=== PATIENT | female | born 1940 | race Caucasian/White ===

== ENCOUNTER 2025-01-19 21:47 | Inpatient (IN) | payer MEDICARE, SELFPAY ==
--- OUTSIDE RECORDS SUMMARY | 2025-01-14 09:34 | XMS_ITS | Encounter Summary ---
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 Procedures IR KYPHOPLASTY LUMBAR Eliazar Jones MD [address] [place] [address] Phone: tel: fax: Referral ID Status Reason Start Date Expiration Date V isits Requested Visits Authorized [id number] Pending Review 12/25/2024 12/25/2025 1 1 Reason for Visit * Imaging (Routine) - Pending Review Specialty Diagnoses / Procedures Referred By Contac t Referred To Contact Radiology Diagnoses Closed compression fracture of L1 lumbar vertebra, initial encounter 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 Procedures IR KYPHOPLASTY LUMBAR Eliazar Jones MD [address] [place] [address] Phone: tel: fax:[phone] Referral ID Status Reason Start Date Expiration Date V isits Requested Visits Authorized [id number] Pending Review 12/25/2024 12/25/2025 1 1 Encounter Details Date Type Department Care Team (Latest Contact Info) Description 01/14/2025 9:34 AM EST - 01/14/2025 11:59 PM EST Hospital Encounter [facility] Interventional Radiology [address] [place] [id number] History of coronary artery bypass graft (Primary Dx); Closed compression fracture of L1 lumbar vertebra, initial encounter; 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 No 07/27 In the past 12 months, has l ack of transportation kept you from meetings, work, or from getting things needed for daily living? No 08/13/2023 Housing Stability Vital Sign Answer Vikram e Recorded Unable to Pay for Housing in the Last Year Not o n file 08/13/2023 Number of Places Lived in the Last Year Not on f ile 08/13/2023 In the last 12 months, was t here a time when you did not have a steady place to sleep or slept in a longterm (including now)? No 08/13/2023 Overall Financial Resource Strain (CARDIA) Answe r Date Recorded How hard is it for you to pa y for the very basics like food, housing, medical care, and heating? Somewhat hard 01/15/2025 Hunger Vital Sign Answer Date Recorded Within the past 12 months, y ou worried that your food would run out before you got the money to buy more. Sometimes true Ran Out of Food in the Last Year Not on file 01/15/2025 PRAPARE - Transportation Answer Date Re corded In the past 12 months, has l ack of transportation kept you from medical appointments or from getting medications? No 12/28 In the past 12 months, has l ack of transportation kept you from meetings, work, or from getting things needed for daily living? No 01/15/2025 Housing Stability Vital Sign Answer Vikram e Recorded Unable to Pay for Housing in the Last Year Not o n file 01/15/2025 Number of Times Moved in the Last Year Not on fi le 01/15/2025 At any time in the [facility], were you homeless or living in a longterm (including now)? No 01/15/2025 Utilities Answer Date Recorded In the past 12 months has th e electric, gas, oil, or water company threatened to shut off services in your home? No 01/15/2025 Comments No Sex and Gender Information Value Date Recorded Sex Assigned at Female 09/05/2024 10:17 AM EDT Legal Sex Female 10:04 PM EST Gender Identity Female 09/05/2024 10:17 AM EDT Sexual Orientation Straight 09/05/2024 10 :17 AM EDT documented as of this encounter Last Filed Vital Signs Vital Sign Reading Time Taken Comments Blood Pressure 142/68 01/14/2025 1:06 PM EST Pulse 79 01/14/2025 1:06 PM EST Temperature 36.4 C (97.5 F) 01/14/2025 10:05 AM EST Respiratory Rate 19 01/14/2025 1:06 PM EST Oxygen Saturation 99% 01/14/2025 1:06 PM EST Inhaled Oxygen Concentration - - Weight 75.3 kg (166 lb) 01/14/2025 10:05 AM EST Height 167.6 cm (5' 6 ) 01/14/2025 10:05 AM EST Body Mass Index 26.79 01/14/2025 10:05 AM EST documented in this encounter Functional Status * IBW (kg) (Calculated) Answer Date of Assessment Author 59.3 01/14/2025 10:05 AM EST Sherin Meier, RN * Are you deaf or do you have serious difficulty hearing? Answer Date of Assessment Author No 12/17/2024 9:43 AM EDT Ivonne Greene * Are you blind or do you have serious difficulty seeing, even when wearing glasses? Answer Date of Assessment Author No 12/17/2024 9:43 AM Ivonne Bermudez * Do you have serious difficulty walking or climbing stairs? Answer Date of Assessment Author No 12/17/2024 9:43 AM Ivonne Bermudez * Do you have serious difficulty dressing or bathing? Answer Date of Assessment Author No 12/17/2024 9:43 AM Ivonne Bermudez * Because of a physical, mental, or emotional condition, do you have difficulty doing errands such asvisiting the doctor's office or shopping? Answer Date of Assessment Author No 12/17/2024 9:43 AM Ivonne Bermudez documented as of this encounter Mental Status * Because of a physical, mental, or emotional condition, do you have serious difficulty concentrating, remembering, or making decisions? Answer Entry Date Author No 12/17/2024 9:43 AM Ivonne Bermudez documented in this encounter Discharge Instructions * Discharge Instructions* Alta Kim RN - 01/14/2025 11:58 AM EST Post Kyphoplasty Discharge Instructions Rest for the remainder of the day with limited activity for the next 24 hours. Do not drink alcohol, make important personal or business decisions, or sign important documents for the next 1-[address], operate machinery or power tools for the next 1-2 days. After 24 hours, walking is encouraged. You may notice new back and hip discomfort due to an increased ability to move. Gradually increase your level of activity over the next few days. Do not lift anything heavier than a gallon of milk for 1 month. No heavy lifting for 3 months, then gradually increase your lifting to normal. This procedure was done through a small skin incision in your back. There are no stitches. The puncture Sites are covered with Band-aids. These can be removed when the incision heals. You may bathe or shower, but gently clean the area with soap and water. Replace the Band-aids following bathing until incisions heal. Observe the puncture site for infection (redness, swelling, drainage, warmth). You should have a follow up appointment scheduled with the radiologist who performed the Kyphoplasty in 10-14 days. Please call to schedule an appointment if you do not already have a scheduled appointment. Please call the numbers listed below if you have additional questions: Interventional Radiology department Sunday-Sunday 7am-5pm Radiologist (24 hour coverage): . Choose option 6 to speak to a cat scan technologist who will take your information and contact the interventional radiologist receptionist doctor's office. documented in this encounter Medications at Time of Discharge aspirin 81 mg EC tablet Take 81 mg by mouth in the morning. 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 90 tablet 3 11/14/2024 calcitonin, salmon, (Miacalcin) 200 unit/actuation nasal sprayIndications: Closed compression fracture of L1 lumbar vertebra, initial encounter,Age-rel ated osteoporosis with current pathological fracture of vertebra, initial encounter Administer 1 spray (200 Units) into one nostril once daily. 3.7 mL 12 12/16/2024 calcium carbonate-vitamin D3 (Caltrate with Vitamin D3) 600 mg-20 mcg (800 unit) tablet Take 1 tablet by mouth once daily. 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 Do not crush or chew. 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 90 tablet 3 11/06/2024 multivitamin tablet Take 1 tablet by mouth in the morning. vibegron (Gemtesa) 75 mg tablet tabletIndications :Overactive bladder,Urge incontinence of urine Take 1 tablet (75 mg) by mouth once daily. 90 tablet 3 12/02/2024 acetaminophen (Tylenol) 500 mg tablet Take 500 mg by mouth every 6 (six) hours if needed for pain score 1-3 (mild). acetaminophen (Tylenol) 500 mg/15 mL solution Take by mouth every 4 (four) hours if needed for pain score 1-3. 5 budesonide-formot Dot (Symbicort) 160-4.5 mcg/actuation inhalerIndication s:Chronic cough Inhale 2 puffs in the morning and at bedtime. Rinse mouth with water after use to reduce aftertaste and incidence of candidiasis. Do not swallow. 10.2 g 2 01/26/2023 amy-E7-[id number]-zinc -ehv-qkxk-cjp 600 mg calcium- 800 unit-50 mg tablet Take 1 tablet by mouth in the morning. 5 cholecalciferol, vitamin D3, (D3-2000) 50 mcg (2,000 unit) capsuleIndication s:Acute low back pain, unspecified back pain laterality, unspecified whether sciatica present,Degenerat dyllan spondylolisthesis ,Closed compression fracture of L1 lumbar vertebra, initial encounter,Closed compression fracture of L2 lumbar vertebra, sequela,Age-relat ed osteoporosis with current pathological fracture of vertebra, initial encounter,Congeni ollie stenosis of cervical spine Take 1 capsule (50 mcg) by mouth in the morning. 180 capsule 1 12/16/2024 magnesium oxide 500 mg magnesium tabletIndications :Acute low back pain, unspecified back pain laterality, unspecified whether sciatica present,Degenerat dyllan spondylolisthesis ,Closed compression fracture of L1 lumbar vertebra, initial encounter,Closed compression fracture of L2 lumbar vertebra, sequela,Age-relat ed osteoporosis with current pathological fracture of vertebra, initial encounter,Congeni ollie stenosis of cervical spine Take 1 tablet (500 mg) by mouth in the evening and 1 tablet (500 mg) before bedtime. May take additionally in morning if not causing diarrhea/abdomina l discomfort. 180 tablet 2 12/16/2024 5 methocarbamol (Robaxin) 750 mg tabletIndications :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, initial encounter,Closed compression fracture of L1 lumbar vertebra, initial encounter,Closed compression fracture of L2 lumbar vertebra, sequela,Congenita l stenosis of cervical spine,Degenerativ e spondylolisthesis ,Acute low back pain, unspecified back pain laterality, unspecified whether sciatica present Take 1 tablet (750 mg) by mouth four times daily. 40 tablet 01/02/2025 oxyCODONE (Roxicodone) 5 mg immediate release tablet Take by mouth. 01/02/2025 5 sennosides-docusa te sodium (Audrey-Colace) 8.6-50 mg tabletIndications :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, initial encounter,Closed compression fracture of L1 lumbar vertebra, initial encounter,Closed compression fracture of L2 lumbar vertebra, sequela,Congenita l stenosis of cervical spine,Degenerativ e spondylolisthesis ,Acute low back pain, unspecified back pain laterality, unspecified whether sciatica present Take 1 tablet by mouth once daily. Well needing oxycodone 90 tablet 12/26/2024 vitamin K2 100 mcg capsuleIndication s:Acute low back pain, unspecified back pain laterality, unspecified whether sciatica present,Degenerat dyllan spondylolisthesis ,Closed compression fracture of L1 lumbar vertebra, initial encounter,Closed compression fracture of L2 lumbar vertebra, sequela,Age-relat ed osteoporosis with current pathological fracture of vertebra, initial encounter,Congeni ollie stenosis of cervical spine Take 1 capsule by mouth in the morning. 180 capsule 1 12/16/2024 5 documented as of this encounter Nursing Notes * Abdiaziz Suarez RN - 01/14/2025 11:30 AM EST Pt here for kyphoplasty. Pre-procedure checks and consent done prior to procedure. Tolerated procedure well, w/ expected pain after procedure. Recovered from anesthesia post, w/ ambulation and PO intake intact. Discharge teaching provided and sent home w/ family. documented in this encounter Plan of Treatment Upcoming Encounters Date Type Department Care Team (Late st Contact Info) Description 02/13/2025 4:15 PM EST Office Visit [facility] [address] [place] [address], [address] [place] [address] Dez Gama MD [address] [place] [address] 09/01/2025 9:00 AM EDT Appointment [facility] Imaging [address] [facility] [address] [place] [address] 11/11/2025 10:30 AM EDT Office Visit [facility] Obstetrics & Gynecology [place] [address] [facility] [address] [place] [address] Pita Medina MD [address] [facility] [address] [place] [address] 11/23/2025 9:00 AM EDT Appointment [facility] Imaging [address] [facility] [address] [place] [id number] 12/03/2025 8:15 AM EDT Office Visit [facility] Endocrinology [address] [place] [address] Evens Santiago MD [facility] [place] [address] 01/13/2026 9:00 AM EST Appointment [facility] Imaging [address] [place] [address] 01/13/2026 10:45 AM EST Office Visit [facility] Neuro[facility] [address] [facility] [address] [place] [address] Jame Jorge MD [address] [place] [id number] Pending Results Name Type Priority Associated Diagnoses Date /Time IR KYPHOPLASTY LUMBAR Imaging Routine Closed compression fracture of L1 lumbar vertebra, initial encounter 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 01/14/2025 12:10 PM EST Scheduled Orders Name Type Priority Associated Diagnoses Orde r Schedule IR KYPHOPLASTY LUMBAR Imaging Routine Closed compression fracture of L1 lumbar vertebra, initial encounter 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 Once for 1 Occurrences starting 01/14/2025 until 01/14/2025 documented as of this encounter Goals Goal Patient Goal Type Associated Problems Recent Progress Patient-Stated? Author Autogenerat ed Goal Care Plan Autogenerated Problem No Eliazar Jones MD documented as of this encounter Procedures Procedure Name Priority Date/Time Associated Diagnosis Comments OXYGEN THERAPY Routine 01/14/2025 12:08 PM EST documented in this encounter Visit Diagnoses Diagnosis History of coronary artery bypass graft- Primary Postsurgical aortocoronary bypass status Closed compression fracture of L1 lumbar vertebra, initial encounter 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 Severe low back pain Lumbago Stented coronary artery Postsurgical percutaneous transluminal coronary angioplasty status documented in this encounter Administered Medications Inactive Administered Medications - up to 3 most recent administrations Medication Order MAR Action Action Date Dose Rate Site HYDROmorphone (Dilaudid) injection 0.2 mg 0.2 mg, intravenous, Every 5 min PRN, pain score 7-10 (severe), Starting on Sun01/14/25 at 1301, For 10 doses, Recovery (only), Confirm route. If ordered IV push, must be given slowly over 2 to 3 minutes (rapid IVP has been associated with an increase in side effects). No dilution is necessary prior to administration. Given 01/14/2025 1:18 PM EST 0.2 mg Given 01/14/2025 1:06 PM EST 0.2 mg iohexol (OMNIPaque) 300 mg iodine/mL solution 50 mL 50 mL, balloon, Once in imaging, Starting on Sun01/14/25 at 1212, For 1 dose Given 01/14/2025 12:12 PM EST 20 mL lidocaine-epinephrine (Xylocaine W/EPI) 1 %-1:100,000 injection infiltration, As needed, Starting on Sun01/14/25 at 1154, Intraprocedure Given 01/14/2025 11:54 AM EST 10 mL oxyCODONE (Roxicodone) immediate release tablet 5 mg 5 mg, oral, Once as needed, pain score 4-6 (moderate), Starting on Sun01/14/25 at 1301, For 2 days, Recovery (only) Given 01/14/2025 1:00 PM EST 5 mg documented in this encounter Additional Health Concerns Active Problems Noted Date Diagnosed Date Autogenerated Problem 01/06/2025 documented as of this encounter Care Teams [employer] Faculty Member Relationship Specialty Start Date End Date Dez Gama MD PCP - General 04/01/21 Dez Gama MD 04/01/21 Dez Gama MD 04/01/21 Eddie Modi MD [address] [place] [address]. [address] [place] [address] Consulting Physician Orthopaedic Surgery 07/24/24 Eliazar Jones MD [address] [facility] [address] [place] [address] Consulting Physician Orthopaedic Surgery 12/16/24 documented as of this encounter
--- OUTSIDE RECORDS SUMMARY | 2025-01-14 11:37 | XMS_ITS | Encounter Summary ---
Author Organization [facility] Address [address] [facility] [address] [place] [address] Care Team Providers Care Implementation Lead Name Role Phone Dez Gama MD Primary Care Provider [phone] Dez Gama MD Unavailable Dez Gama MD Unavailable Eddie Modi MD Unavailable [phone] Eliazar Jones MD Unavailable [phone] Encounter Details Date Type Department Care Team (Late st Contact Info) Description 01/14/2025 11:37 AM EST Anesthesia Event [facility] Interventional Radiology [address] [place], [place] [phone] Zulema García MD [address] [place], [place] [phone] Maciej Zamorano CRNA [address] [address] Anesthesia Record Procedure Summary Procedure Name Responsible Anesthesiologist Anesthesia Start Time Anesthesia Stop Time IR KYPHOPLASTY LUMBAR Zulema García MD 01/14/25 1137 01/14/25 1241 Events Date Time Event Comment 01/14/2025 1129 1137 An Start The patient was re-evaluated prior to the induction of anesthesia and the anesthetic plan was determined to be suitable for the patient's condition and procedure. The first vital signs recorded are pre-induction. 1137 An Start Data 1142 Anesthesia Ready 1236 an stop data 1241 Handoff to Receiving I compl eted my handoff to the receiving clinician during which we: 1. Identified the patient 2. Identified the responsible provider 3. Reviewed the pertinent medical history 4. Discussed the surgical course 5. Reviewed intra-op anesthesia management and issues during anesthesia 6. Set expectations for post-procedure period 7. Allowed opportunity for questions and acknowledgement of understanding. 1241 An Stop Meds Name Total fentaNYL (Sublimaze) injection 50 mcg/mL vial 100 mcg propofol (Diprivan) injection 10 mg/mL 2 74.53 mg dexMEDEtomidine (Precedex) injection 4 m cg/mL in NS 20 mcg ceFAZolin (Ancef) vial 2 g 2 g acetaminophen (Ofirmev) injection 1,000 mg phenylephrine 100 mcg/mL syringe 10 mL ( prefilled syringe) 250 mcg ondansetron (Zofran) 2 mg/mL injection 4 mg sodium chloride 0.9 % infusion 250 mL * Agents No agents on file. * Blood No blood administrations on file. Lines, Drains, and Airways Type Details Placement Removal Peripheral IV Placement Date: 12/27 11/20; Placement Time: 1115; Catheter Size: 20 G; Orientation: Left, Posterior; Location: Hand; Technique: Anatomical landmarks; Inserted by: Dr Valero 01/14/25 1115 by Alat Kim RN Wound 01/14/25; 1245; Spin e- lumbar; Left 01/14/25 1245 by Alta Kim RN Wound 01/14/25; 1245; Spin e- lumbar; Right 01/14/25 1245 by lAta Kim RN documented in this encounter Social History Tobacco Use Types Packs/Day Years [...] place to sleep or slept in a halfway (including now)? No 08/13/2023 AUDIT-C Answer Date Recorded Q1: How often do you have a drink containing alcohol? Never 01/16/2025 Q2: How many drinks containi ng alcohol do you have on a typical day when you are drinking? Patient does not drink Q3: How often do you have si x or more drinks on one occasion? Never 01/16/2025 Overall Financial Resource Strain (CARDIA) Answe r [...] any time in the past 12 m [facility], were you homeless or living in a halfway (including now)? No 01/15/2025 Utilities Answer Date [...] AM EDT documented as of this encounter Functional Status * IBW (kg) (Calculated) Answer Date of Assessment Author 59.3 01/14/2025 10:05 AM Sherin Kohler, RN * Are you deaf or do you have serious difficulty hearing? Answer Date of Assessment Author No 12/17/2024 9:43 AM EDT Ivonne Greene * Are you blind or do you have serious difficulty seeing, even when wearing glasses? Answer Date of Assessment Author No 12/17/2024 9:43 AM EDT Ivonne Greene * Do you have serious difficulty walking or climbing stairs? Answer Date of Assessment Author No 12/17/2024 9:43 AM EDT Ivonne Greene * Do you have serious difficulty dressing or bathing? Answer Date of Assessment Author No 12/17/2024 9:43 AM EDT Ivonne Greene * Because of a physical, mental, or emotional condition, do you have difficulty doing errands such asvisiting the doctor's office or shopping? Answer Date of Assessment Author No 12/17/2024 9:43 AM EDT Ivonne Greene documented as of this encounter Mental Status * Because of a physical, mental, or emotional condition, do you have serious difficulty concentrating, remembering, or making decisions? 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 Anesthesia Post Evaluation Note: Patient location during evaluation: PACU Patient participation: able to participate Level of consciousness: arousable Cardiovascular and Hydration status: stable Respiratory Status Stable and Airway Patent: yes Nausea and Vomiting Control Satisfactory: yes Pain management: adequate Vitals reviewed: yes Unplanned ICU Admission: no There were no known notable events for this encounter. 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 (+) Dyspnea on exertion (+) History of coronary artery bypass graft (+) Hypertension (+) Myocardial infarction involving left anterior descending (LAD) coronary artery (+) Pure hypercholesterolemia (+) Stented coronary artery Pulmonary (+) Chronic cough GI (+) Hiatal hernia /Renal (+) Chronic renal insufficiency Neuro/Psych (+) Anxiety (+) Depression Musculoskeletal (+) 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 (+) Closed compression fracture of L1 lumbar vertebra, initial encounter (+) Closed compression fracture of L2 lumbar vertebra, sequela Other (+) Mononeuropathy, unspecified Medical History[1] Surgical History[2] Social History[3] MEDS Current Outpatient Medications Medication Instructions acetaminophen (Tylenol) 500 mg/15 mL solution Every 4 hours PRN acetaminophen (TYLENOL) 500 mg, Every 6 hours PRN aspirin 81 mg, Daily atorvastatin (LIPITOR) 80 mg, oral, Daily budesonide-formoteroL (Symbicort) 160-4.5 mcg/actuation inhaler 2 puffs, inhalation, 2 times daily RT, Rinse mouth with water after use to reduce aftertaste and incidence of candidiasis. Do not swallow. [id number] 600 mg calcium- 800 unit-50 mg tablet 1 tablet, Daily RT calcitonin (salmon) (MIACALCIN) 200 Units, One Nostril, Daily calcium carbonate-vitamin D3 (Caltrate with Vitamin D3) 600 mg-20 mcg (800 unit) tablet 1 tablet, Daily cholecalciferol (vitamin D3) (D3-2000) 50 mcg, oral, Every morning Gemtesa 75 mg, oral, Daily isosorbide mononitrate ER (IMDUR) 60 mg, oral, Daily, Do not crush or chew. magnesium oxide 500 mg, oral, 2 times daily, May take additionally in morning if not causing diarrhea/abdominal discomfort methocarbamol (ROBAXIN) 750 mg, oral, 4 times daily metoprolol succinate XL (TOPROL-XL) 50 mg, oral, Daily multivitamin tablet 1 tablet, Daily oxyCODONE (Roxicodone) 5 mg immediate release tablet Take by mouth. sennosides-docusate sodium (Audrey-Colace) 8.6-50 mg tablet 1 tablet, oral, Daily, Well needing oxycodone vitamin K2 100 mcg capsule 1 capsule, oral, Every morning Laboratory Data 138 107 14 / 123 4.0 27 0.65 \ 8.0 \ 10.8 / 246 / 33.6 \ Lab Results Component Value Date INR 1.00 01/02/2025 Clinical information reviewed: Allergies Meds Physical Exam Airway TM distance: >3 FB Mouth opening: >3 FB Neck ROM: full Cardiovascular Rhythm: regular Rate: normal Functional capacity: greater than or equal to 4 METS without symptoms Dental - normal exam Pulmonary - normal exam Abdominal - normal exam General Anesthesia Plan ASA 3 NPO status verified MAC Airway: natural airway Monitoring: standard monitors Essential imaging and labs available and reviewed Anesthetic plan and risks discussed with patient. Use of blood products discussed with Consented to blood products [1] Past Medical History: Diagnosis Date Angina pectoris Anxiety Arthritis Cancer skin Chronic pain disorder CKD (chronic kidney disease) Closed compression fracture of L2 vertebra Compression fracture of L1 lumbar vertebra Coronary artery disease Dental disease complete upper dentures and partial lower Depression GERD (gastroesophageal reflux disease) Hiatal hernia Hypertension Joint pain Myocardial infarction Shortness of breath [2] Past Surgical History: Procedure Laterality Date CARDIAC CATHETERIZATION CATARACT EXTRACTION Bilateral COLONOSCOPY CORONARY ANGIOPLASTY CORONARY ARTERY BYPASS GRAFT CORONARY STENT PLACEMENT pt thinks she has 5-6 stents DENTAL SURGERY DILATION AND CURETTAGE OF UTERUS KNEE ARTHROPLASTY Bilateral LUMBAR FUSION 2003 LUMBAR LAMINECTOMY 2002 CO DEBRIDEMENT, SKIN, SUB-Q TISSUE,MUSCLE,=<20 SQ CM Left 09/05/2024 Procedure: Excision, Soft Tissue, Lower Extremity, Left lower leg; Surgeon: Sonny Martinez MD; Location: [facility] OR; Service: General Surgery SKIN CANCER EXCISION TONSILLECTOMY UPPER GASTROINTESTINAL ENDOSCOPY [3] Social History Tobacco Use Smoking status: Former Types: Cigarettes Smokeless tobacco: Never Vaping Use Vaping status: Never Used Substance Use Topics Alcohol use: Yes Alcohol/week: 5.0 standard drinks of alcohol Types: 5 Shots of liquor per week Comment: occasionally Drug use: Never documented in this encounter Plan of Treatment Upcoming Encounters Date Type Department Care Team (Late st Contact Info) Description 02/13/2025 4:15 PM EST Office Visit [facility] [address] [facility] [address] [place] [phone] Dez Gama MD [address] [place] [address] [address] [place] [address] 09/01/2025 9:00 AM EDT Appointment [facility] Imaging [address] [place] [address] 4th [place] [address] 11/11/2025 10:30 AM EDT Office Visit [facility] [place] [address] [facility] [address] [place] [address] Pita Medina MD [address] [place] [address] [address] [place] [address] 11/23/2025 9:00 AM EDT Appointment [facility] Imaging [address] [facility] 2nd [place] [address] 12/03/2025 8:15 AM EDT Office Visit [facility] Endocrinology [address] [place] [phone] Evens Santiago MD [facility] [place] [address] 01/13/2026 9:00 AM EST Appointment [facility] Imaging [address] [place] [phone] 01/13/2026 10:45 AM EST Office Visit [facility] Neurosurgery [facility] [address] [place] [phone] Jame Jorge MD [address] [place] [phone] documented as of this encounter Goals Goal Patient Goal Type Associated Problems Recent Progress Patient-Stated? Author Autogenerat ed Goal Care Plan Autogenerated Problem No Eliazar Jones MD documented as of this encounter Visit Diagnoses Not on filedocumented in this encounter Administered Medications Inactive Administered Medications - up to 3 most recent administrations Medication Order MAR Action Action Date Dose Rate Site acetaminophen (Ofirmev) injection intravenous, Administer over 15 Minutes, As needed, Starting on Sun01/14/25 at 1151, Anesthesia Intraprocedure Given 01/14/2025 11:51 AM EST 1,000 mg ceFAZolin (Ancef) injection intravenous, As needed, Starting on Sun01/14/25 at 1143, Anesthesia Intraprocedure Given 01/14/2025 11:43 AM EST 2 g dexMEDEtomidine in NS (Precedex) injection intravenous, Administer over 10 Minutes, As needed, Starting on Sun01/14/25 at 1140, Anesthesia Intraprocedure Given 01/14/2025 11:50 AM EST 4 mcg Given 01/14/2025 11:46 AM EST 4 mcg Given 01/14/2025 11:44 AM EST 4 mcg fentaNYL (Sublimaze) injection intravenous, As needed, Starting on Sun01/14/25 at 1137, Anesthesia Intraprocedure Given 01/14/2025 11:44 AM EST 25 mcg Given 01/14/2025 11:41 AM EST 25 mcg Given 01/14/2025 11:38 AM EST 25 mcg ondansetron (Zofran) injection intravenous, As needed, Starting on Sun01/14/25 at 1226, Anesthesia Intraprocedure Given 01/14/2025 12:26 PM EST 4 mg phenylephrine in NS (Walter-Synephrine) 100 mcg/mL syringe intravenous, As needed, Starting on Sun01/14/25 at 1158, Anesthesia Intraprocedure Given 01/14/2025 12:16 PM EST 100 mcg Given 01/14/2025 12:02 PM EST 50 mcg Given 01/14/2025 11:58 AM EST 100 mcg propofol (Diprivan) injection intravenous, Continuous PRN, Starting on Sun01/14/25 at 1150, Anesthesia Intraprocedure Given 01/14/2025 12:23 PM EST 20 mg Rate/Dose Change 01/14/2025 12:22 PM EST 75 mcg/kg/min 33. 885 mL/hr Rate/Dose Change 01/14/2025 12:07 PM EST 50 mcg/kg/min 22. 59 mL/hr sodium chloride 0.9 % infusion intravenous, Continuous PRN, Starting on Sun01/14/25 at 1137, Anesthesia Intraprocedure New Bag 01/14/2025 11:37 AM EST documented in this encounter Additional Health Concerns Active Problems Noted Date Diagnosed Date Autogenerated Problem 01/06/2025 documented as of this encounter Care Teams Implementation Lead Relationship Specialty Start Date End Date Dez Gama MD PCP - General 04/01/21 Dez Gama MD 04/01/21 Dez Gama MD 04/01/21 Eddie Modi MD [address] [place], [place] [phone] Consulting Physician Orthopaedic Surgery 07/24/24 Eliazar Jones MD [address] [place] [address] Consulting Physician Orthopaedic Surgery 12/16/24 documented as of this encounter
--- OUTSIDE RECORDS SUMMARY | 2025-01-15 23:31 | XMS_ITS | Encounter Summary ---
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 Name Role Phone Jairo Noble MD Primary Care Provider [phone] Jairo Noble MD Unavailable Jairo Noble MD Unavailable Eddie Modi MD Unavailable [phone] Eliazar Jones MD Unavailable [phone] Jame Jorge MD Unavailable Priti Jaeger RN Unavailable [phone] Reason for Visit * Reason Comments Psychiatric Evaluation * Auth/Cert (Routine) Specialty Diagnoses / Procedures Referred By Leela t Referred To Contact Diagnoses Anxiety [facility] [address] [facility] [address] [place] [address] Phone: tel: [facility] Emergency Department [address] [place] [id number] Phone: tel: Referral ID Status Reason Start Date Expiration Date Visits Re quested Visits Authorized [id number] 1 1 Encounter Details Date Type Department Care Team (Latest Contact Info) Description 01/15/2025 11:31 PM EST - 01/19/2025 7:51 PM EST Hospital Encounter [facility] Medical Unit [address] [place] [phone] Paddy Garrido MD [address] [place] [phone] Satish Blackwell MD [address] [place] [address] Kaci Cisneros MD [address] [place] [address] Anxiety (Primary Dx); Suicidal ideation; 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, initial encounter; Closed compression fracture of L1 lumbar vertebra, initial encounter; Acute low back pain, unspecified back pain laterality, unspecified whether sciatica present Discharge Disposition: Psychiatric Hospital Social History Tobacco Use Types Packs/Day Years [...] place to sleep or slept in a intermediate (including now)? No 08/13/2023 AUDIT-C Answer Date [...] any time in the past 12 m [facility], were you homeless or living in a intermediate (including now)? No 01/15/2025 Utilities Answer Date [...] Sign Reading Time Taken Comments Blood Pressure 153/78 01/19/2025 9:29 AM EST Pulse 93 01/19/2025 2:06 AM EST Temperature 36.9 C (98.5 F) 01/19/2025 9:29 AM EST Respiratory Rate 18 01/19/2025 9:29 AM EST Oxygen Saturation 100% 01/19/2025 9:29 AM EST Inhaled Oxygen Concentration - - Weight 75.3 kg (165 lb 15.8 oz) 01/16/2025 4:15 PM EST Height 167.6 cm (5' 5.98 ) 01/16/2025 4:15 PM ES T Body Mass Index 26.8 01/16/2025 4:15 PM EST documented in this encounter Functional Status * Question Answer Date of Assessment Author AUDIT-C Score 0 01/16/2025 7:00 PM Rosalva Deleon RN Q1: How often do you have a drink containing alcohol? Never 01/16/2025 7:00 PM Heaven Douglas RN Q2: How many drinks containing alcohol do you have on a typical day when you are drinking? Patient does not drink 01/16/2025 7:00 PM Rosalva Douglas RN Q3: How often do you have six or more drinks on one occasion? Never 01/16/2025 7:00 PM Heaven Douglas RN * IBW (kg) (Calculated) Answer Date of Assessment Author 59.26 01/16/2025 4:15 PM Rosalva Leiva RN * Question Answer Date of Assessment Author Are you deaf or do you have serious difficulty hearing? No 01/16/2025 7:01 PM Rosalva Leiva RN Are you blind or do you have serious difficulty seeing, even when wearing glasses? No 01/16/2025 7:01 PM Jud Douglas RN Because of a physical, menta l, or emotional condition, do you have serious difficulty concentrating, remembering, or making decisions? No 01/16/2025 7:01 PM Heaven Douglas RN Do you have serious difficul ty walking or climbing stairs? No 01/16/2025 7:01 PM Rosalva Leiva RN Do you have serious difficul ty dressing or bathing? No 01/16/2025 7:01 PM Joaquín Douglas RN Because of a physical, menta l, or emotional condition, do you have difficulty doing errands such as visiting the doctor's office or shopping? No 01/16/2025 7:01 PM Heaven Douglas RN * Are you deaf or do you have serious difficulty hearing? Answer Date of Assessment Author No 01/16/2025 7:01 PM Rosalva Leiva RN * Are you blind or do you have serious difficulty seeing, even when wearing glasses? Answer Date of Assessment Author No 01/16/2025 7:01 PM EST * Do you have serious difficulty walking or climbing stairs? Answer Date of Assessment Author No 01/16/2025 7:01 PM Rosalva Leiva RN * Do you have serious difficulty dressing or bathing? Answer Date of Assessment Author No 01/16/2025 7:01 PM Rosalva Leiva RN * Because of a physical, mental, or emotional condition, do you have difficulty doing errands such asvisiting the doctor's office or shopping? Answer Date of Assessment Author No 01/16/2025 7:01 PM Rosalva Leiva RN documented as of this encounter Mental Status * Because of a physical, mental, or emotional condition, do you have serious difficulty concentrating, remembering, or making decisions? Answer Entry Date Author No 01/16/2025 7:01 PM Rosalva Leiva RN documented in this encounter Discharge Summaries * Kaci Cisneros MD - 01/19/2025 9:58 AM EST DISCHARGE SUMMARY [address] [id number] Name: Tatmu Domínguez : 1940 CSN: [id number] Date of Admission 01/15/2025 Date of Discharge 01/19/2025 Attending Physician Kaci Cisneros MD Discharge Physician KACI CISNEROS MD Chief Complaint/Reason for Admission Chief Complaint Patient presents with Psychiatric Evaluation Discharge Diagnosis Delirium and Psychosis History of Present Illness Tatum Domínguez is a 84 y.o. female with PMH of HTN, CKD stage II, CAD s/p stent, [place], L1 and L2 compression fractures, mononeuropathy, chronic pain disorder, anxiety, depression, GERD, hiatal hernia, and kyphoplasty on 01/14/[address] Jones, presented to the ED for evaluation of SI thoughts and was cleared by psychiatry. Patient became agitated, delirious, and anxious due to insurance concerns while at the ED, and hence to be admitted for agitation and delirium evaluation and management. Denies chest pain, dizziness, lightheadedness, illicit and drug use, alcohol use, smoking, dizziness, headache, palpitation, fever, chills, urinary symptoms, nausea, or vomiting. The ED, UA showed small leukocyte. Urine drug screen, ethanol serum, CBCD, and CMP were unremarkable. Patient was seen by psychiatry and plan is to place patient on Zyprexa. Hospital Course #Agitation and delirium. Differential Diagnosis: likely drug induced. UTI was ruled out Urine drug screen, ethanol serum, CBC, and CMP were unremarkable. CT head normal, ammonia wnl Started Zyprexa 1.25 mg 3 times daily as recommended by psych. QTc; 460s - today psych discontinued She still is concerned and preoccupied about her bills and now fact she did not take meds right, still over thinking and persistent fixation Psych appreciated and she needs Psych inpatient , son is in agreement # HTN Resume Imdur & Metoprolol xl with parameter to hold. #CAD/HLD Resume ASA, & Lipitor. #Overactive bladder. Patient to bring in non-formulary Gemtesa from home. DVT prophylaxis: Heparin Seen by Pt , rec home with supportive services Patient was screened for Social Drivers of Health during this encounter and found to have concerns in the following domains: financial insecurity food insecurity The After Visit Summary provided to the patient includes information for Find Help, a zip code based platform that assists users with finding resources near them. The following interventions were also done: social work consultation and case management consultation Pertinent Physical Exam At Time of Discharge BP (!) 153/78 (BP Location: Left arm, Patient Position: Lying) Pulse 93 Temp 36.9 ??C (98.5 ??F) (Oral) Resp 18 Ht 1.676 m Wt 75.3 kg SpO2 100% BMI 26.80 kg/m?? Oxygen Therapy SpO2: 100 % Patient Activity During SpO2 Measurement: At rest Oxygen Therapy: None (Room air) Physical Exam Constitutional: Appearance: Normal appearance. Cardiovascular: Rate and Rhythm: Normal rate and regular rhythm. Pulmonary: Effort: No respiratory distress. Breath sounds: Normal breath sounds. Abdominal: General: There is no distension. Palpations: Abdomen is soft. Tenderness: There is no abdominal tenderness. Musculoskeletal: Right lower leg: No edema. Left lower leg: No edema. Neurological: General: No focal deficit present. Mental Status: She is alert and oriented to person, place, and time. Mental status is at baseline. Psychiatric: Mood and Affect: Mood is anxious. Mood is not depressed. Speech: Speech is rapid and pressured. Test Results Pending At Discharge None Advance Care Plan Extended Emergency Contact Information Primary Emergency Contact: damien domínguez Relation: Spouse Preferred language: Ecuadorean Field Coordinator needed? No Full Code Advance Directives (For Healthcare) Advance Directive: Patient has advance directive, copy in chart MIPS STANDARD STATEMENT- ADVANCE CARE PLAN: I confirmed that the patient's Advance Care Plan is present, code status is documented, or surrogate decision maker is listed in the patient's medical record. Medications on Discharge: REFER TO MED LIST IN AFTER VISIT SUMMARY FOR COMPLETE DETAILS/DOSE INSTRUCTIONS. Your medication list START taking these medications Instructions Last Dose Given Next Dose Due OLANZapine 2.5 mg tablet Commonly known as: ZyPREXA Take 0.5 tablets (1.25 mg) by mouth three times daily. CHANGE how you take these medications Instructions Last Dose Given Next Dose Due atorvastatin 80 mg tablet Commonly known as: Lipitor What changed: when to take this Take 1 tablet (80 mg) by mouth once daily. CONTINUE taking these medications Instructions Last Dose Given Next Dose Due aspirin 81 mg EC tablet Take 81 mg by mouth in the morning. calcitonin (salmon) 200 unit/actuation nasal spray Commonly known as: Miacalcin Administer 1 spray (200 Units) into one nostril once daily. Caltrate with Vitamin D3 600 mg-20 mcg (800 unit) tablet Generic drug: calcium carbonate-vitamin D3 Take 1 tablet by mouth once daily. cholecalciferol (vitamin D3) 25 MCG (1000 UT) tablet Commonly known as: Vitamin D-3 Take 25 mcg by mouth once daily. Gemtesa 75 mg tablet tablet Generic drug: vibegron Take 1 tablet (75 mg) by mouth once daily. isosorbide mononitrate ER 30 mg 24 hr tablet Commonly known as: Imdur Take 2 tablets (60 mg) by mouth once daily. Do not crush or chew. methocarbamol 750 mg tablet Commonly known as: Robaxin Take 1 tablet (750 mg) by mouth four times daily. metoprolol succinate XL 50 mg 24 hr tablet Commonly known as: Toprol-XL Take 1 tablet (50 mg) by mouth once daily. multivitamin tablet Take 1 tablet by mouth in the morning. oxyCODONE 5 mg immediate release tablet Commonly known as: Roxicodone Take 1 tablet (5 mg) by mouth every 8 (eight) hours if needed for pain score 7- 10 (severe) or pain score 4-6 (moderate). polyethylene glycol 17 gram packet Commonly known as: Glycolax Take 17 g by mouth once daily. Mix each packet (17 g) with 4 to 8 ounces of liquid. Where to Get Your Medications These medications were sent to [facility]/pharmacy #[id number] [place], [place] [address] [place] [id number] OLANZapine 2.5 mg tablet Information about where to get these medications is not yet available Ask your nurse or doctor about these medications oxyCODONE 5 mg immediate release tablet MIPS STANDARD STATEMENT - Documentation of Current Medications in the Medical Record: I have utilized all available immediate resources to obtain, update, or review the patient's current medications (including all prescriptions, bftj-ouq-uwqxatq products, herbals, cannabis/cannabidiolproducts, and vitamin/mineral/dietary (nutritional) supplements). Relevant Lab/Imaging Data: Recent Results (from the past 24 hours) Comprehensive metabolic panel Collection Time: 01/19/25 6:17 AM Result Value Ref Range Sodium 139 135 - 146 mmol/L Potassium 4.1 3.6 - 5.2 mmol/L Chloride 108 98 - 110 mmol/L CO2 (Bicarbonate) 25 20 - 32 mmol/L Anion Gap 6 3 - 14 mmol/L BUN 14 6 - 24 mg/dL Creatinine 0.64 0.55 - 1.30 mg/dL eGFRcr 87 >=60 mL/min/1.73m*2 Glucose 116 (H) 70 - 99 mg/dL Fasting? Yes Calcium 9.4 8.5 - 10.5 mg/dL AST 15 6 - 42 U/L ALT 21 0 - 55 U/L Alkaline phosphatase 94 30 - 130 U/L Protein, total 7.1 6.0 - 8.4 g/dL Albumin 3.7 3.2 - 5.0 g/dL Bilirubin, total 1.3 (H) 0.2 - 1.2 mg/dL CBC w/ Differential Collection Time: 01/19/25 6:17 AM Result Value Ref Range WBC 7.2 4.0 - 11.0 K/uL RBC 3.93 3.70 - 5.20 M/uL Hemoglobin 12.2 11.0 - 16.0 g/dL Hematocrit 37.0 32.0 - 47.0 % MCV 94.1 80.0 - 100.0 fL MCH 31.0 26.0 - 34.0 pg MCHC 33.0 31.0 - 37.0 g/dL RDW-CV 14.3 11.5 - 14.5 % RDW-SD 49.4 35.0 - 51.0 fL Platelets 227 150 - 400 K/uL MPV 11.5 9.1 - 12.4 fL Neutrophil % 66.2 % Lymphocyte % 21.3 % Monocytes % 9.3 % Eosinophils % 2.1 % Basophils % 0.7 % Immature Granulocytes % 0.4 % NRBC % 0.0 0.0 - 0.0 % Neutrophils Absolute 4.79 1.50 - 7.95 K/uL Lymphocytes Absolute 1.54 0.70 - 4.00 K/uL Monocytes Absolute 0.67 0.36 - 0.77 K/uL Eosinophils Absolute 0.15 0.00 - 0.50 K/uL Basophils Absolute 0.05 0.00 - 0.22 K/uL Immature Granulocytes Absolute 0.03 0.00 - 0.10 K/uL NRBC Absolute 0.00 0.00 - 2.00 K/uL CT HEAD WO CONTRAST Final Result No CT evidence for acute intracranial abnormality, including large territorial infarct, hemorrhage or midline shift. This medical report is generated using voice recognition technology and occasional svyxf-h-nodx words may be substituted. Please read the report carefully in the appropriate medical context. If there is a specific question regarding the language of the report, a radiologist will be made available for clarification. Terry Huff 01/16/2025 5:50 PM Issues Requiring Follow-Up F/u with PCP F/u with Psychiatry Time spent on Discharge (including,but not limited to, medically appropriate examination, dischargeinstructions to the patient/HCP, coordinating care with patient's caregivers and documenting the discharge plan): 37 min Incidental Findings N/a Outpatient Follow-Up Future Appointments Date Time Provider Department Center 02/13/2025 4:15 PM Jairo Noble MD [facility] 09/01/2025 9:00 AM [facility] SCREENING [facility] 11/11/2025 10:30 AM Pita Medina MD [id number] 11/23/2025 9:00 AM [facility] DENSITY [address] [facility] [id number] [place] 12/03/2025 8:15 AM [facility] 9:00 AM [facility] 01/13/2026 10:45 AM [facility]ame [facility] MIPS STANDARD STATEMENT - HEART FAILURE: N/A; no CHF or EF> 40% KACI CISNEROS MD * Kaci Cisneros MD - 01/17/2025 1:45 PM EST DISCHARGE SUMMARY [address] [address] Name: Tatum Domínguez : 1940 CSN: [id number] Date of Admission 01/15/2025 Date of Discharge 01/17/2025 Attending Physician Kaci Cisneros MD Discharge Physician KACI CISNEROS MD Chief Complaint/Reason for Admission Chief Complaint Patient presents with Psychiatric Evaluation Discharge Diagnosis Delirium and Psychosis History of Present Illness Tatum Domínguez is a 84 y.o. female with PMH of HTN, CKD stage II, CAD s/p stent, [place], L1 and L2 compression fractures, mononeuropathy, chronic pain disorder, anxiety, depression, GERD, hiatal hernia, and kyphoplasty on 01/14/[address] Jones, presented to the ED for evaluation of SI thoughts and was cleared by psychiatry. Patient became agitated, delirious, and anxious due to insurance concerns while at the ED, and hence to be admitted for agitation and delirium evaluation and management. Denies chest pain, dizziness, lightheadedness, illicit and drug use, alcohol use, smoking, dizziness, headache, palpitation, fever, chills, urinary symptoms, nausea, or vomiting. The ED, UA showed small leukocyte. Urine drug screen, ethanol serum, CBCD, and CMP were unremarkable. Patient was seen by psychiatry and plan is to place patient on Zyprexa. Hospital Course #Agitation and delirium. Differential Diagnosis: likely drug induced. UA showed small leukocyte. Urine drug screen, ethanol serum, CBCD, and CMP were unremarkable. CT head normal, ammonia wnl Plan: Started Zyprexa 1.25 mg 3 times daily as recommended by psych. Monitor QTc while patient is on Zyprexa hold for > 500. QTc; 460s Seen by psych today , kept on 1;1 last night, no events overnight She still is concern and preoccupied about her bills # HTN Resume Imdur & Metoprolol xl with parameter to hold. #CAD/HLD Resume ASA, & Lipitor. #Overactive bladder. Patient to bring in non-formulary Gemtesa from home. DVT prophylaxis: Heparin Seen by Pt , rec home with supportive services Patient was screened for Social Drivers of Health during this encounter and found to have concerns in the following domains: financial insecurity food insecurity The After Visit Summary provided to the patient includes information for Find Help, a Rising code based platform that assists users with finding resources near them. The following interventions were also done: social work consultation and case management consultation Pertinent Physical Exam At Time of Discharge BP (!) 132/93 (BP Location: Right arm, Patient Position: Sitting) Pulse 88 Temp 37 ??C (98.6 ??F) (Oral) Resp 18 Ht 1.676 m Wt 75.3 kg SpO2 97% BMI 26.80 kg/m?? Oxygen Therapy SpO2: 97 % Patient Activity During SpO2 Measurement: At rest Oxygen Therapy: None (Room air) Physical Exam Constitutional: Appearance: Normal appearance. Cardiovascular: Rate and Rhythm: Normal rate and regular rhythm. Pulmonary: Effort: No respiratory distress. Breath sounds: Normal breath sounds. Abdominal: General: There is no distension. Palpations: Abdomen is soft. Tenderness: There is no abdominal tenderness. Musculoskeletal: Right lower leg: No edema. Left lower leg: No edema. Neurological: General: No focal deficit present. Mental Status: She is alert and oriented to person, place, and time. Mental status is at baseline. Psychiatric: Mood and Affect: Mood is anxious. Mood is not depressed. Test Results Pending At Discharge None Advance Care Plan Extended Emergency Contact Information Primary Emergency Contact: damien domínguez Relation: Spouse Preferred language: Ecuadorean Field Coordinator needed? No Full Code Advance Directives (For Healthcare) Advance Directive: Patient has advance directive, copy in chart MIPS STANDARD STATEMENT- ADVANCE CARE PLAN: I confirmed that the patient's Advance Care Plan is present, code status is documented, or surrogate decision maker is listed in the patient's medical record. Medications on Discharge: REFER TO MED LIST IN AFTER VISIT SUMMARY FOR COMPLETE DETAILS/DOSE INSTRUCTIONS. Your medication list START taking these medications Instructions Last Dose Given Next Dose Due OLANZapine 2.5 mg tablet Commonly known as: ZyPREXA Take 0.5 tablets (1.25 mg) by mouth three times daily. CHANGE how you take these medications Instructions Last Dose Given Next Dose Due atorvastatin 80 mg tablet Commonly known as: Lipitor What changed: when to take this Take 1 tablet (80 mg) by mouth once daily. CONTINUE taking these medications Instructions Last Dose Given Next Dose Due acetaminophen 500 mg tablet Commonly known as: Tylenol Take 500 mg by mouth every 6 (six) hours if needed for pain score 1-3 (mild). aspirin 81 mg EC tablet Take 81 mg by mouth in the morning. calcitonin (salmon) 200 unit/actuation nasal spray Commonly known as: Miacalcin Administer 1 spray (200 Units) into one nostril once daily. Caltrate with Vitamin D3 600 mg-20 mcg (800 unit) tablet Generic drug: calcium carbonate-vitamin D3 Take 1 tablet by mouth once daily. cholecalciferol (vitamin D3) 25 MCG (1000 UT) tablet Commonly known as: Vitamin D-3 Take 25 mcg by mouth once daily. Gemtesa 75 mg tablet tablet Generic drug: vibegron Take 1 tablet (75 mg) by mouth once daily. isosorbide mononitrate ER 30 mg 24 hr tablet Commonly known as: Imdur Take 2 tablets (60 mg) by mouth once daily. Do not crush or chew. methocarbamol 750 mg tablet Commonly known as: Robaxin Take 1 tablet (750 mg) by mouth four times daily. metoprolol succinate XL 50 mg 24 hr tablet Commonly known as: Toprol-XL Take 1 tablet (50 mg) by mouth once daily. multivitamin tablet Take 1 tablet by mouth in the morning. oxyCODONE 5 mg immediate release tablet Commonly known as: Roxicodone Take 1 tablet (5 mg) by mouth every 8 (eight) hours if needed for pain score 7- 10 (severe) or pain score 4-6 (moderate). polyethylene glycol 17 gram packet Commonly known as: Glycolax Take 17 g by mouth once daily. Mix each packet (17 g) with 4 to 8 ounces of liquid. Where to Get Your Medications These medications were sent to [facility]/pharmacy #[id number] [place], [place] [address] [address] OLANZapine 2.5 mg tablet Information about where to get these medications is not yet available Ask your nurse or doctor about these medications oxyCODONE 5 mg immediate release tablet MIPS STANDARD STATEMENT - Documentation of Current Medications in the Medical Record: I have utilized all available immediate resources to obtain, update, or review the patient's current medications (including all prescriptions, detm-kxt-mxbpzjx products, herbals, cannabis/cannabidiolproducts, and vitamin/mineral/dietary (nutritional) supplements). Relevant Lab/Imaging Data: Recent Results (from the past 24 hours) Ammonia Collection Time: 01/16/25 4:39 PM Result Value Ref Range Ammonia 34 19 - 82 ug/dL Troponin I, High Sensitivity Collection Time: 01/16/25 4:40 PM Result Value Ref Range Troponin I, High Sensitivity 17 See Comment ng/L Troponin I, High Sensitivity Collection Time: 01/16/25 7:44 PM Result Value Ref Range Troponin I, High Sensitivity 18 See Comment ng/L Comprehensive metabolic panel Collection Time: 01/17/25 5:51 AM Result Value Ref Range Sodium 141 135 - 146 mmol/L Potassium 3.4 (L) 3.6 - 5.2 mmol/L Chloride 109 98 - 110 mmol/L CO2 (Bicarbonate) 27 20 - 32 mmol/L Anion Gap 5 3 - 14 mmol/L BUN 10 6 - 24 mg/dL Creatinine 0.52 (L) 0.55 - 1.30 mg/dL eGFRcr 92 >=60 mL/min/1.73m*2 Glucose 105 (H) 70 - 99 mg/dL Fasting? Yes Calcium 9.0 8.5 - 10.5 mg/dL AST 13 6 - 42 U/L ALT 15 0 - 55 U/L Alkaline phosphatase 81 30 - 130 U/L Protein, total 5.8 (L) 6.0 - 8.4 g/dL Albumin 3.2 3.2 - 5.0 g/dL Bilirubin, total 1.3 (H) 0.2 - 1.2 mg/dL CBC w/ Differential Collection Time: 01/17/25 5:51 AM Result Value Ref Range WBC 7.2 4.0 - 11.0 K/uL RBC 3.47 (L) 3.70 - 5.20 M/uL Hemoglobin 10.7 (L) 11.0 - 16.0 g/dL Hematocrit 33.2 32.0 - 47.0 % MCV 95.7 80.0 - 100.0 fL MCH 30.8 26.0 - 34.0 pg MCHC 32.2 31.0 - 37.0 g/dL RDW-CV 14.5 11.5 - 14.5 % RDW-SD 50.4 35.0 - 51.0 fL Platelets 193 150 - 400 K/uL MPV 12.1 9.1 - 12.4 fL Neutrophil % 69.7 % Lymphocyte % 15.9 % Monocytes % 11.6 % Eosinophils % 1.7 % Basophils % 0.8 % Immature Granulocytes % 0.3 % NRBC % 0.0 0.0 - 0.0 % Neutrophils Absolute 5.05 1.50 - 7.95 K/uL Lymphocytes Absolute 1.15 0.70 - 4.00 K/uL Monocytes Absolute 0.84 (H) 0.36 - 0.77 K/uL Eosinophils Absolute 0.12 0.00 - 0.50 K/uL Basophils Absolute 0.06 0.00 - 0.22 K/uL Immature Granulocytes Absolute 0.02 0.00 - 0.10 K/uL NRBC Absolute 0.00 0.00 - 2.00 K/uL CT HEAD WO CONTRAST Final Result No CT evidence for acute intracranial abnormality, including large territorial infarct, hemorrhage or midline shift. This medical report is generated using voice recognition technology and occasional [id number]-j-[id number] words may be substituted. Please read the report carefully in the appropriate medical context. If there is a specific question regarding the language of the report, a radiologist will be made available for clarification. Terry Huff 01/16/2025 5:50 PM Issues Requiring Follow-Up F/u with PCP F/u with Psychiatry Time spent on Discharge (including,but not limited to, medically appropriate examination, dischargeinstructions to the patient/HCP, coordinating care with patient's caregivers and documenting the discharge plan): 37 min Incidental Findings N/a Outpatient Follow-Up Future Appointments Date Time Provider Department Center 02/13/2025 4:15 PM Jairo Noble MD [facility] 09/01/2025 9:00 AM [facility] S[facility] [place] 11/11/2025 10:30 AM Pita Medina MD [id number] [facility] 11/23/2025 9:00 AM [facility]ONE DENSITY [address] [facility] [id number] [place] 12/03/2025 8:15 AM Evens Santiago MD TENDMR [place] 01/13/2026 9:00 AM [facility] [place] 01/13/2026 10:45 AM Jame Jorge MD MNEURO [facility] STANDARD STATEMENT - HEART FAILURE: N/A; no CHF or EF> 40% KACI CISNEROS MD documented in this encounter Medications at Time of Discharge aspirin 81 mg EC tablet Take 81 mg by mouth in the morning. 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 90 tablet 3 5 calcitonin, salmon, (Miacalcin) 200 unit/actuation nasal sprayIndications:Close d compression fracture of L1 lumbar vertebra, initial encounter,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, initial encounter Administer 1 spray (200 Units) into one nostril once daily. 3.7 mL 12 5 calcium carbonate-vitamin D3 (Caltrate with Vitamin D3) 600 mg-20 mcg (800 unit) tablet Take 1 tablet by mouth once daily. cholecalciferol, vitamin D3, (Vitamin D-3) 25 MCG (1000 UT) tablet Take 25 mcg by mouth once daily. 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 Do not crush or chew. 180 tablet 3 5 10/17/19 26 methocarbamol (Robaxin) 750 mg tabletIndications:Age- related osteoporosis with current pathological fracture of vertebra, initial encounter,Closed compression fracture of L1 lumbar vertebra, initial encounter,Acute low back pain, unspecified back pain laterality, unspecified whether sciatica present,Closed compression fracture of L2 lumbar vertebra, sequela,Congenital stenosis of cervical spine,Degenerative spondylolisthesis Take 1 tablet (750 mg) by mouth four times daily. 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 90 tablet 3 5 multivitamin tablet Take 1 tablet by mouth in the morning. OLANZapine (ZyPREXA) 2.5 mg tabletIndications:Anxi ety,Suicidal ideation Take 0.5 tablets (1.25 mg) by mouth three times daily. 45 tablet 5 02/17/20 25 oxyCODONE (Roxicodone) 5 mg immediate release tabletIndications:Age- related osteoporosis with current pathological fracture of vertebra, initial encounter,Closed compression fracture of L1 lumbar vertebra, initial encounter,Acute low back pain, unspecified back pain laterality, unspecified whether sciatica present Take 1 tablet (5 mg) by mouth every 8 (eight) hours if needed for pain score 7-10 (severe) or pain score 4-6 (moderate). 5 polyethylene glycol (Glycolax) 17 gram packet Take 17 g by mouth once daily. Mix each packet (17 g) with 4 to 8 ounces of liquid. vibegron (Gemtesa) 75 mg tablet tabletIndications:Over active bladder,Urge incontinence of urine Take 1 tablet (75 mg) by mouth once daily. 90 tablet 3 5 documented as of this encounter Progress Notes * Lali Arenas RN - 01/19/2025 5:20 PM EST Case Management Progress Note Plan reviewed with medical team. Medical team plan: Pt followed by Psych for increased agitation & delirium, on 1:1 sitter for safety, current recommendation is for geripsych admit. Pt fixated on paying her bills & taking her medication. She was evaluated by PT today, who cleared her to return home with VNA services if appropriate. __ List of post-acute care options provided. _ Choices Offered, List Provided ___ Financial Relationship Disclosed. __X Goals of Hospitalization Reviewed Barriers: N/A Anticipated Discharge Plan/Needs: Geripsych admit once a bed's available * Merari Acevedo, PT - 01/19/2025 10:39 AM EST Physical Therapy Treatment Day 2 Progress Note Patient Name: Tatum Domínguez : 1940 Today's Date: 01/19/2025 Subjective I think because I didn't take the medications when I went home, it's impacted my recovery from this surgery. Objective General Information General Info PT Received On: 01/19/25 Following Therapy Session:: Call gibson within reach, Patient in Chair, Chair Alarm Activated, Nursing Staff Aware of Patient Location, Family/visitor Present (Pt and son present) Plan of Care Reviewed With:: Patient, RN/Charge Nurse, Family (Pt son and ) Recommended mobility with nursing staff: SUP w/ RW; can ambulate in hallway with direct supervision Precautions Precautions Other Precautions: Fall Risk, Spine-No bending, Lifting, Twisting (TLSO for comfort per MD Jones note on 01/14/25) Pain Pain Assessment Pain Assessment: 0-10 Pain Score: 3 Pain Type: Acute pain, Surgical pain Pain Location: Back Cognition Overall Cognitive Status: Within Functional Limits (flat affect, intermittently expressing frustration with decr IND since fall, education/reassurance provided) Orientation Level: Oriented to person, Oriented to place, Oriented to time Integumentary Integumentary Integumentary: PIV, TLSO LDA Integrity: Intact Pre and Post Therapy Mobility Assessment Bed Mobility Comments: Pt received seated up in chair Sit to Stand: Supervision (x2 reps from chair) Stand to Sit: Supervision (x2 reps to chair) Assistive Device: Rolling Walker Distance (Feet): 250' Assistance Level: Supervision Assistive Device: Rolling Walker Gait Characteristics: Pt amb w/ reciprocal gait pattern, decr gait speed, slight forward flexed postrue, no LOB Number of Stairs: 9 Assistance Level: Supervision Assistive Device: None Railing: Right Technique: Step-to up and down Stairs Comments: pt with appropriate safety awareness, no LOB, steady Sitting Balance - Static: IND in chair Sitting Balance - Dynamic: IND in chair Standing Balance - Static: SUP w/ RW Standing Balance - Dynamic: SUP w/ RW AMPAC - (Basic Mobility Inpatient Short Form) How much help from another person do you currently need? Turning from your back to your side while in a flat bed without using bedrails?: 4 - None Moving from lying on your back to sitting on the side of a flat bed without using bedrails?: 4 - None Moving to and from a bed to a chair (including a wheelchair)?: 3 - A little Standing up from a chair using your arms (e.g., wheelchair, or bedside chair)?: 3 - A little To walk in hospital room?: 3 - A little Climbing 3-5 steps with a railing?: 3 - A little Raw Score: 20 Education Education Education Provided: Role of PT/Plan of Care, Discharge Planning, Adaptive Equipment/Assistive Device, Safety Awareness/Fall Risk, Precautions Education Provided to: Patient Teaching Method: Discussion, Demonstration Barriers to learning: None evident Learning Evaluation: Verbalizes understanding, Demonstrates/applies knowledge, Needs practice Assessment Pt requiring extensive education/re-assurance t/o session regarding expected/normal progression with recovery from kyphoplasty. Pt able to ambulate in hallway with use of RW and SUP, steady gait no LOB. Pt able to ascend/descend 9 stairs w/ SUP, appropriate sequencing, no LOB. At this time continueto recommend d/c home w/ HPT services and intermittent supervision for IADLs. Goals Short Term Goals Date Established/Amended: 01/17/25 Goal timeframe: 5 tx days Bed mobility goal: Pt will be IND w/ bed mobility Transfers goal: Pt will transfer from sit<>stand MOD I w/ RW Ambulation goal: Pt will ambulate 300' w/ RW and SUP Stairs goal: Pt will ascend/descned 8 stairs w/ SUP Problem specific goal 1: Pt will participate in therex progam to return to PLOF Rn Registry Goals Goal established/Amended: 01/17/25 Goal timeframe: 10 tx days Transfers goal: Pt will transfer from sit<>stand IND Ambulation goal: Pt will ambulate 400' w/ LRAD and MOD I Stairs goal: Pt will ascend/descend 8 stairs IND Problem specific goal 1: Pt will be IND w/ HEP Plan Plan: Continued Skilled Inpatient PT Services Treatment Interventions: Therapeutic exercise, Assistive device training, Functional mobility training, Gait training, Stair training, Neuromuscular Re- education/balance, Patient/family education PT Frequency and Duration: 2-3 x/week until Discharge Recommendations Anticipate Discharge to: Home with support/services Discharge Assist/Support Needed: Intermittent Supervision, Physical assistance from family/caregiver Home services recommended: Home PT Recommended mobility with nursing staff: SUP w/ RW; can ambulate in hallway with direct supervision Merari Acevedo, PT [place] lic # [id number] Time: 25 min * Kaci Cisneros MD - 01/18/2025 1:19 PM EST PROGRESS NOTE Today's Date: 01/18/2025 Name: Tatum Domínguez : 1940 LOS: 0 Days Subjective Overnight events: No significant overnight events Complaints: very fixated and difficult to redirect, becomes agitated and frustrated at times, but calm down easily, son at bedside ROS: Negative except as stated above. Objective Exam: BP 117/69 (BP Location: Left arm, Patient Position: Sitting) Pulse 89 Temp 36.9 ??C (98.4 ??F) (Oral) Resp 18 Ht 1.676 m Wt 75.3 kg SpO2 97% BMI 26.80 kg/m?? Oxygen Therapy SpO2: 97 % Patient Activity During SpO2 Measurement: At rest Oxygen Therapy: None (Room air) No intake or output data in the 24 hours ending 01/18/25 1319 Physical Exam Cardiovascular: Rate and Rhythm: Normal rate and regular rhythm. Pulmonary: Effort: No respiratory distress. Breath sounds: Normal breath sounds. Abdominal: General: There is no distension. Palpations: Abdomen is soft. Tenderness: There is no abdominal tenderness. Neurological: Mental Status: She is alert. Psychiatric: Attention and Perception: Attention and perception normal. Mood and Affect: Mood is anxious. Speech: Speech is rapid and pressured. Current medications: Current Medications[1] Recent Results (from the past 24 hours) Comprehensive metabolic panel Collection Time: 01/18/25 7:10 AM Result Value Ref Range Sodium 141 135 - 146 mmol/L Potassium 4.1 3.6 - 5.2 mmol/L Chloride 110 98 - 110 mmol/L CO2 (Bicarbonate) 26 20 - 32 mmol/L Anion Gap 5 3 - 14 mmol/L BUN 10 6 - 24 mg/dL Creatinine 0.57 0.55 - 1.30 mg/dL eGFRcr 90 >=60 mL/min/1.73m*2 Glucose 117 70 - 139 mg/dL Fasting? No Calcium 9.3 8.5 - 10.5 mg/dL AST 16 6 - 42 U/L ALT 18 0 - 55 U/L Alkaline phosphatase 90 30 - 130 U/L Protein, total 6.7 6.0 - 8.4 g/dL Albumin 3.7 3.2 - 5.0 g/dL Bilirubin, total 1.5 (H) 0.2 - 1.2 mg/dL CBC w/ Differential Collection Time: 01/18/25 7:10 AM Result Value Ref Range WBC 5.7 4.0 - 11.0 K/uL RBC 3.94 3.70 - 5.20 M/uL Hemoglobin 12.2 11.0 - 16.0 g/dL Hematocrit 37.1 32.0 - 47.0 % MCV 94.2 80.0 - 100.0 fL MCH 31.0 26.0 - 34.0 pg MCHC 32.9 31.0 - 37.0 g/dL RDW-CV 14.3 11.5 - 14.5 % RDW-SD 49.4 35.0 - 51.0 fL Platelets 217 150 - 400 K/uL MPV 11.7 9.1 - 12.4 fL Neutrophil % 67.4 % Lymphocyte % 18.7 % Monocytes % 11.1 % Eosinophils % 1.9 % Basophils % 0.7 % Immature Granulocytes % 0.2 % NRBC % 0.0 0.0 - 0.0 % Neutrophils Absolute 3.83 1.50 - 7.95 K/uL Lymphocytes Absolute 1.06 0.70 - 4.00 K/uL Monocytes Absolute 0.63 0.36 - 0.77 K/uL Eosinophils Absolute 0.11 0.00 - 0.50 K/uL Basophils Absolute 0.04 0.00 - 0.22 K/uL Immature Granulocytes Absolute 0.01 0.00 - 0.10 K/uL NRBC Absolute 0.00 0.00 - 2.00 K/uL CT HEAD WO CONTRAST Final Result No CT evidence for acute intracranial abnormality, including large territorial infarct, hemorrhage or midline shift. This medical report is generated using voice recognition technology and occasional [id number] words may be substituted. Please read the report carefully in the appropriate medical context. If there is a specific question regarding the language of the report, a radiologist will be made available for clarification. Terry Huff 01/16/2025 5:50 PM Medical Decision Making Data: Initial Problem(s) still undergoing workup/evaluation: Yes New Problems Identified and Addressed this DOS: No Changes/Updates to Differential Diagnosis this DOS: No Management/test interpretation discussed this DOS with: Physicians/APCs not in same group/specialtyPsych, CM, RN Labs/imaging ordered this DOS: No Updates/Changes to Drug Management this DOS: No Medication(s) ordered/changed this DOS: as below Assessment Principal Problem: Anxiety Tatum Domínguez is a 84 y.o. female with PMH of HTN, CKD stage II, CAD s/p stent, [place], L1 and L2 compression fractures, mononeuropathy, chronic pain disorder, anxiety, depression, GERD, hiatal hernia, and kyphoplasty on 01/14/[address] Jones, presented to the ED for evaluation of SI thoughts and was cleared by psychiatry. Patient became agitated, delirious, and anxious due to insurance concerns while at the ED, and hence to be admitted for agitation and delirium evaluation and management. Admitted for Psych eval and pain control Principal Problem: #Agitation and delirium. Acute Psychosis UA showed small leukocyte. Urine drug screen, ethanol serum, CBCD, and CMP were unremarkable. CT head normal, ammonia wnl Plan: Started Zyprexa 1.25 mg 3 times daily as recommended by psych. QTc; 460s She still is concern and preoccupied about her bills and now fact she did not take meds right, Psych appreciated and she needs Psych inpatient , son is in agreement # HTN Resume Imdur & Metoprolol xl with parameter to hold. #CAD/HLD Resume ASA, & Lipitor. #Overactive bladder. Patient to bring in non-formulary Gemtesa from home. DVT prophylaxis: Heparin Code Status and Discussions: Full Code Social Determinants of Health that impact treatment or disposition: None Shared decision making: Patient Family Update: at bedside Ongoing Medical Necessity for hospital stay: Delirium requiring psychotropic medications/close monitoring. Discharge plan/Disposition: enzo Psych KACI CISNEROS MD [1] Current Facility-Administered Medications: acetaminophen (Tylenol) tablet 650 mg, 650 mg, oral, q6h PRN, 650 mg at 01/18/25 0828 OR acetaminophen (Tylenol) solution 650 mg, 650 mg, oral, q6h PRN, Jeannie Hastings NP acetaminophen (Tylenol) tablet 650 mg, 650 mg, oral, Once, Paddy Garrido MD aspirin EC tablet 81 mg, 81 mg, oral, Daily, Jeannie Hastings NP, 81 mg at 01/18/25 0814 atorvastatin (Lipitor) tablet 80 mg, 80 mg, oral, Nightly, Jeannie Garcia NP, 80 mg at 01/17/252013 calcitonin (salmon) (Miacalcin) nasal spray 200 Units, 200 Units, One Nostril, Daily, Jeannie Hastings NP, 200 Units at 01/18/25 0818 calcium carbonate-vitamin D3 600 mg-10 mcg (400 unit) per tablet 1 tablet, 1 tablet, oral, Daily, Jeannie Hastings NP, 1 tablet at 01/18/25 0814 cholecalciferol (vitamin D3) (Vitamin D-3) tablet 1,000 Units, 1,000 Units, oral, Daily, Jeannie Hastings NP, 1,000 Units at 01/18/25 0814 cyclobenzaprine (Flexeril) tablet 5 mg, 5 mg, oral, TID PRN, Kaci Cisneros MD, 5 mg at 01/18/2528 docusate sodium (Colace) capsule 100 mg, 100 mg, oral, BID PRN OR docusate sodium (Colace) oralliquid 100 mg, 100 mg, oral, BID PRN, Jeannie Garcia NP heparin (porcine) injection 5,000 Units, 5,000 Units, subcutaneous, q12h EMPERATRIZ, Jeannie Hastings NP, 5,000 Units at 01/18/25 0814 isosorbide mononitrate ER (Imdur) 24 hr tablet 60 mg, 60 mg, oral, Daily, Jeannie Hastings NP, 60 mg at 01/18/25 0814 melatonin tablet 6 mg, 6 mg, oral, Nightly, Jeannie Hastings NP metoprolol succinate XL (Toprol-XL) 24 hr tablet 50 mg, 50 mg, oral, Daily, Jeannie aHstings NP, 50 mg at 01/18/25 0814 multivitamin with folic acid 1 tablet, 1 each, oral, Daily, Jeannie Garcia NP, 1 tablet at 01/18/25 0814 OLANZapine (ZyPREXA) tablet 1.25 mg, 1.25 mg, oral, TID, Yuridia Olsen NP, 1.25 mg at 01/18/25 0815 polyethylene glycol (Glycolax) packet 17 g, 17 g, oral, Daily, Jeannie Garcia NP, 17 g at103/20/24 0816 prochlorperazine (Compazine) tablet 10 mg, 10 mg, oral, q8h PRN, Jeannie Hastings NP * Emani Arnold MD - 01/18/2025 12:09 PM EST Psychiatric Progress Note PATIENT NAME: Tatum Domínguez DATE OF : 1940 Patient seen: 01/18/2025 Patient evaluated and reviewed with: Attending Nursing staff I am consulted today for opinion whether she needs inpatient psychiatric hospitalization and follow-up of delirium Subjective/Objective: As per nursing report, patient is excessively anxious perseverated and obsessed over multiple things including her health, medication and financial issues, unable to understand despite of trying to explain. Talking in circles about the same thing. Patient's son Manish and father Atul was available to speak during the visit. Patient consented to speak to them. Patient's son and father were extremely worried about her ongoing ruminating anxiety,. They reported, over the last 3 weeks patient has been having anxiety issues, easily triggered, and were getting into a lot of arguments. Son reports patient was stating she would go home and come back to hospital in a day due to unclear reason On my assessment, patient's delirium cleared, denies confusion, not exhibiting purposeless movements, not responding to internal stimuli, oriented to 3 spheres, reports she is able to clearly think. However she is continuing to have anxious and obsessive symptoms, was constantly talking about her finances and physical issues, she says that she messed up herself because she was not taking medication as she was supposed to, she tried to explain but unable to she has no past psychiatric history and never on any medication in the past She has no outside psychiatric services so far Son and strongly feels that they are unable to manage her anxiety at home She denies depression SI and HI patient fell one month ago, had a CT scan of the lumbar spine and pelvis which revealed chronic compression fracture as well as a right gluteal hematoma. Patient had an MRI and followed up with ortho,identified to have a fracture. Underwent a kypoplasty on 01/14. She has been taking oxycodone consistently since her fall in November. Given her presentation - acute mental status change, patient presents as delirious. Mental Status Exam Alert, sitting in the chair, anxious, tried to stand up suddenly, no purposeless movements of finger speech - fluent. Perseverating, repeating herself, mood - anxious Affect- constricted thought process -perseverating over finances and health issues, thought content - denies SI and HI, denies perceptual disturbances judgement/insight -fair attention - fair orientation - oriented to self, location, recent/remote memory - fair/fair BP (!) 142/82 (BP Location: Left arm, Patient Position: Sitting) Pulse 92 Temp 37.2 ??C (98.9 ??F) (Oral) Resp 16 Ht 1.676 m Wt 75.3 kg SpO2 96% BMI 26.80 kg/m?? Medications Scheduled Scheduled Medications[1] PRN PRN Medications[2] Principal Problem: Anxiety Labs Admission on 01/15/2025 Component Date Value Ref Range Status Sodium 01/16/2025 138 135 - 146 mmol/L Final Potassium 01/16/2025 3.9 3.6 - 5.2 mmol/L Final Chloride 01/16/2025 105 98 - 110 mmol/L Final CO2 (Bicarbonate) 01/16/2025 27 20 - 32 mmol/L Final Anion Gap 01/16/2025 6 3 - 14 mmol/L Final BUN 01/16/2025 17 6 - 24 mg/dL Final Creatinine 01/16/2025 0.62 0.55 - 1.30 mg/dL Final eGFRcr 01/16/2025 88 >=60 mL/min/1.73m*2 Final Calculated using CKD-EPI 2020 creatinine equation. Glucose 01/16/2025 125 70 - 139 mg/dL Final Fasting? 01/16/2025 Unknown Final Calcium 01/16/2025 9.1 8.5 - 10.5 mg/dL Final AST 01/16/2025 14 6 - 42 U/L Final ALT 01/16/2025 18 0 - 55 U/L Final Alkaline phosphatase 01/16/2025 94 30 - 130 U/L Final Protein, total 01/16/2025 6.6 6.0 - 8.4 g/dL Final Albumin 01/16/2025 3.7 3.2 - 5.0 g/dL Final Bilirubin, total 01/16/2025 1.0 0.2 - 1.2 mg/dL Final Ethanol level, plasma/serum 01/16/2025 <3 0 - 3 mg/dL Final Amphetamines screen, urine 01/16/2025 Screen Negative Screen Negative Final Cutoff concentration = 1000 ng/mL. Barbiturates screen, urine 01/16/2025 Screen Negative Screen Negative Final Cutoff concentration = 200 ng/mL. Benzodiazepines screen, urine 01/16/2025 Screen Negative Screen Negative Final Cutoff concentration = 200 ng/mL. Buprenorphine screen, urine 01/16/2025 Screen Negative Screen Negative Final Cutoff concentration = 5 ng/mL. Cannabinoids screen, urine 01/16/2025 Screen Negative Screen Negative Final Cutoff concentration = 50 ng/mL. Cocaine screen, urine 01/16/2025 Screen Negative Screen Negative Final Cutoff concentration = 300 ng/mL. Ethanol screen, urine 01/16/2025 Not Detected Not Detected Final Cutoff concentration = 10 mg/dL. Fentanyl screen, urine 01/16/2025 Screen Negative Screen Negative Final Cutoff concentration = 1.0 ng/mL. Methadone screen, urine 01/16/2025 Screen Negative Screen Negative Final Cutoff concentration = 300 mg/dL. Opiates screen, urine 01/16/2025 Screen Negative Screen Negative Final Cutoff concentration = 300 ng/mL. Oxycodone screen, urine 01/16/2025 Screen Negative Screen Negative Final Cutoff concentration = 100 ng/mL. Creatinine, urine, specimen validi* 01/16/2025 25.00 >=20.00 mg/dL Final WBC 01/16/2025 8.4 4.0 - 11.0 K/uL Final RBC 01/16/2025 3.74 3.70 - 5.20 M/uL Final Hemoglobin 01/16/2025 11.7 11.0 - 16.0 g/dL Final Hematocrit 01/16/2025 35.3 32.0 - 47.0 % Final MCV 01/16/2025 94.4 80.0 - 100.0 fL Final MCH 01/16/2025 31.3 26.0 - 34.0 pg Final MCHC 01/16/2025 33.1 31.0 - 37.0 g/dL Final RDW-CV 01/16/2025 14.4 11.5 - 14.5 % Final RDW-SD 01/16/2025 49.6 35.0 - 51.0 fL Final Platelets 01/16/2025 199 150 - 400 K/uL Final MPV 01/16/2025 11.8 9.1 - 12.4 fL Final Neutrophil % 01/16/2025 72.3 % Final Lymphocyte % 01/16/2025 14.0 % Final Monocytes % 01/16/2025 12.0 % Final Eosinophils % 01/16/2025 1.2 % Final Basophils % 01/16/2025 0.4 % Final Immature Granulocytes % 01/16/2025 0.1 % Final NRBC % 01/16/2025 0.0 0.0 - 0.0 % Final Neutrophils Absolute 01/16/2025 6.10 1.50 - 7.95 K/uL Final Lymphocytes Absolute 01/16/2025 1.18 0.70 - 4.00 K/uL Final Monocytes Absolute 01/16/2025 1.01 (H) 0.36 - 0.77 K/uL Final Eosinophils Absolute 01/16/2025 0.10 0.00 - 0.50 K/uL Final Basophils Absolute 01/16/2025 0.03 0.00 - 0.22 K/uL Final Immature Granulocytes Absolute 01/16/2025 0.01 0.00 - 0.10 K/uL Final NRBC Absolute 01/16/2025 0.00 0.00 - 2.00 K/uL Final Color, Ur 01/16/2025 Yellow Yellow, Dark Yellow Final Clarity, Ur 01/16/2025 Clear Clear Final Specific Gold Bar, Ur 01/16/2025 <=1.005 1.005 - 1.030 Final pH, Ur 01/16/2025 6.5 5.0 - 8.0 Final Protein,Ur 01/16/2025 Negative Negative mg/dL Final Glucose,Ur 01/16/2025 Negative Negative mg/dL Final Ketones, Ur 01/16/2025 Negative Negative mg/dL Final Bilirubin, Ur 01/16/2025 Negative Negative Final Blood, Ur 01/16/2025 Negative Negative Final Urobilinogen, Ur 01/16/2025 1.0 0.2-1.0 E.U./dl E.U./dl Final Nitrite, Ur 01/16/2025 Negative Negative Final Leukocyte Esterase, Ur 01/16/2025 Small (A) Negative WBC/uL Final RBC, Ur 01/16/2025 1 0-4 cells/HPF cells/HPF Final WBC, Ur 01/16/2025 1 0-5 cells/HPF cells/HPF Final Epithelial Cells, UR 01/16/2025 0 0-5 cells/HPF cells/HPF Final Bacteria, Ur 01/16/2025 None Seen None Seen Final Casts, Ur 01/16/2025 0 0-4 cells/LPF cells/LPF Final Troponin I, High Sensitivity 01/16/2025 17 See Comment ng/L Final Troponin I, High Sensitivity 01/16/2025 18 See Comment ng/L Final Ammonia 01/16/2025 34 19 - 82 ug/dL Final Sodium 01/17/2025 141 135 - 146 mmol/L Final Potassium 01/17/2025 3.4 (L) 3.6 - 5.2 mmol/L Final Chloride 01/17/2025 109 98 - 110 mmol/L Final CO2 (Bicarbonate) 01/17/2025 27 20 - 32 mmol/L Final Anion Gap 01/17/2025 5 3 - 14 mmol/L Final BUN 01/17/2025 10 6 - 24 mg/dL Final Creatinine 01/17/2025 0.52 (L) 0.55 - 1.30 mg/dL Final eGFRcr 01/17/2025 92 >=60 mL/min/1.73m*2 Final Calculated using CKD-EPI 2020 creatinine equation. Glucose 01/17/2025 105 (H) 70 - 99 mg/dL Final Fasting? 01/17/2025 Yes Final Calcium 01/17/2025 9.0 8.5 - 10.5 mg/dL Final AST 01/17/2025 13 6 - 42 U/L Final ALT 01/17/2025 15 0 - 55 U/L Final Alkaline phosphatase 01/17/2025 81 30 - 130 U/L Final Protein, total 01/17/2025 5.8 (L) 6.0 - 8.4 g/dL Final Albumin 01/17/2025 3.2 3.2 - 5.0 g/dL Final Bilirubin, total 01/17/2025 1.3 (H) 0.2 - 1.2 mg/dL Final WBC 01/17/2025 7.2 4.0 - 11.0 K/uL Final RBC 01/17/2025 3.47 (L) 3.70 - 5.20 M/uL Final Hemoglobin 01/17/2025 10.7 (L) 11.0 - 16.0 g/dL Final Hematocrit 01/17/2025 33.2 32.0 - 47.0 % Final MCV 01/17/2025 95.7 80.0 - 100.0 fL Final MCH 01/17/2025 30.8 26.0 - 34.0 pg Final MCHC 01/17/2025 32.2 31.0 - 37.0 g/dL Final RDW-CV 01/17/2025 14.5 11.5 - 14.5 % Final RDW-SD 01/17/2025 50.4 35.0 - 51.0 fL Final Platelets 01/17/2025 193 150 - 400 K/uL Final MPV 01/17/2025 12.1 9.1 - 12.4 fL Final Neutrophil % 01/17/2025 69.7 % Final Lymphocyte % 01/17/2025 15.9 % Final Monocytes % 01/17/2025 11.6 % Final Eosinophils % 01/17/2025 1.7 % Final Basophils % 01/17/2025 0.8 % Final Immature Granulocytes % 01/17/2025 0.3 % Final NRBC % 01/17/2025 0.0 0.0 - 0.0 % Final Neutrophils Absolute 01/17/2025 5.05 1.50 - 7.95 K/uL Final Lymphocytes Absolute 01/17/2025 1.15 0.70 - 4.00 K/uL Final Monocytes Absolute 01/17/2025 0.84 (H) 0.36 - 0.77 K/uL Final Eosinophils Absolute 01/17/2025 0.12 0.00 - 0.50 K/uL Final Basophils Absolute 01/17/2025 0.06 0.00 - 0.22 K/uL Final Immature Granulocytes Absolute 01/17/2025 0.02 0.00 - 0.10 K/uL Final NRBC Absolute 01/17/2025 0.00 0.00 - 2.00 K/uL Final Sodium 01/18/2025 141 135 - 146 mmol/L Final Potassium 01/18/2025 4.1 3.6 - 5.2 mmol/L Final Chloride 01/18/2025 110 98 - 110 mmol/L Final CO2 (Bicarbonate) 01/18/2025 26 20 - 32 mmol/L Final Anion Gap 01/18/2025 5 3 - 14 mmol/L Final BUN 01/18/2025 10 6 - 24 mg/dL Final Creatinine 01/18/2025 0.57 0.55 - 1.30 mg/dL Final eGFRcr 01/18/2025 90 >=60 mL/min/1.73m*2 Final Calculated using CKD-EPI 2020 creatinine equation. Glucose 01/18/2025 117 70 - 139 mg/dL Final Fasting? 01/18/2025 No Final Calcium 01/18/2025 9.3 8.5 - 10.5 mg/dL Final AST 01/18/2025 16 6 - 42 U/L Final ALT 01/18/2025 18 0 - 55 U/L Final Alkaline phosphatase 01/18/2025 90 30 - 130 U/L Final Protein, total 01/18/2025 6.7 6.0 - 8.4 g/dL Final Albumin 01/18/2025 3.7 3.2 - 5.0 g/dL Final Bilirubin, total 01/18/2025 1.5 (H) 0.2 - 1.2 mg/dL Final WBC 01/18/2025 5.7 4.0 - 11.0 K/uL Final RBC 01/18/2025 3.94 3.70 - 5.20 M/uL Final Hemoglobin 01/18/2025 12.2 11.0 - 16.0 g/dL Final Hematocrit 01/18/2025 37.1 32.0 - 47.0 % Final MCV 01/18/2025 94.2 80.0 - 100.0 fL Final MCH 01/18/2025 31.0 26.0 - 34.0 pg Final MCHC 01/18/2025 32.9 31.0 - 37.0 g/dL Final RDW-CV 01/18/2025 14.3 11.5 - 14.5 % Final RDW-SD 01/18/2025 49.4 35.0 - 51.0 fL Final Platelets 01/18/2025 217 150 - 400 K/uL Final MPV 01/18/2025 11.7 9.1 - 12.4 fL Final Neutrophil % 01/18/2025 67.4 % Final Lymphocyte % 01/18/2025 18.7 % Final Monocytes % 01/18/2025 11.1 % Final Eosinophils % 01/18/2025 1.9 % Final Basophils % 01/18/2025 0.7 % Final Immature Granulocytes % 01/18/2025 0.2 % Final NRBC % 01/18/2025 0.0 0.0 - 0.0 % Final Neutrophils Absolute 01/18/2025 3.83 1.50 - 7.95 K/uL Final Lymphocytes Absolute 01/18/2025 1.06 0.70 - 4.00 K/uL Final Monocytes Absolute 01/18/2025 0.63 0.36 - 0.77 K/uL Final Eosinophils Absolute 01/18/2025 0.11 0.00 - 0.50 K/uL Final Basophils Absolute 01/18/2025 0.04 0.00 - 0.22 K/uL Final Immature Granulocytes Absolute 01/18/2025 0.01 0.00 - 0.10 K/uL Final NRBC Absolute 01/18/2025 0.00 0.00 - 2.00 K/uL Final Assessment: Unspecified anxiety Delirium-resolved On my assessment, patient's delirium resolved. She is reportedly medically cleared. she continues to have anxiety and perseverations that has been affecting her negatively. Patient's family significantly worried about her ongoing anxiety for last 3 weeks and arguments between her and She will benefit from geriatric psychiatric inpatient hospitalization for further management of anxiety and stabilization. Plan: -She is currently on olanzapine 1.25 mg p.o. 3 times daily - Recommending geriatric inpatient psychiatric hospitalization and medication will be reassessed bythem. She may benefit from initiating SSRIs Emani Arnold MD January 18, 2025 [employer] discussed the use of antipsychotic medication with patient. Education involved medication indication, risk/benefit, including the risk of sedation, movement disorders, and metabolic syndrome (heart disease, diabetes, stroke), as well as potentially irreversible involuntary movements (TD). Dicussed with HCP ( and son as well) [1] acetaminophen, 650 mg, oral, Once aspirin, 81 mg, oral, Daily atorvastatin, 80 mg, oral, Nightly calcitonin (salmon), 200 Units, One Nostril, Daily calcium carbonate-vitamin D3, 1 tablet, oral, Daily cholecalciferol (vitamin D3), 1,000 Units, oral, Daily heparin (porcine), 5,000 Units, subcutaneous, q12h EMPERATRIZ isosorbide mononitrate ER, 60 mg, oral, Daily melatonin, 6 mg, oral, Nightly metoprolol succinate XL, 50 mg, oral, Daily multivitamin, 1 each, oral, Daily OLANZapine, 1.25 mg, oral, TID polyethylene glycol, 17 g, oral, Daily [2] PRN medications: acetaminophen OR acetaminophen, cyclobenzaprine, docusate sodium OR docusate sodium, prochlorperazine * Arlen TysonLEANAW - 01/17/2025 5:21 PM EST SOCIAL WORK BIOPSYCHOSOCIAL ASSESSMENT Clinical Information/History of Presenting Illness: Pt is a 84 y.o. female with PMH of HTN, CKD stage II, CAD s/p stent, [place], L1 and L2 compression fractures, mononeuropathy, chronic pain disorder, anxiety, depression, GERD, hiatal hernia, and kyphoplasty on 01/14/[address] Jones, who presented to the ED for evaluation of SI thoughts and was cleared by psychiatry. SW consult for Financial/Benefits. SW met with Pt, Pt's , and Pt's son at bedside. Living situation and family history: Pt lives in [place] with her . Pt has a son, Manish, whois involved in her care. Substance Abuse History: Pt denies substance abuse hx. Psychiatric History: Pt was seen by Psych, who reported that Pt has delirium. Pt reports that she is a worrier by nature, but this level of anxiety has increased, when her pain increased before her surgery. Pt states that she did not feel ready to discharge, and Pt and family had thought Pt would be going to [facility]. Psych to reassess tomorrow. Safety Concerns: Pt is a high fall risk. Community Resources: Pt's PCP is Jairo Noble MD ([phone]). Pt received surgery by Dr. Henning. Pt expressed needing to follow up with surgeon about medication and follow-up care. SW Tigertexted Dr. Henning to follow up with Pt. Impressions: Pt was alert and oriented. Pt presented as anxious. Pt asked SW if I spend all of my money, what will happen with the additional money? Pt could not clarify if she meant debt. Pt was tangential in thought, often jumping to another topic when discussing one topic. Pt had hard time answering questions at times, as she was still discussing another topic. Pt was perseverating on finances and potential next steps. Pt was also perseverating on medication prescribed and follow-up. Pt stated that she did not feel ready for discharge. Pt also stated that when she was working with PT, she felt unstable going up the stairs. Pt and family stated that anxiety increased recently. SW asked if I could follow up with CM about the discharge pending, and Pt appeared unsure of this, and seemedto want reassurance about all concerns. Actions Taken: Chart reviewed; biopsychosocial assessment completed; provided active and empathic listening; SW CM Jordan Hernandez, who checked in with Pt's doctor and Psych and the plan changed to Pt staying another day to be re- assessed by Psych tomorrow - communicated this to Pt's family; sent Tigertext to Dr. Henning to follow up with Pt Plan: No other SW needs at this time. SW can be re-consulted if needs arise. * Emani Arnold MD - 01/17/2025 3:09 PM EST Psychiatric Progress Note PATIENT NAME: Tatum Domínguez DATE OF : 1940 Patient seen: 01/17/2025 Patient evaluated and reviewed with: Attending Nursing staff Subjective/Objective: I saw the patient today as per psychiatric consult recommendation yesterday. Patient was seen sitting in her chair, calm and cooperative, continues to have purposeless movements of his fingers picking on his clothing. Overall seems to be improved. Son Manish present during theinterview and he felt she improved compared to yesterday. . Her nurse reports she is pleasant and not having any issues except feeling anxious. Patient is somewhat paranoid about nurse being in the room while I am talking to her. She is fixated on financial issues and she worries about the bills goes to her children after she is gone. She reports is able to manage things but he is slow and does things methodically. She reports having difficulty sleeping at night because of nurses coming into her room. She reportssitter is outside and not bothering much. Denies depression hopelessness SI and HI. She denies AH and VH She is oriented to today's date time month year, her date of name of hospital and city. patient fell one month ago, had a CT scan of the lumbar spine and pelvis which revealed chronic compression fracture as well as a right gluteal hematoma. Patient had an MRI and followed up with ortho,identified to have a fracture. Underwent a kypoplasty on 01/14. She has been taking oxycodone consistently since her fall in November. Given her presentation - acute mental status change, patient presents as delirious. Mental Status Exam Alert, sitting in the chair, calm, has mild purposeless movements of finger picking the clothes speech - fluent. mood - anxious about finances Affect- constricted but brightens appropriately thought process -fixated on financial issues otherwise goal-oriented thought content - denies SI and HI, denies perceptual disturbances judgement/insight -fair attention - fair orientation - oriented to self, location, recent/remote memory - fair/fair BP (!) 132/93 (BP Location: Right arm, Patient Position: Sitting) Pulse 88 Temp 37 ??C (98.6 ??F) (Oral) Resp 18 Ht 1.676 m Wt 75.3 kg SpO2 97% BMI 26.80 kg/m?? Medications Scheduled Scheduled Medications[1] PRN PRN Medications[2] Principal Problem: Anxiety Labs Admission on 01/15/2025 Component Date Value Ref Range Status Sodium 01/16/2025 138 135 - 146 mmol/L Final Potassium 01/16/2025 3.9 3.6 - 5.2 mmol/L Final Chloride 01/16/2025 105 98 - 110 mmol/L Final CO2 (Bicarbonate) 01/16/2025 27 20 - 32 mmol/L Final Anion Gap 01/16/2025 6 3 - 14 mmol/L Final BUN 01/16/2025 17 6 - 24 mg/dL Final Creatinine 01/16/2025 0.62 0.55 - 1.30 mg/dL Final eGFRcr 01/16/2025 88 >=60 mL/min/1.73m*2 Final Calculated using CKD-EPI 2020 creatinine equation. Glucose 01/16/2025 125 70 - 139 mg/dL Final Fasting? 01/16/2025 Unknown Final Calcium 01/16/2025 9.1 8.5 - 10.5 mg/dL Final AST 01/16/2025 14 6 - 42 U/L Final ALT 01/16/2025 18 0 - 55 U/L Final Alkaline phosphatase 01/16/2025 94 30 - 130 U/L Final Protein, total 01/16/2025 6.6 6.0 - 8.4 g/dL Final Albumin 01/16/2025 3.7 3.2 - 5.0 g/dL Final Bilirubin, total 01/16/2025 1.0 0.2 - 1.2 mg/dL Final Ethanol level, plasma/serum 01/16/2025 <3 0 - 3 mg/dL Final Amphetamines screen, urine 01/16/2025 Screen Negative Screen Negative Final Cutoff concentration = 1000 ng/mL. Barbiturates screen, urine 01/16/2025 Screen Negative Screen Negative Final Cutoff concentration = 200 ng/mL. Benzodiazepines screen, urine 01/16/2025 Screen Negative Screen Negative Final Cutoff concentration = 200 ng/mL. Buprenorphine screen, urine 01/16/2025 Screen Negative Screen Negative Final Cutoff concentration = 5 ng/mL. Cannabinoids screen, urine 01/16/2025 Screen Negative Screen Negative Final Cutoff concentration = 50 ng/mL. Cocaine screen, urine 01/16/2025 Screen Negative Screen Negative Final Cutoff concentration = 300 ng/mL. Ethanol screen, urine 01/16/2025 Not Detected Not Detected Final Cutoff concentration = 10 mg/dL. Fentanyl screen, urine 01/16/2025 Screen Negative Screen Negative Final Cutoff concentration = 1.0 ng/mL. Methadone screen, urine 01/16/2025 Screen Negative Screen Negative Final Cutoff concentration = 300 mg/dL. Opiates screen, urine 01/16/2025 Screen Negative Screen Negative Final Cutoff concentration = 300 ng/mL. Oxycodone screen, urine 01/16/2025 Screen Negative Screen Negative Final Cutoff concentration = 100 ng/mL. Creatinine, urine, specimen validi* 01/16/2025 25.00 >=20.00 mg/dL Final WBC 01/16/2025 8.4 4.0 - 11.0 K/uL Final RBC 01/16/2025 3.74 3.70 - 5.20 M/uL Final Hemoglobin 01/16/2025 11.7 11.0 - 16.0 g/dL Final Hematocrit 01/16/2025 35.3 32.0 - 47.0 % Final MCV 01/16/2025 94.4 80.0 - 100.0 fL Final MCH 01/16/2025 31.3 26.0 - 34.0 pg Final MCHC 01/16/2025 33.1 31.0 - 37.0 g/dL Final RDW-CV 01/16/2025 14.4 11.5 - 14.5 % Final RDW-SD 01/16/2025 49.6 35.0 - 51.0 fL Final Platelets 01/16/2025 199 150 - 400 K/uL Final MPV 01/16/2025 11.8 9.1 - 12.4 fL Final Neutrophil % 01/16/2025 72.3 % Final Lymphocyte % 01/16/2025 14.0 % Final Monocytes % 01/16/2025 12.0 % Final Eosinophils % 01/16/2025 1.2 % Final Basophils % 01/16/2025 0.4 % Final Immature Granulocytes % 01/16/2025 0.1 % Final NRBC % 01/16/2025 0.0 0.0 - 0.0 % Final Neutrophils Absolute 01/16/2025 6.10 1.50 - 7.95 K/uL Final Lymphocytes Absolute 01/16/2025 1.18 0.70 - 4.00 K/uL Final Monocytes Absolute 01/16/2025 1.01 (H) 0.36 - 0.77 K/uL Final Eosinophils Absolute 01/16/2025 0.10 0.00 - 0.50 K/uL Final Basophils Absolute 01/16/2025 0.03 0.00 - 0.22 K/uL Final Immature Granulocytes Absolute 01/16/2025 0.01 0.00 - 0.10 K/uL Final NRBC Absolute 01/16/2025 0.00 0.00 - 2.00 K/uL Final Color, Ur 01/16/2025 Yellow Yellow, Dark Yellow Final Clarity, Ur 01/16/2025 Clear Clear Final Specific [place], Ur 01/16/2025 <=1.005 1.005 - 1.030 Final pH, Ur 01/16/2025 6.5 5.0 - 8.0 Final Protein,Ur 01/16/2025 Negative Negative mg/dL Final Glucose,Ur 01/16/2025 Negative Negative mg/dL Final Ketones, Ur 01/16/2025 Negative Negative mg/dL Final Bilirubin, Ur 01/16/2025 Negative Negative Final Blood, Ur 01/16/2025 Negative Negative Final Urobilinogen, Ur 01/16/2025 1.0 0.2-1.0 E.U./dl E.U./dl Final Nitrite, Ur 01/16/2025 Negative Negative Final Leukocyte Esterase, Ur 01/16/2025 Small (A) Negative WBC/uL Final RBC, Ur 01/16/2025 1 0-4 cells/HPF cells/HPF Final WBC, Ur 01/16/2025 1 0-5 cells/HPF cells/HPF Final Epithelial Cells, UR 01/16/2025 0 0-5 cells/HPF cells/HPF Final Bacteria, Ur 01/16/2025 None Seen None Seen Final Casts, Ur 01/16/2025 0 0-4 cells/LPF cells/LPF Final Troponin I, High Sensitivity 01/16/2025 17 See Comment ng/L Final Troponin I, High Sensitivity 01/16/2025 18 See Comment ng/L Final Ammonia 01/16/2025 34 19 - 82 ug/dL Final Sodium 01/17/2025 141 135 - 146 mmol/L Final Potassium 01/17/2025 3.4 (L) 3.6 - 5.2 mmol/L Final Chloride 01/17/2025 109 98 - 110 mmol/L Final CO2 (Bicarbonate) 01/17/2025 27 20 - 32 mmol/L Final Anion Gap 01/17/2025 5 3 - 14 mmol/L Final BUN 01/17/2025 10 6 - 24 mg/dL Final Creatinine 01/17/2025 0.52 (L) 0.55 - 1.30 mg/dL Final eGFRcr 01/17/2025 92 >=60 mL/min/1.73m*2 Final Calculated using CKD-EPI 2020 creatinine equation. Glucose 01/17/2025 105 (H) 70 - 99 mg/dL Final Fasting? 01/17/2025 Yes Final Calcium 01/17/2025 9.0 8.5 - 10.5 mg/dL Final AST 01/17/2025 13 6 - 42 U/L Final ALT 01/17/2025 15 0 - 55 U/L Final Alkaline phosphatase 01/17/2025 81 30 - 130 U/L Final Protein, total 01/17/2025 5.8 (L) 6.0 - 8.4 g/dL Final Albumin 01/17/2025 3.2 3.2 - 5.0 g/dL Final Bilirubin, total 01/17/2025 1.3 (H) 0.2 - 1.2 mg/dL Final WBC 01/17/2025 7.2 4.0 - 11.0 K/uL Final RBC 01/17/2025 3.47 (L) 3.70 - 5.20 M/uL Final Hemoglobin 01/17/2025 10.7 (L) 11.0 - 16.0 g/dL Final Hematocrit 01/17/2025 33.2 32.0 - 47.0 % Final MCV 01/17/2025 95.7 80.0 - 100.0 fL Final MCH 01/17/2025 30.8 26.0 - 34.0 pg Final MCHC 01/17/2025 32.2 31.0 - 37.0 g/dL Final RDW-CV 01/17/2025 14.5 11.5 - 14.5 % Final RDW-SD 01/17/2025 50.4 35.0 - 51.0 fL Final Platelets 01/17/2025 193 150 - 400 K/uL Final MPV 01/17/2025 12.1 9.1 - 12.4 fL Final Neutrophil % 01/17/2025 69.7 % Final Lymphocyte % 01/17/2025 15.9 % Final Monocytes % 01/17/2025 11.6 % Final Eosinophils % 01/17/2025 1.7 % Final Basophils % 01/17/2025 0.8 % Final Immature Granulocytes % 01/17/2025 0.3 % Final NRBC % 01/17/2025 0.0 0.0 - 0.0 % Final Neutrophils Absolute 01/17/2025 5.05 1.50 - 7.95 K/uL Final Lymphocytes Absolute 01/17/2025 1.15 0.70 - 4.00 K/uL Final Monocytes Absolute 01/17/2025 0.84 (H) 0.36 - 0.77 K/uL Final Eosinophils Absolute 01/17/2025 0.12 0.00 - 0.50 K/uL Final Basophils Absolute 01/17/2025 0.06 0.00 - 0.22 K/uL Final Immature Granulocytes Absolute 01/17/2025 0.02 0.00 - 0.10 K/uL Final NRBC Absolute 01/17/2025 0.00 0.00 - 2.00 K/uL Final Assessment: Delirium Improving delirium Plan: - Continue current medication. Limit nighttime nurse visits Olanzapine 1.25mg TID - Delirium precautions as follows: Avoid known deliriogenic agents: Benzodiazepines unless GABAergic withdrawal suspected -or- patient is chronically on benzodiazepines at home Consider reducing/eliminating other medications associated with a higher risk of delirium: Beta-blockers Calcium-channel blockers (e.g. amlodipine) Antimuscarinics Antihistaminergics Order sleep medications as standing, not PRN For management of pain: Maximize non-opioid pain regimen prior to starting opioids Avoid tramadol and meperidine. Favor hydromorphone for IV opioids. Use the following routine, even if the patient objects, unless there is a safety concern: Shades up and room light on by 8am. Shades down and room light off by 8pm. OOB as much as clinically possible Limit overnight awakenings to medically necessary monitoring only Monitor QTc on olanzapine, hold for above 500. Emani Arnold MD January 17, 2025 [employer] discussed the use of antipsychotic medication with patient. Education involved medication indication, risk/benefit, including the risk of sedation, movement disorders, and metabolic syndrome (heart disease, diabetes, stroke), as well as potentially irreversible involuntary movements (TD). Dicussed with HCP ( and son as well) [1] acetaminophen, 650 mg, oral, Once aspirin, 81 mg, oral, Daily atorvastatin, 80 mg, oral, Nightly calcitonin (salmon), 200 Units, One Nostril, Daily calcium carbonate-vitamin D3, 1 tablet, oral, Daily cholecalciferol (vitamin D3), 1,000 Units, oral, Daily heparin (porcine), 5,000 Units, subcutaneous, q12h EMPERATRIZ isosorbide mononitrate ER, 60 mg, oral, Daily melatonin, 6 mg, oral, Nightly metoprolol succinate XL, 50 mg, oral, Daily multivitamin, 1 each, oral, Daily OLANZapine, 1.25 mg, oral, TID polyethylene glycol, 17 g, oral, Daily [2] PRN medications: acetaminophen OR acetaminophen, docusate sodium OR docusate sodium, prochlorperazine * Sonny Vincent PharmD - 01/16/2025 3:27 PM EST Pharmacy - Admission Medication History and Reconciliation I reviewed the available medical records, studied the outpatient prescription dispense history, gather information about the patient's medication history. I interviewed both the patient and the caregiver (son) about the patient's medication therapy allowed them to ask questions and provided answers to their questions. I reviewed and updated as necessary, the patient's Allergies and Home Medication List. I reconciled the patient's Prior to Admission Medications with the Admission Medication Orders. I communicated significant findings and discrepancies directly with a member of the Primary Team. Findings and Recommendations: Based on the available information, I recommend no changes to the admission medication orders. My findings are detailed in the Table at the end of this note. Thank you for allowing me to participate in the care of this patient. Please contact me or any member of the pharmacist staff if you have questions. Sonny Vincent PharmD, [facility] Medication Documentation Review Audit Reviewed by Jeannie Hastings NP (Nurse Practitioner) on 01/16/25 at 1527 Medication Order Taking? Sig Documenting Provider Last Dose Status acetaminophen (Tylenol) 500 mg tablet [id number] Yes Take 500 mg by mouth every 6 (six) hours if needed for pain score 1-3 (mild). Historical Provider, 01/15/2025 Active aspirin 81 mg EC tablet [id number] Yes Take 81 mg by mouth in the morning. Nurse [facility], RN 01/15/2025 Morning Active atorvastatin (Lipitor) 80 mg tablet [id number] Yes Take 1 tablet (80 mg) by mouth once daily. Patient taking differently: Take 80 mg by mouth at bedtime. Rosalva Valdovinos NP 01/15/2025 Bedtime Active calcitonin, salmon, (Miacalcin) 200 unit/actuation nasal spray [id number] Yes Administer 1 spray (200 Units) into one nostril once daily. Eliazar Jones MD Past Month Active calcium carbonate-vitamin D3 (Caltrate with Vitamin D3) 600 mg-20 mcg (800 unit) tablet [id number] Yes Take 1 tablet by mouth once daily. Historical Provider, 01/15/2025 Active cholecalciferol, vitamin D3, (Vitamin D-3) 25 MCG (1000 UT) tablet [id number] Yes Take 25 mcg by mouth once daily. Historical ProviderMD 01/15/2025 Active isosorbide mononitrate ER (Imdur) 30 mg 24 hr tablet [id number] Yes Take 2 tablets (60 mg) by mouth once daily. Do not crush or chew. Rosalva Valdovinos NP 01/15/2025 Active methocarbamol (Robaxin) 750 mg tablet [id number] Yes Take 1 tablet (750 mg) by mouth four times daily. Eliazar Jones MD Past Week Active metoprolol succinate XL (Toprol-XL) 50 mg 24 hr tablet [id number] Yes Take 1 tablet (50 mg) by mouthonce daily. Rosalva Valdovinos NP 01/15/2025 Active multivitamin tablet [id number] Yes Take 1 tablet by mouth in the morning. Historical ProviderMD Past Week Active oxyCODONE (Roxicodone) 5 mg immediate release tablet [id number] Yes Take 0.5-1 tablets (2.5-5 mg) bymouth every 4 (four) hours if needed for pain score 7-10 (severe) or pain score 4-6 (moderate). Patient taking differently: Take 5 mg by mouth every 8 (eight) hours if needed for pain score 7-10 (severe) or pain score 4-6 (moderate). Eliazar Jones MD Past Week Active polyethylene glycol (Glycolax) 17 gram packet [id number] Yes Take 17 g by mouth once daily. Mix eachpacket (17 g) with 4 to 8 ounces of liquid. Historical ProviderMD Past Week Active vibegron (Gemtesa) 75 mg tablet tablet [id number] Yes Take 1 tablet (75 mg) by mouth once daily. Anette Saleh NP 01/15/2025 Active * Yuridia Olsen NP - 01/16/2025 10:32 AM EST Psychiatric Progress Note PATIENT NAME: Tatum Domínguez DATE OF : 1940 Patient seen: 01/16/2025 Patient evaluated and reviewed with: Attending Nursing staff Subjective/Objective: Patient seen. Restless in bed. Purposeless movements noted. Stuck in repetitive thinking of paying her bills, issues with insurance and finances. Unable to reality test through these concerns. Son reports new onset of behavior (a few days ago.) Denies past psych hx. Makes SI statements but denies plan or intent. Denies having SI before this surgery, relates it to her bad insurance. No paranoia noted but perseveration evident. Patient fell one month ago, had a CT scan of the lumbar spine and pelvis which revealed chronic compression fracture as well as a right gluteal hematoma. Patient had an MRI and followed up with ortho,identified to have a fracture. Underwent a kypoplasty on 01/14. She has been taking oxycodone consistently since her fall in November. Given her presentation - acute mental status change, patient presents as delirious. Mental Status Exam Alert, lying in bed, restless speech - fluent. pressured mood - not good Affect- constricted but brightens appropriately thought process - at times linear, but perseverates on issues (see above) that she feels as though she is not able to complete. thought content - makes SI statement, but denies plan or intent. judgement/insight - impaired attention - fair orientation - oriented to self, location, recent/remote memory - fair/fair BP (!) 145/86 Pulse 80 Temp 36.1 ??C (96.9 ??F) (Temporal) Resp 17 SpO2 100% Medications Scheduled Scheduled Medications[1] PRN PRN Medications[2] Principal Problem: Anxiety Labs Admission on 01/15/2025 Component Date Value Ref Range Status Sodium 01/16/2025 138 135 - 146 mmol/L Final Potassium 01/16/2025 3.9 3.6 - 5.2 mmol/L Final Chloride 01/16/2025 105 98 - 110 mmol/L Final CO2 (Bicarbonate) 01/16/2025 27 20 - 32 mmol/L Final Anion Gap 01/16/2025 6 3 - 14 mmol/L Final BUN 01/16/2025 17 6 - 24 mg/dL Final Creatinine 01/16/2025 0.62 0.55 - 1.30 mg/dL Final eGFRcr 01/16/2025 88 >=60 mL/min/1.73m*2 Final Calculated using CKD-EPI 2020 creatinine equation. Glucose 01/16/2025 125 70 - 139 mg/dL Final Fasting? 01/16/2025 Unknown Final Calcium 01/16/2025 9.1 8.5 - 10.5 mg/dL Final AST 01/16/2025 14 6 - 42 U/L Final ALT 01/16/2025 18 0 - 55 U/L Final Alkaline phosphatase 01/16/2025 94 30 - 130 U/L Final Protein, total 01/16/2025 6.6 6.0 - 8.4 g/dL Final Albumin 01/16/2025 3.7 3.2 - 5.0 g/dL Final Bilirubin, total 01/16/2025 1.0 0.2 - 1.2 mg/dL Final Ethanol level, plasma/serum 01/16/2025 <3 0 - 3 mg/dL Final Amphetamines screen, urine 01/16/2025 Screen Negative Screen Negative Final Cutoff concentration = 1000 ng/mL. Barbiturates screen, urine 01/16/2025 Screen Negative Screen Negative Final Cutoff concentration = 200 ng/mL. Benzodiazepines screen, urine 01/16/2025 Screen Negative Screen Negative Final Cutoff concentration = 200 ng/mL. Buprenorphine screen, urine 01/16/2025 Screen Negative Screen Negative Final Cutoff concentration = 5 ng/mL. Cannabinoids screen, urine 01/16/2025 Screen Negative Screen Negative Final Cutoff concentration = 50 ng/mL. Cocaine screen, urine 01/16/2025 Screen Negative Screen Negative Final Cutoff concentration = 300 ng/mL. Ethanol screen, urine 01/16/2025 Not Detected Not Detected Final Cutoff concentration = 10 mg/dL. Fentanyl screen, urine 01/16/2025 Screen Negative Screen Negative Final Cutoff concentration = 1.0 ng/mL. Methadone screen, urine 01/16/2025 Screen Negative Screen Negative Final Cutoff concentration = 300 mg/dL. Opiates screen, urine 01/16/2025 Screen Negative Screen Negative Final Cutoff concentration = 300 ng/mL. Oxycodone screen, urine 01/16/2025 Screen Negative Screen Negative Final Cutoff concentration = 100 ng/mL. Creatinine, urine, specimen validi* 01/16/2025 25.00 >=20.00 mg/dL Final WBC 01/16/2025 8.4 4.0 - 11.0 K/uL Final RBC 01/16/2025 3.74 3.70 - 5.20 M/uL Final Hemoglobin 01/16/2025 11.7 11.0 - 16.0 g/dL Final Hematocrit 01/16/2025 35.3 32.0 - 47.0 % Final MCV 01/16/2025 94.4 80.0 - 100.0 fL Final MCH 01/16/2025 31.3 26.0 - 34.0 pg Final MCHC 01/16/2025 33.1 31.0 - 37.0 g/dL Final RDW-CV 01/16/2025 14.4 11.5 - 14.5 % Final RDW-SD 01/16/2025 49.6 35.0 - 51.0 fL Final Platelets 01/16/2025 199 150 - 400 K/uL Final MPV 01/16/2025 11.8 9.1 - 12.4 fL Final Neutrophil % 01/16/2025 72.3 % Final Lymphocyte % 01/16/2025 14.0 % Final Monocytes % 01/16/2025 12.0 % Final Eosinophils % 01/16/2025 1.2 % Final Basophils % 01/16/2025 0.4 % Final Immature Granulocytes % 01/16/2025 0.1 % Final NRBC % 01/16/2025 0.0 0.0 - 0.0 % Final Neutrophils Absolute 01/16/2025 6.10 1.50 - 7.95 K/uL Final Lymphocytes Absolute 01/16/2025 1.18 0.70 - 4.00 K/uL Final Monocytes Absolute 01/16/2025 1.01 (H) 0.36 - 0.77 K/uL Final Eosinophils Absolute 01/16/2025 0.10 0.00 - 0.50 K/uL Final Basophils Absolute 01/16/2025 0.03 0.00 - 0.22 K/uL Final Immature Granulocytes Absolute 01/16/2025 0.01 0.00 - 0.10 K/uL Final NRBC Absolute 01/16/2025 0.00 0.00 - 2.00 K/uL Final Color, Ur 01/16/2025 Yellow Yellow, Dark Yellow Final Clarity, Ur 01/16/2025 Clear Clear Final Specific Gold Bar, Ur 01/16/2025 <=1.005 1.005 - 1.030 Final pH, Ur 01/16/2025 6.5 5.0 - 8.0 Final Protein,Ur 01/16/2025 Negative Negative mg/dL Final Glucose,Ur 01/16/2025 Negative Negative mg/dL Final Ketones, Ur 01/16/2025 Negative Negative mg/dL Final Bilirubin, Ur 01/16/2025 Negative Negative Final Blood, Ur 01/16/2025 Negative Negative Final Urobilinogen, Ur 01/16/2025 1.0 0.2-1.0 E.U./dl E.U./dl Final Nitrite, Ur 01/16/2025 Negative Negative Final Leukocyte Esterase, Ur 01/16/2025 Small (A) Negative WBC/uL Final RBC, Ur 01/16/2025 1 0-4 cells/HPF cells/HPF Final WBC, Ur 01/16/2025 1 0-5 cells/HPF cells/HPF Final Epithelial Cells, UR 01/16/2025 0 0-5 cells/HPF cells/HPF Final Bacteria, Ur 01/16/2025 None Seen None Seen Final Casts, Ur 01/16/2025 0 0-4 cells/LPF cells/LPF Final Assessment: Delirium Plan: Olanzapine 1.25mg TID - Delirium precautions as follows: Avoid known deliriogenic agents: Benzodiazepines unless GABAergic withdrawal suspected -or- patient is chronically on benzodiazepines at home Consider reducing/eliminating other medications associated with a higher risk of delirium: Beta-blockers Calcium-channel blockers (e.g. amlodipine) Antimuscarinics Antihistaminergics Order sleep medications as standing, not PRN For management of pain: Maximize non-opioid pain regimen prior to starting opioids Avoid tramadol and meperidine. Favor hydromorphone for IV opioids. Use the following routine, even if the patient objects, unless there is a safety concern: Shades up and room light on by 8am. Shades down and room light off by 8pm. OOB as much as clinically possible Limit overnight awakenings to medically necessary monitoring only Monitor QTc on olanzapine, hold for above 500. Psych should follow up to determine if patient's mental status improves. PT consult should be placed tomorrow after medication administration to assess ambulation status. Yuridia Burden NP January 16, 2025 Manager Commodities discussed the use of antipsychotic medication with patient. Education involved medication indication, risk/benefit, including the risk of sedation, movement disorders, and metabolic syndrome (heart disease, diabetes, stroke), as well as potentially irreversible involuntary movements (TD). Dicussed with HCP ( and son as well) [1] acetaminophen, 650 mg, oral, Once [2] documented in this encounter H&P Notes * Jeannie Hastings NP - 01/16/2025 4:00 PM EST INPATIENT H&P [facility] [address] [place] [id number] Date of Service: 01/16/2025 Date of Admission: 01/15/2025 Name: Tatum Domínguez : 1940 CSN: [id number] Attending Physician: Kaci Cisneros MD Admitting Provider: JEANNIE HASTINGS NP Chief Complaint Chief Complaint Patient presents with Psychiatric Evaluation History Of Present Illness Tatum Domínguez is a 84 y.o. female with PMH of HTN, CKD stage II, CAD s/p stent, OK, L1 and L2 compression fractures, mononeuropathy, chronic pain disorder, anxiety, depression, GERD, hiatal hernia, and kyphoplasty on 01/14/[address] Jones, presented to the ED for evaluation of SI thoughts and was cleared by psychiatry. Patient became agitated, delirious, and anxious due to insurance concerns while at the ED, and hence to be admitted for agitation and delirium evaluation and management. Denies chest pain, dizziness, lightheadedness, illicit and drug use, alcohol use, smoking, dizziness, headache, palpitation, fever, chills, urinary symptoms, nausea, or vomiting. The ED, UA showed small leukocyte. Urine drug screen, ethanol serum, CBCD, and CMP were unremarkable. Patient was seen by psychiatry and plan is to place patient on Zyprexa. Review of Systems: Please refer to the History of Present Illness above. All other systems are reviewed and are negative. Past Medical History She has a past medical history of Angina pectoris, Angina pectoris (11/26/2014), Anxiety, Arthritis, Cancer, Carotid bruit (08/01/2012), Chronic kidney disease, stage 2 (mild) (09/23/2013), Chronic pain disorder, Chronic renal insufficiency (09/05/2024), CKD (chronic kidney disease), Closed compression fracture of L2 vertebra, Compression fracture of L1 lumbar vertebra, Coronary artery disease, Dental disease, Depression, GERD (gastroesophageal reflux disease), Hiatal hernia, History of coronary artery bypass graft (01/02/2025), Hoarseness (11/05/2018), Hypertension, Joint pain, Mononeuropathy, unspecified (07/26/2011), Myocardial infarction, Myocardial infarction involving left anterior descending (LAD) coronary artery (09/05/2024), Osteopenia (07/19/2007), Pure hypercholesterolemia (07/19/2007), Shortness of breath, Stented coronary artery (01/02/2025), and Stress incontinence (12/28/2010). Surgical History She has a past surgical history that includes Coronary artery bypass graft; Knee Arthroplasty (Bilateral); Lumbar fusion; Coronary angioplasty; Tonsillectomy; Dental surgery; Cataract extraction (Bilateral); Dilation and curettage of uterus; pr debridement, skin, sub-q tissue,muscle,=<20 sq cm (Left, 09/05/2024); Coronary stent placement; Cardiac catheterization; Colonoscopy; Upper gastrointestinal endoscopy; Lumbar laminectomy; and Skin cancer excision. Social History reports that she has quit smoking. Her smoking use included cigarettes. She has never used smokeless tobacco. She reports current alcohol use of about 5.0 standard drinks of alcohol per week. She reports that she does not use drugs. Reviewed and relevant details mentioned in HPI. Family History family history includes Breast cancer (age of onset: 80) in her cousin and mother. Reviewed and relevant details mentioned in HPI. Advance Care Plan Extended Emergency Contact Information Primary Emergency Contact: damien domínguez Relation: Spouse Preferred language: Ecuadorean Field Coordinator needed? No Full Code MIPS STANDARD STATEMENT- ADVANCE CARE PLAN: I confirmed that the patient's Advance Care Plan is present, code status is documented, or surrogate decision maker is listed in the patient's medical record. Allergies No known allergies Home Medications Current Outpatient Medications Medication Instructions acetaminophen (TYLENOL) 500 mg, oral, Every 6 hours PRN aspirin 81 mg, oral, Daily atorvastatin (LIPITOR) 80 mg, oral, Daily calcitonin (salmon) (MIACALCIN) 200 Units, One Nostril, Daily calcium carbonate-vitamin D3 (Caltrate with Vitamin D3) 600 mg-20 mcg (800 unit) tablet 1 tablet, oral, Daily cholecalciferol (vitamin D3) (VITAMIN D-3) 25 mcg, oral, Daily Gemtesa 75 mg, oral, Daily isosorbide mononitrate ER (IMDUR) 60 mg, oral, Daily, Do not crush or chew. methocarbamol (ROBAXIN) 750 mg, oral, 4 times daily metoprolol succinate XL (TOPROL-XL) 50 mg, oral, Daily multivitamin tablet 1 tablet, oral, Daily oxyCODONE (ROXICODONE) 2.5-5 mg, oral, Every 4 hours PRN polyethylene glycol (GLYCOLAX) 17 g, Daily MIPS STANDARD STATEMENT - Documentation of Current Medications in the Medical Record: I have utilized all available immediate resources to obtain, update, or review the patient's current medications (including all prescriptions, [id number] products, herbals, cannabis/cannabidiolproducts, and vitamin/mineral/dietary (nutritional) supplements). Objective Last Recorded Vitals BP (!) 160/79 Pulse 80 Temp 36.1 ??C (96.9 ??F) (Temporal) Resp 17 SpO2 98% Oxygen Therapy SpO2: 98 % Patient Activity During SpO2 Measurement: At rest Oxygen Therapy: None (Room air) Intake/Output Summary (Last 24 hours) at 01/16/2025 1601 Last data filed at 01/16/2025 0918 Gross per 24 hour Intake 1120 ml Output 900 ml Net 220 ml Physical Exam Vitals and nursing note reviewed. Constitutional: Appearance: She is overweight. HENT: Mouth/Throat: Mouth: Mucous membranes are moist. Eyes: Extraocular Movements: Extraocular movements intact. Pupils: Pupils are equal, round, and reactive to light. Cardiovascular: Rate and Rhythm: Normal rate and regular rhythm. Pulses: Normal pulses. Pulmonary: Effort: Pulmonary effort is normal. Abdominal: General: Bowel sounds are normal. Tenderness: There is no abdominal tenderness. There is no guarding. Musculoskeletal: Right lower leg: No edema. Left lower leg: No edema. Neurological: General: No focal deficit present. Mental Status: She is alert. Diagnostic Results Relevant Results Recent Results (from the past 24 hours) Comprehensive metabolic panel Collection Time: 01/16/25 12:07 AM Result Value Ref Range Sodium 138 135 - 146 mmol/L Potassium 3.9 3.6 - 5.2 mmol/L Chloride 105 98 - 110 mmol/L CO2 (Bicarbonate) 27 20 - 32 mmol/L Anion Gap 6 3 - 14 mmol/L BUN 17 6 - 24 mg/dL Creatinine 0.62 0.55 - 1.30 mg/dL eGFRcr 88 >=60 mL/min/1.73m*2 Glucose 125 70 - 139 mg/dL Fasting? Unknown Calcium 9.1 8.5 - 10.5 mg/dL AST 14 6 - 42 U/L ALT 18 0 - 55 U/L Alkaline phosphatase 94 30 - 130 U/L Protein, total 6.6 6.0 - 8.4 g/dL Albumin 3.7 3.2 - 5.0 g/dL Bilirubin, total 1.0 0.2 - 1.2 mg/dL Ethanol, serum Collection Time: 01/16/25 12:07 AM Result Value Ref Range Ethanol level, plasma/serum <3 0 - 3 mg/dL CBC w/ Differential Collection Time: 01/16/25 12:07 AM Result Value Ref Range WBC 8.4 4.0 - 11.0 K/uL RBC 3.74 3.70 - 5.20 M/uL Hemoglobin 11.7 11.0 - 16.0 g/dL Hematocrit 35.3 32.0 - 47.0 % MCV 94.4 80.0 - 100.0 fL MCH 31.3 26.0 - 34.0 pg MCHC 33.1 31.0 - 37.0 g/dL RDW-CV 14.4 11.5 - 14.5 % RDW-SD 49.6 35.0 - 51.0 fL Platelets 199 150 - 400 K/uL MPV 11.8 9.1 - 12.4 fL Neutrophil % 72.3 % Lymphocyte % 14.0 % Monocytes % 12.0 % Eosinophils % 1.2 % Basophils % 0.4 % Immature Granulocytes % 0.1 % NRBC % 0.0 0.0 - 0.0 % Neutrophils Absolute 6.10 1.50 - 7.95 K/uL Lymphocytes Absolute 1.18 0.70 - 4.00 K/uL Monocytes Absolute 1.01 (H) 0.36 - 0.77 K/uL Eosinophils Absolute 0.10 0.00 - 0.50 K/uL Basophils Absolute 0.03 0.00 - 0.22 K/uL Immature Granulocytes Absolute 0.01 0.00 - 0.10 K/uL NRBC Absolute 0.00 0.00 - 2.00 K/uL Urine Drug Screen Collection Time: 01/16/25 1:58 AM Result Value Ref Range Amphetamines screen, urine Screen Negative Screen Negative Barbiturates screen, urine Screen Negative Screen Negative Benzodiazepines screen, urine Screen Negative Screen Negative Buprenorphine screen, urine Screen Negative Screen Negative Cannabinoids screen, urine Screen Negative Screen Negative Cocaine screen, urine Screen Negative Screen Negative Ethanol screen, urine Not Detected Not Detected Fentanyl screen, urine Screen Negative Screen Negative Methadone screen, urine Screen Negative Screen Negative Opiates screen, urine Screen Negative Screen Negative Oxycodone screen, urine Screen Negative Screen Negative Creatinine, urine, specimen validity 25.00 >=20.00 mg/dL Urinalysis reflex to culture Collection Time: 01/16/25 1:58 AM Result Value Ref Range Color, Ur Yellow Yellow, Dark Yellow Clarity, Ur Clear Clear Specific [place], Ur <=1.005 1.005 - 1.030 pH, Ur 6.5 5.0 - 8.0 Protein,Ur Negative Negative mg/dL Glucose,Ur Negative Negative mg/dL Ketones, Ur Negative Negative mg/dL Bilirubin, Ur Negative Negative Blood, Ur Negative Negative Urobilinogen, Ur 1.0 0.2-1.0 E.U./dl E.U./dl Nitrite, Ur Negative Negative Leukocyte Esterase, Ur Small (A) Negative WBC/uL RBC, Ur 1 0-4 cells/HPF cells/HPF WBC, Ur 1 0-5 cells/HPF cells/HPF Epithelial Cells, UR 0 0-5 cells/HPF cells/HPF Bacteria, Ur None Seen None Seen Casts, Ur 0 0-4 cells/LPF cells/LPF CT HEAD WO CONTRAST (Results Pending) Assessment/Plan Number and Complexity of problems: Principal Problem: Anxiety Tatum Domínguez is a 84 y.o. female with PMH of HTN, CKD stage II, CAD s/p stent, [place], L1 and L2 compression fractures, mononeuropathy, chronic pain disorder, anxiety, depression, GERD, hiatal hernia, and kyphoplasty on 01/14/[address] Jones, presented to the ED for evaluation of SI thoughts and was cleared by psychiatry. Patient became agitated, delirious, and anxious due to insurance concerns while at the ED. Admitted for agitation and delirium evaluation and management. Principal Problem: #Agitation and delirium. Differential Diagnosis: likely drug induced. UA showed small leukocyte. Urine drug screen, ethanol serum, CBCD, and CMP were unremarkable. Plan: -admit to tele. -Obtain CT head wo, follow-up result -Check ammonia level. - Hold off on oxycodone likely contributing to delirium, reassess. - Initiate Zyprexa 1.25 mg 3 times daily as recommended by psych. -Monitor QTc while patient is on Zyprexa hold for > 500. - Hold off or reduce dosing of medications associated with risk of delirium:. - Scheduled melatonin 6 mg nightly. - Avoid opiates, meperidine, tramadol. - Pain management Tylenol as needed. - Limited overnight awakening. -Ton of room nighttime at nighttime and maintain quietness. - Alarm bed for safety. - cargo and ramp services manager consult for insurance/financial benefits. - sales center manager-discharge plan. - Fall precautions. -dvt prophy-heparin sc Other Conditions and Status: # HTN Resume Imdur & Metoprolol xl with parameter to hold. #CAD/HLD Resume ASA, & Lipitor. #Overactive bladder. Patient to bring in non-formulary Gemtesa from home. DVT prophylaxis: Heparin Code Status and Discussions: Full Code Social Determinants of Health that impact treatment or disposition: None Shared decision making: Patient Family Update: son/spouse at bedside Anticipated Date of discharge: 1-2 days. MEDICAL DECISION MAKING: MDM Data Clinical lab tests: reviewed Tests in the radiology section of [facility]??: reviewed Tests in the medicine section of [facility]??: reviewed External documents reviewed: ExternalDocuments: ED notes, Outpatient Notes, Prior DC summary, and Prior H&P My EKG interpretation: My CT interpretation: see above My X-ray interpretation: Tests considered but not ordered: Decision rules/scores evaluated: NIHSS=0 Discussed with: Patient/discuss plan of care with supervising MD- Rukhsana HASTINGS NP Cosigned by Kaci Cisneros MD at 01/17/2025 2:04 PM EST Associated attestation - Kaci Cisneros MD - 01/17/2025 2:04 PM EST Physician Attestation: This service was performed on the date documented in Nurse Practitioner/Physician Senior Interactive Producer's note above. Based on the medical record the care appears appropriate. I did not see the patient in person. KACI CISNEROS MD documented in this encounter Consult Notes * Yuridia Olsen NP - 01/19/2025 9:29 AM ESTAssociated Order(s): IP CONSULT TO PSYCHIATRY Psychiatric Progress Note PATIENT NAME: Tatum Domínguez DATE OF : 1940 Patient seen: 01/19/2025 Patient evaluated and reviewed with: Nursing staff Subjective/Objective: Patient seen. patient's delirium cleared, denies confusion, not exhibiting purposeless movements, not responding to internal stimuli, oriented to 3 spheres, reports she is able to clearly think. However she is continuing to have anxious and obsessive symptoms, was constantly talking about her ffinancial issues on Sunday, less today but still present. She becomes stuck on certain things, this morning it was why she reached out to her PCP's office. Her son tries to soothe and redirect but little effect noted. Some word finding difficulties noted this morning. She continues to have anxiety and perseverationsthat has been affecting her negatively. No SI/HI/AH/VH Mental Status Exam Alert, sitting up in chair. speech - fluent. RRR and volume mood - okay Affect- anxious thought process - not as preservative thought content - denies SI, HI, AH, VH, paranoia judgement/insight - fair attention - fair orientation - oriented to self, location recent/remote memory - fair/fair BP (!) 153/78 (BP Location: Left arm, Patient Position: Lying) Pulse 93 Temp 36.9 ??C (98.5 ??F) (Oral) Resp 18 Ht 1.676 m Wt 75.3 kg SpO2 100% BMI 26.80 kg/m?? Medications Scheduled Scheduled Medications[1] PRN PRN Medications[2] Principal Problem: Anxiety Labs No results displayed because visit has over 200 results. Assessment: Delirium- resolved Unspecified anxiety Plan: Patient seen by Dr Arnold on 01/17 and 01/18 - recommended IPLOC. DC olanzapine Yuridia Burden NP January 19, 2025 [1] acetaminophen, 650 mg, oral, Once aspirin, 81 mg, oral, Daily atorvastatin, 80 mg, oral, Nightly calcitonin (salmon), 200 Units, One Nostril, Daily calcium carbonate-vitamin D3, 1 tablet, oral, Daily cholecalciferol (vitamin D3), 1,000 Units, oral, Daily heparin (porcine), 5,000 Units, subcutaneous, q12h EMPERATRIZ isosorbide mononitrate ER, 60 mg, oral, Daily melatonin, 6 mg, oral, Nightly metoprolol succinate XL, 50 mg, oral, Daily multivitamin, 1 each, oral, Daily polyethylene glycol, 17 g, oral, Daily [2] PRN medications: acetaminophen OR acetaminophen, cyclobenzaprine, docusate sodium OR docusate sodium, ondansetron ODT OR ondansetron, oxyCODONE, prochlorperazine * Merari Acevedo, PT - 01/17/2025 11:57 AM EST Physical Therapy Evaluation Patient Name: Tatum Domínguez : 1940 Evaluation Date: 01/17/2025 Subjective HPI/Hospital Course: Tatum Domínguez is a 84 y.o. female who presents to [facility] ED on 01/15/25 for eval of SI. Pt son reports pt having significant change in mental health since fall ~1 month ago, resulting in L1 compression fracture, Pt now s/p Kyphoplasty at L 1 with MD Jones on 01/14/25, pt then d/c home. Since d/c home, pt expressing SI, seen by psych in ED, concern for delirium. Pt admitted for further care and monitoring. PT orders have been received, RN cleared pt to participate in PT evaluation. Problem List[1] Medical History[2] Surgical History[3] Objective General Information General Info PT Received On: 01/17/25 Following Therapy Session:: Patient in Chair, Call gibson within reach, Nursing Staff Aware of Patient Location, Family/visitor Present (Pt son visitng) Plan of Care Reviewed With:: Patient, RN/Charge Nurse, Family (Pt son) Recommended mobility with nursing staff: SUP w/ RW; can ambulate in hallway with direct supervision Eval Information Type of Evaluation: Initial Evaluation Precautions Other Precautions: Fall Risk, Spine-No bending, Lifting, Twisting (TLSO for comfort per MD Jones note on 01/14/25) Home Living [facility] Patient Ad[facility] from [facility]?: No Lives With: Spouse Type of Home: House Home Layout: One Level, Laundry in Basement Number of Stairs to Enter Home: 8 (1 HR) Number of Stairs Within Home: 1 FOS to basement Bathroom Shower/Tub: Walk-in Shower Bathroom Toilet: Raised Home Equipment: Rolling Walker (has been using RW since fall a few months ago, prior had not been using AD) ADL/IADL Equipment: 3-in-1 Commode, Shower Chair Comments: Pt sleeps in flat bed Prior Level of Function Information Provided By: Patient Independent at Baseline: All Household Mobility, All ADL's, All ADL's/IADL's (pt and sharedIADLs) History of Recent Falls: Yes (x1 fall this year whiel on [employer], resulting in L1 fracture) Occupational Profile/Social History: Kyphoplasty performed on 01/14/25 with MD Jones at L1, pt then d/c home after surgery Pain Pain Assessment: No/denies pain Vital Signs Cognition Overall Cognitive Status: Within Functional Limits (flat affect, however cooperative) Orientation Level: Oriented X4 Integumentary Integumentary: PIV, TLSO LDA Integrity: Intact Pre and Post Therapy ROM/Strength PROM Right Upper Extremity Overall RUE PROM: WFL PROM Left Upper Extremity Overall LUE PROM: WFL PROM Right Lower Extremity Overall RLE PROM: WFL PROM Left Lower Extremity Overall LLE PROM: WFL Strength Right Upper Extremity RUE Overall Strength: WFL Strength Left Upper Extremity LUE Overall Strength: WFL Strength Right Lower Extremity RLE Overall Strength: WFL Strength Left Lower Extremity LLE Overall Strength: WFL Neuromuscular Assessment Auditory: WFL Vestibular: WFL (denies light headedness w/ positional changes) Coordination: WFL Vision: WFL Mobility Assessment Bed Mobility Comments: Pt received seated up in chair Sit to Stand: Supervision (x1 rep from chair) Stand to Sit: Supervision (x1 rep to chair) Assistive Device: Rolling Walker Distance (Feet): 200', 50' x2 Assistance Level: Supervision Assistive Device: Rolling Walker Gait Characteristics: Pt amb w/ reciprocal gait pattern, decr gait speed, slight forward flexed postrue, no LOB Number of Stairs: 5 Assistance Level: Supervision Assistive Device: None Railing: Right Technique: Step-to up and down Stairs Comments: pt with appropriate safety awareness, no LOB, steady (Pt declining furhter stair negotiation) Sitting Balance - Static: IND in chiar Sitting Balance - Dynamic: IND in chair Standing Balance - Static: SUP w/ RW Standing Balance - Dynamic: SUP w/ RW AMPAC - (Basic Mobility Inpatient Short Form) How much help from another person do you currently need? Turning from your back to your side while in a flat bed without using bedrails?: 4 - None Moving from lying on your back to sitting on the side of a flat bed without using bedrails?: 4 - None Moving to and from a bed to a chair (including a wheelchair)?: 3 - A little Standing up from a chair using your arms (e.g., wheelchair, or bedside chair)?: 3 - A little To walk in hospital room?: 3 - A little Climbing 3-5 steps with a railing?: 3 - A little Raw Score: 20 Education Education Provided: Role of PT/Plan of Care, Discharge Planning, Adaptive Equipment/Assistive Device, Safety Awareness/Fall Risk, Precautions Education Provided to: Patient Teaching Method: Discussion, Demonstration Barriers to learning: None evident Learning Evaluation: Verbalizes understanding, Demonstrates/applies knowledge, Needs practice Assessment Tatum Domínguez is a 84 y.o. female who presents to [facility] ED on 01/15/25 for eval of SI. Patient presents with Impaired gait, Functional Mobility deficit, Impaired activity tolerance, Balance deficit. Pt will continue to benefit from skilled PT to address above impairments. At this time anticipatept jhonny be able to d/c home +/- HPT services pending progress. Prognosis: Good Goals Short Term Goals Date Established/Amended: 01/17/25 Goal timeframe: 5 tx days Bed mobility goal: Pt will be IND w/ bed mobility Transfers goal: Pt will transfer from sit<>stand MOD I w/ RW Ambulation goal: Pt will ambulate 300' w/ RW and SUP Stairs goal: Pt will ascend/descned 8 stairs w/ SUP Problem specific goal 1: Pt will participate in therex progam to return to PLOF [facility] Goals Goal established/Amended: 01/17/25 Goal timeframe: 10 tx days Transfers goal: Pt will transfer from sit<>stand IND Ambulation goal: Pt will ambulate 400' w/ LRAD and MOD I Stairs goal: Pt will ascend/descend 8 stairs IND Problem specific goal 1: Pt will be IND w/ HEP Plan Plan: Continued Skilled Inpatient PT Services Treatment Interventions: Therapeutic exercise, Assistive device training, Functional mobility training, Gait training, Stair training, Neuromuscular Re- education/balance, Patient/family education PT Frequency and Duration: 2-3 x/week until Discharge Treatment: Comment: Gait training performed in addition to initial evaluation Recommendations Anticipate Discharge to: Home with support/services Discharge Assist/Support Needed: Intermittent Supervision, Physical assistance from family/caregiver Home services recommended: Home PT (+/- pending progress during admission) Recommended mobility with nursing staff: SUP w/ RW; can ambulate in hallway with direct supervision Merari Acevedo, PT [facility] lic # [id number] Time: 23 min [1] Patient Active Problem List Diagnosis Asymptomatic microscopic hematuria Coronary artery disease of [place] artery of [place] heart with stable angina pectoris Chronic kidney disease, stage 2 (mild) Hypertensive chronic kidney disease with stage 1 through stage 4 chronic kidney disease, or unspecified chronic kidney disease Mixed incontinence Mononeuropathy, unspecified Osteopenia Pure hypercholesterolemia Congenital stenosis of cervical spine Preventative health care Soft tissue mass Myocardial infarction involving left anterior descending (LAD) coronary artery Dyspnea on exertion Chronic renal insufficiency 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 Closed compression fracture of L1 lumbar vertebra, initial encounter Closed compression fracture of L2 lumbar vertebra, sequela Degenerative spondylolisthesis Acute low back pain Anxiety Cancer Chronic pain disorder Depression Hiatal hernia Hypertension Atherosclerosis of coronary artery bypass graft(s) without angina pectoris Chronic cough History of coronary artery bypass graft Stented coronary artery Severe low back pain [2] Past Medical History: Diagnosis Date Angina pectoris Angina pectoris 11/26/2014 Anxiety Arthritis Cancer skin Carotid bruit 08/01/2012 Chronic kidney disease, stage 2 (mild) 09/23/2013 Chronic pain disorder Chronic renal insufficiency 09/05/2024 CKD (chronic kidney disease) Closed compression fracture of L2 vertebra Compression fracture of L1 lumbar vertebra Coronary artery disease Dental disease complete upper dentures and partial lower Depression GERD (gastroesophageal reflux disease) Hiatal hernia History of coronary artery bypass graft 01/02/2025 Hoarseness 11/05/2018 Hypertension Joint pain Mononeuropathy, unspecified 07/26/2011 Myocardial infarction Myocardial infarction involving left anterior descending (LAD) coronary artery 09/05/2024 Osteopenia 07/19/2007 Pure hypercholesterolemia 07/19/2007 Shortness of breath Stented coronary artery 01/02/2025 Stress incontinence 12/28/2010 [3] Past Surgical History: Procedure Laterality Date CARDIAC CATHETERIZATION CATARACT EXTRACTION Bilateral COLONOSCOPY CORONARY ANGIOPLASTY CORONARY ARTERY BYPASS GRAFT CORONARY STENT PLACEMENT pt thinks she has 5-6 stents DENTAL SURGERY DILATION AND CURETTAGE OF UTERUS KNEE ARTHROPLASTY Bilateral LUMBAR FUSION 2003 LUMBAR LAMINECTOMY 2003 MT DEBRIDEMENT, SKIN, SUB-Q TISSUE,MUSCLE,=<20 SQ CM Left 09/05/2024 Procedure: Excision, Soft Tissue, Lower Extremity, Left lower leg; Surgeon: Sonny Martinez MD; Location: [facility]; Service: General Surgery SKIN CANCER EXCISION TONSILLECTOMY UPPER GASTROINTESTINAL ENDOSCOPY documented in this encounter Nursing Notes * Dylan Geiger RN - 01/19/2025 5:55 PM EST Shift note Patient to d/c TO [place]. AMBULANCE BOOKED.. son at bedside. Attempted to call for report X3. JocelinN called back. Report given to LOLI. Patient left at 1941 pm by ambulance. * Grisel Stein RN - 01/19/2025 1:57 PM EST This am pt. Was hyper-verbal, anxious, and tearful when speaking with son (present in room) and orthopedic commercial administrator (on speaker phone), continuously repeating that she did something wrong by notfilling her prescriptions prior to and after scheduled Kypho performed outpatient on 01/14. This RNalked pt. To bathroom for toileting and ADL's and after pt. Urinated pt. Seemed more calm and was able to have rational conversations about both physical and mental feelings regarding Kypho and was able to explain herself without being repetitive or anxious. Pt. Sat in chair for breakfast and lunchand continued to be A&Ox4 and even mentioned herself that she thinks she may sundown and that when she is alone at night she feels anxious and her thoughts starts racing. Son and in room most of shift. Pt. Took meds whole with water with no issues voiced or noted. Complaints of pain to back with good effect from tylenol. Continent of B&B and uses call-gibson appropriately. Chair alarmed in place and all questions asked and answered. * Janet Espino RN - 01/18/2025 10:25 PM EST Nursing Shift Note [id number]: A&Ox2. Sad and anxious mood noted. Pt. C/o back pain, all scheduled evening med and PRN flexiril/tylenol for pain management admin as ordered. VSS. Pt. OOB in chair states she had been there since dinner, repositioned to sitting on edge of bed. Call light and personal items in reach, pt. Verbalized understanding of safety awareness and call light use. Pt. assisted in calling family members bef ore bed which helped alleviate anxiety and improve mood. Frequent rounding and safety checks completed. Pt. Had panic attack around 0200 triggered by worries r/t financial burden. Pt. States I ruined everything my son is going to lose everything because of me Therapeutic communication attempted with minimal effect. notified, one time dose of PO ativan obtained and administered. Pt. Calm now. * Sowmya Finn RN - 01/18/2025 6:18 PM EST Patient a&ox3, VSS, afebrile. Reports mod pain lower back. Medicated per APR. Tele- NS 4 bandages on lower back CDI OOB w/ RW, standby assist Family at bedside, safety maintained, call gibson within reach * Janet Espino RN - 01/18/2025 2:10 AM EST Nursing Shift Note [id number]: A&Ox4. Calm and cooperative. C/o back pain, PRN tylenol given. Kypho lumbar sites x2 CDI. VSS, RA, NSR on tele. coat check attendant at bedside. Call light in reach. * Dylan Geiger RN - 01/17/2025 6:45 PM EST Shift note Patient refused to go home today. Dr. Cisneros and case making machine operator aware. S/P kYPHOPLASTY LUMBAR ON 01/14/2025. TLSO ON (BACK BRACE) for comfort. OOB with walker and one assist. Seen by Psychiatry and Social work. Refused Melatonin tonight. documented in this encounter ED Notes * Junior Taylor RN - 01/16/2025 3:23 PM EST Patient report given to receiving nurse on Med 4. Receiving nurse acknowledged and accepted the patient. Handoff included: - Patient name, age, and reason for admission - Current diagnosis and treatment plan - Vital signs and clinical stability - Allergies and code status - IV access and medications - Relevant labs, imaging, and consults - Fall risk, isolation precautions, and mobility status - Pain level and management plan - Psychosocial concerns or family involvement Patient was transferred to the floor via Stretcher with ED engine emission technician. Safety ensured during transport. Belongings and documentation sent with patient. Receiving unit confirmed understanding of report and readiness to assume care. No concerns voiced at time of handoff. Junior Taylor RN 01/16/25 1524 * Junior Taylor RN - 01/16/2025 11:47 AM EST The patient is currently under continuous safety watch with a sitter assigned for close observation. The sitter is positioned at doorway and is monitoring the patient for any signs of agitation, self-harm, or harm to others. The patient is in a secure, low-stimulation environment (to the best of the department's ability), and their safety remains the priority while ongoing psychiatric evaluation continues. The sitter will maintain constant supervision until further psychiatric assessment and clearance by provider. Junior Taylor RN 01/16/25 1147 * Negrita Deluna RN - 01/16/2025 10:23 AM EST SW at bedside. Awaiting on plan of care at this time. Negrita Deluna RN 01/16/25 1023 * Sera Clarke RN - 01/16/2025 6:52 AM EST Pt resting comfortably, chest rise and fall noted, sitter and pt's son at bedside. Sera Clarke RN 01/16/25 0652 * Sera Clarke RN - 01/16/2025 6:13 AM EST Psych clinician at bedside. Sera Clarke RN 01/16/25 0613 * Sera Clarke RN - 01/16/2025 4:15 AM EST Pt requesting tylenol for back pain, MD aware. Sera Clarke RN 01/16/25 0423 * Sera Clarke RN - 01/16/2025 2:18 AM EST Pt's son to nurses station reporting that patient is agitated again, made aware. Sera Clarke RN 01/16/25219 * Sera Clarke RN - 01/16/2025 1:00 AM EST Pt resting comfortably on stretcher, chest rise and fall noted. Sitter in room Sera Clarke RN 01/16/25219 * Sera Clarke RN - 01/16/2025 12:32 AM EST Pt placed don 2L NC d/t RA O2 sat <95% after valium administration. Sera Clarke RN 01/16/25 0221 * Sera Clarke RN - 01/16/2025 12:07 AM EST Pt changed into psych safe clothing, belongings placed in pt belongings bag. Blood work obtained. Sera Clarke RN 01/16/25 0008 * Krista Treviño RN - 01/15/2025 11:28 PM EST Pt states she has been telling her that she wants to and is concerned w/ finances and insurance. Pt is A/Ox3, tearful * CHELY Corona - 01/15/2025 11:27 PM EST Images from the original note were not included. [facility] EM[facility]PART[facility] [address] [place] [id number] Chief Complaint Patient presents with Psychiatric Evaluation HISTORY OF PRESENT ILLNESS HPI 84-year-old female presenting today with suicidal ideation. Patient making remarks to her that she wants to to make it easier on the family. Patient states that she made recent mistakes about changing her Medicaid and Medicare plan. Patient states that because of this that she has to get multiple referrals and go through a much more strenuous process than prior. This adds a lot of stress to her and she is seen at the pay more [id number] because of it and wait longer for appointments. Patient is clearly upset on my exam crying and repeating herself about how she messed up and isquite distraught. Patient kept repeating that she wanted to to me as well. I asked if she had intent to actually act on these thoughts and she states that if her children were not with her and she had waited a couple more days she probably would act on it. Patient's son lives in [place] and he had come up to help with her postsurgical life changes. Patient kyphoplasty here yesterday. PAST MEDICAL HISTORY Problem List[1] Medical History[2] SURGICAL/FAM/SOCIAL HISTORY Surgical History[3] Family History[4] Social History Tobacco Use Smoking status: Former Types: Cigarettes Smokeless tobacco: Never Vaping Use Vaping status: Never Used Substance Use Topics Alcohol use: Yes Alcohol/week: 5.0 standard drinks of alcohol Types: 5 Shots of liquor per week Comment: occasionally Drug use: Never MEDICATIONS Prior to Admission medications Medication Sig Start Date End Date Taking? Authorizing Provider acetaminophen (Tylenol) 500 mg tablet Take 500 mg by mouth every 6 (six) hours if needed for pain score 1-3 (mild). Historical Provider, acetaminophen (Tylenol) 500 mg/15 mL solution Take by mouth every 4 (four) hours if needed for painscore 1-3. Historical Provider, aspirin 81 mg EC tablet Take 81 mg by mouth in the morning. Nurse [facility], RN atorvastatin (Lipitor) 80 mg tablet Take 1 tablet (80 mg) by mouth once daily. 11/14/24 Rosalva Plummer NP budesonide-formoteroL (Symbicort) 160-4.5 mcg/actuation inhaler Inhale 2 puffs in the morning and at bedtime. Rinse mouth with water after use to reduce aftertaste and incidence of candidiasis. Do not swallow. 01/26/23 01/14/25 Farhan Brownlee MD [id number] 600 mg calcium- 800 unit-50 mg tablet Take 1 tablet by mouth in the morning. Patient not taking: Reported on 01/02/2025 Historical Provider, calcitonin, salmon, (Miacalcin) 200 unit/actuation nasal spray Administer 1 spray (200 Units) into one nostril once daily. 12/16/24 Eliazar Jones MD calcium carbonate-vitamin D3 (Caltrate with Vitamin D3) 600 mg-20 mcg (800 unit) tablet Take 1 tablet by mouth once daily. Historical Provider, cholecalciferol, vitamin D3, (D3-2000) 50 mcg (2,000 unit) capsule Take 1 capsule (50 mcg) by mouthin the morning. 12/16/24 12/16/25 Eliazar Jones MD isosorbide mononitrate ER (Imdur) 30 mg 24 hr tablet Take 2 tablets (60 mg) by mouth once daily. Donot crush or chew. 10/16/24 10/16/25 Rosalva Valdovinos NP magnesium oxide 500 mg magnesium tablet Take 1 tablet (500 mg) by mouth in the evening and 1 tablet(500 mg) before bedtime. May take additionally in morning if not causing diarrhea/abdominal discomfort. Patient not taking: Reported on 01/14/2025 12/16/24 Eliazar Jones MD methocarbamol (Robaxin) 750 mg tablet Take 1 tablet (750 mg) by mouth four times daily. 01/15/25 01/25/25 Eliazar Jones MD metoprolol succinate XL (Toprol-XL) 50 mg 24 hr tablet Take 1 tablet (50 mg) by mouth once daily. 11/06/24 Rosalva Valdovinos NP multivitamin tablet Take 1 tablet by mouth in the morning. Historical Provider, oxyCODONE (Roxicodone) 5 mg immediate release tablet Take 0.5-1 tablets (2.5-5 mg) by mouth every 4(four) hours if needed for pain score 7-10 (severe) or pain score 4-6 (moderate). 01/15/25 Eliazar Jones MD sennosides-docusate sodium (Audrey-Colace) 8.6-50 mg tablet Take 1 tablet by mouth once daily. Well needing oxycodone 12/26/24 Eliazar Jones MD vibegron (Gemtesa) 75 mg tablet tablet Take 1 tablet (75 mg) by mouth once daily. Patient not taking: Reported on 01/14/2025 12/02/24 Anette Saleh NP vitamin K2 100 mcg capsule Take 1 capsule by mouth in the morning. Patient not taking: Reported on 01/14/2025 12/16/24 12/16/25 Eliazar Jones MD methocarbamol (Robaxin) 750 mg tablet Take 1 tablet (750 mg) by mouth four times daily. 01/02/25 01/15/25 Eliazar Jones MD oxyCODONE (Roxicodone) 5 mg immediate release tablet Take by mouth. 01/02/25 01/15/25 Historical Provider, Allergies[5] REVIEW OF SYSTEMS Review of Systems Psychiatric/Behavioral: Positive for dysphoric mood and suicidal ideas. The patient is nervous/anxious. PHYSICAL EXAM ED Triage Vitals [01/15/25 2329] Temp Pulse Resp BP 36.9 ??C (98.4 ??F) 89 18 125/81 SpO2 Temp src Heart Rate Source Patient Position 98 % -- -- -- BP Location FiO2 (%) -- -- Physical Exam Vitals and nursing note reviewed. Constitutional: General: She is not in acute distress. Appearance: She is well-developed. HENT: Head: Normocephalic and atraumatic. Eyes: Conjunctiva/sclera: Conjunctivae normal. Cardiovascular: Rate and Rhythm: Normal rate and regular rhythm. Heart sounds: No murmur heard. Pulmonary: Effort: Pulmonary effort is normal. No respiratory distress. Breath sounds: Normal breath sounds. Abdominal: Palpations: Abdomen is soft. Tenderness: There is no abdominal tenderness. Musculoskeletal: General: No swelling. Cervical back: Neck supple. Skin: General: Skin is warm and dry. Capillary Refill: Capillary refill takes less than 2 seconds. Neurological: Mental Status: She is alert. Psychiatric: Attention and Perception: Attention and perception normal. Mood and Affect: Mood is anxious. Affect is tearful. Thought Content: Thought content includes suicidal ideation. Thought content includes suicidal plan. TESTING RESULTS PROCEDURES Labs Reviewed - No data to display No orders to display Procedures ED COURSE/MDM Diagnoses as of 01/16/25 0014 Anxiety Suicidal ideation ED Course & MDM Medical Decision Making Plan will be to medically clear the patient. I will provide some Valium to help kind to calm her down since she is very clearly upset at this time and appears to be in positive feedback loop and spiraling with anxiety. I believe this will help her significantly. I also believe that if she sleeps she may feel better after some rest. Once she is medically cleared, patient can see our social worker delinquency prevention to determine if she truly requires higher level of care and inpatient stay at that time. There is now my end of shift. Care will be signed out to ER physician attending Dr. Garrido pending behavioral health recommendations for final disposition decision. Amount and/or Complexity of Data Reviewed Labs: ordered. Risk Prescription drug management. DIAGNOSIS Problem List Items Addressed This Visit Anxiety - Primary Other Visit Diagnoses Suicidal ideation CONDITION Fair DISPOSITION PENDING [1] Patient Active Problem List Diagnosis Asymptomatic microscopic hematuria Coronary artery disease of [place] artery of [place] heart with stable angina pectoris Chronic kidney disease, stage 2 (mild) Hypertensive chronic kidney disease with stage 1 through stage 4 chronic kidney disease, or unspecified chronic kidney disease Mixed incontinence Mononeuropathy, unspecified Osteopenia Pure hypercholesterolemia Congenital stenosis of cervical spine Preventative health care Soft tissue mass Myocardial infarction involving left anterior descending (LAD) coronary artery Dyspnea on exertion Chronic renal insufficiency 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 Closed compression fracture of L1 lumbar vertebra, initial encounter Closed compression fracture of L2 lumbar vertebra, sequela Degenerative spondylolisthesis Acute low back pain Anxiety Cancer Chronic pain disorder Depression Hiatal hernia Hypertension Atherosclerosis of coronary artery bypass graft(s) without angina pectoris Chronic cough History of coronary artery bypass graft Stented coronary artery Severe low back pain [2] Past Medical History: Diagnosis Date Angina pectoris Anxiety Arthritis Cancer skin Chronic pain disorder CKD (chronic kidney disease) Closed compression fracture of L2 vertebra Compression fracture of L1 lumbar vertebra Coronary artery disease Dental disease complete upper dentures and partial lower Depression GERD (gastroesophageal reflux disease) Hiatal hernia Hypertension Joint pain Myocardial infarction Shortness of breath [3] Past Surgical History: Procedure Laterality Date CARDIAC CATHETERIZATION CATARACT EXTRACTION Bilateral COLONOSCOPY CORONARY ANGIOPLASTY CORONARY ARTERY BYPASS GRAFT CORONARY STENT PLACEMENT pt thinks she has 5-6 stents DENTAL SURGERY DILATION AND CURETTAGE OF UTERUS KNEE ARTHROPLASTY Bilateral LUMBAR FUSION 2003 LUMBAR LAMINECTOMY 2003 MT DEBRIDEMENT, SKIN, SUB-Q TISSUE,MUSCLE,=<20 SQ CM Left 09/05/2024 Procedure: Excision, Soft Tissue, Lower Extremity, Left lower leg; Surgeon: Sonny Martinez MD; Location: [facility]; Service: General Surgery SKIN CANCER EXCISION TONSILLECTOMY UPPER GASTROINTESTINAL ENDOSCOPY [4] Family History Problem Relation Name Age of Onset Breast cancer Mother 80 Breast cancer Cousin 80 [5] Allergies Allergen Reactions No Known Allergies CHELY Corona 01/16/25 0014 Cosigned by Paddy Garrido MD at 01/16/2025 2:13 AM EST documented in this encounter Miscellaneous Notes * Care Plan - Grisel Stein RN - 01/19/2025 1:56 PM EST Goal Outcome Evaluation: Plan of Care Reviewed With: patient Problem: Adult Inpatient Plan of Care Goal: Plan of Care Review Outcome: Ongoing, Progressing Goal: Patient-Specific Goal (Individualized) Outcome: Ongoing, Progressing Goal: Absence of Hospital-Acquired Illness or Injury Outcome: Ongoing, Progressing Intervention: Identify and Manage Fall Risk Recent Flowsheet Documentation Taken 01/19/2025928 by Grisel Stein RN Safety Promotion/Fall Prevention: activity supervised assistive device/personal items within reach fall prevention program maintained clutter-free environment maintained Intervention: Prevent Skin Injury Recent Flowsheet Documentation Taken 01/19/2025928 by Grisel Stein RN Body Position: position maintained Skin Protection: adhesive use limited Intervention: Prevent and Manage VTE (Venous Thromboembolism) Risk Recent Flowsheet Documentation Taken 01/19/2025928 by Grisel Stein RN Range of Motion: active ROM (range of motion) encouraged Activity Expectations: activity adjusted per tolerance VTE Prevention/Management: patient refused intervention Intervention: Prevent Infection Recent Flowsheet Documentation Taken 01/19/2025928 by Grisel Stein RN Infection Prevention: hand hygiene promoted single patient room provided Goal: Optimal Comfort and Wellbeing Outcome: Ongoing, Progressing Intervention: Monitor Pain and Promote Comfort Recent Flowsheet Documentation Taken 01/19/2025928 by Grisel Stein RN Pain Management Interventions: medication administered Intervention: Provide Person-Centered Care Recent Flowsheet Documentation Taken 01/19/2025928 by Grisel Stein RN Trust Relationship/Rapport: care explained choices provided questions answered Goal: Readiness for Transition of Care Outcome: Ongoing, Progressing * Care Plan - Yary Young RN - 01/18/2025 12:39 PM EST Goal Outcome Evaluation: Plan of Care Reviewed With: patient Progress: no change Outcome Evaluation: See flowsheets for vital signs and assessment findings. RN entered patient's room, pt speaking at a fast pace on the phone with her son. Pt appearing to be anxious. Pt spoke to RN The doctor who did my surgery ordered these medications and I never picked them up . Pt stated shefeels like she messed up her surgery and that not taking the medications have negatively affectedher kyphoplasty. RN explained to patient that not taking pain medications ordered post-op can potentially slow down recovery and increase pain. However, with adequate pain management and mobility shewill be able to improve. Pt continued to perseverate on the missed medications and surgery. RN and Dr. Cisneros spoke to pt and pt's son. Pt was extremely anxious and irritable with RN and MD when attempting to redirect patient. Pt would repeatedly roll her eyes and sigh. RN and MD spoke to pt's son outside the room and pt's son endorsed that behavior began 2-3 weeks ago and that pt and pt's husbandwould get into arguments and pt's would throw things. Pt's son denies abuse. RN notifed psychiatry to reassess patient. Dr. Cisneros verbally dced 1:1 for SI. Pt denied any suicidal ideations orthoughts of self-harm. * Care Plan - Simi Inman RN - 01/17/2025 12:01 AM EST Goal Outcome Evaluation: Plan of Care Reviewed With: patient Progress: no change Patient is A&Ox4, but very anxious and worried but cooperative, vs noted on RA, complained of back pain, PRN tylenol given with positive effect. Dsg intact on her kypho sites. 1:1 sitter at bedside for safety. Safety maintained, call gibson within reach, bed is alarmed. Awaiting PT eval. Problem: Adult Inpatient Plan of Care Goal: Plan of Care Review Outcome: Ongoing, Progressing Flowsheets (Taken 01/17/2025 0001) Progress: no change Plan of Care Reviewed With: patient Goal: Patient-Specific Goal (Individualized) Outcome: Ongoing, Progressing Goal: Absence of Hospital-Acquired Illness or Injury Outcome: Ongoing, Progressing Intervention: Identify and Manage Fall Risk Recent Flowsheet Documentation Taken 01/16/20252299 by Simi Inman RN Safety Promotion/Fall Prevention: activity supervised Intervention: Prevent Skin Injury Recent Flowsheet Documentation Taken 01/16/20252299 by Simi Inman RN Body Position: position changed independently Skin Protection: adhesive use limited Intervention: Prevent and Manage VTE (Venous Thromboembolism) Risk Recent Flowsheet Documentation Taken 01/16/20252299 by Simi Inman RN Range of Motion: active ROM (range of motion) encouraged Activity Expectations: activity adjusted per tolerance VTE Prevention/Management: SCDs (sequential compression devices) off Intervention: Prevent Infection Recent Flowsheet Documentation Taken 01/16/20252299 by Simi Inman RN Infection Prevention: hand hygiene promoted rest/sleep promoted Goal: Optimal Comfort and Wellbeing Outcome: Ongoing, Progressing Intervention: Monitor Pain and Promote Comfort Recent Flowsheet Documentation Taken 01/16/20252299 by Simi Inman RN Pain Management Interventions: medication administered care clustered position adjusted pillow support provided quiet environment facilitated Intervention: Provide Person-Centered Care Recent Flowsheet Documentation Taken 01/16/20252299 by Simi Inman RN Trust Relationship/Rapport: care explained choices provided emotional support provided empathic listening provided questions encouraged questions answered reassurance provided thoughts/feelings acknowledged Goal: Readiness for Transition of Care Outcome: Ongoing, Progressing Problem: Fall Injury Risk Goal: Absence of Fall and Fall-Related Injury Outcome: Ongoing, Progressing Intervention: Identify and Manage Contributors Recent Flowsheet Documentation Taken 01/16/20252299 by Simi Inman RN Medication Review/Management: medications reviewed Self-Care Promotion: independence encouraged Intervention: Promote Injury-Free Environment Recent Flowsheet Documentation Taken 01/16/20252299 by Simi Inman RN Safety Promotion/Fall Prevention: activity supervised * Care Plan - Rosalva Chavis RN - 01/16/2025 7:01 PM EST * Care Plan - Rosalva Chavis RN - 01/16/2025 6:54 PM EST Goal Outcome Evaluation: Plan of Care Reviewed With: patient Progress: no change Outcome Evaluation: Patient arrived to [facility] 4 on stretcher w/ son at the bedside. Ambulated with walker to bed. Admitted for psych eval, patient expressing emotional distress, stated It would easierif I . Assessed for suicide ideation and plan, patient expressed wanting to and thinking about it but denied plan. Patient perseverating on changes to insurance and costs for uncovered medications and hospitaliziation. Fixated on messages from [facility] pharmacy about rx orders and uncertainty about medications recommended by ortho, attending, [employer] and PCP. No skin issues. Continent with some stress incontinence. Recent kypho sites with steri strips intact. * Patient Pass - Rosalva Chavis RN - 01/16/2025 6:30 PM EST Patient Education Table of Contents Using a Balloon to Treat a Spine Compression Fracture (Balloon Kyphoplasty): What to Know After To view videos and all your education online visit, [email or web address] or scan this QR code with your smartphone. Access to this content will in one year. Using a Balloon to Treat a Spine Compression Fracture (Balloon Kyphoplasty): What to Know After After having a balloon kyphoplasty to treat a broken bone in your back (compressed spine fracture),it's common to have back pain. Follow these instructions at home: Medicines Take your medicines only as told. You may need to take steps to help treat or prevent trouble pooping (constipation), such as: ? Taking medicines to help you poop. ? Eating foods high in fiber, like beans, whole grains, and fresh fruits and vegetables. ? Drinking more fluids as told. Ask your health care provider if it's safe to drive or use machines while taking your medicine. Puncture site care Take care of your puncture site as told. Make sure you: ? Wash your hands with soap and water for at least 20 seconds before and after you change your bandage. If you can't use soap and water, use hand director of category management. ? Change your bandage. ? Leave stitches or skin glue alone. ? Leave tape strips alone unless you're told to take them off. You may trim the edges of the tape strips if they curl up. Check the area around your puncture site every day for signs of infection. Check for: ? Redness, swelling, or pain. ? Fluid or blood. ? Warmth. ? Pus or a bad smell. Keep your bandage dry until your provider says you can take it off. Managing pain, stiffness, and swelling Use ice or an ice pack as told. ? Place a towel between your skin and the ice. ? Leave the ice on for 20 minutes, 2?3 times a day. If your skin turns red, take off the ice right away to prevent skin damage. The risk of damage is higher if you can't feel pain, heat, or cold. Activity Rest your back. Avoid doing intense physical activities for as long as you're told. Avoid bending, lifting, or twisting at the waist for as long as you're told. Do not lift anything heavier than 5 lb (2.2 kg) until you're told it's OK. Ask what things are safe for you to do at home. Ask when you can go back to work or school. General instructions Do not smoke, vape, or use nicotine or tobacco. Doing this can slow down healing. If you were given a sedative, do not drive or use machines until you're told it's safe. A sedative can make you sleepy. Your provider may give you more instructions. Make sure you know what you can and can't do. Contact a health care provider if: You have a fever or chills. You have any signs of infection. Your pain gets worse or doesn't get better with medicine. You feel numb or weak in any part of your body. Get help right away if: You have chest pain. You have trouble breathing. You have weakness, numbness, or tingling in your legs. You can't control when you pee or poop. You get weak or numb on one side of your body all of a sudden. You get very confused. You have trouble speaking, understanding, or both. These symptoms may be an emergency. Call 911 right away. Do not wait to see if the symptoms will go away. Do not drive yourself to the hospital. This information is not intended to replace advice given to you by your health care provider. Make sure you discuss any questions you have with your health care provider. Document Released: 2015-11-03 Document Updated: 2024-03-03 Document Reviewed: 2024-03-03 Elsevier Patient Education ? 2024 [employer] * ED Progress Note - ROSALIND VázquezSW - 01/16/2025 7:12 AM EST Emergency Services Psychiatric Evaluation PATIENT NAME: Tatum Domínguez DATE OF : 1940 DATE OF ADMISSION: 01/15/2025 Chief Complaint: Severe anxiety, Suicidal ideations History of Present Illness: The patient's son became concerned about a recent change in her mental health.She experienced a fall with severe back pain approximately a month ago which has resulted in requiring kyphoplasty and severe anxiety which is impacting her ability to function. Stressors: The patient has obsessional thinking about her medical bills and a recent fall which resulted in a back injury. Past Psychiatric History: Previous therapy: no Previous psychiatric treatment and medication trials: no Previous psychiatric hospitalizations: no Previous diagnoses: no Previous suicide attempts: no History of violence: no Currently in treatment with -none. Other pertinent history: None Family History of Mental Illness: none reported Substance Abuse History: Recreational drugs: denied Use of alcohol: denied Use of caffeine: denies use Tobacco use: no Legal consequences of chemical use: no Family History of Substance use/addiction: no Trauma History: none reported though her recent fall seems to have been very destabilizing for her. Past Medical History: see epic Social/Legal History: The patient lives at home with her who is also in his 80's. Psychiatric Review Of Systems: Sleep: no Appetite changes: yes Weight changes: no Energy: yes Interest/pleasure/anhedonia: yes Somatic symptoms: no Anxiety/panic: yes Guilty/hopeless: no Self-injurious behavior/risky behavior: no Access to weapons: no Mental Status Evaluation: Appearance: age appropriate Behavior: restless and fidgety Speech: pressured and circular Mood: anxious Affect: mood-congruent Thought Process: tangential Thought Content: obsessions Sensorium: person, place, and time/date Cognition: impaired due to delirium Insight: Fair Impulse control Fair Judgment: Limited Risk factors: Most recent suicide risk (C-SSRS): High Risk Activating events: Recent losses or other significant negative event(s) (legal, financial, relationship, etc.) Treatment history: Insomnia, Hopeless or dissatisfied with treatment Other risk factors: Clinical status: Hopelessness, Refuses or feels unable to agree to safety plan, Agitation or severeanxiety, Perceived burden on family or others, Chronic physical pain or other acute medical problem(e.g. SONOGRAPHER disorders) Access to lethal methods: No Protective factors: Internal: External: Responsibility to family or others: living with family Specific questioning about thoughts, plans, and suicidal intent: Frequency: Many times each day Duration: 1-4 hours/a lot of time Controllability: Can control thoughts with some difficulty Deterrents: Uncertain that deterrents stopped you Reasons for ideation: Completely to end or stop the pain (you couldn't go on living with the pain or how you were feeling) Total: 19 Safe-T C-SSRS Final Determination: low risk- the patient later clarified no plan or intent to harm herself and was expressing frustration with her level of anxiety DSM-V Diagnosis: Delirium Clinical Impression: The patient is an 84 year old female who was presented to the ER with her son after she presented with AMS x1 week. The patient had a recent fall, had been taking pain medications and had kyphoplasty two days ago. Since the procedure she has gotten more and more perseverative, obsessive and anxious. The patient is ruminating about finances, insurance authorizations etc. She is not able to reassured with facts. She demonstrates odd hand movements while speaking. Her memory appears intact and she has slight confusion. She makes Si statements such as if this doesn'tget resolved I will have to kill myself. But upon further clarification she reports she does not ac tually wish to and would not feel this way if she could stop obsessing. She denies SIB/HI. She is alert, oriented, coherent and organized. She is hyper verbal and pressured. She appears highly anxious. She does not exhibit hallucinations. Recommendations and plan: The patient appears to be experiencing delirium. web application tester to consult. Dispo: Consult to Psychiatry BILL Vázquez * ED Progress Note - CHELY Grider - 01/16/2025 7:11 AM EST ED Provider Psych Progress Note HPI: 84-year-old female presented approximately 8 hours ago for SI, reported making remarks at homethat she wanted to to make it easier in her family. Of note, patient had kyphoplasty here 2 days ago. Labs thus far unremarkable, urine drug screen and urinalysis negative. Patient is quite nervous and perseverates on insurance concerns and medication refill concerns. Vital signs: BP (!) 160/79 Pulse 80 Temp 36.1 ??C (96.9 ??F) (Temporal) Resp 17 SpO2 98% PHYSICAL EXAM: General: No acute distress. Head/Eyes: Atraumatic. Cardiovascular: No cyanosis Respiratory: No respiratory distress. TEST RESULTS: Labs Reviewed CBC WITH DIFFERENTIAL - Abnormal Result Value WBC 8.4 RBC 3.74 Hemoglobin 11.7 Hematocrit 35.3 MCV 94.4 MCH 31.3 MCHC 33.1 RDW-CV 14.4 RDW-SD 49.6 Platelets 199 MPV 11.8 Neutrophil % 72.3 Lymphocyte % 14.0 Monocytes % 12.0 Eosinophils % 1.2 Basophils % 0.4 Immature Granulocytes % 0.1 NRBC % 0.0 Neutrophils Absolute 6.10 Lymphocytes Absolute 1.18 Monocytes Absolute 1.01 (*) Eosinophils Absolute 0.10 Basophils Absolute 0.03 Immature Granulocytes Absolute 0.01 NRBC Absolute 0.00 URINALYSIS REFLEX TO CULTURE - Abnormal Color, Ur Yellow Clarity, Ur Clear Specific Gold Bar, Ur <=1.005 pH, Ur 6.5 Protein,Ur Negative Glucose,Ur Negative Ketones, Ur Negative Bilirubin, Ur Negative Blood, Ur Negative Urobilinogen, Ur 1.0 Nitrite, Ur Negative Leukocyte Esterase, Ur Small (*) RBC, Ur 1 WBC, Ur 1 Epithelial Cells, UR 0 Bacteria, Ur None Seen Casts, Ur 0 ETHANOL - Normal Ethanol level, plasma/serum <3 Narrative: These are unconfirmed screening results and should be used only for medical purposes. If the clinical setting requires confirmation, contact the clinical laboratory. URINE DRUG SCREEN - Normal Amphetamines screen, urine Screen Negative Barbiturates screen, urine Screen Negative Benzodiazepines screen, urine Screen Negative Buprenorphine screen, urine Screen Negative Cannabinoids screen, urine Screen Negative Cocaine screen, urine Screen Negative Ethanol screen, urine Not Detected Fentanyl screen, urine Screen Negative Methadone screen, urine Screen Negative Opiates screen, urine Screen Negative Oxycodone screen, urine Screen Negative Creatinine, urine, specimen validity 25.00 Narrative: These are unconfirmed screening results and should be used only for medical purposes. If the clinical setting requires confirmation, contact the clinical laboratory. CBC W/DIFF Narrative: The following orders were created for panel order CBC and differential. Procedure Abnormality Status --------- ------ CBC w/ Differential[[id number]] Abnormal Final result Please view results for these tests on the individual orders. COMPREHENSIVE METABOLIC PANEL Sodium 138 Potassium 3.9 Chloride 105 CO2 (Bicarbonate) 27 Anion Gap 6 BUN 17 Creatinine 0.62 eGFRcr 88 Glucose 125 Fasting? Unknown Calcium 9.1 AST 14 ALT 18 Alkaline phosphatase 94 Protein, total 6.6 Albumin 3.7 Bilirubin, total 1.0 URINE TESTING (UA, UARC, URINE CULTURE) Narrative: The following orders were created for panel order Urine Testing (UA, UARC, Urine Culture). Procedure Abnormality Status --------- ------ Urinalysis reflex to cul...[[id number]] Abnormal Final result Please view results for these tests on the individual orders. No orders to display ASSESSMENT: Patient remains on section 12, has been medically cleared, vital signs stable this morning. Patient was just evaluated by mental health clinician, waiting to hear recommendations. CHELY Grider 01/16/2025 ED Course as of 01/16/25 1449 SunJan 16, 2025 1026 Spoke with family psychologist Yuridia who does not feel the patient meets section 12 criteria, she willbe lifting the section 12. Recommending starting low-dose antipsychotic which she will order and placing physical therapy and case management eval from the ED. Does not feel that patient is appropriate to be discharged home at this point. 1416 Plan for patient to be admitted to monitor if zyprexa helps with patient's delirium. PT/CM consults placed, will speak with hospitalist team. Case discussed with ED attending who reports that patient should remain on section 12 while in the ED and until inpatient team has taken over 1448 Cased discussed with attending Dr. Blackwell and hospitalist Dr. Cisneros and all are in agreement that patient requires care beyond the scope of the ED Diagnoses as of 01/16/25 1449 Anxiety Suicidal ideation CHELY Grider 01/16/25 1449 Cosigned by Satish Blackwell MD at 01/16/2025 2:54 PM EST documented in this encounter Plan of Treatment Upcoming Encounters Date Type Department Care Team (Late st Contact Info) Description 02/13/2025 4:15 PM EST Office Visit [facility] [address] [facility] [address] [place] [phone] Jairo Noble MD [address] [place] [address] [address] [place] [address] 09/01/2025 9:00 AM EDT Appointment [facility] [address] [facility] [address] [place] [phone] 11/11/2025 10:30 AM EDT Office Visit [facility]ne[facility] [address] [phone] Pita Medina MD [address] [place] [address] [address] [place] [address] 11/23/2025 9:00 AM EDT Appointment [facility] [address] [facility] [address] [place] [phone] 12/03/2025 8:15 AM EDT Office Visit [facility] [address] [place] [phone] Evens Santiago MD [address] [place] [address] 01/13/2026 9:00 AM EST Appointment [facility] [address] [place] [phone] 01/13/2026 10:45 AM EST Office Visit [facility] [address] [place] [phone] Jame Jorge MD [address] [place] [phone] documented as of this encounter Goals Goal Patient Goal Type Associated Problems Recent Progress Patient-Stated? Author Autogenerat ed Goal Care Plan Autogenerated Problem No Eliazar Jones MD documented as of this encounter Procedures Procedure Name Priority Date/Time Associated Diagnosis Comments CBC WITH DIFFERENTIAL Routine 01/19/2025 6:17 AM EST CBC W/DIFF Routine 01/19/2025 6:17 AM EST COMPREHENSIVE METABOLIC PANEL Routine 01/19/2025 6:17 AM EST CBC WITH DIFFERENTIAL Routine 01/18/2025 7:10 AM EST CBC W/DIFF Routine 01/18/2025 7:10 AM EST COMPREHENSIVE METABOLIC PANEL Routine 01/18/2025 7:10 AM EST ECG 12-LEAD Routine 01/17/2025 8:51 AM EST CBC WITH DIFFERENTIAL Routine 01/17/2025 5:51 AM EST CBC W/DIFF Routine 01/17/2025 5:51 AM EST COMPREHENSIVE METABOLIC PANEL Routine 01/17/2025 5:51 AM EST TROPONIN I, HIGH SENSITIVITY Timed 01/16/2025 7:[address] HEAD WO CONTRAST Routine 01/16/2025 4 :55 PM EST TROPONIN I, HIGH SENSITIVITY Timed 01/16/2025 4:40 PM EST AMMONIA Routine 01/16/2025 4:39 PM EST URINE TESTING (UA, UARC, URINE CULTURE) STAT 01/16/2025 1:58 AM EST URINE DRUG SCREEN STAT 01/16/2025 1:5 8 AM EST URINALYSIS REFLEX TO CULTURE STAT 01/16/2025 1:58 AM EST CBC WITH DIFFERENTIAL STAT 01/16/2025 12:07 AM EST CBC W/DIFF STAT 01/16/2025 12:07 AM EST ETHANOL STAT 01/16/2025 12:07 AM EST COMPREHENSIVE METABOLIC PANEL STAT 01/16/2025 12:07 AM EST documented in this encounter Results * CBC w/ Differential (01/19/2025 6:17 AM EST) WBC 7.2 4.0 - 11.0 K/uL 01/19/2025 7:52 AM [facility] RBC 3.93 3.70 - 5.20 M/uL 01/19/2025 7:52 AM [facility] Hemoglobin 12.2 11.0 - 16.0 g/dL 01/19/2025 7:52 AM [facility] Hematocrit 37.0 32.0 - 47.0 % 01/19/2025 7:52 AM [facility] MCV 94.1 80.0 - 100.0 fL 01/19/2025 7:52 AM [facility] MCH 31.0 26.0 - 34.0 pg 01/19/2025 7:52 AM [facility] MCHC 33.0 31.0 - 37.0 g/dL 01/19/2025 7:52 AM [facility] RDW-CV 14.3 11.5 - 14.5 % 01/19/2025 7:52 AM [facility] RDW-SD 49.4 35.0 - 51.0 fL 01/19/2025 7:52 AM [facility] Platelets 227 150 - 400 K/uL 01/19/2025 7:52 AM [facility] MPV 11.5 9.1 - 12.4 fL 01/19/2025 7:52 AM [facility] Neutrophil % 66.2 % 01/19/2025 7:52 AM [facility] Lymphocyte % 21.3 % 01/19/2025 7:52 AM [facility] Monocytes % 9.3 % 01/19/2025 7:52 AM [facility] Eosinophils % 2.1 % 01/19/2025 7:52 AM [facility] Basophils % 0.7 % 01/19/2025 7:52 AM [facility] Immature Granulocytes % 0.4 % 01/19/2025 7:52 AM [facility] NRBC % 0.0 0.0 - 0.0 % 01/19/2025 7:52 AM [facility] Neutrophils Absolute 4.79 1.50 - 7.95 K/uL 01/19/2025 7:52 AM [facility] Lymphocytes Absolute 1.54 0.70 - 4.00 K/uL 01/19/2025 7:52 AM [facility] Monocytes Absolute 0.67 0.36 - 0.77 K/uL 01/19/2025 7:52 AM [facility] Eosinophils Absolute 0.15 0.00 - 0.50 K/uL 01/19/2025 7:52 AM [facility] Basophils Absolute 0.05 0.00 - 0.22 K/uL 01/19/2025 7:52 AM [facility] Immature Granulocytes Absolute 0.03 0.00 - 0.10 K/uL 01/19/2025 7:52 AM [facility] NRBC Absolute 0.00 0.00 - 2.00 K/uL 01/19/2025 7:52 AM [facility] Blood Venous blood specimen / Unknown Venipuncture / Unknown 01/19/2025 6:17 AM EST 01/19/2025 7:50 AM EST Jeannie Hastings NP LAB BLOOD ORDERABLES Final Result [facility] [address] [place] [address], * (ABNORMAL) Comprehensive metabolic panel (01/19/2025 6:17 AM EST) Sodium 139 135 - 146 mmol/L 01/19/2025 8:13 AM [facility] Potassium 4.1 3.6 - 5.2 mmol/L 01/19/2025 8:13 AM [facility] Chloride 108 98 - 110 mmol/L 01/19/2025 8:13 AM [facility] CO2 (Bicarbonate) 25 20 - 32 mmol/L 01/19/2025 8:13 AM [facility] Anion Gap 6 3 - 14 mmol/L 01/19/2025 8:13 AM [facility] BUN 14 6 - 24 mg/dL 01/19/2025 8:13 AM [facility] Creatinine 0.64 0.55 - 1.30 mg/dL 01/19/2025 8:13 AM [facility] eGFRcr 87 >=60 mL/min/1. 73m*2 01/19/2025 8:13 AM [facility] Comment:Calculated using CKD -EPI 2020 creatinine equation. Glucose 116(H) 70 - 99 mg/dL 01/19/2025 8:13 AM [facility] Fasting? Yes 01/19/2025 8:13 AM [facility] Calcium 9.4 8.5 - 10.5 mg/dL 01/19/2025 8:13 AM [facility] AST 15 6 - 42 U/L 01/19/2025 8:13 AM [facility] ALT 21 0 - 55 U/L 01/19/2025 8:13 AM [facility] Alkaline phosphatase 94 30 - 130 U/L 01/19/2025 8:13 AM [facility] Protein, total 7.1 6.0 - 8.4 g/dL 01/19/2025 8:13 AM [facility] Albumin 3.7 3.2 - 5.0 g/dL 01/19/2025 8:13 AM [facility] Bilirubin, total 1.3(H) 0.2 - 1.2 mg/dL 01/19/2025 8:13 AM [facility] Blood Venous blood specimen / Unknown Venipuncture / Unknown 01/19/2025 6:17 AM EST 01/19/2025 7:50 AM EST Jeannie Hastings NP LAB BLOOD ORDERABLES Final Result Performing Organization Address City/State/[facility] Co de Phone Number [facility] [address] [place] [phone], * CBC w/ Differential (01/18/2025 7:10 AM EST) WBC 5.7 4.0 - 11.0 K/uL 01/18/2025 7:59 AM [facility] RBC 3.94 3.70 - 5.20 M/uL 01/18/2025 7:59 AM [facility] Hemoglobin 12.2 11.0 - 16.0 g/dL 01/18/2025 7:59 AM [facility] Hematocrit 37.1 32.0 - 47.0 % 01/18/2025 7:59 AM [facility] MCV 94.2 80.0 - 100.0 fL 01/18/2025 7:59 AM [facility] MCH 31.0 26.0 - 34.0 pg 01/18/2025 7:59 AM [facility] MCHC 32.9 31.0 - 37.0 g/dL 01/18/2025 7:59 AM [facility] RDW-CV 14.3 11.5 - 14.5 % 01/18/2025 7:59 AM [facility] RDW-SD 49.4 35.0 - 51.0 fL 01/18/2025 7:59 AM [facility] Platelets 217 150 - 400 K/uL 01/18/2025 7:59 AM [facility] MPV 11.7 9.1 - 12.4 fL 01/18/2025 7:59 AM [facility] Neutrophil % 67.4 % 01/18/2025 7:59 AM [facility] Lymphocyte % 18.7 % 01/18/2025 7:59 AM [facility] Monocytes % 11.1 % 01/18/2025 7:59 AM [facility] Eosinophils % 1.9 % 01/18/2025 7:59 AM [facility] Basophils % 0.7 % 01/18/2025 7:59 AM [facility] Immature Granulocytes % 0.2 % 01/18/2025 7:59 AM [facility] NRBC % 0.0 0.0 - 0.0 % 01/18/2025 7:59 AM [facility] Neutrophils Absolute 3.83 1.50 - 7.95 K/uL 01/18/2025 7:59 AM [facility] Lymphocytes Absolute 1.06 0.70 - 4.00 K/uL 01/18/2025 7:59 AM [facility] Monocytes Absolute 0.63 0.36 - 0.77 K/uL 01/18/2025 7:59 AM [facility] Eosinophils Absolute 0.11 0.00 - 0.50 K/uL 01/18/2025 7:59 AM [facility] Basophils Absolute 0.04 0.00 - 0.22 K/uL 01/18/2025 7:59 AM [facility] Immature Granulocytes Absolute 0.01 0.00 - 0.10 K/uL 01/18/2025 7:59 AM [facility] NRBC Absolute 0.00 0.00 - 2.00 K/uL 01/18/2025 7:59 AM [facility] Blood Venous blood specimen / Unknown Venipuncture / Unknown 01/18/2025 7:10 AM EST 01/18/2025 7:53 AM EST Jeannie Hastings NP LAB BLOOD ORDERABLES Final Result [facility] [address] [place] [address], * (ABNORMAL) Comprehensive metabolic panel (01/18/2025 7:10 AM EST) Sodium 141 135 - 146 mmol/L 01/18/2025 8:26 AM [facility] [facility] Potassium 4.1 3.6 - 5.2 mmol/L 01/18/2025 8:26 AM [facility] Chloride 110 98 - 110 mmol/L 01/18/2025 8:26 AM [facility] CO2 (Bicarbonate) 26 20 - 32 mmol/L 01/18/2025 8:26 AM [facility] Anion Gap 5 3 - 14 mmol/L 01/18/2025 8:26 AM [facility] BUN 10 6 - 24 mg/dL 01/18/2025 8:26 AM [facility] Creatinine 0.57 0.55 - 1.30 mg/dL 01/18/2025 8:26 AM [facility] eGFRcr 90 >=60 mL/min/1. 73m*2 01/18/2025 8:26 AM [facility] Comment:Calculated using CKD -EPI 2020 creatinine equation. Glucose 117 70 - 139 mg/dL 01/18/2025 8:26 AM [facility] Fasting? No 01/18/2025 8:26 AM [facility] Calcium 9.3 8.5 - 10.5 mg/dL 01/18/2025 8:26 AM [facility] AST 16 6 - 42 U/L 01/18/2025 8:26 AM [facility] ALT 18 0 - 55 U/L 01/18/2025 8:26 AM [facility] Alkaline phosphatase 90 30 - 130 U/L 01/18/2025 8:26 AM [facility] Protein, total 6.7 6.0 - 8.4 g/dL 01/18/2025 8:26 AM [facility] Albumin 3.7 3.2 - 5.0 g/dL 01/18/2025 8:26 AM [facility] Bilirubin, total 1.5(H) 0.2 - 1.2 mg/dL 01/18/2025 8:26 AM [facility] Blood Venous blood specimen / Unknown Venipuncture / Unknown 01/18/2025 7:10 AM EST 01/18/2025 7:54 AM EST Jeannie Hastings NP LAB BLOOD ORDERABLES Final Result [facility] [address] [place] [address], * ECG 12 lead (01/17/2025 8:51 AM EST) 01/17/2025 8:51 AM EST 01/18/2025 4:02 PM EST Narrative MW STRESS/ECG GE MUSE - 01/18/2025 4:02 PM EST Test Reason : ANXIETY Blood Pressure : */* mmHG Vent. Rate : 92 BPM Atrial Rate : 92 BPM P-R Int : 130 ms QRS Dur : 114 ms QT Int : 376 ms P-R-T Axes : 21 -54 39 degrees QTc Int : 464 ms Sinus rhythm with occasional premature ventricular complexes Left axis deviation Septal infarct , age undetermined Abnormal ECG When compared with ECG of 28-FEB-2017 07:02, premature ventricular complexes are now present Vent. rate has increased BY 35 BPM Questionable change in QRS duration Septal infarct is now present Confirmed by JAIRO NOBLE MD ([id number]) on 01/18/2025 4:02:39 PM Referred By: Confirmed By: JAIRO NOBLE MD Procedure Note Jairo Noble MD - 01/18/2025 Test Reason : ANXIETY Blood Pressure : */* mmHG Vent. Rate : 92 BPM Atrial Rate : 92 BPM P-R Int : 130 ms QRS Dur : 114 ms QT Int : 376 ms P-R-T Axes : 21 -54 39 degrees QTc Int : 464 ms Sinus rhythm with occasional premature ventricular complexes Left axis deviation Septal infarct , age undetermined Abnormal ECG When compared with ECG of 28-FEB-2017 07:02, premature ventricular complexes are now present Vent. rate has increased BY 35 BPM Questionable change in QRS duration Septal infarct is now present Confirmed by JAIRO NOBLE MD ([id number]) on 01/18/2025 4:02:39 PM Referred By: Confirmed By: JAIRO NOBLE MD us Kaci Cisneros MD ECG ORDERABLES Final Result [facility] STRESS/ECG GE MUSE * (ABNORMAL) CBC w/ Differential (01/17/2025 5:51 AM EST) WBC 7.2 4.0 - 11.0 K/uL 01/17/2025 6:53 AM EST [facility] RBC 3.47(L) 3.70 - 5.20 M/uL 01/17/2025 6:53 AM EST [facility] Hemoglobin 10.7(L) 11.0 - 16.0 g/dL 01/17/2025 6:53 AM [facility] Hematocrit 33.2 32.0 - 47.0 % 01/17/2025 6:53 AM [facility] MCV 95.7 80.0 - 100.0 fL 01/17/2025 6:53 AM [facility] MCH 30.8 26.0 - 34.0 pg 01/17/2025 6:53 AM [facility] MCHC 32.2 31.0 - 37.0 g/dL 01/17/2025 6:53 AM [facility] RDW-CV 14.5 11.5 - 14.5 % 01/17/2025 6:53 AM [facility] RDW-SD 50.4 35.0 - 51.0 fL 01/17/2025 6:53 AM [facility] Platelets 193 150 - 400 K/uL 01/17/2025 6:53 AM [facility] MPV 12.1 9.1 - 12.4 fL 01/17/2025 6:53 AM [facility] Neutrophil % 69.7 % 01/17/2025 6:53 AM [facility] Lymphocyte % 15.9 % 01/17/2025 6:53 AM [facility] Monocytes % 11.6 % 01/17/2025 6:53 AM [facility] Eosinophils % 1.7 % 01/17/2025 6:53 AM [facility] Basophils % 0.8 % 01/17/2025 6:53 AM [facility] Immature Granulocytes % 0.3 % 01/17/2025 6:53 AM [facility] NRBC % 0.0 0.0 - 0.0 % 01/17/2025 6:53 AM [facility] Neutrophils Absolute 5.05 1.50 - 7.95 K/uL 01/17/2025 6:53 AM [facility] Lymphocytes Absolute 1.15 0.70 - 4.00 K/uL 01/17/2025 6:53 AM [facility] Monocytes Absolute 0.84(H) 0.36 - 0.77 K/uL 01/17/2025 6:53 AM [facility] Eosinophils Absolute 0.12 0.00 - 0.50 K/uL 01/17/2025 6:53 AM [facility] Basophils Absolute 0.06 0.00 - 0.22 K/uL 01/17/2025 6:53 AM [facility] Immature Granulocytes Absolute 0.02 0.00 - 0.10 K/uL 01/17/2025 6:53 AM [facility] NRBC Absolute 0.00 0.00 - 2.00 K/uL 01/17/2025 6:53 AM [facility] Blood Venous blood specimen / Unknown Venipuncture / Unknown 01/17/2025 5:51 AM EST 01/17/2025 6:39 AM EST Jeannie Hastings NP LAB BLOOD ORDERABLES Final Result [facility] [address] [place] [address], * (ABNORMAL) Comprehensive metabolic panel (01/17/2025 5:51 AM EST) Sodium 141 135 - 146 mmol/L 01/17/2025 7:21 AM [facility] Potassium 3.4(L) 3.6 - 5.2 mmol/L 01/17/2025 7:21 AM [facility] Chloride 109 98 - 110 mmol/L 01/17/2025 7:21 AM [facility] CO2 (Bicarbonate) 27 20 - 32 mmol/L 01/17/2025 7:21 AM [facility] Anion Gap 5 3 - 14 mmol/L 01/17/2025 7:21 AM [facility] BUN 10 6 - 24 mg/dL 01/17/2025 7:21 AM [facility] Creatinine 0.52(L) 0.55 - 1.30 mg/dL 01/17/2025 7:21 AM [facility] eGFRcr 92 >=60 mL/min/1. 73m*2 01/17/2025 7:21 AM [facility] Comment:Calculated using CKD -EPI 2020 creatinine equation. Glucose 105(H) 70 - 99 mg/dL 01/17/2025 7:21 AM [facility] Fasting? Yes 01/17/2025 7:21 AM [facility] Calcium 9.0 8.5 - 10.5 mg/dL 01/17/2025 7:21 AM [facility] AST 13 6 - 42 U/L 01/17/2025 7:21 AM [facility] ALT 15 0 - 55 U/L 01/17/2025 7:21 AM [facility] Alkaline phosphatase 81 30 - 130 U/L 01/17/2025 7:21 AM [facility] Protein, total 5.8(L) 6.0 - 8.4 g/dL 01/17/2025 7:21 AM [facility] Albumin 3.2 3.2 - 5.0 g/dL 01/17/2025 7:21 AM [facility] Bilirubin, total 1.3(H) 0.2 - 1.2 mg/dL 01/17/2025 7:21 AM [facility] Blood Venous blood specimen / Unknown Venipuncture / Unknown 01/17/2025 5:51 AM EST 01/17/2025 6:42 AM EST us Jeannie Hastings NP LAB BLOOD ORDERABLES Final Result [facility] [address] [place] [address], * Troponin I, High Sensitivity (01/16/2025 7:44 PM EST) Troponin I, High Sensitivity 18 See Comment ng/L 01/16/2025 8:22 PM EST [facility] Blood Venous blood specimen / Unknown Venipuncture / Unknown 01/16/2025 7:44 PM EST 01/16/2025 7:58 PM EST Narrative [facility] - 01/16/2025 8:22 PM EST Clinical correlation, HEART Score and shared decision making must be taken into account. For Chest Pain >3 Hours Rule-Out Criteria Single Value 0hr/1hr Delta Value Female <10ng/L* <54ng/L AND delta <15ng/L Male <10ng/L* <79ng/L AND delta <15ng/L Cannot Rule-Out 0hr/1hr Delta Value Female <54ng/L AND delta >15ng/L >/= 54 AND delta </=15ng/L Male <79ng/L AND delta >15ng/L >/= 79 AND delta </=15ng/L Rule-In Criteria Single Value 0hr/1hr Delta Value Female >115ng/L >/=54ng/L AND delta >/=15ng/L Male >115ng/L >/=79ng/L AND delta >/=15ng/L *Note: for Chest pain <3 hours 0hr/1hr is warranted for evaluation. Jeannie Hastings NP LAB BLOOD ORDERABLES Final Result [facility] [address] [place] [address], * CT HEAD WO CONTRAST (01/16/2025 4:55 PM EST) Anatomical Region Laterality Modality Head, Brain, Neck Computed Tomog wild 01/16/2025 5:44 PM EST Impressions 01/16/2025 5:[address] evidence for acute intracranial abnormality, including large territorial infarct, hemorrhage or midline shift. This medical report is generated using voice recognition technology and occasional [id number] words may be substituted. Please read the report carefully in the appropriate medical context. If there is a specific question regarding the language of the report, a radiologist will be made available for clarification. Terry Huff 01/16/2025 5:50 PM Narrative 01/16/2025 5:50 PM EST Procedure: CT HEAD WO CONTRAST 01/16/2025 4:50 PM Indications: agitation and delirium , 84-year-old. Comparison: 12/11/2024. TECHNIQUE: Unenhanced CT scan of the head was performed, utilizing dose modulation techniques, as per department protocol. Triplanar reformats were obtained. HISTORY: As above. FINDINGS: None Brain parenchyma: No evidence of acute territorial infarct. No mass effect or midline shift is noted. The rodriguez-white matter is maintained. Ventricles: No intra-axial or extra-axial hemorrhage or collection. The ventricles and sulci are symmetric and within normal range. No hydrocephalus. Calvarium/bones/mastoid: The calvarium is without depressed skull fracture. The mastoid air cells are patent. There is a 2.2 x 1.4 cm extra-axial calcified lesion within the left frontal bone, which may represent a meningioma. Sinuses: Visualized paranasal sinuses are patent. Soft tissues/orbits: The extracranial subcutaneous soft tissues are unremarkable. Visualized globes and orbits are intact. Vessels: Mild to moderate carotid cavernous/siphon atherosclerotic calcifications. Procedure Note Terry Huff MD - 01/16/2025 Procedure: CT HEAD WO CONTRAST 01/16/2025 4:50 PM Indications: agitation and delirium , 84-year-old. Comparison: 12/11/2024. TECHNIQUE: Unenhanced CT scan of the head was performed, utilizing dosemodulation techniques, as per department protocol. Triplanar reformatswere obtained. HISTORY: As above. FINDINGS: None Brain parenchyma: No evidence of acute territorial infarct. No mass effector midline shift is noted. The rodriguez-white matter is maintained. Ventricles: No intra-axial or extra-axial hemorrhage or collection. Theventricles and sulci are symmetric and within normal range. Nohydrocephalus. Calvarium/bones/mastoid: The calvarium is without depressed skullfracture. The mastoid air cells are patent. There is a 2.2 x 1.4 cmextra-axial calcified lesion within the left frontal bone, which mayrepresent a meningioma. Sinuses: Visualized paranasal sinuses are patent. Soft tissues/orbits: The extracranial subcutaneous soft tissues areunremarkable. Visualized globes and orbits are intact. Vessels: Mild to moderate carotid cavernous/siphon atheroscleroticcalcifications. IMPRESSION: No CT evidence for acute intracranial abnormality, including largeterritorial infarct, hemorrhage or midline shift. This medical report is generated using voice recognition technologyand occasional [id number] words may be substituted. Please read thereport carefully in the appropriate medical context. If there is aspecific question regarding the language of the report, a radiologist willbe made available for clarification. Terry Huff 01/16/2025 5:50 PM Jeannie Hastings NP IMG CT PROCEDURES Fin al Result * Troponin I, High Sensitivity (01/16/2025 4:40 PM EST) Troponin I, High Sensitivity 17 See Comment ng/L 01/16/2025 5:34 PM EST [facility] Blood Venous blood specimen / Unknown Venipuncture / Unknown 01/16/2025 4:40 PM EST 01/16/2025 5:10 PM EST Narrative [facility] - 01/16/2025 5:34 PM EST Clinical correlation, HEART Score and shared decision making must be taken into account. For Chest Pain >3 Hours Rule-Out Criteria Single Value 0hr/1hr Delta Value Female <10ng/L* <54ng/L AND delta <15ng/L Male <10ng/L* <79ng/L AND delta <15ng/L Cannot Rule-Out 0hr/1hr Delta Value Female <54ng/L AND delta >15ng/L >/= 54 AND delta </=15ng/L Male <79ng/L AND delta >15ng/L >/= 79 AND delta </=15ng/L Rule-In Criteria Single Value 0hr/1hr Delta Value Female >115ng/L >/=54ng/L AND delta >/=15ng/L Male >115ng/L >/=79ng/L AND delta >/=15ng/L *Note: for Chest pain <3 hours 0hr/1hr is warranted for evaluation. Jeannie LimAlex [employer] LAB BLOOD ORDERABLES Final Result Performing Organization Address City/[facility]/ZIP Co de Phone Number [facility] [address] [place] [id number], * Ammonia (01/16/2025 4:39 PM EST) Ammonia 34 19 - 82 ug/dL 01/16/2025 5:37 PM EST [facility] Blood Venous blood specimen / Unknown Venipuncture / Unknown 01/16/2025 4:39 PM EST 01/16/2025 5:10 PM EST [facility] BLOOD ORDERABLES Final Result Performing Organization Address [facility] Co de Phone Number [facility] [address] [place] [phone], * (ABNORMAL) Urinalysis reflex to culture (01/16/2025 1:58 AM EST) Color, Ur Yellow Yellow, Dark Yellow 01/16/2025 2:28 AM [facility] Clarity, Ur Clear Clear 01/16/2025 2:28 AM [facility] Specific [place], Ur <=1.005 1.005 - 1.030 01/16/2025 2:28 AM [facility] pH, Ur 6.5 5.0 - 8.0 01/16/2025 2:28 AM [facility] Protein,Ur Negative Negative mg/dL 01/16/2025 2:28 AM [facility] Glucose,Ur Negative Negative mg/dL 01/16/2025 2:28 AM [facility] Ketones, Ur Negative Negative mg/dL 01/16/2025 2:28 AM [facility] Bilirubin, Ur Negative Negative 01/16/2025 2:28 AM [facility] Blood, Ur Negative Negative 01/16/2025 2:28 AM [facility] Urobilinogen, Ur 1.0 0.2-1.0 E.U./dl E.U./dl 01/16/2025 2:28 AM [facility] Nitrite, Ur Negative Negative 01/16/2025 2:28 AM [facility] Leukocyte Esterase, Ur Small(A) Negative WBC/uL 01/16/2025 2:28 AM [facility] RBC, Ur 1 0-4 cells/HPF cells/HPF 01/16/2025 2:28 AM [facility] WBC, Ur 1 0-5 cells/HPF cells/HPF 01/16/2025 2:28 AM [facility] Epithelial Cells, UR 0 0-5 cells/HPF cells/HPF 01/16/2025 2:28 AM [facility] Bacteria, Ur None Seen None Seen 01/16/2025 2:28 AM [facility] Casts, Ur 0 0-4 cells/LPF cells/LPF 01/16/2025 2:28 AM [facility] Urine Urine specimen obtained by clean catch procedure / Unknown Non-blood Collection / Unknown 01/16/2025 1:58 AM EST 01/16/2025 1:58 AM EST [place] [facility] URINE ORDERABLES Final Resu lt Performing Organization Address City/State/[facility] Co de Phone Number [facility] [address] [place] [phone], * Urine Drug Screen (01/16/2025 1:58 AM EST) Amphetamines screen, urine Screen Negative Screen Negative 01/16/2025 2:26 AM [facility] Comment:Cutoff concentration = 1000 ng/mL. Barbiturates screen, urine Screen Negative Screen Negative 01/16/2025 2:26 AM [facility] Comment:Cutoff concentration = 200 ng/mL. Benzodiazepines screen, urine Screen Negative Screen Negative 01/16/2025 2:26 AM [facility] Comment:Cutoff concentration = 200 ng/mL. Buprenorphine screen, urine Screen Negative Screen Negative 01/16/2025 2:26 AM [facility] Comment:Cutoff concentration = 5 ng/mL. Cannabinoids screen, urine Screen Negative Screen Negative 01/16/2025 2:26 AM [facility] Comment:Cutoff concentration = 50 ng/mL. Cocaine screen, urine Screen Negative Screen Negative 01/16/2025 2:26 AM [facility] Comment:Cutoff concentration = 300 ng/mL. Ethanol screen, urine Not Detected Not Detected 01/16/2025 2:26 AM [facility] Comment:Cutoff concentration = 10 mg/dL. Fentanyl screen, urine Screen Negative Screen Negative 01/16/2025 2:26 AM [facility] Comment:Cutoff concentration = 1.0 ng/mL. Methadone screen, urine Screen Negative Screen Negative 01/16/2025 2:26 AM [facility] Comment:Cutoff concentration = 300 mg/dL. Opiates screen, urine Screen Negative Screen Negative 01/16/2025 2:26 AM [facility] Comment:Cutoff concentration = 300 ng/mL. Oxycodone screen, urine Screen Negative Screen Negative 01/16/2025 2:26 AM [facility] Comment:Cutoff concentration = 100 ng/mL. Creatinine, urine, specimen validity 25.00 >=20.00 mg/dL 01/16/2025 2:26 AM [facility] Urine Urine specimen / Unknown Non-blood Collection / Unknown 01/16/2025 1:58 AM EST 01/16/2025 1:58 AM [facility] - 01/16/2025 2:26 AM [facility] These are unconfirmed screening results and should be used only for medical purposes. If the clinical setting requires confirmation, contact the clinical laboratory. [place] [facility] URINE ORDERABLES Final Resu lt [facility] [address] [place] [address], * (ABNORMAL) CBC w/ Differential (01/16/2025 12:07 AM EST) [facility] Signature WBC 8.4 4.0 - 11.0 K/uL 01/16/2025 12:29 AM [facility] RBC 3.74 3.70 - 5.20 M/uL 01/16/2025 12:29 AM [facility] Hemoglobin 11.7 11.0 - 16.0 g/dL 01/16/2025 12:29 AM [facility] Hematocrit 35.3 32.0 - 47.0 % 01/16/2025 12:29 AM [facility] MCV 94.4 80.0 - 100.0 fL 01/16/2025 12:29 AM [facility] MCH 31.3 26.0 - 34.0 pg 01/16/2025 12:29 AM [facility] MCHC 33.1 31.0 - 37.0 g/dL 01/16/2025 12:29 AM [facility] RDW-CV 14.4 11.5 - 14.5 % 01/16/2025 12:29 AM [facility] RDW-SD 49.6 35.0 - 51.0 fL 01/16/2025 12:29 AM [facility] Platelets 199 150 - 400 K/uL 01/16/2025 12:29 AM [facility] MPV 11.8 9.1 - 12.4 fL 01/16/2025 12:29 AM [facility] Neutrophil % 72.3 % 01/16/2025 12:29 AM [facility] Lymphocyte % 14.0 % 01/16/2025 12:29 AM [facility] Monocytes % 12.0 % 01/16/2025 12:29 AM [facility] Eosinophils % 1.2 % 01/16/2025 12:29 AM [facility] Basophils % 0.4 % 01/16/2025 12:29 AM [facility] Immature Granulocytes % 0.1 % 01/16/2025 12:29 AM [facility] NRBC % 0.0 0.0 - 0.0 % 01/16/2025 12:29 AM [facility] Neutrophils Absolute 6.10 1.50 - 7.95 K/uL 01/16/2025 12:29 AM [facility] Lymphocytes Absolute 1.18 0.70 - 4.00 K/uL 01/16/2025 12:29 AM [facility] Monocytes Absolute 1.01(H) 0.36 - 0.77 K/uL 01/16/2025 12:29 AM [facility] Eosinophils Absolute 0.10 0.00 - 0.50 K/uL 01/16/2025 12:29 AM [facility] Basophils Absolute 0.03 0.00 - 0.22 K/uL 01/16/2025 12:29 AM [facility] Immature Granulocytes Absolute 0.01 0.00 - 0.10 K/uL 01/16/2025 12:29 AM [facility] NRBC Absolute 0.00 0.00 - 2.00 K/uL 01/16/2025 12:29 AM [facility] Blood Venous blood specimen / Unknown Venipuncture / Unknown 01/16/2025 12:07 AM EST 01/16/2025 12:08 AM EST us [place] LAB BLOOD ORDERABLES Final Resu lt [facility] [address] [place] [address], * Ethanol, serum (01/16/2025 12:07 AM EST) Ethanol level, plasma/serum <3 0 - 3 mg/dL 01/16/2025 12:35 AM [facility] Blood Venous blood specimen / Unknown Venipuncture / Unknown 01/16/2025 12:07 AM EST 01/16/2025 12:08 AM EST [facility] - 01/16/2025 12:35 AM EST These are unconfirmed screening results and should be used only for medical purposes. If the clinical setting requires confirmation, contact the clinical laboratory. [place] LAB BLOOD ORDERABLES Final Resu lt [facility] [address] [place] [address], * Comprehensive metabolic panel (01/16/2025 12:07 AM EST) Sodium 138 135 - 146 mmol/L 01/16/2025 12:32 AM [facility] Potassium 3.9 3.6 - 5.2 mmol/L 01/16/2025 12:32 AM [facility] Chloride 105 98 - 110 mmol/L 01/16/2025 12:32 AM [facility] CO2 (Bicarbonate) 27 20 - 32 mmol/L 01/16/2025 12:32 AM [facility] Anion Gap 6 3 - 14 mmol/L 01/16/2025 12:32 AM [facility] BUN 17 6 - 24 mg/dL 01/16/2025 12:32 AM [facility] Creatinine 0.62 0.55 - 1.30 mg/dL 01/16/2025 12:32 AM [facility] eGFRcr 88 >=60 mL/min/1. 73m*2 01/16/2025 12:32 AM [facility] Comment:Calculated using CKD -EPI 2020 creatinine equation. Glucose 125 70 - 139 mg/dL 01/16/2025 12:32 AM [facility] Fasting? Unknown 01/16/2025 12:32 AM [facility] Calcium 9.1 8.5 - 10.5 mg/dL 01/16/2025 12:32 AM [facility] AST 14 6 - 42 U/L 01/16/2025 12:32 AM [facility] ALT 18 0 - 55 U/L 01/16/2025 12:32 AM [facility] Alkaline phosphatase 94 30 - 130 U/L 01/16/2025 12:32 AM [facility] Protein, total 6.6 6.0 - 8.4 g/dL 01/16/2025 12:32 AM [facility] Albumin 3.7 3.2 - 5.0 g/dL 01/16/2025 12:32 AM [facility] Bilirubin, total 1.0 0.2 - 1.2 mg/dL 01/16/2025 12:32 AM [facility] Blood Venous blood specimen / Unknown Venipuncture / Unknown 01/16/2025 12:07 AM EST 01/16/2025 12:08 AM EST [place] [facility] BLOOD ORDERABLES Final Resu lt Performing Organization Address City/State/[facility] Co de Phone Number [facility] [address] [place] [address], documented in this encounter Visit Diagnoses Diagnosis Anxiety- Primary Anxiety state, unspecified Anxiety Anxiety state, unspecified Suicidal ideation 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, initial encounter Closed compression fracture of L1 lumbar vertebra, initial encounter Acute low back pain, unspecified back pain laterality, unspecified whether sciatica present documented in this encounter Admitting Diagnoses Diagnosis Anxiety Anxiety state, unspecified documented in this encounter Administered Medications Inactive Administered Medications - up to 3 most recent administrations Medication Order MAR Action Action Date Dose Rate Site acetaminophen (Tylenol) solution 650 mg 650 mg, oral, Every 6 hours PRN, headaches, fever, Starting on Sun01/16/25 at 1635, Give oral liquid if patient prefers or per feeding tube if present. If inadequate response within 60 minutes, proceed to next-line agent for same PRN reason or contact provider if no further options ordered. acetaminophen (Tylenol) tablet 650 mg 650 mg, oral, Every 6 hours PRN, pain score 4-6 (moderate), pain score 1-3 (mild), Starting on Sun01/16/25 at 0426 Given 01/16/2025 4:28 AM EST 650 mg acetaminophen (Tylenol) tablet 650 mg 650 mg, oral, Every 6 hours PRN, headaches, fever, Starting on Sun01/16/25 at 1635, If inadequate response within 60 minutes, proceed to next-line agent for same PRN reason or contact provider if no further options ordered. Given 01/19/2025 6:34 PM EST 650 mg Given 01/19/2025 10:41 AM EST 650 mg Given 01/19/2025 2:07 AM EST 650 mg aspirin EC tablet 81 mg 81 mg, oral, Daily, First dose on Sun01/16/25 at 1600, Do not crush, chew, or split. Given 01/19/2025 10:42 AM EST 81 mg Given 01/18/2025 8:14 AM EST 81 mg Given 01/17/2025 9:29 AM EST 81 mg atorvastatin (Lipitor) tablet 80 mg 80 mg, oral, Nightly, First dose on Sun01/16/25 at 2200 Given 01/18/2025 9:03 PM EST 80 mg Given 01/17/2025 8:14 PM EST 80 mg Given 01/16/2025 10:13 PM EST 80 mg calcitonin (salmon) (Miacalcin) nasal spray 200 Units 200 Units, One Nostril, Daily, First dose on Sun01/16/25 at 1800 Given 01/18/2025 8:18 AM EST 200 Units Given 01/17/2025 9:45 AM EST 200 Units calcium carbonate-vitamin D3 600 mg-10 mcg (400 unit) per tablet 1 tablet 1 tablet, oral, Daily, First dose on Sun01/16/25 at 1700 Given 01/19/2025 10:42 AM EST 1 tablet Given 01/18/2025 8:14 AM EST 1 tablet Given 01/17/2025 9:30 AM EST 1 tablet cholecalciferol (vitamin D3) (Vitamin D-3) tablet 1,000 Units 1,000 Units, oral, Daily, First dose on Sun01/16/25 at 1600 Given 01/19/2025 10:42 AM EST 1,000 Units Given 01/18/2025 8:14 AM EST 1,000 Units Given 01/17/2025 9:29 AM EST 1,000 Units cyclobenzaprine (Flexeril) tablet 5 mg 5 mg, oral, 3 times daily PRN, muscle spasms, Starting on Sun01/17/25 at 1837 Given 01/19/2025 6:34 PM EST 5 mg Given 01/19/2025 2:08 AM EST 5 mg Given 01/18/2025 3:50 PM EST 5 mg diazePAM (Valium) injection 5 mg 5 mg, intravenous, Once, On Sun01/16/25 at 0030, For 1 dose Given 01/16/2025 12:30 AM EST 5 mg docusate sodium (Colace) capsule 100 mg 100 mg, oral, 2 times daily PRN, constipation, Starting on Sun01/16/25 at 1635, Bowel Regimen - for prevention of constipation. docusate sodium (Colace) oral liquid 100 mg 100 mg, oral, 2 times daily PRN, constipation, Starting on Sun01/16/25 at 1635, Bowel Regimen - for prevention of constipation. heparin (porcine) injection 5,000 Units 5,000 Units, subcutaneous, Every 12 hours scheduled, First dose on Sun01/16/25 at 2215 Given 01/18/2025 8:14 AM EST 5,000 Units Left Upper Arm (Back) Given 01/17/2025 8:14 PM EST 5,000 Units L eft Upper Arm (Back) Given 01/17/2025 9:30 AM EST 5,000 Units L eft Lower Abdomen isosorbide mononitrate ER (Imdur) 24 hr tablet 60 mg 60 mg, oral, Daily, First dose on Sun01/16/25 at 1600, Hold sbp <110 Do not crush or chew. Given 01/19/2025 10:42 AM EST 60 mg Given 01/18/2025 8:14 AM EST 60 mg Given 01/17/2025 9:29 AM EST 60 mg lactated Ringer's bolus 1,000 mL 1,000 mL, intravenous, at 1,000 mL/hr, Administer over 1 Hours, Once, On Sun01/16/25 at 0015, For 1 dose New Bag 01/16/2025 12:15 AM EST 1,000 mL 1000 mL/hr LORazepam (Ativan) tablet 0.5 mg 0.5 mg, oral, Once, On Sun01/19/25 at 0245, For 1 dose Given 01/19/2025 2:35 AM EST 0.5 mg LORazepam (Ativan) tablet 1 mg 1 mg, oral, Once, On Sun01/16/25 at 0220, For 1 dose Given 01/16/2025 2:25 AM EST 1 mg melatonin tablet 6 mg 6 mg, oral, Nightly, First dose on Sun01/16/25 at 2200 Given 01/18/2025 9:03 PM EST 6 mg metoprolol succinate XL (Toprol-XL) 24 hr tablet 50 mg 50 mg, oral, Daily, First dose on Sun01/16/25 at 1600, Hold sbp <110 or hr <60 Do not crush or chew. Given 01/19/2025 10:42 AM EST 50 mg Given 01/18/2025 8:14 AM EST 50 mg Given 01/17/2025 9:29 AM EST 50 mg multivitamin with folic acid 1 tablet 1 tablet (1 each), oral, Daily, First dose on Sun01/16/25 at 1600 Given 01/19/2025 10:42 AM EST 1 tablet Given 01/18/2025 8:14 AM EST 1 tablet Given 01/17/2025 9:29 AM EST 1 tablet OLANZapine (ZyPREXA) tablet 1.25 mg 1.25 mg, oral, 3 times daily, First dose on Sun01/16/25 at 1400 Given 01/18/2025 9:00 PM EST 1.25 mg Given 01/18/2025 2:52 PM EST 1.25 mg Given 01/18/2025 8:15 AM EST 1.25 mg ondansetron (Zofran) injection 4 mg 4 mg, intravenous, Every 8 hours PRN, nausea, vomiting, Starting on Sun01/19/25 at 0724, Phase II/On Unit, 1st Line. Give IV if patient is unable to take orally. If inadequate response within 60 minutes, proceed to next-line agent or contact provider if no further options ordered. ondansetron ODT (Zofran-ODT) disintegrating tablet 4 mg 4 mg, oral, Every 8 hours PRN, nausea, vomiting, Starting on Sun01/19/25 at 0724, Phase II/On Unit, 1st Line. If inadequate response within 60 minutes, proceed to next-line agent or contact provider if no further options ordered. Patient should allow tablet to dissolve on tongue. Do not remove from blister pack until just before administering. oxyCODONE (Roxicodone) immediate release tablet 5 mg 5 mg, oral, Every 6 hours PRN, pain score 7-10 (severe), Starting on Sun01/19/25 at 0810, For 7 days polyethylene glycol (Glycolax) packet 17 g 17 g, oral, Daily, First dose on Sun01/16/25 at 1600, Mix contents of one packet (17 grams) in 8 ounces of water, juice, soda, coffee, tea Given 01/18/2025 8:16 AM EST 17 g potassium chloride CR (Klor-Con M20) ER tablet 40 mEq 40 mEq, oral, Once, On 01/17/25 at 1700, For 1 dose, Do not crush or chew. If unable to swallow tablet, stir and dissolve tablet in 120 mL of water. Give immediately. Add 30 mL of water to cup, swirl, and give immediately. Given 01/17/2025 4:59 PM EST 40 mEq documented in this encounter Active and Recently Administered Medications Times are shown in EST. Scheduled Medication Order 01/17/2025 01/18/2025 01/19/2025 acetaminophen (Tylenol) tablet 650 mg 650 mg, oral, Once, On Sun01/16/25 at 0435, For 1 dose aspirin EC tablet 81 mg 81 mg, oral, Daily, First dose on Sun01/16/25 at 1600, Do not crush, chew, or split. 0929 (Given - Provider: Ryne West RN) 0814 (Given - Provider: Yary Young RN) 1042 (Given - Provider: Grisel Stein RN) atorvastatin (Lipitor) tablet 80 mg 80 mg, oral, Nightly, First dose on Sun01/16/25 at 2200 2013 (Given - Provider: Dylan Geiger RN) 2102 (Given - Provider: Janet Espino RN) calcitonin (salmon) (Miacalcin) nasal spray 200 Units 200 Units, One Nostril, Daily, First dose on Sun01/16/25 at 1800 0945 (Given - Provider: Ryne West RN) 0818 (Given - Provider: Yary Young RN) 0900 (Not Given - Provider: Grisel Stein RN - Reason: Patient/family refused) calcium carbonate-vitamin D3 600 mg-10 mcg (400 unit) per tablet 1 tablet 1 tablet, oral, Daily, First dose on Sun01/16/25 at 1700 0930 (Given - Provider: Ryne Wets RN) 0814 (Given - Provider: Yary Young RN) 1042 (Given - Provider: Grisel Stein RN) cholecalciferol (vitamin D3) (Vitamin D-3) tablet 1,000 Units 1,000 Units, oral, Daily, First dose on Sun01/16/25 at 1600 0929 (Given - Provider: Ryne West RN) 0814 (Given - Provider: Yary Young RN) 1042 (Given - Provider: Grisel Stein RN) heparin (porcine) injection 5,000 Units 5,000 Units, subcutaneous, Every 12 hours scheduled, First dose on Sun01/16/25 at 2215 0930 (Given - Provider: Ryne West RN)2013 (Given - Provider: Dylan Geiger RN) 0814 (Given - Provider: Yary Young RN)2100 (Not Given - Provider: Janet Espino RN - Reason: Patient/family refused) 0900 (Not Given - Provider: Grisel Stein RN - Reason: Patient/family refused)2100 (Canceled Entry - Provider: Automatic Discharge Provider - Comment: Automatically canceled at discontinue of medication order) isosorbide mononitrate ER (Imdur) 24 hr tablet 60 mg 60 mg, oral, Daily, First dose on Sun01/16/25 at 1600, Hold sbp <110 Do not crush or chew. 0929 (Given - Provider: Ryne West RN) 0814 (Given - Provider: Yary Young RN) 1042 (Given - Provider: Grisel Stein RN) LORazepam (Ativan) tablet 0.5 mg (COMPLETED) 0.5 mg, oral, Once, On Sun01/19/25 at 0245, For 1 dose 0235 (Given - Provid er: Janet Espino RN) melatonin tablet 6 mg 6 mg, oral, Nightly, First dose on Sun01/16/25 at 2200 2200 (Not Given - Provider: Dylan Geiger RN - Reason: Patient/family refused) 210 (Given - Provider: Janet Espino RN) metoprolol succinate XL (Toprol-XL) 24 hr tablet 50 mg 50 mg, oral, Daily, First dose on Sun01/16/25 at 1600, Hold sbp <110 or hr <60 Do not crush or chew. 0929 (Given - Provider: Ryne West RN) 0814 (Given - Provider: Yary Young RN) 1042 (Given - Provider: Grisel Stein, ELIZABETH) multivitamin with folic acid 1 tablet 1 tablet (1 each), oral, Daily, First dose on Sun01/16/25 at 1600 0929 (Given - Provider: Ryne West RN) 0814 (Given - Provider: Yary Young RN) 1042 (Given - Provider: Grisel Stein RN) OLANZapine (ZyPREXA) tablet 1.25 mg (CANCELED) 1.25 mg, oral, 3 times daily, First dose on Sun01/16/25 at 1400 0929 (Given - Provider: Ryne West RN)1322 (Given - Provider: Ryne West RN)2015 (Given - Provider: Dylan Geiger RN) 0815 (Given - Provider: Yary Young RN)1452 (Given - Provider: Yary Young RN)2100 (Given - Provider: Janet Espino RN - Comment: scanned in, deleted by accident, barcode ripped) 0900 (Not Given - Provider: Grisel Stein RN - Reason: See Provider Order) polyethylene glycol (Glycolax) packet 17 g 17 g, oral, Daily, First dose on Sun01/16/25 at 1600, Mix contents of one packet (17 grams) in 8 ounces of water, juice, soda, coffee, tea 0900 (Not Given - Provider: Ryne West RN - Reason: Patient/family refused) 0816 (Given - Provider: Yary Longval, RN) 1042 (Not Given - Provider: Grisel Stein RN - Reason: Patient/family refused) potassium chloride CR (Klor-Con M20) ER tablet 40 mEq (COMPLETED) 40 mEq, oral, Once, On 01/17/25 at 1700, For 1 dose, Do not crush or chew. If unable to swallow tablet, stir and dissolve tablet in 120 mL of water. Give immediately. Add 30 mL of water to cup, swirl, and give immediately. 165 (Given - Provider: Dylan Geiger RN) PRN Medication Order 01/17/2025 01/18/2025 01/19/2025 acetaminophen (Tylenol) solution 650 mg(Linked Group 1) 650 mg, oral, Every 6 hours PRN, headaches, fever, Starting on Sun01/16/25 at 1635, Give oral liquid if patient prefers or per feeding tube if present. If inadequate response within 60 minutes, proceed to next-line agent for same PRN reason or contact provider if no further options ordered. 0019 (See Alternative - Provider: Janet Espino RN)0828 (See Alternative - Provider: Yary Young RN)1550 (See Alternative - Provider: Sowmya Finn RN) 0207 (See Alternative - Provider: Janet Espino RN)1041 (See Alternative - Provider: Grisel Stein RN)1834 (See Alternative - Provider: Dylan Geiger RN) acetaminophen (Tylenol) tablet 650 mg(Linked Group 1) 650 mg, oral, Every 6 hours PRN, headaches, fever, Starting on Sun01/16/25 at 1635, If inadequate response within 60 minutes, proceed to next-line agent for same PRN reason or contact provider if no further options ordered. 0019 (Given - Provider: Janet Espino RN)0828 (Given - Provider: Yary Young RN)1550 (Given - Provider: Sowmya Finn RN) 0207 (Given - Provider: Janet Espino RN)1041 (Given - Provider: Grisel Stein RN)1834 (Given - Provider: Dylan Geiger RN) cyclobenzaprine (Flexeril) tablet 5 mg 5 mg, oral, 3 times daily PRN, muscle spasms, Starting on Sun01/17/25 at 1837 2014 (Given - Provider: Dylan Geiger RN) 0828 (Given - Provider: Yary Young, RN)1550 (Given - Provider: Sowmya Finn, ELIZABETH) 0208 (Given - Provider: Janet Espino, ELIZABETH)1834 (Given - Provider: Dylan Geiger RN) docusate sodium (Colace) capsule 100 mg(Linked Group 2) 100 mg, oral, 2 times daily PRN, constipation, Starting on Sun01/16/25 at 1635, Bowel Regimen - for prevention of constipation. docusate sodium (Colace) oral liquid 100 mg(Linked Group 2) 100 mg, oral, 2 times daily PRN, constipation, Starting on Sun01/16/25 at 1635, Bowel Regimen - for prevention of constipation. ondansetron (Zofran) injection 4 mg(Linked Group 3) 4 mg, intravenous, Every 8 hours PRN, nausea, vomiting, Starting on Sun01/19/25 at 0724, Phase II/On Unit, 1st Line. Give IV if patient is unable to take orally. If inadequate response within 60 minutes, proceed to next-line agent or contact provider if no further options ordered. ondansetron ODT (Zofran-ODT) disintegrating tablet 4 mg(Linked Group 3) 4 mg, oral, Every 8 hours PRN, nausea, vomiting, Starting on Sun01/19/25 at 0724, Phase II/On Unit, 1st Line. If inadequate response within 60 minutes, proceed to next-line agent or contact provider if no further options ordered. Patient should allow tablet to dissolve on tongue. Do not remove from blister pack until just before administering. oxyCODONE (Roxicodone) immediate release tablet 5 mg 5 mg, oral, Every 6 hours PRN, pain score 7-10 (severe), Starting on Sun01/19/25 at 0810, For 7 days prochlorperazine (Compazine) tablet 10 mg 10 mg, oral, Every 8 hours PRN, nausea, vomiting, Starting on Sun01/16/25 at 1635, 1st Line. If inadequate response within 60 minutes, proceed to next-line agent or contact provider if no further options ordered. Linked Groups Order Group 1: acetaminophen (Tylenol) tablet 650 mgJump to med 650 mg, oral, Every 6 hours PRN, headaches, fever, Starting on Sun01/16/25 at 1635, If inadequate response within 60 minutes, proceed to next-line agent for same PRN reason or contact provider if no further options ordered. Or acetaminophen (Tylenol) solution 650 mgJump to med 650 mg, oral, Every 6 hours PRN, headaches, fever, Starting on Sun01/16/25 at 1635, Give oral liquid if patient prefers or per feeding tube if present. If inadequate response within 60 minutes, proceed to next-line agent for same PRN reason or contact provider if no further options ordered. Group 2: docusate sodium (Colace) capsule 100 mgJump to med 100 mg, oral, 2 times daily PRN, constipation, Starting on Sun01/16/25 at 1635, Bowel Regimen - for prevention of constipation. Or docusate sodium (Colace) oral liquid 100 mgJump to med 100 mg, oral, 2 times daily PRN, constipation, Starting on Sun01/16/25 at 1635, Bowel Regimen - for prevention of constipation. Group 3: ondansetron ODT (Zofran-ODT) disintegrating tablet 4 mgJump to med 4 mg, oral, Every 8 hours PRN, nausea, vomiting, Starting on Sun01/19/25 at 0724, Phase II/On Unit, 1st Line. If inadequate response within 60 minutes, proceed to next-line agent or contact provider if no further options ordered. Patient should allow tablet to dissolve on tongue. Do not remove from blister pack until just before administering. Or ondansetron (Zofran) injection 4 mgJump to med 4 mg, intravenous, Every 8 hours PRN, nausea, vomiting, Starting on Sun01/19/25 at 0724, Phase II/On Unit, 1st Line. Give IV if patient is unable to take orally. If inadequate response within 60 minutes, proceed to next-line agent or contact provider if no further options ordered. documented in this encounter Additional Health Concerns Active Problems Noted Date Diagnosed Date Autogenerated Problem 01/06/2025 documented as of this encounter Care Teams Collating Machine Operator Relationship Specialty Start Date End Date Jairo Noble MD PCP - General 04/01/21 Jairo Noble MD 04/01/21 Jairo Noble MD 04/01/21 Eddie Modi MD [address] [facility] [address] [place] [address] Consulting Physician Orthopaedic Surgery 07/24/24 Eliazar Jones MD [address] [facility] [address] [place] [address] Consulting Physician Orthopaedic Surgery 12/16/24 Jame Jorge MD [address] [place] [address] Referring Physician Neurosurgery 01/16/25 Priti Jaeger, ELIZABETH [address] [facility] [address] [place] [address] Program Research SpecialistNurse Tech 01/19/25 documented as of this encounter
--- OUTSIDE RECORDS SUMMARY | 2025-01-19 21:58 | XMS_ITS | Encounter Summary ---
Author Organization [facility] Address [address] [facility] [place] [address] Care Team Providers Care Electrician Wiring Name Role Phone Dez Gama MD Primary Care Provider [phone] Dez Gama MD Unavailable Dez Gama MD Unavailable Eddie Modi MD Unavailable [phone] Eliazar Jones MD Unavailable [phone] Jame Jorge MD Unavailable Priti Jaeger RN Unavailable [phone] Encounter Details Date Type Department Care Team (Late st Contact Info) Description 01/19/2025 Patient Outreach [facility] Care Management [address] [place] [address] Priti Jaeger, RN [address] [facility] [address] [place] [address] Social History Tobacco Use Types Packs/Day Years [...] place to sleep or slept in a prison (including now)? No 08/13/2023 AUDIT-C Answer Date [...] any time in the past 12 m [facility], were you homeless or living in a prison (including now)? No 01/15/2025 Utilities Answer Date [...] as of this encounter Functional Status * Are you deaf or do you have serious difficulty hearing? Answer Date of Assessment Author No 01/16/2025 7:01 PM Rosalva Leiva RN * Are you blind or do you have serious difficulty seeing, even when wearing glasses? Answer Date of Assessment Author No 01/16/2025 7:01 PM Rosalva Leiva RN * Do you have serious difficulty walking [...] Rosalva Leiva RN documented in this encounter Plan of Treatment Upcoming Encounters Date Type Department Care Team (Late st Contact Info) Description 02/13/2025 4:15 PM EST Office Visit [facility] [address] [facility], [address] [place] [address] Dze Gama MD [address] [facility] [address] [place], [place] [phone] 09/01/2025 9:00 AM EDT Appointment [facility] Imaging [address] [place] [phone] 11/11/2025 10:30 AM EDT Office Visit [facility] Community Care Obstetrics & Gynecology [address] [place] [address] Pita Medina MD [address] [facility] [address] [place] [address] 11/23/2025 9:00 AM EDT Appointment [facility] Imaging [address] [facility] 2nd [place] [address] 12/03/2025 8:15 AM EDT Office Visit [facility] Endocrinology [address] [place] [phone] Evens Santiago MD [address] [place] [address] 01/13/2026 9:00 AM EST Appointment [facility] Imaging [address] [place] [address] 01/13/2026 10:45 AM EST Office Visit [facility] Community Care Neurosurgery [facility] [address] [facility] [address] [place] [phone] Jame Jorge MD [address] [place] [address] documented as of this encounter Goals Goal Patient Goal Type Associated Problems Recent Progress Patient-Stated? Author Autogenerat ed Goal Care Plan Autogenerated Problem No Eliazar Jones MD documented as of this encounter Visit Diagnoses Not on filedocumented in this encounter Additional Health Concerns Active Problems Noted Date Diagnosed Date Autogenerated Problem 01/06/2025 documented as of this encounter Care Teams Electrician Wiring Relationship Specialty Start Date End Date Dez Gama MD PCP - General 04/01/21 Dez Gama MD 04/01/21 Dez Gama MD 04/01/21 Eddie Modi MD [address] [facility] [address] [place] [address] Consulting Physician Orthopaedic Surgery 07/24/24 Eliazar Jones MD [address] [facility] [address] [place] [address] Consulting Physician Orthopaedic Surgery 12/16/24 Jame Jorge MD [address] [place] [address] Referring Physician Neurosurgery 01/16/25 Priti Jaeger, ELIZABETH [address] [facility] [address] [place] [address] Permanent Mold SupervisorClinical Staff Educator 01/19/25 documented as of this encounter
--- OUTSIDE RECORDS SUMMARY | 2025-01-19 21:58 | XMS_ITS | Encounter Summary ---
Author Organization [facility] Address [address] [facility] [address] [place] [address] Care Team Providers Care Honing Machine Operator Tool Name Role Phone Dez Gama MD Primary Care Provider [phone] Dez Gama MD Unavailable Dez Gama MD Unavailable Eddie Modi MD Unavailable [phone] Eliazar Jones MD Unavailable [phone] Jame Jorge MD Unavailable Priti Jaeger RN Unavailable [phone] Encounter Details Date Type Department Care Team (Late st Contact Info) Description 01/19/2025 Telephone [facility] [address] [facility], [address] [place] [address] Eliazar Jones MD [address] [facility] [address] [place] [address] Social History Tobacco Use Types Packs/Day Years [...] place to sleep or slept in a long-term (including now)? No 08/13/2023 AUDIT-C Answer Date [...] any time in the past 12 m [facility], were you homeless or living in a long-term (including now)? 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 She is feeling anxious and has been admitted for related mental distress at [facility]. I let patient'sson know I will confer with Dr. Jones about her post-op procedures and let them know when I hear back for reassurance. * Telephone Encounter - Judy Al - 01/19/2025 9:38 AM EST Spoke to pt's son. Pt had kyphoplasty on 01/14/[address] Jones. Pt is needing an [place] to call her because she is a little nervous about post-op medications. Pt spent a few days post-op in the hospital for a section 12, she is still in [facility] now. She is afraid that she has taken the regimen wrong and it will effect the outcome of the surgery. Pt is home with her son Manish. If someone can reach out to him to more thoroughly explain this to them. Manish#: [phone] documented in this encounter Plan of Treatment Upcoming Encounters Date Type Department Care Team (Late st Contact Info) Description 02/13/2025 4:15 PM EST Office Visit [facility] [address] [place] [phone] Dez Gama MD [address] [place] [address] [address] [place] [address] 09/01/2025 9:00 AM EDT Appointment [facility] [address] [facility] 4th [place] [phone] 11/11/2025 10:30 AM EDT Office Visit [facility] Community Care Obstetrics & Gynecology [address] [phone] Pita Medina MD [address] [place] [address] 11/23/2025 9:00 AM EDT Appointment [facility] Imaging [address] [place] [address] 2nd [place] [phone] 12/03/2025 8:15 AM EDT Office Visit [facility] Endocrinology [address] [place] [phone] Evens Santiago MD [facility] [address] [address] 01/13/2026 9:00 AM EST Appointment [facility] Imaging [address] [place] [address] 01/13/2026 10:45 AM EST Office Visit [facility] Community [facility] Neurosurgery [facility] [address] [facility] [address] [place] [phone] Jame Jorge MD [address] [place] [phone] documented as of this encounter Goals Goal Patient Goal Type Associated Problems Recent Progress Patient-Stated? Author Autogenerat ed Goal Care Plan Autogenerated Problem No Eliazar Jones MD documented as of this encounter Visit Diagnoses Not on filedocumented in this encounter Additional Health Concerns Active Problems Noted Date Diagnosed Date Autogenerated Problem 01/06/2025 documented as of this encounter Care Teams Honing Machine Operator Tool Relationship Specialty Start Date End Date Dez Gama MD PCP - General 04/01/21 Dez Gama MD 04/01/21 Dez Gama MD 04/01/21 Eddie Modi MD [address] [place] [address]. [address] [place] [address] Consulting Physician Orthopaedic Surgery 07/24/24 Eliazar Jones MD [address] [place] [address] [address] [place] [address] Consulting Physician Orthopaedic Surgery 12/16/24 Jame Jorge MD [address] [place] [address] Referring Physician Neurosurgery 01/16/25 Priti Jaeger RN [address] [place] [address] Policy ManagerAir Director 01/19/25 documented as of this encounter
--- OUTSIDE RECORDS SUMMARY | 2025-01-19 21:58 | XMS_ITS ---
Author Organization [facility] Address 800 [facility] [address] [place] [address] Care Team Providers Care Eligibility Examiner Name Role Phone Dez Gama MD Primary Care Provider [phone] Dez Gama MD Unavailable Dez Gama MD Unavailable Eddie Modi MD Unavailable [phone] Eliazar Jones MD Unavailable [phone] Jame Jorge MD Unavailable Priti Jaeger RN Unavailable [phone] Active Problems Problem Noted Date Diagnosed Date Severe low back pain 01/14/2025 Chronic cough 01/02/2025 History of coronary artery bypass graft 01/03/20 25 Stented coronary artery 01/02/2025 Age-related osteoporosis wit h current pathological fracture of vertebra 12/16/2024 Closed compression fracture of L1 lumbar vertebra, initial encounter 12/16/2024 Closed compression fracture of L2 lumbar vertebr a, sequela 12/16/2024 Degenerative spondylolisthesis 12/16/2024 Acute low back pain 12/16/2024 Myocardial infarction 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 Findings are nonspecific but given chronicity may reflect sequela of old remote trauma such as a calcifying soft tissue hematoma, fibroma or calcified fat necrosis among some considerations though not exclusive. All palpable lumps however should be assessed independent of imaging findings. The decision to excise such palpable lumps should be based on clinical grounds. Will go to OR for excision and bx under sedation Assessment & Plan (07/17/2024 8:39 AM EDT): Soft tissue mass of left leg. 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 Patient had been on Boniva for around 6 years up until 2016. Discussed with patient continue with her calcium intake and vitamin D. Calcium, if possible could be taken via food and is better than the supplements. Provided her with written information about calcium rich foods. Patient should continue vitamin D supplementation. Will plan to follow-up in 1 year and do bone density before next visit. Plan: Follow-up 1 year, after bone density Bone density October 2025 Continue dietary calcium/calcium supplement and vitamin D supplements Continue exercises and physical activity. Orders: BD DEXA AXIAL; Future Assessment & Plan (11/28/2023 8:29 AM EDT): Patient's most recent bone density was mostly stable in the osteopenia range. Patient had been on Boniva for around 6 years up until 2016. Will recommend that patient continue with her calcium intake goal of 5000 mg/day and her vitamin D supplement. Her most recent vitamin D levels were at goal. Will plan to repeat bone density 2025. Plan: Follow-up 1 year Bone density October 2025 Continue dietary calcium/calcium supplement and vitamin D supplements Continue exercises and physical activity. Assessment & Plan (11/23/2022 8:32 AM EDT): Patient's most recent bone density was mostly stable in the osteopenia range. Patient had been on Boniva for around 6 years up until 2016. Recommended the patient continue on calcium through dietary intake or supplements with vitamin D supplements. Encouraged her to continue with her exercises. Report of bone density to be done next year. We will plan to see her back after the bone density. Fall precautions advised. Plan: Follow-up 1 year Bone density before next visit Continue dietary calcium/calcium supplement and vitamin D supplements Continue exercises and physical activity. Assessment & Plan (11/23/2021 8:35 AM EDT): Patient's most recent bone density was mostly stable in the osteopenia range. Patient had been on Boniva for around 6 years up until 2016. Recommended the patient continue on calcium through dietary intake or supplements with vitamin D supplements. Encouraged her to continue with her exercises. We will plan to see her back in 1 year and repeat labs before next visit. Follow-up 1 year Continue dietary calcium/calcium supplement and vitamin D supplements Continue exercises and physical activity. Pure hypercholesterolemia 07/19/2007 Anxiety Cancer Overview (01/02/2025): skin Chronic pain disorder Depression Hiatal hernia Hypertension Current Treatment and Therapy Plans No current plan information found. Past Treatment and Therapy Plans No past plan information found. Lifetime Dose Tracking * Chemical Lifetime Dose Automatic Entry Manual Entr y Fluoro Time 1.6 minutes 0 minutes 1.6 minutes Air Kerma 29 mGy 0 mGy 29 mGy Air Kerma Area Product 734.07 Gy-cm2 0 Gy-cm2 734. 07 Gy-cm2 Resolved Problems Problem Noted Date Diagnosed Date Resolved Date Diabetes mellitus, type 2 09/05/2024 Multinodular thyroid 02/02/2021 022 Assessment & Plan (11/23/2021 8:35 AM EDT): Patient had ultrasound performed last January which showed no evidence of nodules. Just a heterogeneous normal-sized thyroid gland. At this moment given reported on recommend we follow-up with any other ultrasounds at this time. Most recent thyroid function test were within normal range. Plan: Thyroid ultrasound Hoarseness 11/05/2018 01/16/2025 Angina pectoris 11/26/2014 01/16/2025 Carotid bruit 08/01/2012 01/16/2025 Stress incontinence 12/28/2010 01/17/20 25
--- OUTSIDE RECORDS SUMMARY | 2025-01-19 21:59 | XMS_ITS | Encounter Summary ---
Author Organization [facility] Address 800 [facility] [address] [place] [address] Care Team Providers Care Electronics Engineering Manager Name Role Phone Dez Gama MD Primary Care Provider [phone] Dez Gama MD Unavailable Dez Gama MD Unavailable Eddie Modi MD Unavailable [phone] Eliazar Jones MD Unavailable [phone] Jame Jorge MD Unavailable Encounter Details Date Type Department Care Team (Late st Contact Info) Description 01/15/2025 Telephone [facility] [address] [facility], [address] [place] [address] Eliazar Jones MD [address] [facility] [address] [place] [address] Social History Tobacco Use Types [...] place to sleep or slept in a care home (including now)? No 08/13/2023 AUDIT-C Answer Date [...] any time in the past 12 m [facility], were you homeless or living in a care home (including now)? No 01/15/2025 Utilities Answer Date Recorded In the past 12 months has th e [employer], gas, oil, or water company threatened to [...] encounter Miscellaneous Notes * Telephone Encounter - Judy Al - 01/16/2025 9:09 AM EST Pt was admitted to ED for suicidal ideations last night. Per ER ..Patient is clearly upset on my exam crying and repeating herself about how she messed up and is quite distraught. Patient kept repeating that she wanted to to me as well. I asked if she had intent to actually act on these thoughts and she states that if her children were not with her and shehad waited a couple more days she probably would act on it. Patient's son lives in [place] and he had come up to help with her postsurgical life changes. Patient kyphoplasty here yesterday. I will keep an eye on this to call when she has this current situation dealt with. * Telephone Encounter - Monae Sanchez - 01/15/2025 3:40 PM EST Incoming call from Anette with IR stating pt has questions for her meds and would like a CB for consult regarding pain management. [facility] Cb#: [phone]. * Telephone Encounter - Purvi Ricahrdson [place] - 01/15/2025 9:26 AM EST Per review of chart Dr. Jones sent over meds today. * Telephone Encounter - Judy Al - 01/15/2025 8:50 AM EST Incoming call from pt regarding kyphoplasty procedure done by Dr. Jones yesterday 01/14. Patient is in a lot of pain and wondering if something could be sent to her pharmacy, also requesting a c/b to discuss when she can expect to feel some relief. C/b#: [phone] Pref'd pharmacy: [id number] - [place] [address] documented in this encounter Plan of Treatment Upcoming Encounters Date Type Department Care Team (Late st Contact Info) Description 02/13/2025 4:15 PM EST Office Visit [facility] [address] [facility], [address] [place] [address] Dez Gama MD [address] [facility] [address] [place] [address] 09/01/2025 9:00 AM EDT [facility]ment [facility] [address] [place] [phone] 11/11/2025 10:30 AM EDT Office Visit [facility] Care Obstetrics & Gynecology [address] [place] [address] Pita Medina MD 50 [facility] [address] [place] [address] 11/23/2025 9:00 AM EDT Appointment [facility] Imaging [address] [facility] 2nd [place] [address] 12/03/2025 8:15 AM EDT Office Visit [facility] Endocrinology [address] [place] [address] Evens Santiago MD [address] [place] [address] 01/13/2026 9:00 AM EST Appointment [facility] Imaging [address] [place] [address] 01/13/2026 10:45 AM EST Office Visit [facility] Care Neurosurgery [facility] [address] [facility] [address] [place] [address] Jame Jorge MD [address] [place] [address] documented as of this encounter Goals Goal Patient Goal Type Associated Problems Recent Progress Patient-Stated? Author Autogenerat ed Goal Care Plan Autogenerated Problem No Eliazar Jones MD documented as of this encounter Visit Diagnoses Not on filedocumented in this encounter Additional Health Concerns Active Problems Noted Date Diagnosed Date Autogenerated Problem 01/06/2025 documented as of this encounter Care Teams Electronics Engineering Manager Relationship Specialty Start Date End Date Dez Gama MD PCP - General 04/01/21 Dez Gama MD 04/01/21 Dez Gama MD 04/01/21 Eddie Modi MD [address] [facility] [place] [address] Consulting Physician Orthopaedic Surgery 07/24/24 Eliazar Jones MD [address] [facility] [address] [place], [place] [phone] Consulting Physician Orthopaedic Surgery 12/16/24 Jame Jorge MD [address] [place] [address] Referring Physician Neurosurgery 01/16/25 documented as of this encounter
--- OUTSIDE RECORDS SUMMARY | 2025-01-19 21:59 | XMS_ITS | Encounter Summary ---
Author Organization [facility] Address 800 [facility] [address] [place] [address] Care Team Providers Care Bolt Cutter Name Role Phone Dez Gama MD Primary Care Provider [phone] Dez Gama MD Unavailable Dez Gama MD Unavailable Eddie Modi MD Unavailable [phone] Eliazar Jones MD Unavailable [phone] Jame Jorge MD Unavailable Priti Jaeger RN Unavailable [phone] Encounter Details Date Type Department Care Team (Late st Contact Info) Description 01/14/2025 Telephone [facility] Orthopedics [address] [place] [address], [address] [place] [address] Christina Marino MA Social History Tobacco Use Types Packs/Day Years [...] place to sleep or slept in a mcc (including now)? No 08/13/2023 AUDIT-C Answer Date [...] time in the past 12 m [facility], were you homeless or living in a mcc (including now)? No 01/15/2025 Utilities Answer Date [...] as of this encounter Functional Status * Question Answer [...] encounter Miscellaneous Notes * Telephone Encounter - Christina Marino MA - 01/14/2025 8:16 AM EST I called [employer] again at 8:00 am. I spoke to Jordan Mckeon. I was given the ok to move forward withLinda's surgery. I let both Dr. Jones and [facility] know about this. The reference for the call isSelene 01/14. documented in this encounter Plan of Treatment Upcoming Encounters Date Type Department Care Team (Late st Contact Info) Description 02/13/2025 4:15 PM EST Office Visit [facility] [address] [facility], [address] [place] [phone] Dez Gama MD [address] [place] [address] 09/01/2025 9:00 AM EDT Appointment [facility] Imaging [address] [facility] 4th [place] [phone] 11/11/2025 10:30 AM EDT Office Visit [facility] Care Obstetrics & Gynecology [place] [address] [facility] [address] [place] [address] Pita Medina MD [address] [facility] [address] [place] [address] 11/23/2025 9:00 AM EDT Appointment [facility] Imaging [address] [facility] 2nd [place] [address] 12/03/2025 8:15 AM EDT Office Visit [facility] Endocrinology [address] [place] [phone] Evens Santiago MD [facility] [place] [address] 01/13/2026 9:00 AM EST Appointment [facility] Imaging [address] [place] [phone] 01/13/2026 10:45 AM EST Office Visit [facility] Neurosurgery [facility] 585 [facility] [address] [place] [address] Jame Jorge MD [address] [place] [address] documented as of this encounter Goals Goal Patient Goal Type Associated Problems Recent Progress Patient-Stated? Author Autogenerat ed Goal Care Plan Autogenerated Problem No Eliazar Jones MD documented as of this encounter Visit Diagnoses Not on filedocumented in this encounter Additional Health Concerns Active Problems Noted Date Diagnosed Date Autogenerated Problem 01/06/2025 documented as of this encounter Care Teams Bolt Cutter Relationship Specialty Start Date End Date Dez Gama MD PCP - General 04/01/21 Dez Gama MD 04/01/21 Dez Gama MD 04/01/21 Eddie Modi MD [address] [place] [address] [address] [place] [address] Consulting Physician Orthopaedic Surgery 07/24/24 Eliazar Jones MD [address] [place] [address] [address] [place] [address] Consulting Physician Orthopaedic Surgery 12/16/24 Jame Jorge MD [address] [place] [address] Referring Physician Neurosurgery 01/16/25 Priti Jaeger RN [address] [facility] [address] [place] [address] Shrinking Machine OperatorDarkroom Technician 01/19/25 documented as of this encounter
--- OUTSIDE RECORDS SUMMARY | 2025-01-19 21:59 | XMS_ITS | Encounter Summary ---
Author Organization [facility] Address [address] [facility] [address] [place] [address] Care Team Providers Care Stenographic Court Reporter Name Role Phone Dez Gama MD Primary Care Provider [phone] Dez Gama MD Unavailable Dez Gama MD Unavailable Eddie Modi MD Unavailable [phone] Eliazar Jones MD Unavailable [phone] Encounter Details Date Type Department Care Team (Late st Contact Info) Description 01/15/2025 Orders Only [facility] [address] [facility] [address] [place] [address] Eliazar Jones MD [address] [facility] [address] [place] [address] 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 No 08/13/2023 AUDIT-C Answer Date [...] any time in the past 12 m [facility], were you homeless or living in a fpc (including now)? No 01/15/2025 Utilities Answer Date [...] Assessment Author No 12/17/2024 9:43 AM EDT Dennys Greeneia * Do you have serious difficulty walking [...] EDT Ivonne Greene documented in this encounter Progress Notes * Eliazar Jones MD - 01/15/2025 8:55 AM EST Patient requested refills of oxycodone and robaxin prior to the weekend after kyphoplasty 01/14/2025 documented in this encounter Plan of Treatment Upcoming Encounters Date Type Department Care Team (Late st Contact Info) Description 02/13/2025 4:15 PM EST Office Visit [facility] [address] [place] [address], [address] [place] [address] Dez Gama MD [address] [place] [address], [place] [address] 09/01/2025 9:00 AM EDT Appointment [facility] Imaging [address] [facility] 4th [place] [address] 11/11/2025 10:30 AM EDT Office Visit [facility] Obstetrics & Gynecology [place] 50 [facility] 400 [place] [address] Pita Medina MD [address] [facility] 400 [place] [address] 11/23/2025 9:00 AM EDT Appointment [facility] Imaging [address] [phone] 12/03/2025 8:15 AM EDT Office Visit [facility] Endocrinology 585 [place] [address] Evens Santiago MD [address] [place] [address] 01/13/2026 9:00 AM EST Appointment [facility] Imaging 48 [place] [address] 01/13/2026 10:45 AM EST Office Visit [facility] Neurosurgery [facility] 585 [facility] 401 [place] [phone] Jame Jorge MD [address] [place] [address] documented as of this encounter Goals Goal Patient Goal Type Associated Problems Recent Progress Patient-Stated? Author Autogenerat ed Goal Care Plan Autogenerated Problem No Eliazar Jones MD documented as of this encounter Visit Diagnoses Diagnosis 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, initial encounter- Primary Closed compression fracture of L1 lumbar vertebra, initial encounter Acute low back pain, unspecified back pain laterality, unspecified whether sciatica present Closed compression fracture of L2 lumbar vertebra, sequela Congenital stenosis of cervical spine Degenerative spondylolisthesis Acquired spondylolisthesis documented in this encounter Additional Health Concerns Active Problems Noted Date Diagnosed Date Autogenerated Problem 01/06/2025 documented as of this encounter Care Teams Stenographic Court Reporter Relationship Specialty Start Date End Date Dez Gama MD PCP - General 04/01/21 Dez Gama MD 04/01/21 Dez Gama MD 04/01/21 Eddie Modi MD [address] [facility] [place] [address] Consulting Physician Orthopaedic Surgery 07/24/24 Eliazar Jones MD [address] [place] [address] Consulting Physician Orthopaedic Surgery 12/16/24 documented as of this encounter
--- OUTSIDE RECORDS SUMMARY | 2025-01-19 21:59 | XMS_ITS | Encounter Summary ---
Author Organization [facility] Address [address] [facility] [address] [place] [address] Care Team Providers Care Forge Operator Name Role Phone Dez Gama MD Primary Care Provider [phone] Dez Gama MD Unavailable Dez Gaam MD Unavailable Eddie Modi MD Unavailable [phone] Eliazar Jones MD Unavailable [phone] Encounter Details Date Type Department Care Team (Latest Contact Info) Description 01/14/2025 Travel Social History Tobacco Use Types Packs/Day Years [...] place to sleep or slept in a nursing home (including now)? No 08/13/2023 Overall Financial Resource [...] any time in the past 12 m [facility], were you homeless or living in a nursing home (including now)? No 01/15/2025 Utilities Answer [...] EDT Ivonne Greene documented in this encounter Plan of Treatment Upcoming Encounters Date Type Department Care Team (Late st Contact Info) Description 02/13/2025 4:15 PM EST Office Visit [facility] [address] [facility] 500 [place] [address] Dez Gama MD [address] [place] [address] 500 [place] [address] 09/01/2025 9:00 AM EDT Appointment [facility] Imaging [address] [facility] 4th [place] [phone] 11/11/2025 10:30 AM EDT Office Visit [facility] Community Care Obstetrics & Gynecology [address] [address] Pita Medina MD [address] [place] [address] 11/23/2025 9:00 AM EDT Appointment [facility] Imaging [address] [facility] 2nd [place] [phone] 12/03/2025 8:15 AM EDT Office Visit [facility] Endocrinology 585 [place] [phone] Evens Santiago MD [address] [place] [address] 01/13/2026 9:00 AM EST Appointment [facility] Imaging 48 [place] [address] 01/13/2026 10:45 AM EST Office Visit [facility] Community [facility] Neurosurgery [facility] [address] [facility] [address] [place] [address] Jame Jorge MD [address] [place] [id number] documented as of this encounter Goals Goal Patient Goal Type Associated Problems Recent Progress Patient-Stated? Author Autogenerat ed Goal Care Plan Autogenerated Problem No Eliazar Jones MD documented as of this encounter Visit Diagnoses Not on filedocumented in this encounter Additional Health Concerns Active Problems Noted Date Diagnosed Date Autogenerated Problem 01/06/2025 documented as of this encounter Care Teams Forge Operator Relationship Specialty Start Date End Date Dez Gama MD PCP - General 04/01/21 Dez Gama MD 04/01/21 Dez Gama MD 04/01/21 Eddie Modi MD [address] [place] [address]. [address] [place] [address] Consulting Physician Orthopaedic Surgery 07/24/24 Eliazar Jones MD [address] [place] [address] [address] [place] [address] Consulting Physician Orthopaedic Surgery 12/16/24 documented as of this encounter
--- OUTSIDE RECORDS SUMMARY | 2025-01-19 21:59 | XMS_ITS | Clinical Summary ---
Author Organization [facility] Address [address] [facility] Emmanuelle Gibbons [address] [place] [address] Care Team Providers Care Dye Tub Tender Name Role Phone Jairo Noble MD Primary Care Provider [phone] Jairo Noble MD Unavailable Jairo Noble MD Unavailable Eddie Modi MD Unavailable [phone] Eliazar Jones MD Unavailable [phone] Jame Jorge MD Unavailable Priti Jaeger RN Unavailable [phone] Allergies Active Allergy Reactions Criticality Noted Date Comments No Known Allergies Low 11/15/2021 Medications aspirin 81 mg EC tablet Take 81 mg by mouth in the morning. Active multivitamin tablet Take 1 tablet by mouth in the morning. Active calcium carbonate-vitamin D3 (Caltrate with Vitamin D3) 600 mg-20 mcg (800 unit) tablet Take 1 tablet by mouth once daily. 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 Do not crush or chew. 180 tablet 3 025 2025 Active metoprolol succinate XL (Toprol-XL) 50 mg 24 hr tabletIndications:B enign hypertensive kidney disease without CKD Take 1 tablet (50 mg) by mouth once daily. 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 90 tablet 3 Active Additional Information Patient taking differently:80 mg oralNightly, Informant: Pharmacy, Family Member, Self, Reported on 01/16/2025 vibegron (Gemtesa) 75 mg tablet tabletIndications:O veractive bladder,Urge incontinence of urine Take 1 tablet (75 mg) by mouth once daily. 90 tablet 3 Active calcitonin, salmon, (Miacalcin) 200 unit/actuation nasal sprayIndications:Cl osed compression fracture of L1 lumbar vertebra, initial encounter,Age-relat ed osteoporosis with current pathological fracture of vertebra, initial encounter Administer 1 spray (200 Units) into one nostril once daily. 3.7 mL 12 Active methocarbamol (Robaxin) 750 mg tabletIndications:A ge-related osteoporosis with current pathological fracture of vertebra, initial encounter,Closed compression fracture of L1 lumbar vertebra, initial encounter,Acute low back pain, unspecified back pain laterality, unspecified whether sciatica present,Closed compression fracture of L2 lumbar vertebra, sequela,Congenital stenosis of cervical spine,Degenerative spondylolisthesis Take 1 tablet (750 mg) by mouth four times daily. 40 tablet 025 2024 Active cholecalciferol, vitamin D3, (Vitamin D-3) 25 MCG (1000 UT) tablet Take 25 mcg by mouth once daily. Active polyethylene glycol (Glycolax) 17 gram packet Take 17 g by mouth once daily. Mix each packet (17 g) with 4 to 8 ounces of liquid. Active OLANZapine (ZyPREXA) 2.5 mg tabletIndications:A nxiety,Suicidal ideation Take 0.5 tablets (1.25 mg) by mouth three times daily. 45 tablet 025 2024 Active oxyCODONE (Roxicodone) 5 mg immediate release tabletIndications:A ge-related osteoporosis with current pathological fracture of vertebra, initial encounter,Closed compression fracture of L1 lumbar vertebra, initial encounter,Acute low back pain, unspecified back pain laterality, unspecified whether sciatica present Take 1 tablet (5 mg) by mouth every 8 (eight) hours if needed for pain score 7-10 (severe) or pain score 4-6 (moderate). 025 Active myl-J1-[id number]-zinc-c op-lucrecia-bor 600 mg calcium- 800 unit-50 mg tablet Take 1 tablet by mouth in the morning. 2024 Discontinued acetaminophen (Tylenol) 500 mg/15 mL solution Take by mouth every 4 (four) hours if needed for pain score 1-3. 2024 Discontinued budesonide-formoter oL (Symbicort) 160-4.5 mcg/actuation inhalerIndications: Chronic cough Inhale 2 puffs in the morning and at bedtime. Rinse mouth with water after use to reduce aftertaste and incidence of candidiasis. Do not swallow. 10.2 g 2 023 2024 Discontinued acetaminophen (Tylenol) 500 mg tablet Take 500 mg by mouth every 6 (six) hours if needed for pain score 1-3 (mild). 2024 Discontinued vitamin K2 100 mcg capsuleIndications: Acute low back pain, unspecified back pain laterality, unspecified whether sciatica present,Degenerativ e spondylolisthesis,C losed compression fracture of L1 lumbar vertebra, initial encounter,Closed compression fracture of L2 lumbar vertebra, sequela,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, initial encounter,Congenita l stenosis of cervical spine Take 1 capsule by mouth in the morning. 180 capsule 1 025 2024 Discontinued( Entered in Error) magnesium oxide 500 mg magnesium tabletIndications:A cute low back pain, unspecified back pain laterality, unspecified whether sciatica present,Degenerativ e spondylolisthesis,C losed compression fracture of L1 lumbar vertebra, initial encounter,Closed compression fracture of L2 lumbar vertebra, sequela,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, initial encounter,Congenita l stenosis of cervical spine Take 1 tablet (500 mg) by mouth in the evening and 1 tablet (500 mg) before bedtime. May take additionally in morning if not causing diarrhea/abdom inal discomfort. 180 tablet 2 025 2024 Discontinued( Entered in Error) cholecalciferol, vitamin D3, (D3-2000) 50 mcg (2,000 unit) capsuleIndications: Acute low back pain, unspecified back pain laterality, unspecified whether sciatica present,Degenerativ e spondylolisthesis,C losed compression fracture of L1 lumbar vertebra, initial encounter,Closed compression fracture of L2 lumbar vertebra, sequela,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, initial encounter,Congenita l stenosis of cervical spine Take 1 capsule (50 mcg) by mouth in the morning. 180 capsule 1 025 2024 Discontinued( Entered in Error) methocarbamol (Robaxin) 750 mg tabletIndications:A cute low back pain, unspecified back pain laterality, unspecified whether sciatica present,Degenerativ e spondylolisthesis,C losed compression fracture of L1 lumbar vertebra, initial encounter,Closed compression fracture of L2 lumbar vertebra, sequela,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, initial encounter,Congenita l stenosis of cervical spine Take 1 tablet (750 mg) by mouth four times daily. 40 tablet 025 2024 Discontinued( Reorder) oxyCODONE (Roxicodone) 5 mg immediate release tabletIndications:A cute low back pain, unspecified back pain laterality, unspecified whether sciatica present,Degenerativ e spondylolisthesis,C losed compression fracture of L1 lumbar vertebra, initial encounter,Closed compression fracture of L2 lumbar vertebra, sequela,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, initial encounter,Congenita l stenosis of cervical spine Take 0.5-1 tablets (2.5-5 mg) by mouth every 4 (four) hours if needed for pain score 4-6 (moderate) or pain score 7-10 (severe) for up to 7 days. 30 tablet 025 2024 oxyCODONE (Roxicodone) 5 mg immediate release tabletIndications:A ge-related osteoporosis with current pathological fracture of vertebra, initial encounter,Closed compression fracture of L1 lumbar vertebra, initial encounter,Closed compression fracture of L2 lumbar vertebra, sequela,Congenital stenosis of cervical spine,Degenerative spondylolisthesis,A cute low back pain, unspecified back pain laterality, unspecified whether sciatica present Take 0.5-2 tablets (2.5-10 mg) by mouth every 4 (four) hours if needed for pain score 4-6 (moderate) or pain score 7-10 (severe) for up to 7 days. 30 tablet 2024 Discontinued( Reorder) methocarbamol (Robaxin) 750 mg tabletIndications:A ge-related osteoporosis with current pathological fracture of vertebra, initial encounter,Closed compression fracture of L1 lumbar vertebra, initial encounter,Closed compression fracture of L2 lumbar vertebra, sequela,Congenital stenosis of cervical spine,Degenerative spondylolisthesis,A cute low back pain, unspecified back pain laterality, unspecified whether sciatica present Take 1 tablet (750 mg) by mouth four times daily. 40 tablet 025 2024 Discontinued( Reorder) sennosides-docusate sodium (Audrey-Colace) 8.6-50 mg tabletIndications:A ge-related osteoporosis with current pathological fracture of vertebra, initial encounter,Closed compression fracture of L1 lumbar vertebra, initial encounter,Closed compression fracture of L2 lumbar vertebra, sequela,Congenital stenosis of cervical spine,Degenerative spondylolisthesis,A cute low back pain, unspecified back pain laterality, unspecified whether sciatica present Take 1 tablet by mouth once daily. Well needing oxycodone 90 tablet 2024 Discontinued( Entered in Error) methocarbamol (Robaxin) 750 mg tabletIndications:A ge-related osteoporosis with current pathological fracture of vertebra, initial encounter,Closed compression fracture of L1 lumbar vertebra, initial encounter,Closed compression fracture of L2 lumbar vertebra, sequela,Congenital stenosis of cervical spine,Degenerative spondylolisthesis,A cute low back pain, unspecified back pain laterality, unspecified whether sciatica present Take 1 tablet (750 mg) by mouth four times daily. 40 tablet 025 2024 Discontinued( Reorder) oxyCODONE (Roxicodone) 5 mg immediate release tabletIndications:A ge-related osteoporosis with current pathological fracture of vertebra, initial encounter,Closed compression fracture of L1 lumbar vertebra, initial encounter,Closed compression fracture of L2 lumbar vertebra, sequela,Congenital stenosis of cervical spine,Degenerative spondylolisthesis,A cute low back pain, unspecified back pain laterality, unspecified whether sciatica present Take 0.5-2 tablets (2.5-10 mg) by mouth every 4 (four) hours if needed for pain score 4-6 (moderate) or pain score 7-10 (severe) for up to 7 days. 30 tablet 025 2024 methocarbamol (Robaxin) 750 mg tabletIndications:A ge-related osteoporosis with current pathological fracture of vertebra, initial encounter,Closed compression fracture of L1 lumbar vertebra, initial encounter,Closed compression fracture of L2 lumbar vertebra, sequela,Congenital stenosis of cervical spine,Degenerative spondylolisthesis,A cute low back pain, unspecified back pain laterality, unspecified whether sciatica present Take 1 tablet (750 mg) by mouth four times daily. 40 tablet 2024 Discontinued( Reorder) oxyCODONE (Roxicodone) 5 mg immediate release tablet Take by mouth. 2024 Discontinued( Reorder) oxyCODONE (Roxicodone) 5 mg immediate release tabletIndications:A ge-related osteoporosis with current pathological fracture of vertebra, initial encounter,Closed compression fracture of L1 lumbar vertebra, initial encounter,Acute low back pain, unspecified back pain laterality, unspecified whether sciatica present Take 0.5-1 tablets (2.5-5 mg) by mouth every 4 (four) hours if needed for pain score 7-10 (severe) or pain score 4-6 (moderate). 42 tablet 2024 Discontinued Active Problems Problem Noted Date Diagnosed Date [...] left leg. 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 07/27/2021 Mixed [...] Chronic pain disorder Depression Hiatal hernia Hypertension Resolved Problems Problem Noted Date Diagnosed Date [...] 08/01/2012 01/16/2025 Stress incontinence 12/28/2010 01/17/20 25 Encounters Date Type Department Care Team Description 01/19/2025 Patient Outreach [facility] Care Management [address] [place] [address] Priti Jaeger RN 01/19/2025 Telephone [facility] [address] [place] [address], [address] [place] [address] Eliazar Jones MD 01/15/2025 11:31 PM EST - 01/19/2025 7:51 PM EST Hospital Encounter [address] [phone] Paddy Garrido MD Burke, Garett, MD Memia, Aglisa, MD Anxiety (Primary Dx); Suicidal ideation; 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, initial encounter; Closed compression fracture of L1 lumbar vertebra, initial encounter; Acute low back pain, unspecified back pain laterality, unspecified whether sciatica present Discharge Disposition: [facility] 01/15/2025 Travel 01/15/2025 Telephone [facility] [address] [facility], [address] [phone] Jairo Noble MD In PCP Referral [place] Request; Appointment 01/15/2025 Telephone [facility] [address] [facility], [facility] [address] [place] [address] Jairo Noble MD In PCP Referral [place] Request 01/15/2025 Orders Only [facility] [address] [place] [address], [address] [place] [address] Eliazar Jones MD 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, initial encounter (Primary Dx); Closed compression fracture of L1 lumbar vertebra, initial encounter; Acute low back pain, unspecified back pain laterality, unspecified whether sciatica present; Closed compression fracture of L2 lumbar vertebra, sequela; Congenital stenosis of cervical spine; Degenerative spondylolisthesis 01/15/2025 Telephone [facility] [address] [facility], [address] [phone] Eliazar Jones MD 01/14/2025 11:37 AM EST Anesthesia Event [facility] Interventional [facility]iology [address] [place] [address] Zulema García MD Dershem, Brad, CRNA 01/14/2025 9:34 AM EST - 01/14/2025 11:59 PM EST Hospital Encounter [facility]iology [address] [place] [address] History of coronary artery bypass graft (Primary Dx); Closed compression fracture of L1 lumbar vertebra, initial encounter; 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; Severe low back pain; Stented coronary artery Discharge Disposition: Home or self care 01/14/2025 Travel 01/14/2025 Telephone [facility] [address] [place] [address], [address] [phone] Christina Marino MA 01/13/2025 Telephone [facility] [address] [place] [address], [address] [phone] Christina Marino MA 01/13/2025 Telephone [facility] [address] [facility], [address] [place] [phone] Christina Marino MA 01/13/2025 Telephone [facility] [address] [place] [address], [address] [phone] Eliazar Jones MD 01/13/2025 Telephone [facility] [address] [place] [address], [address] [phone] Eliazar Jones MD 01/09/2025 Telephone [facility] [address] [facility], [address] [place] [phone] Eliazar Jones MD 01/07/2025 9:00 AM EST Office Visit [facility] Neurosurgery [address] [place] [phone] Jame Jorge MD Meningioma (Primary Dx) 01/07/2025 Telephone [facility] [address] [place] [address], [address] [place] [address] Eliazar Jones MD 01/07/2025 Telephone [facility] Neurosurgery [facility] [address] [facility] [address] [place] [address] Corie Nelson MA 1 year MRI and F/u 01/07/2025 Travel 01/02/2025 11:59 PM EST Anesthesia Event [facility] Anesthesia [address] [place] [address] Tamara Barillas MD 01/02/2025 10:30 AM EST Pre-Admission Testing [facility] Preadmit Testing [address] [place] [phone] Preop testing (Primary Dx); Cancer 01/02/2025 Travel 12/31/2024 Telephone [facility] [address] [place] [address], [address] [place] [address] Eliazar Jones MD 12/31/2024 Telephone [facility] [address] [facility], [address] [place] [address] Jairo Noble MD In PCP Referral [place] Request 12/29/2024 Telephone [facility] [address] [place] [address], [address] [place] [address] Eliazar Jones MD 12/29/2024 Telephone [facility] [address] [facility], [address] [place] [address] Rufino Kennedy MA 12/26/2024 3:00 PM EDT [facility] [address] [place] [address], [address] [place] [address] Eliazar Jones MD 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, initial encounter (Primary Dx); Closed compression fracture of L1 lumbar vertebra, initial encounter; Closed compression fracture of L2 lumbar vertebra, sequela; Congenital stenosis of cervical spine; Degenerative spondylolisthesis; Acute low back pain, unspecified back pain laterality, unspecified whether sciatica present 12/23/2024 Telephone [facility] [address] [facility], [facility] [address] [place] [address] Eliazar Jones MD 2024 6:17 PM EDT - 2024 11:59 PM EDT Hospital Encounter [address] [phone] Acute low back pain, unspecified back pain laterality, unspecified whether sciatica present; Degenerative spondylolisthesis; Closed compression fracture of L1 lumbar vertebra, initial encounter; Closed compression fracture of L2 lumbar vertebra, sequela; 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, initial encounter; Congenital stenosis of cervical spine Discharge Disposition: Home or self care 2024 Travel 12/16/2024 12:15 PM EDT Ancillary Procedure [facility] [address] [place] [address], [address] [place] [address] Acute low back pain, unspecified back pain laterality, unspecified whether sciatica present 12/16/2024 11:45 AM EDT Office [facility] [address] [place] [address], [address] [address] Eliazar Jones MD 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, initial encounter (Primary Dx); Acute low back pain, unspecified back pain laterality, unspecified whether sciatica present; Degenerative spondylolisthesis; Closed compression fracture of L1 lumbar vertebra, initial encounter; Closed compression fracture of L2 lumbar vertebra, sequela; Congenital stenosis of cervical spine 12/16/2024 Telephone [facility] [address] [place] [address], [address] [place] [phone] Eliazar Jones MD 12/15/2024 Telephone [facility] Care Management [address] [place] [phone] Jairo Noble MD In PCP Referral [place] Request 12/14/2024 4:11 PM EDT - 12/14/2024 4:47 PM EDT Emergency [facility] Emergency Department [address] [place] [phone] Intractable low back pain (Primary Dx); Compression fracture of L2 vertebra with routine healing, subsequent encounter; Spinal stenosis of lumbar region, unspecified whether neurogenic claudication present Discharge Disposition: Home or self care 12/12/2024 Telephone [facility] Neurosurgery [facility] [address] [facility] [address] [place] [address] Desi Joe [place] NEW PT APPT ( LEFT FRONTAL MENINGIOMA ) 12/12/2024 Telephone [facility] Orthopedics [address] [place] [address] [address] [place] [address] Orlando Myers MD 12/11/2024 2:14 PM EDT - 12/11/2024 6:48 PM EDT Emergency [facility] Emergency Department [address] [place] [phone] Acute bilateral low back pain without sciatica (Primary Dx) Discharge Disposition: Home or self care 12/11/2024 1:12 PM EDT - 12/11/2024 1:39 PM EDT Hospital Encounter [facility] [address] [place] [phone] Fall, initial encounter (Primary Dx); Acute bilateral low back pain without sciatica Discharge Disposition: Home or self care 12/11/2024 Travel 12/02/2024 2:00 PM EDT Telemedicine [facility] Physician Organization Obstetrics [facility] Gynecology [address] [phone] Anette Saleh NP Overactive bladder (Primary Dx); Urge incontinence of urine 11/28/2024 10:58 AM EDT - 11/28/2024 11:20 AM EDT Hospital Encounter [facility] [address] [place] [address] Visit for wound check (Primary Dx) Discharge Disposition: Home or self care 11/28/2024 Telephone [facility] General Surgery [place] [address] [facility] [address] [place] [address] Sonny Martinez MD 11/27/2024 8:15 AM EDT Office Visit [facility] Endocrinology [address] [place] [address] Evens Santiago MD Osteopenia of multiple sites (Primary Dx) 11/27/2024 Travel 11/14/2024 Refill [facility] 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 from Last 3 Months Immunizations Immunization Administration Dates Next Due Arexvy Respiratory Syntial V irus Vaccine, Adjuvanted 01/11/2023 Influenza quadrivalent, ADJU VANTED, [id number] high risk 11/23/2022,12/09/2021,11/22/2020,12/10 Influenza, High Dose Seasona l, Preservative Free 12/01/2024,11/15/2017 Influenza, Unspecified 01/26/2010 Influenza, injectable, quadrivalent 11/05/2016,0 11/07/2015,11/08/2014 Influenza, seasonal, injectable 12/02/2013 Influenza, trivalent, adjuvanted 65+ ,11/22/2020,12/11/2019,11/05 Pneumococcal Polysaccharide PPV23 02/05/2014 Tdap 11/28/2024 Zoster, live 07/14/2013 Family History Medical History Relation Name Comments Breast cancer Cousin Breast cancer Mother Relation Name Status Comments Cousin Alive Mother Social History Tobacco Use Types Packs/Day Years Used Date Smoking Tobacco: Former Cigarettes Smokeless Tobacco: Never Tobacco Cessation:Counseling Given: Not Answered Alcohol Use Standard Drinks/Week Comments Yes 5 [...] any time in the past 12 m [facility], were you homeless or living in a [...] Orientation Straight 09/05/2024 10 :17 AM EDT Last Filed Vital Signs Vital Sign Reading [...] Mass Index 26.8 01/16/2025 4:15 PM EST Plan of Treatment Upcoming Encounters Date Type Department Care Team (Late st Contact Info) Description 02/13/2025 4:15 PM EST Office Visit [facility] [address] [facility], [address] [place] [address] Jairo Noble MD [address] [place] [address] [place] [address] 09/01/2025 9:00 AM EDT Appointment [facility] Imaging [address] [place] [phone] 11/11/2025 10:30 AM EDT Office Visit [facility] Obstetrics & Gynecology [place] [address] [facility] [address] [place] [address] Pita Medina MD [address] [facility] [address] [place] [address] 11/23/2025 9:00 AM EDT Appointment [facility] Imaging [address] [facility] 2[address] [place] [phone] 12/03/2025 8:15 AM EDT Office Visit [facility] Endocrinology [address] [place] [phone] Evens Santiago MD [address] [place] [address] 01/13/2026 9:00 AM EST Appointment [facility] Imaging [address] [place] [phone] 01/13/2026 10:45 AM EST Office Visit [facility] Community [facility] [address] [facility] [address] [place] [phone] Jame Jorge MD [address] [place] [address] Health Maintenance Due Date Last Done Comments CT Colonography 1940 Diabetes: Hemoglobin A1C 1940 FIT-DNA 1940 FIT 1940 Sigmoidoscopy 1940 Diabetes: Foot Exam 1950 Zoster Vaccines (2 of 3) 09/08/2013 07/14/2013 Pneumococcal Vaccine: 50+ Years (2 of 2 - PCV) 02/05/2015 02/05/2014 FOBT 08/14/2018 08/14/2017 Medicare Annual Wellness (AWV) 07/28/2019 Diabetes: Urine Protein Screening 11/06/2019 11/05/2018, 11/15/2017 COVID-19 Vaccine ( season) 2024 11/20/2023, 11/23/2022, 08/18/2022, Additional history exists Lipid Panel 08/21/2025 08/21/2024, 01/27, 08/16/2023, Additional history exists Bone Density Scan 11/18/2025 11/19/2023, , 11/20/2019, Additional history exists Diabetes: Retinopathy Screening 01/30/2026 01/31/2024, 02/02/2022, 02/10/2021, Additional history exists Colonoscopy 09/15/2029 09/16/2019, 09/16/2019 Colorectal Cancer Screening 09/15/2029 DTaP/Tdap/Td Vaccines (2 - Td or Tdap) 11/28/2034 11/28/2024 Pneumococcal Vaccine: Pediatrics (0 to 5 Years) and At-Risk Patients (6 to 49 Years) Discontinued 02/05/2014 Depression Screening Completed 08/13/2024 Mammogram Discontinued 08/26/2024, 07/28, 08/15/2022, Additional history exists Influenza Vaccine Completed 12/01/2024, , 11/23/2022, Additional history exists HIB Vaccines Aged Out No longer eligi ble based on patient's age to complete this topic HPV Vaccines (No Doses Required) Completed Hepatitis A Vaccines Aged Out No long er eligible based on patient's age to complete this topic Hepatitis B Vaccines Aged Out No long er eligible based on patient's age to complete this topic IPV Vaccines Aged Out No longer eligi ble based on patient's age to complete this topic Meningococcal B Vaccine Aged Out No l onger eligible based on patient's age to complete this topic Meningococcal Vaccine Aged Out No toby curry eligible based on patient's age to complete this topic Rotavirus Vaccines Aged Out No longer eligible based on patient's age to complete this topic Goals Goal Patient Goal Type Associated Problems Recent Progress Patient-Stated? Author Autogenerat ed Goal Care Plan Autogenerated Problem No Eliazar Jones MD Medical Devices Implanted Type Area Valve Repairer Device Identifier Shelf Expiration Date Model / Serial / Lot Cement Kyphon Xpede W/Mixer An - [id number] - [id number] Implanted:Qty: 1 on 01/14/2025 at [facility] Bone Cement N/A: [employer] 08/26/2027 [id number] / [id number] / Description:9cc in L1 Cement Kyphon Xpede W/Mixer An - [id number] - [id number] Implanted:Qty: 1 on 01/14/2025 at [facility] Bone Cement N/A: [employer] 08/26/2027 [id number] / [id number] / Description:4 cc in L1 , tot al cement is 13cc Procedures Procedure Name Priority Date/Time Associated Diagnosis Comments CBC WITH DIFFERENTIAL Routine 01/19/2025 6:17 AM EST COMPREHENSIVE METABOLIC PANEL Routine 01/19/2025 6:17 AM EST CBC W/DIFF Routine 01/19/2025 6:17 AM EST CBC WITH DIFFERENTIAL Routine 01/18/2025 7:10 AM EST COMPREHENSIVE METABOLIC PANEL Routine 01/18/2025 7:10 AM EST CBC W/DIFF Routine 01/18/2025 7:10 AM EST ECG 12-LEAD Routine 01/17/2025 8:51 AM EST CBC WITH DIFFERENTIAL Routine 01/17/2025 5:51 AM EST COMPREHENSIVE METABOLIC PANEL Routine 01/17/2025 5:51 AM EST CBC W/DIFF Routine 01/17/2025 5:51 AM EST TROPONIN I, HIGH SENSITIVITY Timed 01/16/2025 7:[address] HEAD WO CONTRAST Routine 01/16/2025 4:55 PM EST TROPONIN I, HIGH SENSITIVITY Timed 01/16/2025 4:40 PM EST AMMONIA Routine 01/16/2025 4:39 PM EST URINALYSIS REFLEX TO CULTURE STAT 01/16/2025 1:58 AM EST URINE TESTING (UA, UARC, URINE CULTURE) STAT 01/16/2025 1:58 AM EST URINE DRUG SCREEN STAT 01/16/2025 1:58 AM EST CBC WITH DIFFERENTIAL STAT 01/16/2025 12:07 AM EST ETHANOL STAT 01/16/2025 12:07 AM EST COMPREHENSIVE METABOLIC PANEL STAT 01/16/2025 12:07 AM EST CBC W/DIFF STAT 01/16/2025 12:07 AM EST OXYGEN THERAPY Routine 01/14/2025 12:08 PM EST CBC Routine 01/02/2025 10:42 AM EST Preop testing BASIC METABOLIC PANEL Routine 01/02/2025 10:42 AM EST Preop testing PROTIME-INR Routine 01/02/2025 10:42 AM EST Preop testing MR LUMBAR SPINE WO CONTRAST STAT 2024 7:00 PM EDT Acute low back pain, unspecified back pain laterality, unspecified whether sciatica present Degenerative spondylolisthesis Closed compression fracture of L1 lumbar vertebra, initial encounter Closed compression fracture of L2 lumbar vertebra, sequela 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, initial encounter Congenital stenosis of cervical spine XR LUMBAR SPINE 4+ VIEWS WITH FLEXION EXTENSION Routine 12/16/2024 12:25 PM EDT Acute low back pain, unspecified back pain laterality, unspecified whether sciatica present THUASNE SLEEQ FLEX Routine 12/16/2024 12:00 AM EDT 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, initial encounter CT PELVIS WO CONTRAST STAT 12/11/2024 2:[address] LUMBAR SPINE WO CONTRAST STAT 12/11/2024 2:[address] CERVICAL SPINE WO CONTRAST STAT 12/11/2024 2:[address] HEAD WO CONTRAST STAT 12/11/2024 2:35 PM EDT BI BILATERAL MAMMOGRAM SCREENING TOMOSYNTHESIS Routine 08/26/2024 9:29 AM EDT Breast cancer (Multi-HCC) Breast cancer screening by mammogram LIPID PANEL Routine 08/21/2024 9:27 AM EDT Pure hypercholesterolemia BD DEXA AXIAL Routine 11/19/2023 1:32 PM EDT Osteopenia of multiple sites COLONOSCOPYREPORT Routine 09/16/2019 7:30 AM EDT from Last 3 Months or Most Recently Relevant to Health Maintenance Results * CBC w/ Differential (01/19/2025 6:17 AM EST) Only the most recent of4 resultswithin the time period is included. WBC 7.2 4.0 - 11.0 K/uL 01/19/2025 7:52 AM [facility] RBC 3.93 3.70 - 5.20 M/uL 01/19/2025 7:52 AM [facility] Hemoglobin 12.2 11.0 - 16.0 g/dL 01/19/2025 7:52 AM [facility] Hematocrit 37.0 32.0 - 47.0 % 01/19/2025 7:52 AM [facility] MCV 94.1 80.0 - 100.0 fL 01/19/2025 7:52 AM [facility] MCH 31.0 26.0 - 34.0 pg 01/19/2025 7:52 AM [facility] MCHC 33.0 31.0 - 37.0 g/dL 01/19/2025 7:52 AM [facility] RDW-CV 14.3 11.5 - 14.5 % 01/19/2025 7:52 AM [facility] RDW-SD 49.4 35.0 - 51.0 fL 01/19/2025 7:52 AM [facility] Platelets 227 150 - 400 K/uL 01/19/2025 7:52 AM [facility] MPV 11.5 9.1 - 12.4 fL 01/19/2025 7:52 AM [facility] Neutrophil % 66.2 % 01/19/2025 7:52 AM [facility] Lymphocyte % 21.3 % 01/19/2025 7:52 AM [facility] Monocytes % 9.3 % 01/19/2025 7:52 AM [facility] Eosinophils % 2.1 % 01/19/2025 7:52 AM [facility] Basophils % 0.7 % 01/19/2025 7:52 AM [facility] Immature Granulocytes % 0.4 % 01/19/2025 7:52 AM [facility] NRBC % 0.0 0.0 - 0.0 % 01/19/2025 7:52 AM [facility] Neutrophils Absolute 4.79 1.50 - 7.95 K/uL 01/19/2025 7:52 AM [facility] Lymphocytes Absolute 1.54 0.70 - 4.00 K/uL 01/19/2025 7:52 AM [facility] Monocytes Absolute 0.67 0.36 - 0.77 K/uL 01/19/2025 7:52 AM [facility] Eosinophils Absolute 0.15 0.00 - 0.50 K/uL 01/19/2025 7:52 AM [facility] Basophils Absolute 0.05 0.00 - 0.22 K/uL 01/19/2025 7:52 AM [facility] Immature Granulocytes Absolute 0.03 0.00 - 0.10 K/uL 01/19/2025 7:52 AM [facility] NRBC Absolute 0.00 0.00 - 2.00 K/uL 01/19/2025 7:52 AM [facility] Blood Venous blood specimen / Unknown Venipuncture / Unknown 01/19/2025 6:17 AM EST 01/19/2025 7:50 AM EST Jeannie Michaels NP LAB BLOOD ORDERABLES Final Result [facility] [address] [place] [address], * (ABNORMAL) Comprehensive metabolic panel (01/19/2025 6:17 AM EST) Only the most recent of4 resultswithin the time period is included. Sodium 139 135 - 146 mmol/L 01/19/2025 8:13 AM [facility] Potassium 4.1 3.6 - 5.2 mmol/L 01/19/2025 8:13 AM [facility] Chloride 108 98 - 110 mmol/L 01/19/2025 8:13 AM [facility] CO2 (Bicarbonate) 25 20 - 32 mmol/L 01/19/2025 8:13 AM [facility] Anion Gap 6 3 - 14 mmol/L 01/19/2025 8:13 AM [facility] BUN 14 6 - 24 mg/dL 01/19/2025 8:13 AM [facility] Creatinine 0.64 0.55 - 1.30 mg/dL 01/19/2025 8:13 AM [facility] eGFRcr 87 >=60 mL/min/1. 73m*2 01/19/2025 8:13 AM [facility] Comment:Calculated using CKD -EPI 2020 creatinine equation. Glucose 116(H) 70 - 99 mg/dL 01/19/2025 8:13 AM [facility] Fasting? Yes 01/19/2025 8:13 AM EST [facility] Calcium 9.4 8.5 - 10.5 mg/dL 01/19/2025 8:13 AM EST [facility] AST 15 6 - 42 U/L 01/19/2025 8:13 AM EST [facility] ALT 21 0 - 55 U/L 01/19/2025 8:13 AM EST [facility] Alkaline phosphatase 94 30 - 130 U/L 01/19/2025 8:13 AM EST [facility] Protein, total 7.1 6.0 - 8.4 g/dL 01/19/2025 8:13 AM EST [facility] Albumin 3.7 3.2 - 5.0 g/dL 01/19/2025 8:13 AM [facility] Bilirubin, total 1.3(H) 0.2 - 1.2 mg/dL 01/19/2025 8:13 AM EST [facility] Blood Venous blood specimen / Unknown Venipuncture / Unknown 01/19/2025 6:17 AM EST 01/19/2025 7:50 AM EST Jeannie Michaels NP LAB BLOOD ORDERABLES Final Result Performing Organization Address City/State/[facility] Co de Phone Number [facility] [address] [place] [address], * ECG 12 lead (01/17/2025 8:51 AM EST) 01/17/2025 8:51 AM EST 01/18/2025 4:02 PM EST Narrative [facility] STRESS/ECG GE MUSE - 01/18/2025 4:02 PM [...] now present Confirmed by JAIRO NOBLE MD ([id number]) on 01/18/2025 4:02:39 PM Referred By: Confirmed [...] now present Confirmed by JAIRO NOBLE MD ([id number]) on 01/18/2025 4:02:39 PM Referred By: Confirmed By: JAIRO NOBLE MD us Kaci Milian MD ECG ORDERABLES Final Result [facility] STRESS/ECG GE MUSE * Troponin I, High Sensitivity (01/16/2025 7:44 PM EST) Only the most recent of2 resultswithin the time period is included. Troponin I, High Sensitivity 18 See Comment ng/L 01/16/2025 8:22 PM EST [facility] Blood Venous blood specimen / Unknown Venipuncture / Unknown 01/16/2025 7:44 PM EST 01/16/2025 7:58 PM EST Narrative [facility] - 01/16/2025 8:22 PM EST Clinical [...] hours 0hr/1hr is warranted for evaluation. Jeannie Michaels NP LAB BLOOD ORDERABLES Final Result [facility] [address] [place] [address], * CT HEAD WO CONTRAST (01/16/2025 4:55 PM EST) Only the most recent of2 resultswithin the time period is included. Anatomical Region Laterality Modality Head, Brain, Neck Computed Tomog wild 01/16/2025 5:44 PM EST Impressions 01/16/2025 5:[address] evidence for acute intracranial abnormality, including large territorial infarct, hemorrhage or midline shift. This medical report is generated using voice recognition technology and occasional [id number] words may be substituted. Please read the [...] is generated using voice recognition technologyand occasional [id number] words may be substituted. Please read thereport carefully in the appropriate medical context. If there is aspecific question regarding the language of the report, a radiologist willbe made available for clarification. Terry Huff 01/16/2025 5:50 PM Jeannie Michaels BUDGET RECORD CLERK IMG CT PROCEDURES Fin al Result * Ammonia (01/16/2025 4:39 PM EST) Ammonia 34 19 - 82 ug/dL 01/16/2025 5:37 PM [facility] Blood Venous blood specimen / Unknown Venipuncture / Unknown 01/16/2025 4:39 PM EST 01/16/2025 5:10 PM EST Jeannie Michaels BUDGET RECORD CLERK LAB BLOOD ORDERABLES Final Result Performing Organization Address City/State/[facility] Co de Phone Number [facility] [address] [place] [address], * Urine Drug Screen (01/16/2025 1:58 AM EST) Pathologist [facility] Amphetamines screen, urine Screen Negative Screen Negative 01/16/2025 2:26 AM [facility] Comment:Cutoff concentration = 1000 ng/mL. Barbiturates screen, urine Screen Negative Screen Negative 01/16/2025 2:26 AM [facility] Comment:Cutoff concentration = 200 ng/mL. Benzodiazepines screen, urine Screen Negative Screen Negative 01/16/2025 2:26 AM [facility] Comment:Cutoff concentration = 200 ng/mL. Buprenorphine screen, urine Screen Negative Screen Negative 01/16/2025 2:26 AM [facility] Comment:Cutoff concentration = 5 ng/mL. Cannabinoids screen, urine Screen Negative Screen Negative 01/16/2025 2:26 AM [facility] Comment:Cutoff concentration = 50 ng/mL. Cocaine screen, urine Screen Negative Screen Negative 01/16/2025 2:26 AM [facility] Comment:Cutoff concentration = 300 ng/mL. Ethanol screen, urine Not Detected Not Detected 01/16/2025 2:26 AM [facility] Comment:Cutoff concentration = 10 mg/dL. Fentanyl screen, urine Screen Negative Screen Negative 01/16/2025 2:26 AM [facility] Comment:Cutoff concentration = 1.0 ng/mL. Methadone screen, urine Screen Negative Screen Negative 01/16/2025 2:26 AM [facility] Comment:Cutoff concentration = 300 mg/dL. Opiates screen, urine Screen Negative Screen Negative 01/16/2025 2:26 AM [facility] Comment:Cutoff concentration = 300 ng/mL. Oxycodone screen, urine Screen Negative Screen Negative 01/16/2025 2:26 AM [facility] Comment:Cutoff concentration = 100 ng/mL. Creatinine, urine, specimen validity 25.00 >=20.00 mg/dL 01/16/2025 2:26 AM [facility] Urine Urine specimen / Unknown Non-blood Collection / Unknown 01/16/2025 1:58 AM EST 01/16/2025 1:58 AM [facility] - 01/16/2025 2:26 AM EST These are unconfirmed screening results and should be used only for medical purposes. If the clinical setting requires confirmation, contact the clinical laboratory. us [place] LAB URINE ORDERABLES Final Resu lt [facility] [address] [place] [address], * (ABNORMAL) Urinalysis reflex to culture (01/16/2025 1:58 AM EST) Color, Ur Yellow Yellow, Dark Yellow 01/16/2025 2:28 AM [facility] Clarity, Ur Clear Clear 01/16/2025 2:28 AM [facility] Specific [place], Ur <=1.005 1.005 - 1.030 01/16/2025 2:28 AM [facility] pH, Ur 6.5 5.0 - 8.0 01/16/2025 2:28 AM [facility] Protein,Ur Negative Negative mg/dL 01/16/2025 2:28 AM [facility] Glucose,Ur Negative Negative mg/dL 01/16/2025 2:28 AM [facility] Ketones, Ur Negative Negative mg/dL 01/16/2025 2:28 AM [facility] Bilirubin, Ur Negative Negative 01/16/2025 2:28 AM [facility] Blood, Ur Negative Negative 01/16/2025 2:28 AM [facility] Urobilinogen, Ur 1.0 0.2-1.0 E.U./dl E.U./dl 01/16/2025 2:28 AM [facility] Nitrite, Ur Negative Negative 01/16/2025 2:28 AM [facility] Leukocyte Esterase, Ur Small(A) Negative WBC/uL 01/16/2025 2:28 AM [facility] RBC, Ur 1 0-4 cells/HPF cells/HPF 01/16/2025 2:28 AM [facility] WBC, Ur 1 0-5 cells/HPF cells/HPF 01/16/2025 2:28 AM [facility] Epithelial Cells, UR 0 0-5 cells/HPF cells/HPF 01/16/2025 2:28 AM [facility] Bacteria, Ur None Seen None Seen 01/16/2025 2:28 AM [facility] Casts, Ur 0 0-4 cells/LPF cells/LPF 01/16/2025 2:28 AM [facility] Urine Urine specimen obtained by clean catch procedure / Unknown Non-blood Collection / Unknown 01/16/2025 1:58 AM EST 01/16/2025 1:58 AM EST us [place] LAB URINE ORDERABLES Final Resu lt [facility] [address] [place] [address], * Ethanol, serum (01/16/2025 12:07 AM EST) Ethanol level, plasma/serum <3 0 - 3 mg/dL 01/16/2025 12:35 AM EST [facility] Blood Venous blood specimen / Unknown Venipuncture / Unknown 01/16/2025 12:07 AM EST 01/16/2025 12:08 AM EST Narrative [facility] - 01/16/2025 12:35 AM EST These are unconfirmed screening results and should be used only for medical purposes. If the clinical setting requires confirmation, contact the clinical laboratory. [place] LAB BLOOD ORDERABLES Final Resu lt Performing Organization Address [facility]/ZIP Co de Phone Number [facility] [address] [place] [id number], * Protime/INR (01/02/2025 10:42 AM EST) [facility] Protime 10.8 9.4 - 11.4 seconds 01/02/2025 11:17 AM [facility] INR 1.00 See Comment 01/02/2025 11:17 AM EST [facility] Comment: RECOMMENDED INR WITH WARFARIN/COUMADIN THERAPY: INR: 2.00-3.00 Deep vein thrombosis Atrial Fibrillation Tissue Prosthetic Valve Stroke Prevention INR:2.50-3.50 Mechanical Prosthetic Valve and Recurrent Systemic Embolism Blood Venous blood specimen / Unknown Venipuncture / Unknown 01/02/2025 10:42 AM EST 01/02/2025 10:47 AM EST Casey Wilhelm MD LAB BLOOD ORDERABLES Final Resul t Performing Organization Address [facility]/ZIP Co de Phone Number [facility] [address] [place] [phone], * (ABNORMAL) CBC (01/02/2025 10:42 AM EST) [facility] WBC 8.0 4.0 - 11.0 K/uL 01/02/2025 10:49 AM EST [facility] RBC 3.48(L) 3.70 - 5.20 M/uL 01/02/2025 10:49 AM [facility] Hemoglobin 10.8(L) 11.0 - 16.0 g/dL 01/02/2025 10:49 AM [facility] Hematocrit 33.6 32.0 - 47.0 % 01/02/2025 10:49 AM [facility] MCV 96.6 80.0 - 100.0 fL 01/02/2025 10:49 AM [facility] MCH 31.0 26.0 - 34.0 pg 01/02/2025 10:49 AM [facility] MCHC 32.1 31.0 - 37.0 g/dL 01/02/2025 10:49 AM [facility] RDW-SD 53.1(H) 35.0 - 51.0 fL 01/02/2025 10:49 AM [facility] RDW-CV 15.1(H) 11.5 - 14.5 % 01/02/2025 10:49 AM [facility] Platelets 246 150 - 400 K/uL 01/02/2025 10:49 AM [facility] MPV 11.2 9.1 - 12.4 fL 01/02/2025 10:49 AM [facility] NRBC % 0.0 0.0 - 0.0 % 01/02/2025 10:49 AM [facility] NRBC Absolute 0.00 0.00 - 2.00 K/uL 01/02/2025 10:49 AM [facility] Blood Venous blood specimen / Unknown Venipuncture / Unknown 01/02/2025 10:42 AM EST 01/02/2025 10:47 AM EST us Casey Wilhelm MD LAB BLOOD ORDERABLES Final Resul t [facility] [address] [place] [address], * (ABNORMAL) Basic metabolic panel (01/02/2025 10:42 AM EST) Sodium 138 135 - 146 mmol/L 01/02/2025 11:06 AM [facility] Potassium 4.0 3.6 - 5.2 mmol/L 01/02/2025 11:06 AM [facility] Chloride 107 98 - 110 mmol/L 01/02/2025 11:06 AM [facility] CO2 (Bicarbonate) 27 20 - 32 mmol/L 01/02/2025 11:06 AM [facility] Anion Gap 4 3 - 14 mmol/L 01/02/2025 11:06 AM [facility] BUN 14 6 - 24 mg/dL 01/02/2025 11:06 AM [facility] Creatinine 0.65 0.55 - 1.30 mg/dL 01/02/2025 11:06 AM [facility] eGFRcr 87 >=60 mL/min/1. 73m*2 01/02/2025 11:06 AM [facility] Comment:Calculated using CKD -EPI 2020 creatinine equation. Glucose 123(H) 70 - 99 mg/dL 01/02/2025 11:06 AM [facility] Fasting? Yes 01/02/2025 11:06 AM [facility] Calcium 8.8 8.5 - 10.5 mg/dL 01/02/2025 11:06 AM [facility] Blood Venous blood specimen / Unknown Venipuncture / Unknown 01/02/2025 10:42 AM EST 01/02/2025 10:47 AM EST Casey Wilhelm MD LAB BLOOD ORDERABLES Final Resul t [facility] [address] [place] [address], * MR LUMBAR SPINE WO CONTRAST (2024 7:00 PM EDT) Anatomical Region Laterality Modality L-spine Magnetic Resonan ce 12/19/2024 8:01 AM EDT Impressions 12/19/2024 8:11 AM EDT 1. Recent compression fracture at L1 which is new or worsened from prior studies with approximately 30% loss of height and mild bony retropulsion. 2. Chronic compression fractures at T11 and L2. 3. Multilevel multifactorial moderate to severe degenerative findings of the lumbar spine. Findings include moderate bilateral neural foraminal stenosis at L2-L3, moderate to severe right and moderate left neural foraminal stenosis at L3-L4, and moderate to severe right neural foraminal stenosis at T11-T12. 4. Severe spinal canal stenosis at L3-L4. Jabari Trevino MD 12/19/2024 8:11 AM Narrative 12/19/2024 8:11 AM EDT STUDY: MR LUMBAR SPINE WO CONTRAST 2024 6:27 PM HISTORY: fracture, L1 acute compression fracture, eval for sacral insufficiency fractures not seen on CT COMPARISON: Lumbar spine CT 12/11/2024 and lumbar spine MRI 08/22/2018 TECHNIQUE: Sagittal T1 and T2-weighted images, sagittal STIR images, axial T2 and T1 images were obtained. Intravenous contrast was not administered. FINDINGS: Bone: There is straightening of the normal lumbar lordosis. There is 2 mm anterolisthesis of L1 on L2 and 2 mm retrolisthesis of L2 on L3 and a 6 mm anterolisthesis of L3 on L4. There is a chronic moderate compression fracture at T12 without bony retropulsion. There is approximately 30% loss of height and superior endplate deformity with mild bony retropulsion at L1. This is new or worsened compared to the prior CT from 12/11/2024. There is a superior endplate deformity with approximately 50% loss of height centrally at L2. No bony retropulsion. No edema in the vertebral body. Marrow signal is diffusely heterogeneous. No suspicious focal marrow replacing lesion. Rounded areas of high intrinsic T1 signal are nonspecific but likely reflect focal fat or hemangiomas. There is postsurgical change from previous L2-L3, L3- L4, L4-L5, and likely L5-S1 laminectomies. There is levoscoliotic curvature of the lumbar spine with apex at L4. There is lumbar paraspinal muscular atrophy. Discs and endplates: There is diffuse loss of disc height and disc desiccation throughout the lumbar spine. There are associated degenerative endplate changes. T11-T12: Posterior disc bulge and bilateral facet arthropathy. Moderate to severe right and [id number] left neural foraminal stenosis with mild spinal canal stenosis. T12-L1: Slight posterior disc bulge and bilateral facet arthropathy. No significant spinal canal or neural foraminal narrowing. L1-2: Posterior disc bulge and bilateral facet arthropathy and thickening of ligamentum flavum. Trace bilateral neural foraminal stenosis and mild to moderate spinal canal stenosis. L2-3: Posterior disc bulge with dorsal osteophytes and bilateral facet arthropathy. Findings contribute to moderate bilateral neural foraminal stenosis without significant spinal canal stenosis. L3-4: Anterolisthesis with posterior disc bulge/disc uncovering and bilateral facet arthropathy. There is prominent motion on the axial sequence at this level. Findings contribute to probable moderate to severe right and moderate left neural foraminal stenosis and severe spinal canal stenosis with prominent effacement of bilateral lateral recesses. There are prominent osteophytes extending anteriorly from the right L3-L4 facet. There is likely compression of the descending L4 nerve roots bilaterally. L4-5: Posterior disc bulge and bilateral facet arthropathy. There is motion degradation on the axial sequence at this level. Findings contribute to probable mild left and moderate right neural foraminal stenosis with trace spinal canal stenosis. L5-S1: Motion degrades assessment of this level. There is a posterior disc bulge with bilateral facet arthropathy. Findings contribute to mild right neural foraminal stenosis without significant spinal canal stenosis. Spinal canal: The conus medullaris ends at the L1-2 level and appears normal. Procedure Note Jabari Trevino MD - 12/19/2024 STUDY: MR LUMBAR SPINE WO CONTRAST 2024 6:27 PM HISTORY: fracture, L1 acute compression fracture, eval for sacralinsufficiency fractures not seen on CT COMPARISON: Lumbar spine CT 12/11/2024 and lumbar spine MRI 08/22/2018 TECHNIQUE: Sagittal T1 and T2-weighted images, sagittal STIR images, axialT2 and T1 images were obtained. Intravenous contrast was notadministered. FINDINGS: Bone: There is straightening of the normal lumbar lordosis. There is 2 mmanterolisthesis of L1 on L2 and 2 mm retrolisthesis of L2 on L3 and a 6 mmanterolisthesis of L3 on L4. There is a chronic moderate compression fracture at T12 without bonyretropulsion. There is approximately 30% loss of height and superiorendplate deformity with mild bony retropulsion at L1. This is new orworsened compared to the prior CT from 12/11/2024. There is a superiorendplate deformity with approximately 50% loss of height centrally at L2.No bony retropulsion. No edema in the vertebral body. Marrow signal is diffusely heterogeneous. No suspicious focal marrowreplacing lesion. Rounded areas of high intrinsic T1 signal arenonspecific but likely reflect focal fat or hemangiomas. There ispostsurgical change from previous L2-L3, L3-L4, L4-L5, and likely L5-A9stundhtaodxlq. There is levoscoliotic curvature of the lumbar spine withapex at L4. There is lumbar paraspinal muscular atrophy. Discs and endplates: There is diffuse loss of disc height and discdesiccation throughout the lumbar spine. There are associated degenerativeendplate changes. T11-T12: Posterior disc bulge and bilateral facet arthropathy. Moderate tosevere right and tanw-at-[id number] left neural foraminal stenosis with mildspinal canal stenosis. T12-L1: Slight posterior disc bulge and bilateral facet arthropathy. Nosignificant spinal canal or neural foraminal narrowing. L1-2: Posterior disc bulge and bilateral facet arthropathy and thickeningof ligamentum flavum. Trace bilateral neural foraminal stenosis and mildto moderate spinal canal stenosis. L2-3: Posterior disc bulge with dorsal osteophytes and bilateral facetarthropathy. Findings contribute to moderate bilateral neural foraminalstenosis without significant spinal canal stenosis. L3-4: Anterolisthesis with posterior disc bulge/disc uncovering andbilateral facet arthropathy. There is prominent motion on the axialsequence at this level. Findings contribute to probable moderate to severeright and moderate left neural foraminal stenosis and severe spinal canalstenosis with prominent effacement of bilateral lateral recesses. Thereare prominent osteophytes extending anteriorly from the right L3-L4 facet.There is likely compression of the descending L4 nerve roots bilaterally. L4-5: Posterior disc bulge and bilateral facet arthropathy. There ismotion degradation on the axial sequence at this level. Findingscontribute to probable mild left and moderate right neural foraminalstenosis with trace spinal canal stenosis. L5-S1: Motion degrades assessment of this level. There is a posteriordisc bulge with bilateral facet arthropathy. Findings contribute to mildright neural foraminal stenosis without significant spinal canal stenosis. Spinal canal: The conus medullaris ends at the L1-2 level and appearsnormal. IMPRESSION: 1. Recent compression fracture at L1 which is new or worsened from priorstudies with approximately 30% loss of height and mild bonyretropulsion. 2. Chronic compression fractures at T11 and L2. 3. Multilevel multifactorial moderate to severe degenerative findings ofthe lumbar spine. Findings include moderate bilateral neural foraminalstenosis at L2-L3, moderate to severe right and moderate left neuralforaminal stenosis at L3-L4, and moderate to severe right neural foraminalstenosis at T11-T12. 4. Severe spinal canal stenosis at L3-L4. Jabari Trevino MD 12/19/2024 8:11 AM Eliazar Jones MD IMG MRI PROCEDURES [facility] l Result * XR LUMBAR SPINE 4+ VIEWS WITH FLEXION EXTENSION (12/16/2024 12:25 PM EDT) Anatomical Region Laterality Modality L-spine Computed Radiogr aphy Narrative 12/16/2024 1:19 PM EDT Imaging Result: 12/16/2024 Upright AP, lateral, flexion-extension lumbar spine radiographs obtained at [facility] 12/16/2024 were reviewed and independently interpreted by me and demonstrate: 5 typical nonrib-bearing lumbar type vertebrae. Abundant bowel gas obscures fine bony details especially below the level of L3. Qualitative osteopenia. Asymmetric collapse towards the right L4-5 with apparent right lateral spontaneous fusion L4-5. Leg lengths appear grossly symmetric. 8-1/2 mm of anterolisthesis L3 on L4 degenerative in nature. End-stage disc degeneration L5-S1 L2-3. Age-indeterminate L2 and L1 wedge compression deformities in flexion L3-4 spondylolisthesis measures 9-1/2 mm in extension measured 8-1/2 mm. L1 compression fracture approximately 30% height loss Compared to the CT scan of the lumbar spine from [facility] from the date of injury 12/11/2024 the L1 compression fracture is new and was not present on prior films. There is subtle possible fracture line seen on sagittal imaging. Vacuum disc phenomenon L3-4 and L4-5 anterolisthesis L3 on L4 when supine measuring 8.8 mm. Eliazar Jones MD IMG XR PROCEDURES Final Result * BRENDA SLEEQ FLEX (12/16/2024 12:00 AM EDT) 12/16/2024 Eliazar Jnoes MD SD MISCELLANEOUS SERVIC ES Final Result EMPOWER [address] [facility], [address] [place] [address], [place] [phone] * CT PELVIS WO CONTRAST (12/11/2024 2:46 PM EDT) Anatomical Region Laterality Modality Body, Pelvis Computed Tomogra phy 12/11/2024 2:53 PM EDT Impressions 12/11/2024 3:09 PM EDT No acute osseous abnormality. Right gluteal hematoma with dimensions as above. Edgar Logan, DO 12/11/2024 3:09 PM Narrative 12/11/2024 3:09 PM EDT PROCEDURE: CT PELVIS WO CONTRAST 12/11/2024 2:33 PM INDICATIONS: fall COMPARISON: None. TECHNIQUE: Contiguous axial 1 mm images were acquired of the pelvis , without IV contrast. Dose reduction techniques including automated exposure control and adjustment of the mA and/or kV according to patient's size were utilized. Multiplanar reformations were created. FINDINGS: Bones: No fracture, osteonecrosis, or marrow replacing lesion. Alignment: Anatomic hip and sacroiliac joint line bilaterally. Joints: Mild, symmetric degenerative change of the bilateral hips with diffuse cartilage thinning superiorly. Mild degenerative change of the bilateral sacroiliac joints. Moderate degenerative change of the pubic symphysis. Fluid: No fluid collection or large hip effusion. Muscles: Hematoma within the right gluteus johnson muscle measuring approximately 5.0 x 8.4 x 6.3 cm. Otherwise normal. Tendons/ligaments: Not well assessed on this nondedicated study. Vessels: Scattered calcified plaque along the included aorta. No aneurysm. Nerves: Normal contours. Masses: None. Other: Diverticulosis. No other abnormality of the included pelvic viscera identified on this noncontrast study. Procedure Note Edgar Logan DO - 12/11/2024 PROCEDURE: CT PELVIS WO CONTRAST 12/11/2024 2:33 PM INDICATIONS: fall COMPARISON: None. TECHNIQUE: Contiguous axial 1 mm images were acquired of the pelvis , without IVcontrast. Dose reduction techniques including automated exposure controland adjustment of the mA and/or kV according to patient's size wereutilized. Multiplanar reformations were created. FINDINGS: Bones: No fracture, osteonecrosis, or marrow replacing lesion. Alignment: Anatomic hip and sacroiliac joint line bilaterally. Joints: Mild, symmetric degenerative change of the bilateral hips withdiffuse cartilage thinning superiorly. Mild degenerative change of thebilateral sacroiliac joints. Moderate degenerative change of the pubicsymphysis. Fluid: No fluid collection or large hip effusion. Muscles: Hematoma within the right gluteus johnson muscle measuringapproximately 5.0 x 8.4 x 6.3 cm. Otherwise normal. Tendons/ligaments: Not well assessed on this nondedicated study. Vessels: Scattered calcified plaque along the included aorta. Noaneurysm. Nerves: Normal contours. Masses: None. Other: Diverticulosis. No other abnormality of the included pelvic visceraidentified on this noncontrast study. IMPRESSION: No acute osseous abnormality. Right gluteal hematoma with dimensions asabove. Edgar Logan DO 12/11/2024 3:09 PM Jose [place] [facility] [place] PROCEDURES Final Result * CT LUMBAR SPINE WO CONTRAST (12/11/2024 2:44 PM EDT) Anatomical Region Laterality Modality L-spine Computed Tomogra phy 12/11/2024 2:47 PM EDT Impressions 12/11/2024 2:53 PM EDT No acute fracture or traumatic malalignment of the lumbar spine. Chronic compression fracture of L2. Severe spinal canal stenosis at L3-L4, similar to prior. Edgar Logan DO 12/11/2024 2:53 PM Narrative 12/11/2024 2:53 PM EDT PROCEDURE: CT LUMBAR SPINE WO CONTRAST 12/11/2024 2:33 PM INDICATIONS: fall COMPARISON: CT lumbar spine dated 12/15/2019. TECHNIQUE: Multidetector row CT volumetric acquisition was performed through the L-spine from the from the iliac crests to coccyx without IV contrast. A targeted CT protocol using this patient's history and dose modulation techniques based on this patient's anatomy was employed to minimize radiation exposure. Image post- processing was performed in the sagittal and coronal planes. FINDINGS: Bones: There is a chronic superior endplate deformity of the L2 vertebral body without further interval height loss. The remaining vertebral bodies are intact. There is advanced osteopenia. The patient is status post multilevel laminectomy. Alignment: Grade 1 anterolisthesis of L3 on L4 is present. Alignment is otherwise anatomic. Discs: Multilevel loss of intervertebral disc height is present throughout the lumbar spine. There is vacuum phenomenon at L3-L4 and L4-L5. Complete loss of height is present at L2-L3. There is additional advanced multilevel facet arthropathy. Spinal Canal: Severe spinal canal stenosis is present at L3-L4 (e.g. 4-207), similar to prior. No other areas of high-grade spinal canal stenosis are identified. Soft Tissues: Cholelithiasis is present. Scattered calcified plaque is noted along the included abdominal aorta. There is fatty atrophy of the paraspinal musculature. Procedure Note Edgar Logan, DO - 12/11/2024 PROCEDURE: CT LUMBAR SPINE WO CONTRAST 12/11/2024 2:33 PM INDICATIONS: fall COMPARISON: CT lumbar spine dated 12/15/2019. TECHNIQUE: Multidetector row CT volumetric acquisition was performedthrough the L-spine from the from the iliac crests to coccyx without IVcontrast. A targeted CT protocol using this patient's history and dosemodulation techniques based on this patient's anatomy was employed tominimize radiation exposure. Image post- processing was performed in thesagittal and coronal planes. FINDINGS: Bones: There is a chronic superior endplate deformity of the L2 vertebralbody without further interval height loss. The remaining vertebral bodiesare intact. There is advanced osteopenia. The patient is status postmultilevel laminectomy. Alignment: Grade 1 anterolisthesis of L3 on L4 is present. Alignment isotherwise anatomic. Discs: Multilevel loss of intervertebral disc height is present throughoutthe lumbar spine. There is vacuum phenomenon at L3-L4 and L4-L5. Completeloss of height is present at L2-L3. There is additional advancedmultilevel facet arthropathy. Spinal Canal: Severe spinal canal stenosis is present at L3-L4 (e.g.4-207), similar to prior. No other areas of high-grade spinal canalstenosis are identified. Soft Tissues: Cholelithiasis is present. Scattered calcified plaque isnoted along the included abdominal aorta. There is fatty atrophy of theparaspinal musculature. IMPRESSION: No acute fracture or traumatic malalignment of the lumbar spine. Chroniccompression fracture of L2. Severe spinal canal stenosis at L3-L4, similarto prior. Edgar Logan DO 12/11/2024 2:53 PM Jose [place] IMG CT PROCEDURES Final Result * CT CERVICAL SPINE WO CONTRAST (12/11/2024 2:39 PM EDT) Anatomical Region Laterality Modality C-spine Computed Tomogra phy 12/11/2024 2:41 PM EDT Impressions 12/11/2024 2:47 PM EDT No acute fracture or traumatic malalignment of the cervical spine. Edgar Logan DO 12/11/2024 2:47 PM Narrative 12/11/2024 2:47 PM EDT HISTORY: Fall with head strike. COMPARISON: MR cervical spine dated . TECHNIQUE: Serial axial images were obtained through the cervical spine without the use of intravenous contrast on a multidetector CT. Multiplanar reformatted images were then obtained. FINDINGS: Vertebral body height is preserved, without evidence of acute fracture. Alignment is preserved, without evidence of a jumped or perched facet. Multilevel loss of intervertebral disc height is present with areas of endplate osteophyte formation and irregularity. There is additional multilevel facet arthropathy. The spinal canal appears congenitally narrowed with at least mild multilevel spinal canal stenosis throughout. The prevertebral and paraspinal soft tissues are normal. Atherosclerotic plaque is noted at the carotid bifurcations bilaterally. The thyroid gland is unremarkable. The visualized lung is unremarkable. Procedure Note Edgar Logan DO - 12/11/2024 HISTORY: Fall with head strike. COMPARISON: MR cervical spine dated . TECHNIQUE: Serial axial images were obtained through the cervical spinewithout the use of intravenous contrast on a multidetector CT.Multiplanar reformatted images were then obtained. FINDINGS: Vertebral body height is preserved, without evidence of acute fracture.Alignment is preserved, without evidence of a jumped or perched facet.Multilevel loss of intervertebral disc height is present with areas ofendplate osteophyte formation and irregularity. There is additionalmultilevel facet arthropathy. The spinal canal appears congenitally narrowed with at least mildmultilevel spinal canal stenosis throughout. The prevertebral and paraspinal soft tissues are normal. Atheroscleroticplaque is noted at the carotid bifurcations bilaterally. The thyroid glandis unremarkable. The visualized lung is unremarkable. IMPRESSION: No acute fracture or traumatic malalignment of the cervical spine. Edgar Logan, 12/11/2024 2:47 PM Jose [place] IMG CT PROCEDURES Final Result * BI BILATERAL MAMMOGRAM SCREENING TOMOSYNTHESIS (08/26/2024 9:29 AM EDT) Anatomical Region Laterality Modality Breast Bilateral Mammography 08/26/2024 11:5 1 AM EDT Impressions 08/26/2024 11:53 AM EDT Negative, no evidence of malignancy. Annual screening mammogram is recommended. BI-RADS: Category 1: Negative RECOMMENDATION: Annual Screening Mammogram Kajal Leon MD 08/26/2024 11:53 AM Narrative 08/26/2024 11:53 AM EDT Procedure: BI BILATERAL MAMMOGRAM SCREENING TOMOSYNTHESIS 08/26/2024 9:28 AM Indication: 83 years old female for screening mammogram. Comparison: Multiple exams back to 2019. Technique: Bilateral CC and MLO views were obtained utilizing digital technique and applying CAD. Tomosynthesis was utilized. Breast Composition: The breasts are almost entirely fatty. BILATERAL BREAST FINDINGS: There are no suspicious masses, calcifications, or other secondary signs of malignancy. No interval change. Procedure Note Kajal Leon MD - 08/26/2024 Procedure: BI BILATERAL MAMMOGRAM SCREENING TOMOSYNTHESIS 08/26/2024 9:28AM Indication: 83 years old female for screening mammogram. Comparison: Multiple exams back to 2019. Technique: Bilateral CC and MLO views were obtained utilizing digitaltechnique and applying CAD. Tomosynthesis was utilized. Breast Composition: The breasts are almost entirely fatty. BILATERAL BREAST FINDINGS: There are no suspicious masses, calcifications, or other secondary signsof malignancy. No interval change. IMPRESSION: Negative, no evidence of malignancy. Annual screening mammogram isrecommended. BI-RADS: Category 1: Negative RECOMMENDATION: Annual Screening Mammogram Kajal Leon MD 08/26/2024 11:53 AM Jairo Noble MD IMG BI PROCEDURES Final Result * Lipid panel (08/21/2024 9:27 AM EDT) Pathologist [facility] Cholesterol 138 100 - 199 mg/dL [facility] 1 Triglycerides 112 0 - 149 mg/dL [facility] 1 HDL Cholesterol 54 >39 mg/dL [facility] 1 VLDLc Calc 20 5 - 40 mg/dL [facility] 1 LDLc Calc (NIH) 64 0 - 99 mg/dL [facility] 1 Non-HDL Chol 84 0 - 129 mg/dL [facility] 1 Blood Venous blood specimen / Unknown 08/21/2024 9:27 AM EDT 08/21/2024 Narrative [facility] - 08/22/2024 12:45 AM EDT Performed at: [facility] [id number] Computer Meteorologist: Cande Harris MD, Phone: [phone] Jairo Noble MD LAB BLOOD ORDERABLES Final Resul t [facility] [address] [place] [address], [facility] 1 * BD DEXA AXIAL (11/19/2023 1:32 PM EDT) Anatomical Region Laterality Modality Body Radiographic Ashley ging 11/20/2023 9:48 AM EDT Impressions 11/20/2023 9:59 AM EDT Osteopenia Andrez Trotter MD 11/20/2023 9:59 AM Narrative 11/20/2023 9:59 AM EDT Procedure: BD DEXA AXIAL 11/19/2023 1:09 PM Indications: Osteoporosis Postmenopausal female for osteoporosis screening. Current age: 82 years. Age at menopause: 50 years. BD Comparison Date: 11/21/2021,11/20/2019 TECHNIQUE: DXA scan was performed in the following anatomic areas: lumbar spine, left hip, left forearm. These were obtained per standard departmental protocol utilizing a [employer] Discovery scanner. Facility location: [facility] Lumbar spine: Levels included in the analysis: L1-L4 Spine total BMD: 1.343 g/cm2 (T score = 2.7, Z score = 5.5) Spine change from most recent prior: -1.6% Spine change from baseline: 2.2% Spine WHO classification: Fracture Risk: Not Increased; WHO Classification: Normal * Denotes significance at 95% confidence level, LSC is 0.022 g/cm2 Denotes dissimilar scan types or analysis methods. Left hip: Left total BMD: 0.849 g/cm2 (T score = -0.8, Z score = 1.5) Left femoral neck: 0.713 g/cm2 (T score = -1.2, Z score = 1.2) Left hip change from most recent prior: 6.4%* Left hip change from baseline: 4.7% Left hip WHO classification: WHO Classification: Osteopenia * Denotes significance at 95% confidence level, LSC is 0.027 g/cm2 Denotes dissimilar scan types or analysis methods. FRAX not reported because: Prior hip or vertebral fracture Treated for osteoporosis . Left forearm: Left proximal 1/3 BMD: 0.581 g/cm2 (T score = -1.8, Z score = 1.8) Left forearm change from most recent prior: -7.0%* Left forearm change from baseline: -10.9%* Left forearm WHO classification: Fracture Risk: Increased; WHO Classification: Osteopenia * Denotes significance at 95% confidence level, LSC is 0.015 g/cm2 Procedure Note Andrez Trotter MD - 11/20/2023 Procedure: BD DEXA AXIAL 11/19/2023 1:09 PM Indications: Osteoporosis Postmenopausal female for osteoporosisscreening. Current age: 82 years. Age at menopause: 50 years. BD Comparison Date: 11/21/2021,11/20/2019 TECHNIQUE: DXA scan was performed in the following anatomic areas: lumbarspine, left hip, left forearm. These were obtained per standarddepartmental protocol utilizing a [employer] Discovery scanner. Facility location: [facility] Lumbar spine: Levels included in the analysis: L1-L4 Spine total BMD: 1.343 g/cm2 (T score = 2.7, Z score = 5.5) Spine change from most recent prior: -1.6% Spine change from baseline: 2.2% Spine WHO classification: Fracture Risk: Not Increased; WHOClassification: Normal * Denotes significance at 95% confidence level, LSC is 0.022 g/cm2 Denotes dissimilar scan types or analysis methods. Left hip: Left total BMD: 0.849 g/cm2 (T score = -0.8, Z score = 1.5) Left femoral neck: 0.713 g/cm2 (T score = -1.2, Z score = 1.2) Left hip change from most recent prior: 6.4%* Left hip change from baseline: 4.7% Left hip WHO classification: WHO Classification: Osteopenia * Denotes significance at 95% confidence level, LSC is 0.027 g/cm2 Denotes dissimilar scan types or analysis methods. FRAX not reported because: Prior hip or vertebral fracture Treated for osteoporosis . Left forearm: Left proximal 1/3 BMD: 0.581 g/cm2 (T score = -1.8, Z score = 1.8) Left forearm change from most recent prior: -7.0%* Left forearm change from baseline: -10.9%* Left forearm WHO classification: Fracture Risk: Increased; WHOClassification: Osteopenia * Denotes significance at 95% confidence level, LSC is 0.015 g/cm2 IMPRESSION: Osteopenia Andrez Trotter MD 11/20/2023 9:59 AM us Evens Santiago MD IMG DXA PROCEDURES Fin al Result * COLONOSCOPY REPORT (09/16/2019 7:30 AM EDT) Anatomical Region Laterality Modality Interventional R adiology 09/16/2019 7:30 AM EDT Narrative 05/28/2021 1:19 AM EDT COLONOSCOPY REPORT Rpt # [id number] [address] Patient: TATUM DOMÍNGUEZ : 40 Pt. Location: [facility] MR #: [id number] Admission Date: 09/16/19 Attending Adeel: NERIS DAY MD Primary Care: JAIRO NOBLE MD Report Status: Signed COLONOSCOPY REPORT Endoscopy Patient Name: Tatum Domínguez Procedure Date: 09/16/2019 10:35 AM Date of : 1940 Admit Type: Outpatient Age: 78 Gender: Female Note Status: Finalized Attending MD: Neris Day MD Procedure: Colonoscopy Indications: Screening for colorectal malignant neoplasm Providers: Neris Day MD Referring MD: Jairo Noble MD Medicines: Propofol per Anesthesia Estimated Blood Loss: Estimated blood loss was minimal. Complications: No immediate complications. Procedure: After I obtained informed consent, the scope was passed under direct vision. Throughout the procedure, the patient's blood pressure, pulse, and oxygen saturations were monitored continuously. The endoscope was introduced through the anus and advanced to the cecum, identified by appendiceal orifice and ileocecal valve. The colonoscopy was performed without difficulty. The patient tolerated the procedure well. The quality of the bowel preparation was evaluated using the BBPS ([place] Bowel Preparation Scale) with scores of: Right Colon = 2, Transverse Colon = 2 and Left Colon = 2. The total BBPS score equals 6. The quality of the bowel preparation was good. Findings: The perianal and digital rectal examinations were normal. Many small and large-mouthed diverticula were found in the entire colon. The colon (entire examined portion) was Rpt # [id number] [facility] COLONOSCOPY REPORT Patient: TATUM DOMÍNGUEZ MR #: [id number] significantly tortuous. No other significant abnormalities were identified in a careful examination of the remainder of the colon. The retroflexed view of the distal rectum and anal verge was normal and showed no anal or rectal abnormalities. Impression: - Diverticulosis in the entire examined colon. - Tortuous colon. - No specimens collected. Recommendation: - Repeat colonoscopy in 10 years for screening purposes, or 5 years if someone in your family develops colon cancer or colon polyps; sooner if you develop symptoms such as change in bowel habits, blood in stool, etc. - Continue present medications. - Patient has a contact number available for emergencies. The signs and symptoms of potential delayed complications were discussed with the patient. Return to normal activities tomorrow. Written discharge instructions were provided to the patient. MD Neris Olivarez MD 09/16/2019 11:16:36 AM Dictated by: This report has been signed electronically. Number of Addenda: 0 Note Initiated On: 09/16/2019 10:35 AM Scope Withdrawal Time 0 hours 8 minutes 51 seconds Total Procedure Duration Time 0 hours 17 minutes 44 seconds I have reconciled the patient's medications based on today's findings. ELECTRONICALLY SIGNED NERIS DAY MD 09/16/19 1035 Procedure Note Provider, Conversions Default - 05/28/2021 COLONOSCOPY REPORT Rpt # [id number] [address] Patient: TATUM DOMÍNGUEZ : 40 Pt. Location: [facility] MR #: [id number] Admission Date: 09/16/19 Attending MSilvia: NERIS DAY MD Primary Care: JAIRO NOBLE MD Report Status: Signed COLONOSCOPY REPORT Endoscopy Patient Name: Tatum Domínguez Procedure Date: 09/16/2019 10:35 AM Date of : 1940 Admit Type: Outpatient Age: 78 Gender: Female Note Status: Finalized Attending MD: Neris Day MD Procedure: Colonoscopy Indications: Screening for colorectal malignant neoplasm Providers: Neris Day MD Referring MD: Jairo Noble MD Medicines: Propofol per Anesthesia Estimated Blood Loss: Estimated blood loss was minimal. Complications: No immediate complications. Procedure: After I obtained informed consent, the scope was passed under direct vision. Throughout the procedure, the patient's blood pressure, pulse, and oxygen saturations were monitored continuously. The endoscope was introduced through the anus and advanced to the cecum, identified by appendiceal orifice and ileocecal valve. The colonoscopy was performed without difficulty. The patient tolerated the procedure well. The quality of the bowel preparation was evaluated using the BBPS ([place] Bowel Preparation Scale) with scores of: Right Colon = 2, Transverse Colon = 2 and Left Colon = 2. The total BBPS score equals 6. The quality of the bowel preparation was good. Findings: The perianal and digital rectal examinations were normal. Many small and large-mouthed diverticula were found in the entire colon. The colon (entire examined portion) was Rpt # [id number] [facility] COLONOSCOPY REPORT Patient: TATUM DOMÍNGUEZ MR #: [id number] significantly tortuous. No other significant abnormalities were identified in a careful examination of the remainder of the colon. The retroflexed view of the distal rectum and anal verge was normal and showed no anal or rectal abnormalities. Impression: - Diverticulosis in the entire examined colon. - Tortuous colon. - No specimens collected. Recommendation: - Repeat colonoscopy in 10 years for screening purposes, or 5 years if someone in your family develops colon cancer or colon polyps; sooner if you develop symptoms such as change in bowel habits, blood in stool, etc. - Continue present medications. - Patient has a contact number available for emergencies. The signs and symptoms of potential delayed complications were discussed with the patient. Return to normal activities tomorrow. Written discharge instructions were provided to the patient. MD Neris Olivarez MD 09/16/2019 11:16:36 AM Dictated by: This report has been signed electronically. Number of Addenda: 0 Note Initiated On: 09/16/2019 10:35 AM Scope Withdrawal Time 0 hours 8 minutes 51 seconds Total Procedure Duration Time 0 hours 17 minutes 44 seconds I have reconciled the patient's medications based on today's findings. 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 02/14/2024 * Full Code (Latest Code Status on File) Date Activated Date Inactivated Comments 01/19/2025 7:24 AM * Full Code Date Activated Date Inactivated Comments 09/05/2024 10:31 AM 01/19/2025 7:24 AM Care Teams Dye Tub Tender Relationship Specialty Start Date End Date Jairo Noble MD PCP - General 04/01/21 Jairo Noble MD 04/01/21 Jairo Noble MD 04/01/21 Eddie Modi MD [address] [place] [address] [address] [place] [address] Consulting Physician Orthopaedic Surgery 07/24/24 Eliazar Jones MD [address] [place] [address] [address] [place] [address] Consulting Physician Orthopaedic Surgery 12/16/24 Jame Jorge MD [address] [place] [address] Referring Physician Neurosurgery 01/16/25 Priti Jaeger RN [address] [facility] [address] [place] [address] Passenger Service AgentJewel Bearing Maker 01/19/25
--- OUTSIDE RECORDS SUMMARY | 2025-01-19 21:59 | XMS_ITS | Encounter Summary ---
Author Organization [facility] Address [address] [facility] [address] [place] [address] Care Team Providers Care Comfort Advisor Name Role Phone Dez Gama MD Primary Care Provider [phone] Dez Gama MD Unavailable Dez Gama MD Unavailable Eddie Modi MD Unavailable [phone] Eliazar Jones MD Unavailable [phone] Jame Jorge MD Unavailable Reason for Referral * Consultation (Routine) - Authorized Specialty Diagnoses / Procedures Referred By Leela t Referred To Contact Ophthalmology Diagnoses Encounter for consultation Procedures AR OFFICE NEW 60 - 74 MIN Dez Gama MD [address] [place] [address] Phone: tel: fax: Shabana Nash MD [address] [place] [address] Phone: tel: fax: Referral ID Status Reason Start Date Expiration Date Visits Requested Visits Authorized [id number] Authorized Specialty Services Required 01/16/2026 6 6 Reason for Visit * Reason Onset Date Comments In PCP Referral [place] Request 01/15/2025 Appointment 01/15/2025 Encounter Details Date Type Department Care Team (Late st Contact Info) Description 01/15/2025 Telephone [facility] [address] [facility], [address] [place] [address] Dez Gama MD 50 [facility] [address] [place] [address] In PCP Referral [place] Request; Appointment Social History Tobacco Use Types Packs/Day Years [...] place to sleep or slept in a senior living (including now)? No 08/13/2023 AUDIT-C Answer Date [...] any time in the past 12 m [facility], were you homeless or living in a senior living (including now)? No 01/15/2025 Utilities Answer Date [...] encounter Miscellaneous Notes * Telephone Encounter - Priyanka Monique - 01/15/2025 10:28 AM EST The Central Referral Team has prepared this In-MARIA DE JESUS Referral Order for you. Your patient provided the information used to complete the details. When you sign off it implies that you are in agreement that this referral is the appropriate clinical plan for this patient. In order to attach a Referral Order to you we needed to open a Phone Note Encounter which also needs to be signed. Please: Review the Order for clinical appropriateness Sign the Order Sign off the Phone Note Encounter Thanks- Central Referral Team documented in this encounter Plan of Treatment Upcoming Encounters Date Type Department Care Team (Late st Contact Info) Description 02/13/2025 4:15 PM EST Office Visit [facility] [address] [phone] Dez Gama MD [address] [place] [address] 500 [place] [address] 09/01/2025 9:00 AM EDT Appointment [facility] Imaging [address] [facility] 4th [place] [address] 11/11/2025 10:30 AM EDT Office Visit [facility] Community Care Obstetrics & Gynecology [address] [address] Pita Medina MD [address] [place] [address] 11/23/2025 9:00 AM EDT Appointment [facility] Imaging [address] [place] [address] 2[address] [place] [phone] 12/03/2025 8:15 AM EDT Office Visit [facility] Endocrinology 585 [place] [phone] Evens Santiago MD [address] [place] [address] 01/13/2026 9:00 AM EST Appointment [facility] 48 [place] [phone] 01/13/2026 10:45 AM EST Office Visit [facility] Neurosurgery [facility] 585 [facility] [address] [place] [phone] Jame Jorge MD [address] [place] [address] Scheduled Referrals Name Type Priority Associated Diagnoses Orde r Schedule Ambulatory referral to Ophthalmology Outpatient Referral Routine Encounter for consultation Ordered: 01/16/2025 documented as of this encounter Goals Goal Patient Goal Type Associated Problems Recent Progress Patient-Stated? Author Autogenerat ed Goal Care Plan Autogenerated Problem No Eliazar Jones MD documented as of this encounter Visit Diagnoses Diagnosis Encounter for consultation- Primary documented in this encounter Additional Health Concerns Active Problems Noted Date Diagnosed Date Autogenerated Problem 01/06/2025 documented as of this encounter Care Teams Comfort Advisor Relationship Specialty Start Date End Date Dez Gama MD PCP - General 04/01/21 Dez Gama MD 04/01/21 Dez Gama MD 04/01/21 Eddie Modi MD [address] [facility]. [address] [place] [address] Consulting Physician Orthopaedic Surgery 07/24/24 Eliazar Jones MD [address] [facility] [address] [place], [place] [phone] Consulting Physician Orthopaedic Surgery 12/16/24 Jame Jorge MD [address] [place] [address] Referring Physician Neurosurgery 01/16/25 documented as of this encounter
--- OUTSIDE RECORDS SUMMARY | 2025-01-19 21:59 | XMS_ITS | Encounter Summary ---
Author Organization [facility] Address [address] [facility] 520 [place] [address] Care Team Providers Care Piece Work Inspector Name Role Phone Dez Gama MD Primary Care Provider [phone] Dez Gama MD Unavailable Dez Gama MD Unavailable Eddie Modi MD Unavailable [phone] Eliazar Jones MD Unavailable [phone] Encounter Details Date Type Department Care Team (Latest Contact Info) Description 01/15/2025 Travel Social History Tobacco Use Types Packs/Day [...] place to sleep or slept in a assisted (including now)? No 08/13/2023 AUDIT-C Answer Date [...] any time in the past 12 m [facility], were you homeless or living in a assisted (including now)? No 01/15/2025 Utilities Answer Date [...] Description 02/13/2025 4:15 PM EST Office Visit [facility] [address] [facility] 500 [place] [address] Dez Gama MD [address] [place] [address] 500 [place] [address] 09/01/2025 9:00 AM EDT Appointment [facility] Imaging [address] [place] [address] 4th [place] [address] 11/11/2025 10:30 AM EDT Office Visit [facility] Community Care Obstetrics & Gynecology [address] [phone] Pita Medina MD [address] [address] 11/23/2025 9:00 AM EDT Appointment [facility] Imaging [address] [facility] 2nd [place] [address] 12/03/2025 8:15 AM EDT Office Visit [facility] Endocrinology [address] [place] [phone] Evens Santiago MD 170 [place] [address] 01/13/2026 9:00 AM EST [facility] 48 [place] [phone] 01/13/2026 10:45 AM EST Office Visit [facility] Neurosurgery [facility] 585 [facility] [address] [place] [phone] Jame Jorge MD [address] [place] [address] documented as of this encounter Goals Goal Patient Goal Type Associated Problems Recent Progress Patient-Stated? Author Autogenerat ed Goal Care Plan Autogenerated Problem No Eliazar Jones MD documented as of this encounter Visit Diagnoses Not on filedocumented in this encounter Additional Health Concerns Active Problems Noted Date Diagnosed Date Autogenerated Problem 01/06/2025 documented as of this encounter Care Teams Piece Work Inspector Relationship Specialty Start Date End Date Dez Gama MD PCP - General 04/01/21 Dez Gama MD 04/01/21 Dez Gama MD 04/01/21 Eddie Modi MD [address] [place] [address]. [address] [place] [phone] Consulting Physician Orthopaedic Surgery 07/24/24 Eliazar Jones MD [address] [facility] [address] [place], [place] [phone] Consulting Physician Orthopaedic Surgery 12/16/24 documented as of this encounter
--- OUTSIDE RECORDS SUMMARY | 2025-01-19 21:59 | XMS_ITS | Encounter Summary ---
Author Organization [facility] Address [address] [facility] [address] [place] [address] Care Team Providers Care Mobile Phlebotomist Name Role Phone Dez Gama MD Primary Care Provider [phone] Dez Gama MD Unavailable Dez Gama MD Unavailable Eddie Modi MD Unavailable [phone] Eliazar Jones MD Unavailable [phone] Reason for Referral * Consultation (Routine) - Authorized Specialty Diagnoses / Procedures Referred By Contac t Referred To Contact Dermatology Diagnoses Encounter for screening for malignant neoplasm of skin Procedures [place] OFFICE NEW 60 - 74 MIN Dez Gama MD 50 [facility] [address] [place] [address] Phone: tel: fax: Jr. Edgar Burden MD [address] [place] [address] Phone: tel: fax: Referral ID Status Reason Start Date Expiration Date Visits Requested Visits Authorized [id number] Authorized Specialty Services Required 5 01/15/2026 6 6 Reason for Visit * Reason Onset Date Comments In PCP Referral [place] Request 01/15/2025 Encounter Details Date Type Department Care Team (Late st Contact Info) Description 01/15/2025 Telephone [facility] [address] [facility], [address] [place] [address] Dez Gama MD 50 [facility] [address] [place] [address] In PCP Referral [place] Request Social History Tobacco Use Types Packs/Day Years [...] a nursing home (including now)? No 08/13/2023 AUDIT-C Answer [...] any time in the past 12 m onths, were you homeless or living in a [...] Telephone Encounter - Priyanka Monique - 01/15/2025 10:21 AM EST The Central Referral Team has [...] Description 02/13/2025 4:15 PM EST Office Visit [facility] [address] [place] [phone] Dez Gama MD [address] [place] [address] 09/01/2025 9:00 AM EDT Appointment [facility] Imaging [address] [facility] 4th [place] [phone] 11/11/2025 10:30 AM EDT Office Visit [facility] Community Care Obstetrics & Gynecology [address] [address] Pita Medina MD [address] [place] [address] 11/23/2025 9:00 AM EDT Appointment [facility] Imaging [address] [facility] 2nd [place] [phone] 12/03/2025 8:15 AM EDT Office Visit [facility] Endocrinology 585 [place] [phone] Evens Santiago MD [address] [place] [address] 01/13/2026 9:00 AM EST Appointment [facility] Imaging 48 [place] [address] 01/13/2026 10:45 AM EST Office Visit [facility] Neurosurgery [facility] [address] [facility] [address] [place] [address] Jame Jorge MD [address] [place] [phone] Scheduled Referrals Name Type Priority Associated Diagnoses Order Schedule Ambulatory referral to Dermatology Outpatient Referral Routine Encounter for screening for malignant neoplasm of skin Expected: 01/15/2025 (Approximate), Expires: 01/15/2026 documented as of this encounter Goals Goal Patient Goal Type Associated Problems Recent Progress Patient-Stated? Author Autogenerat ed Goal Care Plan Autogenerated Problem No Eliazar Jones MD documented as of this encounter Visit Diagnoses Diagnosis Encounter for screening for malignant neoplasm of skin- Primary documented in this encounter Additional Health Concerns Active Problems Noted Date Diagnosed Date Autogenerated Problem 01/06/2025 documented as of this encounter Care Teams Mobile Phlebotomist Relationship Specialty Start Date End Date Dez Gama MD PCP - General 04/01/21 Dez Gama MD 04/01/21 Dez Gama MD 04/01/21 Eddie Modi MD 92 [facility]. [address] [place] [phone] Consulting Physician Orthopaedic Surgery 07/24/24 Eliazar Jones MD [address] [facility] [address] [place], [place] [phone] Consulting Physician Orthopaedic Surgery 12/16/24 documented as of this encounter
--- OUTSIDE RECORDS SUMMARY | 2025-01-19 21:59 | XMS_ITS | Clinical Summary ---
Author Organization [facility] Address [address] [facility] [address] [place] [address] Phone Care Team Providers Care Backfiller Name Role Phone Dez Gama MD Primary Care Provider [phone] Allergies No known active allergies Medications aspirin 325 MG tablet Take 325 mg by mouth daily. Active metoprolol succinate (TOPROL-XL) 50 MG 24 hr tablet Take 50 mg by mouth daily. Active Ca cit-D3-mag#11-zi at-jnls-ibs-bor (CALTRATE 600+D) 600 mg calcium- 800 unit-50 mg Tab Take 1 tablet by mouth daily. Active atorvastatin (LIPITOR) 80 MG tablet Take 80 mg by mouth daily. Active cholecalciferol (VITAMIN D3) 25 MCG (1,000 unit) tablet Take 25 mcg by mouth. Active multivitamin per tablet Take 1 tablet by mouth every morning. Active isosorbide mononitrate (IMDUR) 30 MG 24 hr tablet TAKE 2 TABLETS BY MOUTH ONCE DAILY. DO NOT CRUSH OR CHEW. Active budesonide-formo terol 160-4.5 mcg/actuation inhaler Inhale 2 puffs into the lungs. 01/26/2023 Active Active Problems No known active problems Family History Medical History Relation Comments Hearing loss Neg Hx Heart attack Neg Hx Social History Tobacco Use Types Packs/Day Years Used Date Smoking Tobacco: Former Cigarettes Smokeless Tobacco: Never Alcohol Use Standard Drinks/Week Comments Yes 0 (1 standard drink = 0.6 oz pur e alcohol) socially Education Answer Date Recorded Are you interested in more education? Not on sheng e 07/08/2022 Are you concerned about learning? Not on file 07/08/2022 No 07/08/2022 No 07/08/2022 Digital Access Answer Date Recorded No 07/21/2022 No 07/21/2022 Reliable internet access at home? Not on file 07/21/2022 Device with a working camera? Not on file Comments Unknown Sex and Gender Information Value Date Recorded Sex Assigned at Not on file Legal Sex Female 7:04 PM EST Gender Identity Not on file Sexual Orientation Not on file Plan of Treatment Health Maintenance Due Date Last Done Comments Adult Td,Tdap Booster 1940 DEPRESSION SCREENING 1952 PNEUMOCOCCAL VACCINES (50+ years) (1 of 1 - PCV) 1990 ZOSTER VACCINES (2 of 3) 09/08/2013 07/14/2013 RSV VACCINE (1 - 1-dose 75+ series) 12/19/2015 INFLUENZA VACCINE (#1) 2024 7, 11/07/2015, 11/07/2015, Additional history exists COVID-19 VACCINE (3 - season) 2024 04/21/2020, 03/31/2020 OSTEOPOROSIS SCREENING INITIAL (ONE-TIME) Completed 11/21/2021 HEPATITIS A VACCINES Aged Out No long er eligible based on patient's age to complete this topic HIB VACCINES Aged Out No longer eligi ble based on patient's age to complete this topic MENINGOCOCCAL VACCINES (ACWY) Aged Out No longer eligible based on patient's age to complete this topic MENINGOCOCCAL VACCINES (B) Aged Out N o longer eligible based on patient's age to complete this topic Medical Devices Not on file Insurance [employer] RE[employer] REPL[employer] REPLACEMENT [employer]PLACEMENT [employer] REPL[employer]EMENT Care Teams Backfiller Relationship Specialty Start Date End Date Dez Gama MD [address] [place] [address] PCP - General Cardiology 10/25/18 Additional Source Comments The information contained in this document represents components of the legal health record. It is not the complete legal health record.[facility]
--- OUTSIDE RECORDS SUMMARY | 2025-01-19 21:59 | XMS_ITS | Encounter Summary ---
Author Organization [facility] Address [address] [facility] [address] [place] [address] Care Team Providers Care Director Of Logistics Name Role Phone Dez Gama MD Primary Care Provider [phone] Dez Gama MD Unavailable Dez Gama MD Unavailable Eddie Modi MD Unavailable [phone] Eliazar Jones MD Unavailable [phone] Jame Jorge MD Unavailable Priti Jaeger RN Unavailable [phone] Encounter Details Date Type Department Care Team (Late st Contact Info) Description 12/12/2024 Telephone [facility] [address] [facility], [address] [place] [address] Orlando Myers MD [address] [facility] [address] [place] [address] Social History Tobacco Use Types Packs/Day Years Used Date Smoking Tobacco: Former Cigarettes Smokeless Tobacco: Never Alcohol Use Standard Drinks/Week Comments Yes 5 (1 standard drink = 0.6 oz pur e alcohol) occasionall PHQ-2 Answer Date Recorded Patient Health Questionnaire-2 [...] place to sleep or slept in a correction (including now)? No 08/13/2023 Overall Financial Resource Strain (CARDIA) Answe r Date Recorded How hard is it for you to pa y for the very basics like food, housing, medical care, and heating? Patient unable to answer 12/14/2024 Hunger Vital Sign Answer Date Recorded Within the past 12 months, y ou worried that your food would run out before you got the money to buy more. Never true 12/15/19 25 Ran Out of Food in the Last Year Not on file 12/14/2024 PRAPARE - Transportation Answer Date Re corded In the past 12 months, has l ack of transportation kept you from medical appointments or from getting medications? No 11/26 In the past 12 months, has l ack of transportation kept you from meetings, work, or from getting things needed for daily living? No 12/14/2024 Housing Stability Vital Sign Answer Vikram e Recorded Unable to Pay for Housing in the Last Year Not o n file 12/14/2024 Number of Times Moved in the Last Year Not on fi le 12/14/2024 At any time in the past 12 m [facility], were you homeless or living in a correction (including now)? No 12/14/2024 Utilities Answer Date Recorded In the past 12 months has th e [employer], gas, oil, or water company threatened to shut off services in your home? No 12/14/2024 Comments No Sex and Gender Information Value Date Recorded Sex Assigned at Female 09/05/2024 10:17 AM EDT Legal Sex Female 10:04 PM EST Gender Identity Female 09/05/2024 10:17 AM EDT Sexual Orientation Straight 09/05/2024 10 :17 AM EDT documented as of this encounter Functional Status * Are you deaf or do you have serious difficulty hearing? Answer Date of Assessment Author No 07/17/2024 8:56 AM EDT Shanon Rios * Are you blind or do you have serious difficulty seeing, even when wearing glasses? Answer Date of Assessment Author No 07/17/2024 8:56 AM EDT Shanon Rios A * Do you have serious difficulty walking or climbing stairs? Answer Date of Assessment Author No 07/17/2024 8:56 AM EDT Shanon Rios A * Do you have serious difficulty dressing or bathing? Answer Date of Assessment Author No 07/17/2024 8:56 AM EDT Shanon Rios A * Because of a physical, mental, or emotional condition, do you have difficulty doing errands such asvisiting the doctor's office or shopping? Answer Date of Assessment Author No 07/17/2024 8:56 AM EDT Shanon iRos documented as of this encounter Mental Status * Because of a physical, mental, or emotional condition, do you have serious difficulty concentrating, remembering, or making decisions? Answer Entry Date Author No 07/17/2024 8:56 AM EDT Shanon Rios documented in this encounter Miscellaneous Notes * Telephone Encounter - Vivian Trivedi - 12/12/2024 9:28 AM EDT Eron Hannah, Pt said that she was an existing pt of Dr. Myers before and yesterday she had a fall, she's requesting if you can add her on you cancellation list. Thank you, Shee documented in this encounter Plan of Treatment Upcoming Encounters Date Type Department Care Team (Late st Contact Info) Description 02/13/2025 4:15 PM EST Office Visit [facility] [address] [facility], [address] [place] [address] Dez Gama MD [address] [place] [address] [place] [address] 09/01/2025 9:00 AM EDT Appointment [facility] Imaging [address] [address] 11/11/2025 10:30 AM EDT Office Visit [facility] Community Care Obstetrics & Gynecology [place] [address] [facility] [address] [place] [address] Pita Medina MD [address] [facility] [address] [place] [address] 11/23/2025 9:00 AM EDT Appointment [facility] Imaging [address] [facility] 2nd [place] [address] 12/03/2025 8:15 AM EDT Office Visit [facility] Endocrinology [address] [place] [address] Evens Santiago MD [facility] [place] [address] 01/13/2026 9:00 AM EST Appointment [facility] Imaging [address] [place] [phone] 01/13/2026 10:45 AM EST Office Visit [facility] Community [facility] Neurosurgery [facility] [address] [facility] [address] [place] [address] Jame Jorge MD [address] [place] [address] documented as of this encounter Visit Diagnoses Not on filedocumented in this encounter Care Teams Director Of Logistics Relationship Specialty Start Date End Date Dez Gama MD PCP - General 04/01/21 Dez Gama MD 04/01/21 Dez Gama MD 04/01/21 Eddie Modi MD [address] [facility] [place] [address] Consulting Physician Orthopaedic Surgery 07/24/24 Eliazar Jones MD [address] [facility] [address] [place] [address] Consulting Physician Orthopaedic Surgery 12/16/24 Jame Jorge MD [address] [place] [address] Referring Physician Neurosurgery 01/16/25 Priti Jaeger, ELIZABETH [address] [facility] [address] [place] [address] [employer] T[employer] Data 01/19/25 documented as of this encounter
--- OUTSIDE RECORDS SUMMARY | 2025-01-19 21:59 | XMS_ITS | Encounter Summary ---
Author Organization [facility] Address [address] [facility] [address] [place] [address] Care Team Providers Care Roll Forger Name Role Phone Dez Gama MD Primary Care Provider [phone] Dez Gama MD Unavailable Dez Gama MD Unavailable Eddie Modi MD Unavailable [phone] Eliazar Jones MD Unavailable [phone] Jame Jorge MD Unavailable Priti Jaeger RN Unavailable [phone] Encounter Details Date Type Department Care Team (Late st Contact Info) Description 01/07/2025 Telephone [facility] [address] [facility], [address] [place] [address] Eliazar Jones MD [address] [facility] [address] [place] [address] Social History Tobacco Use Types [...] a senior living (including now)? No 08/13/2023 Overall Financial Resource [...] any time in the past 12 m [facility], were you homeless or living in a senior living (including now)? No 12/14/2024 Utilities Answer Date Recorded In the past 12 months has th e [employer], gas, oil, or water company threatened to [...] of Assessment Author No 12/17/2024 9:43 AM EDIvonne Soriano * Are you blind or do you [...] AM Ivonne Bermudez documented in this encounter Miscellaneous Notes * Telephone Encounter - Elder Shell [place] - 01/13/2025 4:37 PM EST Joe is going to double expedite the order. * Telephone Encounter - Elder Shell [place] - 01/08/2025 9:03 AM EST Called Tatum and relayed the message posted below. She told me that after taking Miralax yesterday she has been able to pass bowel movements. I told her to reach out if she had any further complications. * Telephone Encounter - Elder Shell MA - 01/07/2025 3:[address] Jones, Patient has been taking robaxin and oxy. They report they have been taking senexon as laxative, which they think is prescribed by you, but I couldn't find evidence of that. She says she hasn't been able to pass a BM for the last four days. I told her I would send you a message and get back to her tomorrow. She will stop taking senexon today and try Miralax as she says this helped her in the past.I told her I will get in touch with her once I hear from you. Thanks * Telephone Encounter - Criss Nassar - 01/07/2025 3:37 PM EST Hi, Kindly help me? Patient called in today. She is requesting a callback. She trying to ask and get an approval from you. The medicine the she is taking right now isn't working. She is asking if she can take 2 medicine. Kindly call this patient to advice, Best callback number Thank you, Jordan documented in this encounter Plan of Treatment Upcoming Encounters Date Type Department Care Team (Late st Contact Info) Description 02/13/2025 4:15 PM EST Office Visit [facility] [address] [place] [address] Dez Gama MD [address] [place] [address] 09/01/2025 9:00 AM EDT Appointment [facility] Imaging [address] [place] [phone] 11/11/2025 10:30 AM EDT Office Visit [facility] Community Care Obstetrics & Gynecology [address] [address] Pita Medina MD [address] [place] [address] 11/23/2025 9:00 AM EDT Appointment [facility] Imaging [address] [place] [address] 2[address] [place] [address] 12/03/2025 8:15 AM EDT Office Visit [facility] Endocrinology [address] [place] [phone] Evens Santiago MD [address] [place] [address] 01/13/2026 9:00 AM EST Appointment [facility] Imaging [address] [place] [phone] 01/13/2026 10:45 AM EST Office Visit [facility] Community Care Neurosurgery [facility] [address] [facility] [address] [place] [phone] Jame Jorge MD [address] [place] [address] documented as of this encounter Goals Goal Patient Goal Type Associated Problems Recent Progress Patient-Stated? Author Autogenerat ed Goal Care Plan Autogenerated Problem No Eliazar Jones MD documented as of this encounter Visit Diagnoses Not on filedocumented in this encounter Additional Health Concerns Active Problems Noted Date Diagnosed Date Autogenerated Problem 01/06/2025 documented as of this encounter Care Teams Roll Forger Relationship Specialty Start Date End Date Dez Gama MD PCP - General 04/01/21 Dez Gama MD 04/01/21 Dez Gama MD 04/01/21 Eddie Modi MD [address] [place] [address] [address] [place], [place] [phone] Consulting Physician Orthopaedic Surgery 07/24/24 Eliazar Jones MD [address] [facility] [address] [place] [address] Consulting Physician Orthopaedic Surgery 12/16/24 Jame Jorge MD [address] [place] [address] Referring Physician Neurosurgery 01/16/25 Priti Jaeger, ELIZABETH [address] [facility] [address] [place] [address] Forming Process WorkerMissileman 01/19/25 documented as of this encounter
[2025-01-19 22:10] VITALS: BMI 26.5
[2025-01-19 22:25] VITALS: BP 140/56; PULSE 92; RESP 15; TEMP 36.4; O2SAT 96
--- NOTE | 2025-01-20 00:43 | PC.NURSE ---
Addendum entered by Uche Meek RN 01/20/25 06:39: Patient arrival time on the unit is 2200 Original Note: Admission Note Tatum Domínguez, an 84-year-old woman, was presented by her son to the [facility] ED from her home for making suicidal ideation remarks to a family member, stating she wants to to make things easier for the family. The patient is stressed due to financial concerns and insurance. Tatum lives with her and she is close to her son Manish who lives in [place] and daughter Reji who lives in [place]. The patient has a past medical history of? Chronic back pain, Coronary Artery Disease (CAD), Myocardial Infarction, Hypertension, Closed compression fracture L1 and L2, Atherosclerosis, Coronary bypass graft with stent in the coronary artery, Chronic Kidney Diseases, Hypercholesterolemia, Congenital Stenosis of cervical spine, Kypoplasty (01/14/25), Acute pain from Fall in November, Skin Cancer, and others. The patient has a psychiatric history of Anxiety and Depression.? Tatum arrived with EMS on a stretcher at 1999 on 01/19/25, 12B, with an admitting diagnosis of? Generalized Anxiety Disorder. Full code status. She is alert and oriented x 3. Behavior is anxious but pleasant. Thought content and process are tangential. Skin was assessed and found to have bilateral mid-back hole kwon covered with a bandaid secondary to Kyphoplasty and old bruises on the left lower leg and the top of the left hand. Tatum ambulates with a walker and wears a back brace. Med-reconciliation completed/approved /MAR active. Tatum takes her meds whole with water. The patient's continent of bowel had BM on 01/19/25, but reported she has occasional incontinence with the bladder. Tatum reported she is generally independent with ADL care, but now thinks she might need help. Labs are unremarkable; UA negative, UTOX negative, EKG abnormal. Tatum is emotionally labile and was able to sign three release papers and an belongings list, but refused to sign a safety tool and treatment plan. Contraband was searched, nothing was found, and she was placed on a 5-minute safety check.
[2025-01-20 08:00] VITALS: BP 164/80; PULSE 88; RESP 16; TEMP 36.6; O2SAT 96
--- NOTE | 2025-01-20 08:52 | HO.PM.IMCN ---
History of Present Illness Data of Consult Service Date: 01/20/25 Primary Care Provider: Unknown Physician HPI Reason for consult: Medical H&P 84-year-old female with a past medical history of anxiety, chronic low back pain microscopic hematuria, coronary artery disease, chronic kidney disease stage 2, hypertensive kidney disease, hyperlipidemia, history of CT August 2024 with coronary artery bypass graft LAD, stent LAD. Emergency room workup revealed no leukocytosis, no anemia, no electrolyte imbalances, creatinine of 0.57 with a GFR of 90. No evidence of liver dysfunction. Urine without evidence of infection. Negative tox screen, negative ETOH. Patient is status post kyphoplasty on 01/14/2025 due to fall which resulted in L1 L2 compression fractures. Presented to the ED with suicidal thoughts, agitation and delirium. Her head CT was normal, ammonia level was within normal limits. On exam patient is very anxious, answers questions. She had kyphoplasty 7 days ago. Injection sites on her back are healed no evidence of infection. Patient is in no apparent distress, denies any shortness of breath, chest pain, abdominal pain. Review of Systems Review of Systems: Limited due to anxiety PMFSH Social History Household Members: Spouse Housing: House Do you presently have visiting nurse or other home services: No Patient Tobacco Use Status: Never used Tobacco e-Cigarette/Vaping Use: Former Use Second Hand Smoke Exposure: No Currently Displaying Signs/Symptoms of Drug Intoxication Withdrawal: No Have you been hit, kicked, punched, or otherwise hurt by someone within the past year? If so, by whom?: No Do you feel safe in your current relationship?: No Is there a partner from a previous relationship who is making you feel unsafe now?: No Are you made to feel afraid or neglected: No Advance Directives: No Advance Directives Information Provided: No Do you have thoughts of harming others: None Do you have a plan to hurt others: No Plan Recently lost weight without trying: Unsure Eating poorly because of decreased appetite: Yes Nutrition Risks: No Nutritional Risk Patient : No : No Poor oral hygiene: No Meds Allergies Allergy/AdvReac Type Severity Reaction Status Date / Time No Known Allergies Allergy Verified 01/19/25 21:56 Active Medications: Current Medications Acetaminophen (Acetaminophen 325 Mg Tablet) 650 mg PO Q6H PRN PRN Reason: Headache/Pain, Scale 1-10 Al Hydroxide/Mg Hydroxide (Magnesium Hydrox/Alum Hydrox 30 Ml Oral.Susp) 30 ml PO Q6H PRN PRN Reason: Heartburn/Nausea Aspirin (Aspirin Enteric Coated 81 Mg Tablet.Dr) 81 mg PO DAILY [facility] Atorvastatin Calcium (Atorvastatin Calcium 80 Mg Tablet) 80 mg PO DAILY [facility] Calcitonin Chrisman (Calcitonin,Chrisman,Synth Nasal 3.7 Ml Bottle) 1 spray NOSTRILALT DAILY [facility] Calcium Carbonate/Cholecalciferol (Calcium + Vitamin D 250 Mg Tablet) 250 mg PO DAILY [facility] Hydroxyzine HCl (Hydroxyzine Hcl 25 Mg Tablet) 25 mg PO Q6H PRN PRN Reason: mild anxiety Isosorbide Mononitrate (Isosorbide Mononitrate 60 Mg Tab.Er.24h) 60 mg PO DAILY [facility]; Protocol Magnesium Hydroxide (Milk Of Magnesia 30 Ml Oral.Susp) 30 ml PO DAILY PRN PRN Reason: Constipation Methocarbamol (Methocarbamol 750 Mg Tablet) 750 mg PO QID [facility] Metoprolol Succinate (Metoprolol Succinate Er 50 Mg Tab.Er.24h) 50 mg PO DAILY [facility]; Protocol Mirabegron (Mirabegron 25 Mg Tab.Er.24h) 25 mg PO DAILY [facility] Multivitamins/Vitamin C (Multivitamin Tablet) 1 tab PO DAILY [facility] Last Admin: 01/19/25 23:40 Dose: 1 tab Nicotine (Nicotine 21 Mg Patch.Td24) 21 mg TRANSDERMA DAILY PRN PRN Reason: nicotine craving Nicotine Polacrilex (Nicotine Polacrilex 2 Mg Gum) 2 mg BUCCAL Q2H PRN PRN Reason: Nicotine Cravings Non-Formulary Medication (Vibegron [Gemtesa]) 75 mg PO DAILY [facility] Olanzapine (Olanzapine 2.5 Mg Tablet) 1.25 mg PO TID [facility] Last Admin: 01/19/25 23:40 Dose: 1.25 mg Oxycodone HCl (Oxycodone Hcl Immed Release 5 Mg Tablet) 5 mg PO Q8H PRN PRN Reason: Pain (Scale Score 7-10) Polyethylene Glycol (Polyethylene Glycol 3350 17 Gm Powd.Pack) 17 gm PO DAILY [facility] Senna/Docusate Sodium (Sennosides/Docusate Sodium Tablet) 1 tab PO DAILY [facility] Trazodone HCl (Trazodone Hcl 50 Mg Tablet) 50 mg PO BEDTIME MRX1 PRN PRN Reason: Insomnia Vitamin D (Cholecalciferol (Vitamin D3) 25 Mcg Tablet) 25 mcg PO DAILY EMPERATRIZ Home Medications ?Medication ?Instructions ?Recorded ?Confirmed ?Last Taken ?Type aspirin 81 mg tablet 81 mg PO DAILY 01/19/25 01/19/25 01/19/25 08:00 History atorvastatin 80 mg tablet 80 mg PO DAILY 01/19/25 01/19/25 Unknown History calcitonin (salmon) 200 1 spray intranasal (ALT) DAILY 01/19/25 01/19/25 Unknown History unit/actuation nasal spray calcium 600 mg (as 1 tab PO DAILY 01/19/25 01/19/25 Unknown History carbonate)-vitamin D3 20 mcg (800 unit) tablet (Caltrate with Vitamin D3) cholecalciferol (vitamin D3) 25 25 mcg PO DAILY 01/19/25 01/19/25 Unknown History mcg (1,000 unit) tablet isosorbide mononitrate 30 mg 60 mg PO DAILY 01/19/25 01/19/25 Unknown History tablet,extended release 24 hr methocarbamol 750 mg tablet 750 mg PO QID 01/19/25 01/19/25 Unknown History metoprolol succinate 50 mg 50 mg PO DAILY 01/19/25 01/19/25 Unknown History tablet,extended release 24 hr mirabegron 25 mg tablet,extended 25 mg PO DAILY 01/19/25 01/19/25 Unknown History release 24 hr multivitamin 1 tab PO QAM 01/19/25 01/19/25 Unknown History olanzapine 2.5 mg tablet 1.25 mg PO TID 01/19/25 01/19/25 Unknown History oxycodone 5 mg tablet 5 mg PO Q8H PRN Pain (Scale Score 01/19/25 01/19/25 01/19/25 08:00 History 7-10) polyethylene glycol 3350 17 gram 17 g PO DAILY 01/19/25 01/19/25 01/19/25 08:00 History oral powder packet sennosides 8.6 mg-docusate sodium 1 tab PO DAILY 01/19/25 01/19/25 Unknown History 50 mg tablet (Senexon-S) vibegron 75 mg tablet (Gemtesa) 75 mg PO DAILY 01/19/25 01/19/25 Unknown History Physical Exam Vital Signs and Narrative: Vital Signs: Last Vital Signs Temp 97.5 F 01/19/25 22:25 Pulse 92 01/19/25 22:25 Resp 15 01/19/25 22:25 BP 140/56 H 01/19/25 22:25 Pulse Ox 96 01/19/25 22:25 O2 Del Method Room Air 01/19/25 22:25 BMI result Body Mass Index 26.5 Alert and oriented X1, anxious and ruminating Neuro: CN II-X11 intact ENT: Hearing intact, MMM Cardiac: S1 S2 RRR, No ectopy Pulmonary: lungs clear to auscultation, No increased WOB. Abdominal: Deferred MSK: Strength 5/5 upper and lower extremities : Deferred Extremities: No edema in lower extremities Psych: Anxious Skin: Warm and dry, Intact Assessment and Plan (1) HTN (hypertension): Status: Acute Plan 84-year-old female past medical history listed below who presented to the ED with suicidal thoughts agitation and delirium. Admitted to inpatient geriatric psychiatric unit for further stabilization. Anxiety/agitation Treatment per psychiatric team Coronary artery disease/hypertension/history of CT with coronary artery with coronary artery bypass graft in her LAD Stable with no symptoms, Continue aspirin, atorvastatin, Imdur, metoprolol Chronic kidney disease stage 2/hypertensive kidney disease/history of microscopic hematuria Creatinine of 0.57 with a GFR of 90 at baseline Avoid nephrotoxins Low back pain/recent kyphoplasty due to L1-L2 compression fracture Continue Robaxin and Tylenol Thank you for allowing me to participate in the care of this patient. Will follow with you, please notify medical provider with any changes in condition or concerns.
[2025-01-20] MEDS: Calcium + Vitamin D 250 MG TABLET PO (09:42)
[2025-01-20] MEDS: Aspirin Enteric Coated 81 MG TABLET.DR PO (09:43)
[2025-01-20] MEDS: Metoprolol Succinate ER 50 MG TAB.ER.24H PO (09:43)
--- NOTE | 2025-01-20 11:02 | P.PNPSI_ITS ---
Subjective Subjective Date of Service: 01/21/25 Reason For Visit: SI, severe anxiety/restless/hopeless/helpless Interim History: Anxious, variable functioning ie, receiving /asking for help and at other times more independent Patient observed interacting with peers appearing less anxious, socializing, less distraught than yesterday on observation. Waiting for lunch Review of Systems Review of Systems: Per HPI Review of Systems Review of Systems Per medical H&P Mental Status Exam Mental Status Exam Patient Appearance: Unkempt Patient Orientation: Person Level of Consciousness: Awake and Alert Patient Behavior: Anxious Mood Description: Nervous Affect Description: Constricted and Anxious Judgement: Poor Diagnostics Vital Signs (24Hr): Vital Signs - 24 hr 01/19/25 22:25 01/20/25 08:00 Temperature 97.5 F 98 F Pulse Rate 92 88 Respiratory Rate 15 16 Blood Pressure 140/56 H 164/80 H Pulse Oximetry 96 96 Oxygen Delivery Method Room Air BMI result Body Mass Index 26.5 Labs 01/21/25 07:58 Medications Medications Current Medications Acetaminophen (Acetaminophen 325 Mg Tablet) 650 mg PO Q6H PRN PRN Reason: Headache/Pain, Scale 1-10 Al Hydroxide/Mg Hydroxide (Magnesium Hydrox/Alum Hydrox 30 Ml Oral.Susp) 30 ml PO Q6H PRN PRN Reason: Heartburn/Nausea Aspirin (Aspirin Enteric Coated 81 Mg Tablet.Dr) 81 mg PO DAILY [facility] Last Admin: 01/20/25 09:43 Dose: 81 mg Atorvastatin Calcium (Atorvastatin Calcium 80 Mg Tablet) 80 mg PO DAILY [facility] Last Admin: 01/20/25 09:42 Dose: 80 mg Calcitonin [place] (Calcitonin,[place],Synth Nasal 3.7 Ml Bottle) 1 spray NOSTRILALT DAILY [facility] Calcium Carbonate/Cholecalciferol (Calcium + Vitamin D 250 Mg Tablet) 250 mg PO DAILY [facility] Last Admin: 01/20/25 09:42 Dose: 250 mg Hydroxyzine HCl (Hydroxyzine Hcl 25 Mg Tablet) 25 mg PO Q6H PRN PRN Reason: mild anxiety Isosorbide Mononitrate (Isosorbide Mononitrate 60 Mg Tab.Er.24h) 60 mg PO DAILY [facility]; Protocol Last Admin: 01/20/25 09:42 Dose: 60 mg Magnesium Hydroxide (Milk Of Magnesia 30 Ml Oral.Susp) 30 ml PO DAILY PRN PRN Reason: Constipation Methocarbamol (Methocarbamol 750 Mg Tablet) 750 mg PO QID [facility] Metoprolol Succinate (Metoprolol Succinate Er 50 Mg Tab.Er.24h) 50 mg PO DAILY [facility]; Protocol Last Admin: 01/20/25 09:43 Dose: 50 mg Mirabegron (Mirabegron 25 Mg Tab.Er.24h) 25 mg PO DAILY [facility] Multivitamins/Vitamin C (Multivitamin Tablet) 1 tab PO DAILY [facility] Last Admin: 01/20/25 09:42 Dose: 1 tab Nicotine (Nicotine 21 Mg Patch.Td24) 21 mg TRANSDERMA DAILY PRN PRN Reason: nicotine craving Nicotine Polacrilex (Nicotine Polacrilex 2 Mg Gum) 2 mg BUCCAL Q2H PRN PRN Reason: Nicotine Cravings Non-Formulary Medication (Vibegron [Gemtesa]) 75 mg PO DAILY [facility] Olanzapine (Olanzapine 2.5 Mg Tablet) 1.25 mg PO TID [facility] Last Admin: 01/20/25 09:43 Dose: 1.25 mg Oxycodone HCl (Oxycodone Hcl Immed Release 5 Mg Tablet) 5 mg PO Q8H PRN PRN Reason: Pain (Scale Score 7-10) Polyethylene Glycol (Polyethylene Glycol 3350 17 Gm Powd.Pack) 17 gm PO DAILY [facility] Last Admin: 01/20/25 09:50 Dose: Not Given Senna/Docusate Sodium (Sennosides/Docusate Sodium Tablet) 1 tab PO DAILY [facility] Last Admin: 01/20/25 09:43 Dose: 1 tab Trazodone HCl (Trazodone Hcl 50 Mg Tablet) 50 mg PO BEDTIME MRX1 PRN PRN Reason: Insomnia Vitamin D (Cholecalciferol (Vitamin D3) 25 Mcg Tablet) 25 mcg PO DAILY [facility] Last Admin: 01/20/25 09:43 Dose: 25 mcg Allergies Allergies Allergy/AdvReac Type Severity Reaction Status Date / Time No Known Allergies Allergy Verified 01/19/25 21:56 Assessment & Plan Reason for continued inpatient stay Substantial Risk for: harm to self, inability to function and rapid decompensation Time Spent With Patient Time: Total time managing care of this patient today ____ minutes.
--- NOTE | 2025-01-20 11:18 | HO.PSYADMNOT ---
[facility] Date of Service: 01/20/25 Chief Complaint: SI, severe anxiety/restless/hopeless/helpless Sources of Information: patient interviewed, chart reviewed and crisis/core team assessment reviewed Additional Sources of Information: Interviewed patient with son, daughter and present. Patient had difficulties providing history which seemed at time to be unreliable given her reporting/denying and then acknowledging information provided by family and obtained from record. She could not give a relevant account of the time line or progression of her symptoms and family members noted there had been some gradual decrease in ability to function cognitively which had markedly worsened after the accident, namely her suffering a fall while on the train in [place], falling in her back and breaking some vertebrae which has caused significant pain. She recently had a kypoplasty for treatment and says he still struggles with pain. She is confused about what medications to take and when and says she had seen different doctors who have ordered then discontinued medicationn. She had been admitted to [facility] with unremitting severe anxiety, pain and AMS, as well as verbalizing SI. She denies current plan/intent to end her life but feels this would be the only way to feel better as nothing will work. Patient presented as restlessless, distraught, wringing hands, restless and expressing helplessness and helplessness. She could not provide details of history or what her interpretation of her symptoms was. She said she was in pain, not in pain and in pain again. She addressed her and children, in a frenzy, about her experience of things never improving. Through the extended meeting she was sighing loudly, rolling her eyes impatiently and complaining about having to talk to someone else. We suggested she take a break, and family and I could talk briefly. She could not decide whether to do so or not, and said I should address question to family only. When family offered to do so, she became agitated, stating they could not know how she felt and waht her emotions and experiences were. Nonetheless, she continued to talk uninterruptedly about her distress and how she could not function anymore. She could not respond clearly even concrete questions. She was unwilling to leave the room. She voiced feelings of despair and suicidal/ thoughts bc that would be the only way to stop feeling this way. She said she was seeing vapor or smoke in the air and made other comments about experiencing perceptual disturbances recently (she was medically admitted, dx and treated for delirum and referred to [facility] once cleared medically). Information from family, mainly son- Patient was able to function better, was sharp , active, always 'on top of things (bills/house related issues/insurance), in control of everything, but now progressively less able to do so and more anxious. Patient says she cannot do any of that anymore and it will never be the same. She presented as anxious, restless, with some agitation, very distraught and fearful. She ruminated about not being able to fuction. She could not tell me what she felt could explain her despair. She endorsed pain, although she reported it was in control before and had just started. Patient was ruminative, constantly talking about her being unable to engage in activities and intellectual pursuits, and feeling hopeless/helpless. Patient presents as angst-ridden, dysphoric, confused as to situation and seems unable to accept or recall information given, interrupting others to give information and insted perseverating about any current issues in her life -medical insurance, bills,finances, insurance. She dismissed input from son/daughter who have been helping with these issues. She did not mention at all the fall in the train or bring up whether she believed recent medical issues could be in any way affecting her mental health. She denied current active SI/HI/plan/intent but endorsed she wished to be to avoid her feelings and for family to have some relief. HPI Subjective Notes: [place] Warning and Conditional Voluntary Healthcare Proxy: Yes Guardianship: No Medical Problems Affecting Mental Status: Yes Narrative: Symptoms have become constant and severe to the point of incapacity following fall with vertebral fracture and subsequent back procedure. Past Psychiatric History: Anxious and in control of every detail at home historically. Reported no current psychiatric care, Symptoms have become constant and severe to the point of incapacity and started/worsened following fall with vertebral fracture and subsequent ortho procedure Family suggest symptoms worse in past 2 weeks Medical Evaluation Reviewed: Yes [facility] Social History: for >60 years lives with close to children and their own families limited other info from interview Substance History: none reported Trauma History: unable to obtain Diagnostics Vital Signs (24Hr): Vital Signs - 24 hr 01/19/25 22:01/20/25 08:00 Temperature 97.5 F 98 F Pulse Rate 92 88 Respiratory Rate 15 16 Blood Pressure 140/56 H 164/80 H Pulse Oximetry 96 96 Oxygen Delivery Method Room Air BMI result Body Mass Index 26.5 Labs Labs: Ordered by overnight provider Meds/Allergies Meds Home Medications ?Medication ?Instructions ?Recorded ?Confirmed ?Type aspirin 81 mg tablet 81 mg PO DAILY 01/19/25 01/19/25 History atorvastatin 80 mg tablet 80 mg PO DAILY 01/19/25 01/19/25 History calcitonin (salmon) 200 1 spray intranasal (ALT) DAILY 01/19/25 01/19/25 History unit/actuation nasal spray calcium 600 mg (as 1 tab PO DAILY 01/19/25 01/19/25 History carbonate)-vitamin D3 20 mcg (800 unit) tablet (Caltrate with Vitamin D3) cholecalciferol (vitamin D3) 25 25 mcg PO DAILY 01/19/25 01/19/25 History mcg (1,000 unit) tablet isosorbide mononitrate 30 mg 60 mg PO DAILY 01/19/25 01/19/25 History tablet,extended release 24 hr methocarbamol 750 mg tablet 750 mg PO QID 01/19/25 01/19/25 History metoprolol succinate 50 mg 50 mg PO DAILY 01/19/25 01/19/25 History tablet,extended release 24 hr mirabegron 25 mg tablet,extended 25 mg PO DAILY 01/19/25 01/19/25 History release 24 hr multivitamin 1 tab PO QAM 01/19/25 01/19/25 History olanzapine 2.5 mg tablet 1.25 mg PO TID 01/19/25 01/19/25 History oxycodone 5 mg tablet 5 mg PO Q8H PRN Pain (Scale Score 01/19/25 01/19/25 History 7-10) polyethylene glycol 3350 17 gram 17 g PO DAILY 01/19/25 01/19/25 History oral powder packet sennosides 8.6 mg-docusate sodium 1 tab PO DAILY 01/19/25 01/19/25 History 50 mg tablet (Senexon-S) vibegron 75 mg tablet (Gemtesa) 75 mg PO DAILY 01/19/25 01/19/25 History Allergies Allergies Allergy/AdvReac Type Severity Reaction Status Date / Time No Known Allergies Allergy Verified 11/24/25 21:56 Mental Status Exam Mental Status Exam Patient Appearance: Disheveled and Unkempt Patient Orientation: Person, Place and Time Level of Consciousness: Awake and Restless Patient Behavior: Dependent, Restless, Anxious, Fearful, Fatigued and Confused Mood Description: Anxious, Sad, Nervous and Apprehensive Affect Description: Constricted, Fearful, Anxious, Labile, Sad, Nervous and Apprehensive Ability to Follow Directions: Poor (limited ability to follow directions in order to get information) Speech Pattern: Perseverating, Spontaneous Speech and Rapid Hallucinations: Visual Thought Process: Rumination and Confusion Thought Content: positive for Obsessional Thoughts, positive for Perseveration, positive for Preoccupation and positive for Suicidal Ideation (passive wishes but denied plan/intent to end her life) Depressive Symptoms: Increased Anxiety, Insomnia, Diff. Making Decisions, Hopelessness, Feelings of Guilt, Unhappiness, Thoughts of /Suicide and Difficulty Concentrating Abnormal Motor Activity Signs and Symptoms: Agitation Judgement: Poor Assessment & Plan Patient educated on: diagnosis, medication risk/benefits, therapeutic strategies and medical condition Guardian/Caregiver educated on: diagnosis, medication risk/benefits, therapeutic strategies and medical condition Informed Consent: does not understand (unclear degree of understanding as she perseverates on topic without fully answering questions) and further education needed Reason for continued inpatient stay Substantial Risk for: harm to self, inability to function, med/psych decompensation and other Statement Statement: I have reviewed the history and physical and performed a pertinent examination on my patient. No changes have occurred unless specified. If the History and Physical was not performed prior to admission, the Hospitalist's service will be consulted for completing the admission physical. Time Spent With Patient Time: Total time managing care of this patient today _75___ minutes.
[2025-01-20 19:29] VITALS: BP 127/62; PULSE 85; RESP 18; TEMP 36.6; O2SAT 94
[2025-01-21 08:00] VITALS: BP 145/72; PULSE 97; TEMP 36.8; O2SAT 96
[2025-01-21] MEDS: Metoprolol Succinate ER 50 MG TAB.ER.24H PO (08:27)
[2025-01-21] MEDS: Aspirin Enteric Coated 81 MG TABLET.DR PO (08:27)
[2025-01-21] MEDS: Calcium + Vitamin D 250 MG TABLET PO (08:29)
[2025-01-21 08:50] LABS: Alanine Aminotransferase 15 U/L (0-31); Albumin Level 4.6 g/dL (3.5-5.0); Alkaline Phosphatase 91 U/L (39-117); Anion Gap 15 (12-20); Aspartate Amino Transferase 24 U/L (5-31); Blood Urea Nitrogen 16 mg/dL (9-16); Calcium 9.6 mg/dL (8.4-10.2); Carbon Dioxide 24 mmol/L (22-29); Chloride 105 mmol/L (96-108); Cholesterol 134 mg/dL (<200); Creatinine Clr Calc Pharmacy 70.8; Estimated Glomerular Filt Rate > 60; HDL Cholesterol 53 mg/dL (>40); Magnesium 1.9 mg/dL (1.6-2.6); Potassium 3.8 mmol/L (3.3-5.1); Sodium 140 mmol/L (135-145); Total Protein 7.0 g/dL (6.5-8.0); Triglycerides 118 mg/dL (<150)
[2025-01-21 09:00] LABS: Free T4 (Free Thyroxine) 1.09 ng/dL (0.71-1.85); Thyroid Stimulating Hormone 1.43 uIU/mL (0.32-4.0)
[2025-01-21 09:12] LABS: Vitamin B12 626 pg/mL (200-900)
--- NOTE | 2025-01-21 09:25 | HO.PSYCHPN ---
Subjective Subjective Date of Service: 01/21/25 Reason For Visit: SI, severe anxiety/restless/hopeless/helpless Diagnostics Vital Signs (24Hr): Vital Signs - 24 hr 01/20/25 19:29 Temperature 97.9 F Pulse Rate 85 Respiratory Rate 18 Blood Pressure 127/62 Pulse Oximetry 94 Oxygen Delivery Method Room Air BMI result Body Mass Index 26.5 Labs 01/21/25 07:58 Labs: Laboratory Results - last 48 hr 01/21/25 07:58 Sodium 140 Potassium 3.8 Chloride 105 Carbon Dioxide 24 Anion Gap 15 BUN 16 Creatinine 0.61 Estim Creat Clear Calc 70.8 Estimated GFR > 60 Random Glucose 112 Estimat Average Glucose 111 Hemoglobin A1c % 5.5 Calcium 9.6 Magnesium 1.9 Total Bilirubin 1.4 H AST 24 ALT 15 Alkaline Phosphatase 91 Total Protein 7.0 Albumin 4.6 Triglycerides 118 Cholesterol 134 LDL Cholesterol, Calc 58 HDL Cholesterol 53 Vitamin B12 626 TSH 1.43 Free T4 1.09 Medications Medications Current Medications Acetaminophen (Acetaminophen 325 Mg Tablet) 650 mg PO Q6H PRN PRN Reason: Headache/Pain, Scale 1-10 Last Admin: 01/20/25 15:57 Dose: 650 mg Al Hydroxide/Mg Hydroxide (Magnesium Hydrox/Alum Hydrox 30 Ml Oral.Susp) 30 ml PO Q6H PRN PRN Reason: Heartburn/Nausea Aspirin (Aspirin Enteric Coated 81 Mg Tablet.Dr) 81 mg PO DAILY [facility] Last Admin: 01/21/25 08:27 Dose: 81 mg Atorvastatin Calcium (Atorvastatin Calcium 80 Mg Tablet) 80 mg PO DAILY [facility] Last Admin: 01/21/25 08:28 Dose: 80 mg Calcitonin [place] (Calcitonin,[place],Synth Nasal 3.7 Ml Bottle) 1 spray NOSTRILALT DAILY [facility] Last Admin: 01/21/25 08:34 Dose: Not Given Calcium Carbonate/Cholecalciferol (Calcium + Vitamin D 250 Mg Tablet) 250 mg PO DAILY [facility] Last Admin: 01/21/25 08:29 Dose: 250 mg Hydroxyzine HCl (Hydroxyzine Hcl 25 Mg Tablet) 25 mg PO Q6H PRN PRN Reason: mild anxiety Isosorbide Mononitrate (Isosorbide Mononitrate 60 Mg Tab.Er.24h) 60 mg PO DAILY [facility]; Protocol Last Admin: 01/21/25 08:27 Dose: 60 mg Magnesium Hydroxide (Milk Of Magnesia 30 Ml Oral.Susp) 30 ml PO DAILY PRN PRN Reason: Constipation Methocarbamol (Methocarbamol 750 Mg Tablet) 750 mg PO QID [facility] Last Admin: 01/21/25 08:28 Dose: 750 mg Metoprolol Succinate (Metoprolol Succinate Er 50 Mg Tab.Er.24h) 50 mg PO DAILY [facility]; Protocol Last Admin: 01/21/25 08:27 Dose: 50 mg Multivitamins/Vitamin C (Multivitamin Tablet) 1 tab PO DAILY [facility] Last Admin: 01/21/25 08:27 Dose: 1 tab Nicotine (Nicotine 21 Mg Patch.Td24) 21 mg TRANSDERMA DAILY PRN PRN Reason: nicotine craving Nicotine Polacrilex (Nicotine Polacrilex 2 Mg Gum) 2 mg BUCCAL Q2H PRN PRN Reason: Nicotine Cravings Olanzapine (Olanzapine 2.5 Mg Tablet) 1.25 mg PO TID [facility] Last Admin: 01/21/25 08:28 Dose: 1.25 mg Oxycodone HCl (Oxycodone Hcl Immed Release 5 Mg Tablet) 5 mg PO Q8H PRN PRN Reason: Pain (Scale Score 7-10) Polyethylene Glycol (Polyethylene Glycol 3350 17 Gm Powd.Pack) 17 gm PO DAILY [facility] Last Admin: 01/21/25 08:35 Dose: Not Given Senna/Docusate Sodium (Sennosides/Docusate Sodium Tablet) 1 tab PO DAILY [facility] Last Admin: 01/21/25 08:28 Dose: 1 tab Trazodone HCl (Trazodone Hcl 50 Mg Tablet) 50 mg PO BEDTIME MRX1 PRN PRN Reason: Insomnia Vitamin D (Cholecalciferol (Vitamin D3) 25 Mcg Tablet) 25 mcg PO DAILY [facility] Last Admin: 01/21/25 08:29 Dose: 25 mcg Allergies Allergies Allergy/AdvReac Type Severity Reaction Status Date / Time No Known Allergies Allergy Verified 01/19/25 21:56 Assessment & Plan Assessment & Plan (1) HTN (hypertension): Status: Acute Code(s): I10 - Essential (primary) hypertension Plan 84-year-old female past medical history listed below who presented to the ED with suicidal thoughts agitation and delirium. Admitted to inpatient geriatric psychiatric unit for further stabilization. Anxiety/agitation Treatment per psychiatric team Coronary artery disease/hypertension/history of CO with coronary artery with coronary artery bypass graft in her LAD Stable with no symptoms, Continue aspirin, atorvastatin, Imdur, metoprolol Chronic kidney disease stage 2/hypertensive kidney disease/history of microscopic hematuria Creatinine of 0.57 with a GFR of 90 at baseline Avoid nephrotoxins Low back pain/recent kyphoplasty due to L1-L2 compression fracture Continue Robaxin and Tylenol Thank you for allowing me to participate in the care of this patient. Will follow with you, please notify medical provider with any changes in condition or concerns. Reason for continued inpatient stay Substantial Risk for: harm to self, inability to function and rapid decompensation Time Spent With Patient Time: Total time managing care of this patient today ____ minutes.
--- NOTE | 2025-01-21 18:53 | PC.NURSE ---
At 6:30 her son called and he informed us what the plan was and when he talked to his mom, then she came to the nurses station and was very confused and upset, she went to her room and left her walker in the hallway. She came out of her room wearing a back brace. She then went back in her room and brought out her clothes she was exit seeking and wanting to leave. Medicated with hydroxizine and the brace was removed.
[2025-01-21 20:00] VITALS: BP 105/63; PULSE 102; RESP 17; TEMP 36.3; O2SAT 95
--- NOTE | 2025-01-21 21:54 | P.PNPSI_ITS ---
Subjective Subjective Date of Service: 01/21/25 Reason For Visit: SI, severe anxiety/restless/hopeless/helpless Subjective Notes: Conditional Voluntary Healthcare Proxy: Yes Medical Problems Affecting Mental Status: No Interim History: Medical record and nursing notes reviewed; case discussed during rounds with team/nursing staff, and met with patient for supportive therapy/psychoeducation, as well as medication management. Meet with patient by 1945 in dining area. Patient appears to be less anxious compared to an hour or so before meeting with this provider. Per nursing, patient appears to have sun downing and in severe anxiety worrying about the medical bills she may have to deal with later from other hospital. Patient is perseverative on this Post-op bills. Patient does not remember what stress her out early. We talk about her sleep, appetite. She is tangential regarding what she ate for lunch or dinner. Denies pain. Ambulate using walker, on 5 min checks. Patient presents with some cognitive problems. She thinks my son is on his way to pick me up . She thinks this provider met with her at [facility]. Insisted that this provider would transfer her from this hospital to [place] and did not remember this provider met with her in exam room on the day she arrived to the unit. Report last BM was yesterday. Denies constipation. Patient gain worries about the bills when this provider passed by her from nurse station. Patient is assured that we would offer all meds at this hospital and that she does have to worry about meds that she was taking prior to be admitted here. Denies anxiety at the moment of assessment which is congruent with mood as she is calm now. Report that her depression comes from anxiety . Per nursing, patient slept for about 5 hours, was meds compliant. On 5 min check for safety for using walker. Denies SI/SIB/HI/AVH but presents with demented behaviors. Per nursing, Son would like move appointment/visit from to Sunday. Possible family meeting next week. I ordered PRN Zyprexa 2.5mg [id number] prn for severe anxiety/depression. Will continue with current tx plan. Medication Compliance: Yes Side effects from medications: No Attending Groups: Intermittent Review of Systems Acute medical concerns: No Medical Review of Systems: unchanged Review of Systems Review of Systems Constitutional: Denies fatigue and Denies fever(s) Cardiovascular: Denies chest pain and Denies dyspnea Respiratory: Denies dyspnea. Mild cough during assessment Gastrointestinal: Denies abdominal pain. Denies back pain at this moment Psychiatric: denies suicidal ideation Endocrine: Denies fatigue Mental Status Exam Mental Status Exam Narrative: A+O, wearing casual attire, anxious but pleasant and cooperative. Forgetful, some sun downing symptoms. No SI/SIB/HI/AVH. Speech is WNl with mild tangential. Perserverative on medical bills. Poor/impaired judgment and insight. No aggressive behavior. Ambulate using walker. Diagnostics Vital Signs (24Hr): Vital Signs - 24 hr 01/21/25 08:00 01/21/25 20:00 Temperature 98.3 F 97.3 F Pulse Rate 97 102 H Respiratory Rate 17 Blood Pressure 145/72 H 105/63 Pulse Oximetry 96 95 Oxygen Delivery Method Room Air BMI result Body Mass Index 26.5 Labs 01/21/25 07:58 Labs: Laboratory Results - last 48 hr 01/21/25 07:58 Sodium 140 Potassium 3.8 Chloride 105 Carbon Dioxide 24 Anion Gap 15 BUN 16 Creatinine 0.61 Estim Creat Clear Calc 70.8 Estimated GFR > 60 Random Glucose 112 Estimat Average Glucose 111 Hemoglobin A1c % 5.5 Calcium 9.6 Magnesium 1.9 Total Bilirubin 1.4 H AST 24 ALT 15 Alkaline Phosphatase 91 Total Protein 7.0 Albumin 4.6 Triglycerides 118 Cholesterol 134 LDL Cholesterol, Calc 58 HDL Cholesterol 53 Vitamin B12 626 TSH 1.43 Free T4 1.09 Medications Medications Current Medications Acetaminophen (Acetaminophen 325 Mg Tablet) 650 mg PO Q6H PRN PRN Reason: Headache/Pain, Scale 1-10 Last Admin: 01/20/25 15:57 Dose: 650 mg Al Hydroxide/Mg Hydroxide (Magnesium Hydrox/Alum Hydrox 30 Ml Oral.Susp) 30 ml PO Q6H PRN PRN Reason: Heartburn/Nausea Aspirin (Aspirin Enteric Coated 81 Mg Tablet.) 81 mg PO DAILY [facility] Last Admin: 01/21/25 08:27 Dose: 81 mg Atorvastatin Calcium (Atorvastatin Calcium 80 Mg Tablet) 80 mg PO DAILY [facility] Last Admin: 01/21/25 08:28 Dose: 80 mg Calcitonin [place] (Calcitonin,[place],Synth Nasal 3.7 Ml Bottle) 1 spray NOSTRILALT DAILY [facility] Last Admin: 01/21/25 08:34 Dose: Not Given Calcium Carbonate/Cholecalciferol (Calcium + Vitamin D 250 Mg Tablet) 250 mg PO DAILY [facility] Last Admin: 01/21/25 08:29 Dose: 250 mg Hydroxyzine HCl (Hydroxyzine Hcl 25 Mg Tablet) 25 mg PO Q6H PRN PRN Reason: mild anxiety Last Admin: 01/21/25 18:47 Dose: 25 mg Isosorbide Mononitrate (Isosorbide Mononitrate 60 Mg Tab.Er.24h) 60 mg PO DAILY [facility]; Protocol Last Admin: 01/21/25 08:27 Dose: 60 mg Magnesium Hydroxide (Milk Of Magnesia 30 Ml Oral.Susp) 30 ml PO DAILY PRN PRN Reason: Constipation Methocarbamol (Methocarbamol 750 Mg Tablet) 750 mg PO TID [facility] Last Admin: 01/21/25 20:20 Dose: 750 mg Metoprolol Succinate (Metoprolol Succinate Er 50 Mg Tab.Er.24h) 50 mg PO DAILY [facility]; Protocol Last Admin: 01/21/25 08:27 Dose: 50 mg Multivitamins/Vitamin C (Multivitamin Tablet) 1 tab PO DAILY [facility] Last Admin: 01/21/25 08:27 Dose: 1 tab Nicotine (Nicotine 21 Mg Patch.Td24) 21 mg TRANSDERMA DAILY PRN PRN Reason: nicotine craving Nicotine Polacrilex (Nicotine Polacrilex 2 Mg Gum) 2 mg BUCCAL Q2H PRN PRN Reason: Nicotine Cravings Olanzapine (Olanzapine 2.5 Mg Tablet) 1.25 mg PO TID [facility] Last Admin: 01/21/25 20:20 Dose: 1.25 mg Oxycodone HCl (Oxycodone Hcl Immed Release 5 Mg Tablet) 5 mg PO Q8H PRN PRN Reason: Pain (Scale Score 7-10) Polyethylene Glycol (Polyethylene Glycol 3350 17 Gm Powd.Pack) 17 gm PO DAILY [facility] Last Admin: 01/21/25 08:35 Dose: Not Given Senna/Docusate Sodium (Sennosides/Docusate Sodium Tablet) 1 tab PO DAILY [facility] Last Admin: 01/21/25 08:28 Dose: 1 tab Trazodone HCl (Trazodone Hcl 50 Mg Tablet) 50 mg PO BEDTIME PRN PRN Reason: Insomnia Vitamin D (Cholecalciferol (Vitamin D3) 25 Mcg Tablet) 25 mcg PO DAILY [facility] Last Admin: 01/21/25 08:29 Dose: 25 mcg Allergies Allergies Allergy/AdvReac Type Severity Reaction Status Date / Time No Known Allergies Allergy Verified 01/19/25 21:56 Assessment & Plan Assessment & Plan (1) Severe anxiety: Status: Acute Code(s): F41.9 - Anxiety disorder, unspecified (2) HTN (hypertension): Status: Acute Code(s): I10 - Essential (primary) hypertension (3) Suicidal ideation: Status: Acute Code(s): R45.851 - Suicidal ideations Plan HPI: 84-year-old female =with a past medical history of anxiety, chronic low back pain microscopic hematuria, coronary artery disease, chronic kidney disease stage 2, hypertensive kidney disease, hyperlipidemia, history of [place] August 2024 with coronary artery bypass graft LAD, stent LAD. presented to the ED with suicidal thoughts agitation and delirium. Admitted to inpatient geriatric psychiatric unit for further stabilization. Hospital course: Pyschiattric plan: 01/21/25: Continue with home meds/ current regimens from admission. Meet with patient by 1945 in dining area. Patient appears to be less anxious compared to an hour or so before meeting with this provider. Per nursing, patient appears to have sun downing and in severe anxiety worrying about the medical bills she may have to deal with later from other hospital. Patient is perseverative on this Post-op bills. Patient does not remember what stress her out early. We talk about her sleep, appetite. She is tangential regarding what she ate for lunch or dinner. Denies pain. Ambulate using walker, on 5 min checks. Patient presents with some cognitive problems. She thinks my son is on his way to pick me up . She thinks this provider met with her at [facility]. Insisted that this provider would transfer her from this hospital to [place] and did not remember this provider met with her in exam room on the day she arrived to the unit. Report last BM was yesterday. Denies constipation. Patient gain worries about the bills when this provider passed by her from nurse station. Patient is assured that we would offer all meds at this hospital and that she does have to worry about meds that she was taking prior to be admitted here. Denies anxiety at the moment of assessment which is congruent with mood as she is calm now. Report that her depression comes from anxiety . Per nursing, patient slept for about 5 hours, was meds compliant. On 5 min check for safety for using walker. Denies SI/SIB/HI/AVH but presents with demented behaviors. Per nursing, Son would like move appointment/visit from to Sunday. Possible family meeting next week. I ordered PRN Zyprexa 2.5mg [id number] prn for severe anxiety/depression. Will continue with current tx plan Medical plan: Coronary artery disease/hypertension/history of [place] with coronary artery with coronary artery bypass graft in her LAD Stable with no symptoms, Continue aspirin, atorvastatin, Imdur, metoprolol Chronic kidney disease stage 2/hypertensive kidney disease/history of microscopic hematuria Creatinine of 0.57 with a GFR of 90 at baseline Avoid nephrotoxins Low back pain/recent kyphoplasty due to L1-L2 compression fracture Continue Robaxin and Tylenol Patient educated on: diagnosis, medication risk/benefits and therapeutic strategies Informed Consent: further education needed (d/t cognitive declined and dementia) Reason for continued inpatient stay Substantial Risk for: med/psych decompensation Time Spent With Patient Time: Total time managing care of this patient today ____ minutes.
[2025-01-22 08:00] VITALS: BP 121/63; PULSE 90; RESP 17; TEMP 36.2; O2SAT 94
[2025-01-22 08:16] VITALS: BP 121/63; PULSE 90
[2025-01-22] MEDS: Calcium + Vitamin D 250 MG TABLET PO (08:16)
[2025-01-22] MEDS: Metoprolol Succinate ER 50 MG TAB.ER.24H PO (08:16)
[2025-01-22] MEDS: Aspirin Enteric Coated 81 MG TABLET.DR PO (08:16)
[2025-01-22 08:17] VITALS: BP 121/63
[2025-01-22] MEDS: Calcitonin,Salmon,Synth Nasal 3.7 ML BOTTLE 1 SPRAY NOSTRILALT (08:21)
--- NOTE | 2025-01-22 08:53 | HO.PSYCHPN ---
Subjective Subjective Date of Service: 01/22/25 Reason For Visit: SI, severe anxiety/restless/hopeless/helpless Subjective Notes: Conditional Voluntary Interim History: pt only slept 4hrs. Pt presented as very somnolent and tired when this senior underwriter attempted to meet with her. She has been taking medications as prescribed. given that she had not slept, did not continue to attempt to wake her up. Mental Status Exam Mental Status Exam Narrative: very somnolent as she did not sleep much. Diagnostics Vital Signs (24Hr): Vital Signs - 24 hr 01/21/25 20:00 01/22/25 08:16 01/22/25 08:17 Temperature 97.3 F Pulse Rate 102 H 90 Respiratory Rate 17 Blood Pressure 105/63 121/63 121/63 Pulse Oximetry 95 Oxygen Delivery Method Room Air BMI result Body Mass Index 26.5 Labs 01/21/25 07:58 Labs: Laboratory Results - last 48 hr 01/21/25 07:58 Sodium 140 Potassium 3.8 Chloride 105 Carbon Dioxide 24 Anion Gap 15 BUN 16 Creatinine 0.61 Estim Creat Clear Calc 70.8 Estimated GFR > 60 Random Glucose 112 Estimat Average Glucose 111 Hemoglobin A1c % 5.5 Calcium 9.6 Magnesium 1.9 Total Bilirubin 1.4 H AST 24 ALT 15 Alkaline Phosphatase 91 Total Protein 7.0 Albumin 4.6 Triglycerides 118 Cholesterol 134 LDL Cholesterol, Calc 58 HDL Cholesterol 53 Vitamin B12 626 TSH 1.43 Free T4 1.09 Medications Medications Current Medications Acetaminophen (Acetaminophen 325 Mg Tablet) 650 mg PO Q6H PRN PRN Reason: Headache/Pain, Scale 1-10 Last Admin: 01/22/25 08:38 Dose: 650 mg Al Hydroxide/Mg Hydroxide (Magnesium Hydrox/Alum Hydrox 30 Ml Oral.Susp) 30 ml PO Q6H PRN PRN Reason: Heartburn/Nausea Aspirin (Aspirin Enteric Coated 81 Mg Tablet.) 81 mg PO DAILY [facility] Last Admin: 01/22/25 08:16 Dose: 81 mg Atorvastatin Calcium (Atorvastatin Calcium 80 Mg Tablet) 80 mg PO DAILY [facility] Last Admin: 01/22/25 08:17 Dose: 80 mg Calcitonin [place] (Calcitonin,[place],Synth Nasal 3.7 Ml Bottle) 1 spray NOSTRILALT DAILY [facility] Last Admin: 01/22/25 08:21 Dose: 1 spray Calcium Carbonate/Cholecalciferol (Calcium + Vitamin D 250 Mg Tablet) 250 mg PO DAILY [facility] Last Admin: 01/22/25 08:16 Dose: 250 mg Hydroxyzine HCl (Hydroxyzine Hcl 25 Mg Tablet) 25 mg PO Q6H PRN PRN Reason: mild anxiety Last Admin: 01/21/25 18:47 Dose: 25 mg Isosorbide Mononitrate (Isosorbide Mononitrate 60 Mg Tab.Er.24h) 60 mg PO DAILY [facility]; Protocol Last Admin: 01/22/25 08:17 Dose: 60 mg Magnesium Hydroxide (Milk Of Magnesia 30 Ml Oral.Susp) 30 ml PO DAILY PRN PRN Reason: Constipation Methocarbamol (Methocarbamol 750 Mg Tablet) 750 mg PO TID [facility] Last Admin: 01/22/25 08:18 Dose: 750 mg Metoprolol Succinate (Metoprolol Succinate Er 50 Mg Tab.Er.24h) 50 mg PO DAILY [facility]; Protocol Last Admin: 01/22/25 08:16 Dose: 50 mg Multivitamins/Vitamin C (Multivitamin Tablet) 1 tab PO DAILY [facility] Last Admin: 01/22/25 08:18 Dose: 1 tab Nicotine (Nicotine 21 Mg Patch.Td24) 21 mg TRANSDERMA DAILY PRN PRN Reason: nicotine craving Nicotine Polacrilex (Nicotine Polacrilex 2 Mg Gum) 2 mg BUCCAL Q2H PRN PRN Reason: Nicotine Cravings Olanzapine (Olanzapine 2.5 Mg Tablet) 1.25 mg PO TID [facility] Last Admin: 01/22/25 08:18 Dose: 1.25 mg Olanzapine (Olanzapine 2.5 Mg Tablet) 2.5 mg PO Q4H PRN PRN Reason: severe anxiety/agitation Oxycodone HCl (Oxycodone Hcl Immed Release 5 Mg Tablet) 5 mg PO Q8H PRN PRN Reason: Pain (Scale Score 7-10) Polyethylene Glycol (Polyethylene Glycol 3350 17 Gm Powd.Pack) 17 gm PO DAILY [facility] Last Admin: 01/21/25 08:35 Dose: Not Given Senna/Docusate Sodium (Sennosides/Docusate Sodium Tablet) 1 tab PO DAILY [facility] Last Admin: 01/22/25 08:18 Dose: 1 tab Trazodone HCl (Trazodone Hcl 50 Mg Tablet) 50 mg PO BEDTIME PRN PRN Reason: Insomnia Vitamin D (Cholecalciferol (Vitamin D3) 25 Mcg Tablet) 25 mcg PO DAILY [facility] Last Admin: 01/22/25 08:18 Dose: 25 mcg Allergies Allergies Allergy/AdvReac Type Severity Reaction Status Date / Time No Known Allergies Allergy Verified 01/19/25 21:56 Assessment & Plan Assessment & Plan (1) Severe anxiety: Status: Acute Code(s): F41.9 - Anxiety disorder, unspecified (2) HTN (hypertension): Status: Acute Code(s): I10 - Essential (primary) hypertension (3) Suicidal ideation: Status: Acute Code(s): R45.851 - Suicidal ideations Plan HPI: 84-year-old female =with a past medical history of anxiety, chronic low back pain microscopic hematuria, coronary artery disease, chronic kidney disease stage 2, hypertensive kidney disease, hyperlipidemia, history of [place] August 2024 with coronary artery bypass graft LAD, stent LAD. presented to the ED with suicidal thoughts agitation and delirium. Admitted to inpatient geriatric psychiatric unit for further stabilization. Hospital course: Pyschiattric plan: 01/21/25: Continue with home meds/ current regimens from admission. Meet with patient by 1945 in dining area. Patient appears to be less anxious compared to an hour or so before meeting with this provider. Per nursing, patient appears to have sun downing and in severe anxiety worrying about the medical bills she may have to deal with later from other hospital. Patient is perseverative on this Post-op bills. Patient does not remember what stress her out early. We talk about her sleep, appetite. She is tangential regarding what she ate for lunch or dinner. Denies pain. Ambulate using walker, on 5 min checks. Patient presents with some cognitive problems. She thinks my son is on his way to pick me up . She thinks this provider met with her at [facility]. Insisted that this provider would transfer her from this hospital to [place] and did not remember this provider met with her in exam room on the day she arrived to the unit. Report last BM was yesterday. Denies constipation. Patient gain worries about the bills when this provider passed by her from nurse station. Patient is assured that we would offer all meds at this hospital and that she does have to worry about meds that she was taking prior to be admitted here. Denies anxiety at the moment of assessment which is congruent with mood as she is calm now. Report that her depression comes from anxiety . Per nursing, patient slept for about 5 hours, was meds compliant. On 5 min check for safety for using walker. Denies SI/SIB/HI/AVH but presents with demented behaviors. Per nursing, Son would like move appointment/visit from to Sunday. Possible family meeting next week. I ordered PRN Zyprexa 2.5mg [id number] prn for severe anxiety/depression. Will continue with current tx plan 01/22 increase trazodone to 75mg po qhs. somnolent during day and limited assessment today due to sleepiness. Medical plan: Coronary artery disease/hypertension/history of [place] with coronary artery with coronary artery bypass graft in her LAD Stable with no symptoms, Continue aspirin, atorvastatin, Imdur, metoprolol Chronic kidney disease stage 2/hypertensive kidney disease/history of microscopic hematuria Creatinine of 0.57 with a GFR of 90 at baseline Avoid nephrotoxins Low back pain/recent kyphoplasty due to L1-L2 compression fracture Continue Robaxin and Tylenol Reason for continued inpatient stay Substantial Risk for: inability to function Time Spent With Patient Time: Total time managing care of this patient today ____ minutes.
[2025-01-22 13:54] VITALS: BMI 26.7
[2025-01-22] MEDS: traZODone HCL 25 MG HALFTAB 75 MG PO (19:42)
[2025-01-22 20:00] VITALS: BP 116/69; PULSE 93; RESP 18; TEMP 2.6; TEMP 36.6; O2SAT 93
[2025-01-23 08:00] VITALS: BP 131/78; PULSE 94; RESP 18; TEMP 36.1; O2SAT 95
[2025-01-23] MEDS: Calcium + Vitamin D 250 MG TABLET PO (08:32)
[2025-01-23] MEDS: Aspirin Enteric Coated 81 MG TABLET.DR PO (08:34)
[2025-01-23] MEDS: Metoprolol Succinate ER 50 MG TAB.ER.24H PO (08:34)
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
[2025-01-23 14:00] VITALS: BP 117/68; PULSE 91; RESP 16; TEMP 36.1; O2SAT 96
[2025-01-23 15:32] LABS: Ammonia 18 umol/L (13-55)
[2025-01-23 15:39] LABS: Alanine Aminotransferase 14 U/L (0-31); Albumin Level 4.0 g/dL (3.5-5.0); Alkaline Phosphatase 84 U/L (39-117); Anion Gap 12 (12-20); Aspartate Amino Transferase 23 U/L (5-31); Blood Urea Nitrogen 14 mg/dL (9-16); Calcium 9.2 mg/dL (8.4-10.2); Carbon Dioxide 26 mmol/L (22-29); Chloride 109 mmol/L (96-108); Creatinine Clr Calc Pharmacy 78.8; Estimated Glomerular Filt Rate > 60; Magnesium 1.9 mg/dL (1.6-2.6); Potassium 3.8 mmol/L (3.3-5.1); Sodium 143 mmol/L (135-145); Total Protein 6.1 g/dL (6.5-8.0)
[2025-01-23 20:32] VITALS: BP 148/69; PULSE 88; RESP 18; TEMP 36.2; O2SAT 96
[2025-01-23 21:00] LABS: Appearance Urine Clear; Glucose Urine UA Negative (Negative); PH 6.0 (5.0-9.0); Specific Gravity - Urine 1.020 (1.005-1.025); UMIC TRIGGER UACC YES
[2025-01-23 21:21] LABS: UACC Culture Trigger YES
[2025-01-24 07:01] LABS: MANUAL DIFF FLAG NO
[2025-01-24 07:06] LABS: Hematocrit 33.9 % (37.0-47.0); Hemoglobin 11.3 g/dl (12.0-16.0); Imm Gran Abs Auto 0.03 X10*3/uL (0.00-0.03); Imm Gran Pct Auto 0.4 % (0.0-0.4); Lymphocytes Absolute Auto 1.2 X10*3/uL (1.2-4.9); Mean Corpuscular HGB Conc 33.3 g/dl (31.0-35.0); Mean Corpuscular Hemoglobin 31.1 pg (27.0-33.0); Mean Corpuscular Volume 93.4 fL (80.0-98.0); NRBC Abs Auto 0.000 X10*3/uL (0.0-0.012); NRBC Pct Auto 0.0 /100WBC (0.0-0.2); Platelet Count 200 X10*3/uL (160-400); Red Blood Count 3.63 X10*6/uL (4.20-5.50); White Blood Count 7.8 X10*3/uL (4.8-10.8)
[2025-01-24 08:00] VITALS: BP 174/86; PULSE 93; TEMP 36.6
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
[2025-01-24] MEDS: Metoprolol Succinate ER 50 MG TAB.ER.24H PO (09:37)
[2025-01-24] MEDS: Calcium + Vitamin D 250 MG TABLET PO (09:38)
[2025-01-24] MEDS: Aspirin Enteric Coated 81 MG TABLET.DR PO (09:38)
[2025-01-24 20:00] VITALS: BP 107/56; PULSE 91; RESP 18; TEMP 37; O2SAT 96
[2025-01-25 08:00] VITALS: BP 107/56; PULSE 84; RESP 18; TEMP 36.6; O2SAT 95
[2025-01-25] MEDS: Metoprolol Succinate ER 50 MG TAB.ER.24H PO (08:48)
[2025-01-25] MEDS: Calcium + Vitamin D 250 MG TABLET PO (08:48)
[2025-01-25] MEDS: Aspirin Enteric Coated 81 MG TABLET.DR PO (08:49)
[2025-01-25 19:52] VITALS: BP 108/60; PULSE 98; RESP 18; TEMP 36.7; O2SAT 96
--- NOTE | 2025-01-25 20:36 | HO.PSYCHPN ---
Subjective Subjective Date of Service: 01/25/25 Reason For Visit: SI, severe anxiety/restless/hopeless/helpless Subjective Notes: Conditional Voluntary Interim History: Pt sleeping through the night. 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 She asks about transportation back home as she tells this blurb writer she lives 2 hrs away from here, which is accurate. She reports her mood is good. No SI/HI. no behavioral concerns. VS on lower side, monitor dizziness/ ortho hotn. Mental Status Exam Mental Status Exam Patient Appearance: Fatigued Patient Orientation: Person and Place Level of Consciousness: Awake and Restless Patient Behavior: Restless, Anxious, Confused, Sundowning and Poor Eye Contact Mood Description: Sad, Nervous and Apprehensive Affect Description: Constricted, Anxious, Sad and Apprehensive Ability to Follow Directions: Fair Speech Pattern: Perseverating and Poor Articulation (dentures off) Thought Process: Distracted, Rumination and Confusion Thought Content: positive for Perseveration, positive for Preoccupation and positive for Tangential Judgement: Poor Diagnostics Vital Signs (24Hr): Vital Signs - 24 hr 01/25/25 08:00 01/25/25 19:52 Temperature 98 F 98.1 F Pulse Rate 84 98 Respiratory Rate 18 18 Blood Pressure 107/56 L 108/60 Pulse Oximetry 95 96 Oxygen Delivery Method Room Air BMI result Body Mass Index 26.7 Labs 01/24/25 06:55 01/23/25 15:05 Labs: Laboratory Results - last 48 hr 01/23/25 01/24/25 20:30 06:55 WBC 7.8 RBC 3.63 L Hgb 11.3 L Hct 33.9 L MCV 93.4 MCH 31.1 MCHC 33.3 RDW 14.3 Plt Count 200 MPV 11.2 Immature Gran % (Auto) 0.4 Neut % (Auto) 72.9 Lymph % (Auto) 14.9 L [place] % (Auto) 9.1 Eos % (Auto) 2.2 Baso % (Auto) 0.5 Lymph # (Auto) 1.2 [place] # (Auto) 0.7 Eos # (Auto) 0.2 Baso # (Auto) 0.0 Abs Immat Gran (auto) 0.03 Absolute Neuts (auto) 5.7 Absolute Nucleated RBC 0.000 Nucleated RBC % (auto) 0.0 Urine Color Yellow Urine Appearance Clear Urine pH 6.0 Ur Specific [place] 1.020 Urine Protein Negative Urine Glucose (UA) Negative Urine Ketones 15 Urine Blood Negative Urine Nitrite Negative Ur Leukocyte Esterase Small (1+) H Urine RBC 0-2 Urine WBC 6-10 H Ur Squamous Epith Cells 3-5 Urine Bacteria None Seen Hyaline Casts 0-2 Medications Medications Current Medications Acetaminophen (Acetaminophen 325 Mg Tablet) 650 mg PO Q6H PRN PRN Reason: Headache/Pain, Scale 1-10 Last Admin: 01/24/25 01:48 Dose: 650 mg Al Hydroxide/Mg Hydroxide (Magnesium Hydrox/Alum Hydrox 30 Ml Oral.Susp) 30 ml PO Q6H PRN PRN Reason: Heartburn/Nausea Aspirin (Aspirin Enteric Coated 81 Mg Tablet.Dr) 81 mg PO DAILY [facility] Last Admin: 01/25/25 08:49 Dose: 81 mg Atorvastatin Calcium (Atorvastatin Calcium 80 Mg Tablet) 80 mg PO DAILY [facility] Last Admin: 01/25/25 08:49 Dose: 80 mg Calcitonin [place] (Calcitonin,[place],Synth Nasal 3.7 Ml Bottle) 1 spray NOSTRILALT DAILY [facility] Last Admin: 01/25/25 09:09 Dose: Not Given Calcium Carbonate/Cholecalciferol (Calcium + Vitamin D 250 Mg Tablet) 250 mg PO DAILY [facility] Last Admin: 01/25/25 08:48 Dose: 250 mg Isosorbide Mononitrate (Isosorbide Mononitrate 60 Mg Tab.Er.24h) 60 mg PO DAILY [facility]; Protocol Last Admin: 01/25/25 08:47 Dose: 60 mg Magnesium Hydroxide (Milk Of Magnesia 30 Ml Oral.Susp) 30 ml PO DAILY PRN PRN Reason: Constipation Methocarbamol (Methocarbamol 750 Mg Tablet) 750 mg PO TID [facility] Last Admin: 01/25/25 20:04 Dose: 750 mg Metoprolol Succinate (Metoprolol Succinate Er 50 Mg Tab.Er.24h) 50 mg PO DAILY [facility]; Protocol Last Admin: 01/25/25 08:48 Dose: 50 mg Mirtazapine (Mirtazapine 15 Mg Tablet) 15 mg PO BEDTIME [facility] Last Admin: 01/25/25 20:04 Dose: 15 mg Multivitamins/Vitamin C (Multivitamin Tablet) 1 tab PO DAILY [facility] Last Admin: 01/25/25 08:48 Dose: 1 tab Nicotine (Nicotine 21 Mg Patch.Td24) 21 mg TRANSDERMA DAILY PRN PRN Reason: nicotine craving Nicotine Polacrilex (Nicotine Polacrilex 2 Mg Gum) 2 mg BUCCAL Q2H PRN PRN Reason: Nicotine Cravings Olanzapine (Olanzapine 2.5 Mg Tablet) 2.5 mg PO Q4H PRN PRN Reason: severe anxiety/agitation Last Admin: 01/24/25 01:48 Dose: 2.5 mg Olanzapine (Olanzapine 2.5 Mg Tablet) 2.5 mg PO TID [facility] Last Admin: 01/25/25 20:04 Dose: 2.5 mg Oxycodone HCl (Oxycodone Hcl Immed Release 5 Mg Tablet) 5 mg PO Q8H PRN PRN Reason: Pain (Scale Score 7-10) Polyethylene Glycol (Polyethylene Glycol 3350 17 Gm Powd.Pack) 17 gm PO DAILY [facility] Last Admin: 01/25/25 08:53 Dose: 17 gm Senna/Docusate Sodium (Sennosides/Docusate Sodium Tablet) 1 tab PO DAILY [facility] Last Admin: 01/25/25 08:47 Dose: 1 tab Vitamin D (Cholecalciferol (Vitamin D3) 25 Mcg Tablet) 25 mcg PO DAILY [facility] Last Admin: 01/25/25 08:48 Dose: 25 mcg Allergies Allergies Allergy/AdvReac Type Severity Reaction Status Date / Time No Known Allergies Allergy Verified 01/19/25 21:56 Assessment & Plan Assessment & Plan (1) Severe anxiety: Status: Acute Code(s): F41.9 - Anxiety disorder, unspecified (2) Cognitive impairment: Status: Acute Code(s): R41.89 - Other symptoms and signs involving cognitive functions and awareness (3) HTN (hypertension): Status: Acute Code(s): I10 - Essential (primary) hypertension (4) Suicidal ideation: Status: Acute Code(s): R45.851 - Suicidal ideations Plan 84-year-old female past medical history listed below who presented to the ED with suicidal thoughts agitation and delirium. Admitted to inpatient geriatric psychiatric unit for further stabilization. 01/24 continue tx. presents as more alert, no SI/HI. No med changes at this time. 01/25 continue tx. alert, more aware of idea of being in the hospital. no overt psychosis or delusional content. No aggression. BP on lower side, monitor ortho HOTN, encourage fluids. Reason for continued inpatient stay Substantial Risk for: inability to function Time Spent With Patient Time: Total time managing care of this patient today ____ minutes.
--- NOTE | 2025-01-26 08:00 | P.PNPSI_ITS ---
Subjective Subjective Date of Service: 01/26/25 Reason For Visit: SI, severe anxiety/restless/hopeless/helpless Subjective Notes: Conditional Voluntary Healthcare Proxy: Yes Interim History: Pt is less agitated than last week although she repeats she cannot do anything anymore, and goes on to say her family is placing her in NH, which was not my experience from our initial conversation. Significant but partial improvement in ability to relate/communicate ideas and appears less agitated and irritable today. She says she would have liked to go back to [facility] because that is her community. Reports last night she had neck pain that went into her shoulders, not present now. She did not bring up her bills, insurance or financial issues. Ambulating with walker. Review of Systems Review of Systems Per medical H&P Yes Other (as per HPI) Mental Status Exam Mental Status Exam Narrative: Patient Appearance: Fatigued and Disheveled Patient Orientation: Person and Place Level of Consciousness: Awake Patient Behavior: Anxious and Confused Mood Description: Sad and Nervous Affect Description: Constricted, Anxious and Sad Ability to Follow Directions: Fair Speech Pattern: Perseverating and Poor Articulation (dentures off) Thought Process: Distracted, Rumination and Confusion Thought Content: positive for Obsessional Thoughts, positive for Perseveration, positive for Preoccupation and positive for Tangential Judgement: Poor Diagnostics Vital Signs (24Hr): Vital Signs - 24 hr 01/25/25 19:52 Temperature 98.1 F Pulse Rate 98 Respiratory Rate 18 Blood Pressure 108/60 Pulse Oximetry 96 Oxygen Delivery Method Room Air BMI result Body Mass Index 26.7 Labs 01/24/25 06:55 01/23/25 15:05 Labs: Laboratory Results - last 48 hr 01/23/25 01/24/25 20:30 06:55 WBC 7.8 RBC 3.63 L Hgb 11.3 L Hct 33.9 L MCV 93.4 MCH 31.1 MCHC 33.3 RDW 14.3 Plt Count 200 MPV 11.2 Immature Gran % (Auto) 0.4 Neut % (Auto) 72.9 Lymph % (Auto) 14.9 L [place] % (Auto) 9.1 Eos % (Auto) 2.2 Baso % (Auto) 0.5 Lymph # (Auto) 1.2 [place] # (Auto) 0.7 Eos # (Auto) 0.2 Baso # (Auto) 0.0 Abs Immat Gran (auto) 0.03 Absolute Neuts (auto) 5.7 Absolute Nucleated RBC 0.000 Nucleated RBC % (auto) 0.0 Urine Color Yellow Urine Appearance Clear Urine pH 6.0 Ur Specific [place] 1.020 Urine Protein Negative Urine Glucose (UA) Negative Urine Ketones 15 Urine Blood Negative Urine Nitrite Negative Ur Leukocyte Esterase Small (1+) H Urine RBC 0-2 Urine WBC 6-10 H Ur Squamous Epith Cells 3-5 Urine Bacteria None Seen Hyaline Casts 0-2 Medications Medications Current Medications Acetaminophen (Acetaminophen 325 Mg Tablet) 650 mg PO Q6H PRN PRN Reason: Headache/Pain, Scale 1-10 Last Admin: 01/26/25 00:23 Dose: 650 mg Al Hydroxide/Mg Hydroxide (Magnesium Hydrox/Alum Hydrox 30 Ml Oral.Susp) 30 ml PO Q6H PRN PRN Reason: Heartburn/Nausea Aspirin (Aspirin Enteric Coated 81 Mg Tablet.Dr) 81 mg PO DAILY [facility] Last Admin: 01/25/25 08:49 Dose: 81 mg Atorvastatin Calcium (Atorvastatin Calcium 80 Mg Tablet) 80 mg PO DAILY [facility] Last Admin: 01/25/25 08:49 Dose: 80 mg Calcitonin [place] (Calcitonin,[place],Synth Nasal 3.7 Ml Bottle) 1 spray NOSTRILALT DAILY [facility] Last Admin: 01/25/25 09:09 Dose: Not Given Calcium Carbonate/Cholecalciferol (Calcium + Vitamin D 250 Mg Tablet) 250 mg PO DAILY [facility] Last Admin: 01/25/25 08:48 Dose: 250 mg Isosorbide Mononitrate (Isosorbide Mononitrate 60 Mg Tab.Er.24h) 60 mg PO DAILY [facility]; Protocol Last Admin: 01/25/25 08:47 Dose: 60 mg Magnesium Hydroxide (Milk Of Magnesia 30 Ml Oral.Susp) 30 ml PO DAILY PRN PRN Reason: Constipation Methocarbamol (Methocarbamol 750 Mg Tablet) 750 mg PO TID [facility] Last Admin: 01/25/25 20:04 Dose: 750 mg Metoprolol Succinate (Metoprolol Succinate Er 50 Mg Tab.Er.24h) 50 mg PO DAILY [facility]; Protocol Last Admin: 01/25/25 08:48 Dose: 50 mg Mirtazapine (Mirtazapine 15 Mg Tablet) 15 mg PO BEDTIME [facility] Last Admin: 01/25/25 20:04 Dose: 15 mg Multivitamins/Vitamin C (Multivitamin Tablet) 1 tab PO DAILY [facility] Last Admin: 01/25/25 08:48 Dose: 1 tab Nicotine (Nicotine 21 Mg Patch.Td24) 21 mg TRANSDERMA DAILY PRN PRN Reason: nicotine craving Nicotine Polacrilex (Nicotine Polacrilex 2 Mg Gum) 2 mg BUCCAL Q2H PRN PRN Reason: Nicotine Cravings Olanzapine (Olanzapine 2.5 Mg Tablet) 2.5 mg PO Q4H PRN PRN Reason: severe anxiety/agitation Last Admin: 01/26/25 00:23 Dose: 2.5 mg Olanzapine (Olanzapine 2.5 Mg Tablet) 2.5 mg PO TID [facility] Last Admin: 01/25/25 20:04 Dose: 2.5 mg Oxycodone HCl (Oxycodone Hcl Immed Release 5 Mg Tablet) 5 mg PO Q8H PRN PRN Reason: Pain (Scale Score 7-10) Polyethylene Glycol (Polyethylene Glycol 3350 17 Gm Powd.Pack) 17 gm PO DAILY [facility] Last Admin: 01/25/25 08:53 Dose: 17 gm Senna/Docusate Sodium (Sennosides/Docusate Sodium Tablet) 1 tab PO DAILY [facility] Last Admin: 01/25/25 08:47 Dose: 1 tab Vitamin D (Cholecalciferol (Vitamin D3) 25 Mcg Tablet) 25 mcg PO DAILY [facility] Last Admin: 01/25/25 08:48 Dose: 25 mcg Allergies Allergies Allergy/AdvReac Type Severity Reaction Status Date / Time No Known Allergies Allergy Verified 01/19/25 21:56 Assessment & Plan Assessment & Plan (1) HTN (hypertension): Status: Acute Code(s): I10 - Essential (primary) hypertension (2) Severe anxiety: Status: Acute Code(s): F41.9 - Anxiety disorder, unspecified (3) Suicidal ideation: Status: Acute Code(s): R45.851 - Suicidal ideations (4) Cognitive impairment: Status: Acute Code(s): R41.89 - Other symptoms and signs involving cognitive functions and awareness Plan Per Medicine: 84-year-old female past medical history listed below who presented to the ED with suicidal thoughts agitation and delirium. Admitted to inpatient geriatric psychiatric unit for further stabilization. Coronary artery disease/hypertension/history of [place] with coronary artery with coronary artery bypass graft in her LAD Stable with no symptoms, Continue aspirin, atorvastatin, Imdur, metoprolol Chronic kidney disease stage 2/hypertensive kidney disease/history of microscopic hematuria Creatinine of 0.57 with a GFR of 90 at baseline Avoid nephrotoxins Low back pain/recent kyphoplasty due to L1-L2 compression fracture Continue Robaxin and Tylenol Reason for continued inpatient stay Substantial Risk for: inability to function Time Spent With Patient Time: Total time managing care of this patient today _35___ minutes.
[2025-01-26 08:36] VITALS: BP 122/63; PULSE 80; RESP 16; TEMP 36.4; O2SAT 95
[2025-01-26] MEDS: Calcitonin,Salmon,Synth Nasal 3.7 ML BOTTLE 1 SPRAY NOSTRILALT (08:38)
[2025-01-26] MEDS: Calcium + Vitamin D 250 MG TABLET PO (08:39)
[2025-01-26] MEDS: Aspirin Enteric Coated 81 MG TABLET.DR PO (08:40)
[2025-01-26] MEDS: Metoprolol Succinate ER 50 MG TAB.ER.24H PO (08:40)
--- NOTE | 2025-01-26 12:13 | MHC.SLORD ---
Speech Language Pathology Order Status: SPLITTING MACHINE TENDER contacted unit this morning to confirm if evaluation still needed as pt on regular diet, thin liquids. No physiological concerns with swallow noted in reports. Pt sitting at dining room table, lifting lid off plate and shuffling items on tray. Pt conversant but did not eat. SPLITTING MACHINE TENDER to assess swallow function when able, no choking or aspiration has been observed, pt intake is poor. MD and RN notified via secure text.
[2025-01-26 21:38] VITALS: BP 144/71; PULSE 87; RESP 16; TEMP 36.8; O2SAT 96
[2025-01-27 08:20] VITALS: BP 150/70; PULSE 98; RESP 14; TEMP 37; O2SAT 97
[2025-01-27] MEDS: Calcium + Vitamin D 250 MG TABLET PO (08:47)
[2025-01-27] MEDS: Metoprolol Succinate ER 50 MG TAB.ER.24H PO (08:49)
[2025-01-27] MEDS: Aspirin Enteric Coated 81 MG TABLET.DR PO (08:50)
[2025-01-27] MEDS: oxyCODONE HCl Immed Release 5 MG TABLET PO (09:29)
--- NOTE | 2025-01-27 14:56 | MHC.SL.SWA ---
Speech Pathologist Impression: WFL Risk of Aspiration Due to: Current cognitive functioning (mild confusion noted) Dysphasia Diet Status:Recommend CONTINUE with REGULAR/THIN Liquid Consistency and Strategies for Safe Swallow: Liquid Intake Recommendation: Thin Liquid Intake Strategies: Solid Food Consistency: Dietary Recommendations: Regular Additional Modifications to Solid Foods: Oral Medication Intake: Whole with Liquid Please contact the pharmacy regarding appropriate crushable or liquid drug formulations that are available whenever modified delivery is recommended. Compensatory Strategies and Precautions to be Taken for Safe Swallow: Sit Upright Slow self-feeding rate Small sips/bites Alternate liquids/solids Remain upright after meal (30 minutes) Supervision While Eating and Drinking for Safe Swallow: Intermittent Supervision Foods to Avoid: hard/[id number] solids Swallowing Recommended Treatments: Compensatory Strategies Recommendation for Speech: Inpatient Speech Therapy Comment: Patient presents with oropharyngeal swallowing function deemed WFL. Discussion over modifications; modifications likely would limit patient's menu options even further and decrease already poor PO intake. Patient politely refusing modifications. Patient with no overt s/sx of penetration/aspiration. Recommend CONTINUE with REGULAR solids, THIN liquids with intermittent supervision and assistance and encouragement of having patient select softer menu items to ease mastication difficulties. Medications WHOLE with liquids. MD and RN notified of recommendations via secure chat. MAJOR [employer]SEM[employer] LINEMAN to follow-up 1-2x. Frequency/Duration: M-F Daily; Follow-up 1-2x Date Range for Service Req: Timeline to reassess: Vp Of Global Marketing Clinican/Clinical Fellow: No Supervisory Statement: I have reviewed and agree with the student/clinical fellow's documentation: No Speech Language Pathologist: Elvia Snell M.A., [facility] [employer] [facility]
[2025-01-27 20:00] VITALS: BP 128/70; PULSE 90; RESP 16; TEMP 36.2; O2SAT 96
[2025-01-28 08:00] VITALS: BP 118/81; PULSE 93; RESP 16; TEMP 36.7
--- NOTE | 2025-01-28 09:43 | P.PNPSI_ITS ---
Subjective Subjective Date of Service: 01/27/25 Reason For Visit: SI, severe anxiety/restless/hopeless/helpless Subjective Notes: Conditional Voluntary Healthcare Proxy: Yes Guardianship: No Medical Problems Affecting Mental Status: Yes Interim History: Patient remains confused but has decreased difficulty walking and is less disjointed in responses Mental Status Exam Mental Status Exam Patient Appearance: Disheveled Patient Orientation: Person, Place, Time and Situation Level of Consciousness: Awake Patient Behavior: Dependent and Anxious Mood Description: Anxious Affect Description: Anxious and Apprehensive Speech Pattern: Garbled (no dentures) Hallucinations: None Thought Process: Rumination Thought Content: positive for Perseveration and positive for Preoccupation Judgement: Poor Diagnostics Vital Signs (24Hr): Vital Signs - 24 hr 01/27/25 20:00 01/28/25 08:00 Temperature 97.2 F 98.1 F Pulse Rate 90 93 Respiratory Rate 16 16 Blood Pressure 128/70 118/81 Pulse Oximetry 96 Oxygen Delivery Method Room Air BMI result Body Mass Index 26.7 Labs 01/24/25 06:55 01/23/25 15:05 Medications Medications Current Medications Acetaminophen (Acetaminophen 325 Mg Tablet) 650 mg PO Q6H PRN PRN Reason: Headache/Pain, Scale 1-10 Last Admin: 01/26/25 00:23 Dose: 650 mg Al Hydroxide/Mg Hydroxide (Magnesium Hydrox/Alum Hydrox 30 Ml Oral.Susp) 30 ml PO Q6H PRN PRN Reason: Heartburn/Nausea Aspirin (Aspirin Enteric Coated 81 Mg Tablet.Dr) 81 mg PO DAILY [facility] Last Admin: 01/27/25 08:50 Dose: 81 mg Atorvastatin Calcium (Atorvastatin Calcium 80 Mg Tablet) 80 mg PO DAILY [facility] Last Admin: 01/27/25 08:49 Dose: 80 mg Calcitonin [place] (Calcitonin,[place],Synth Nasal 3.7 Ml Bottle) 1 spray NOSTRILALT DAILY [facility] Last Admin: 01/27/25 09:28 Dose: Not Given Calcium Carbonate/Cholecalciferol (Calcium + Vitamin D 250 Mg Tablet) 250 mg PO DAILY [facility] Last Admin: 01/27/25 08:47 Dose: 250 mg Isosorbide Mononitrate (Isosorbide Mononitrate 60 Mg Tab.Er.24h) 60 mg PO DAILY [facility]; Protocol Last Admin: 01/27/25 08:48 Dose: 60 mg Magnesium Hydroxide (Milk Of Magnesia 30 Ml Oral.Susp) 30 ml PO DAILY PRN PRN Reason: Constipation Methocarbamol (Methocarbamol 750 Mg Tablet) 750 mg PO TID [facility] Last Admin: 01/27/25 20:25 Dose: 750 mg Metoprolol Succinate (Metoprolol Succinate Er 50 Mg Tab.Er.24h) 50 mg PO DAILY [facility]; Protocol Last Admin: 01/27/25 08:49 Dose: 50 mg Mirtazapine (Mirtazapine 15 Mg Tablet) 15 mg PO BEDTIME [facility] Last Admin: 01/27/25 20:26 Dose: 15 mg Multivitamins/Vitamin C (Multivitamin Tablet) 1 tab PO DAILY [facility] Last Admin: 01/27/25 08:49 Dose: 1 tab Nicotine (Nicotine 21 Mg Patch.Td24) 21 mg TRANSDERMA DAILY PRN PRN Reason: nicotine craving Nicotine Polacrilex (Nicotine Polacrilex 2 Mg Gum) 2 mg BUCCAL Q2H PRN PRN Reason: Nicotine Cravings Olanzapine (Olanzapine 2.5 Mg Tablet) 2.5 mg PO Q4H PRN PRN Reason: severe anxiety/agitation Last Admin: 01/26/25 00:23 Dose: 2.5 mg Olanzapine (Olanzapine 2.5 Mg Tablet) 2.5 mg PO TID [facility] Last Admin: 01/27/25 20:25 Dose: 2.5 mg Oxycodone HCl (Oxycodone Hcl Immed Release 5 Mg Tablet) 5 mg PO Q8H PRN PRN Reason: Pain (Scale Score 7-10) Last Admin: 01/27/25 09:29 Dose: 5 mg Polyethylene Glycol (Polyethylene Glycol 3350 17 Gm Powd.Pack) 17 gm PO DAILY [facility] Last Admin: 01/27/25 08:50 Dose: Not Given Senna/Docusate Sodium (Sennosides/Docusate Sodium Tablet) 1 tab PO DAILY [facility] Last Admin: 01/27/25 08:48 Dose: 1 tab Vitamin D (Cholecalciferol (Vitamin D3) 25 Mcg Tablet) 25 mcg PO DAILY [facility] Last Admin: 01/27/25 08:50 Dose: 25 mcg Allergies Allergies Allergy/AdvReac Type Severity Reaction Status Date / Time No Known Allergies Allergy Verified 01/19/25 21:56 Assessment & Plan Assessment & Plan (1) HTN (hypertension): Status: Acute Code(s): I10 - Essential (primary) hypertension (2) Severe anxiety: Status: Acute Code(s): F41.9 - Anxiety disorder, unspecified (3) Suicidal ideation: Status: Acute Code(s): R45.851 - Suicidal ideations (4) Cognitive impairment: Status: Acute Code(s): R41.89 - Other symptoms and signs involving cognitive functions and awareness Plan Per Medicine: 84-year-old female past medical history listed below who presented to the ED with suicidal thoughts agitation and delirium. Admitted to inpatient geriatric psychiatric unit for further stabilization. Coronary artery disease/hypertension/history of [place] with coronary artery with coronary artery bypass graft in her LAD Stable with no symptoms, Continue aspirin, atorvastatin, Imdur, metoprolol Chronic kidney disease stage 2/hypertensive kidney disease/history of microscopic hematuria Creatinine of 0.57 with a GFR of 90 at baseline Avoid nephrotoxins Low back pain/recent kyphoplasty due to L1-L2 compression fracture Continue Robaxin and Tylenol Reason for continued inpatient stay Substantial Risk for: inability to function, rapid decompensation and med/psych decompensation Time Spent With Patient Time: Total time managing care of this patient today ____ minutes.
[2025-01-28] MEDS: Metoprolol Succinate ER 50 MG TAB.ER.24H PO (11:22)
--- NOTE | 2025-01-28 11:25 | HO.PSYCHPN ---
Subjective Subjective Date of Service: 01/28/25 Reason For Visit: SI, severe anxiety/restless/hopeless/helpless Interim History: Visible in the milieu, in NAD, wants to go home, some sedation with Olanzapine Review of Systems Review of Systems No new/acute complaints Yes Unobtainable due to mental status and Other (no new complaints ROS some back pain following procedure) Mental Status Exam Mental Status Exam Narrative: denies SI or HI. Patient Appearance: Unkempt Patient Orientation: Person, Place, Time and Situation Level of Consciousness: Awake, Sedated and Alert Patient Behavior: Dependent and Confused (decreasing) Mood Description: Constricted and Anxious (significantly less) Affect Description: Constricted Ability to Follow Directions: Good Speech Pattern: Garbled (no dentures) and Coherent Hallucinations: None Delusions: Not Present Thought Process: Linear Thought Content: positive for Goal Oriented, positive for Perseveration and positive for Poverty of Content Judgement: Fair (limited) Diagnostics Vital Signs (24Hr): Vital Signs - 24 hr 01/27/25 20:00 01/28/25 08:00 Temperature 97.2 F 98.1 F Pulse Rate 90 93 Respiratory Rate 16 16 Blood Pressure 128/70 118/81 Pulse Oximetry 96 Oxygen Delivery Method Room Air BMI result Body Mass Index 26.7 Labs 01/24/25 06:55 01/23/25 15:05 Medications Medications Current Medications Acetaminophen (Acetaminophen 325 Mg Tablet) 650 mg PO Q6H PRN PRN Reason: Headache/Pain, Scale 1-10 Last Admin: 01/26/25 00:23 Dose: 650 mg Al Hydroxide/Mg Hydroxide (Magnesium Hydrox/Alum Hydrox 30 Ml Oral.Susp) 30 ml PO Q6H PRN PRN Reason: Heartburn/Nausea Aspirin (Aspirin Enteric Coated 81 Mg Tablet.Dr) 81 mg PO DAILY [facility] Last Admin: 01/27/25 08:50 Dose: 81 mg Atorvastatin Calcium (Atorvastatin Calcium 80 Mg Tablet) 80 mg PO DAILY [facility] Last Admin: 01/27/25 08:49 Dose: 80 mg Calcitonin [place] (Calcitonin,[place],Synth Nasal 3.7 Ml Bottle) 1 spray NOSTRILALT DAILY [facility] Last Admin: 01/27/25 09:28 Dose: Not Given Calcium Carbonate/Cholecalciferol (Calcium + Vitamin D 250 Mg Tablet) 250 mg PO DAILY [facility] Last Admin: 01/27/25 08:47 Dose: 250 mg Isosorbide Mononitrate (Isosorbide Mononitrate 60 Mg Tab.Er.24h) 60 mg PO DAILY [facility]; Protocol Last Admin: 01/27/25 08:48 Dose: 60 mg Magnesium Hydroxide (Milk Of Magnesia 30 Ml Oral.Susp) 30 ml PO DAILY PRN PRN Reason: Constipation Methocarbamol (Methocarbamol 750 Mg Tablet) 750 mg PO TID [facility] Last Admin: 01/27/25 20:25 Dose: 750 mg Metoprolol Succinate (Metoprolol Succinate Er 50 Mg Tab.Er.24h) 50 mg PO DAILY [facility]; Protocol Last Admin: 01/27/25 08:49 Dose: 50 mg Mirtazapine (Mirtazapine 7.5 Mg Tablet) 22.5 mg PO BEDTIME [facility] Multivitamins/Vitamin C (Multivitamin Tablet) 1 tab PO DAILY [facility] Last Admin: 01/27/25 08:49 Dose: 1 tab Nicotine (Nicotine 21 Mg Patch.Td24) 21 mg TRANSDERMA DAILY PRN PRN Reason: nicotine craving Nicotine Polacrilex (Nicotine Polacrilex 2 Mg Gum) 2 mg BUCCAL Q2H PRN PRN Reason: Nicotine Cravings Olanzapine (Olanzapine 2.5 Mg Tablet) 2.5 mg PO Q4H PRN PRN Reason: severe anxiety/agitation Last Admin: 01/26/25 00:23 Dose: 2.5 mg Polyethylene Glycol (Polyethylene Glycol 3350 17 Gm Powd.Pack) 17 gm PO DAILY [facility] Last Admin: 01/27/25 08:50 Dose: Not Given Risperidone (Risperidone 0.5 Mg Tablet) 0.5 mg PO BID [facility] Senna/Docusate Sodium (Sennosides/Docusate Sodium Tablet) 1 tab PO DAILY [facility] Last Admin: 01/27/25 08:48 Dose: 1 tab Vitamin D (Cholecalciferol (Vitamin D3) 25 Mcg Tablet) 25 mcg PO DAILY [facility] Last Admin: 01/27/25 08:50 Dose: 25 mcg Allergies Allergies Allergy/AdvReac Type Severity Reaction Status Date / Time No Known Allergies Allergy Verified 01/19/25 21:56 Assessment & Plan Assessment & Plan (1) Severe anxiety: Status: Acute Code(s): F41.9 - Anxiety disorder, unspecified (2) HTN (hypertension): Status: Acute Code(s): I10 - Essential (primary) hypertension (3) Suicidal ideation: Status: Acute Code(s): R45.851 - Suicidal ideations (4) Cognitive impairment: Status: Acute Code(s): R41.89 - Other symptoms and signs involving cognitive functions and awareness (5) Confusion caused by a drug: Status: Acute Code(s): R41.0 - Disorientation, unspecified; T50.905A - Adverse effect of unspecified drugs, medicaments and biological substances, initial encounter Plan 84-year-old female past medical history listed below who presented to the ED with suicidal thoughts agitation and delirium. Admitted to inpatient geriatric psychiatric unit for further stabilization. Psychiatry: Severe anxiety, confusion with inability to function associated with recent medication additions following surgical procedure Medical Coronary artery disease/hypertension/history of [place] with coronary artery with coronary artery bypass graft in her LAD Stable with no symptoms, Continue aspirin, atorvastatin, Imdur, metoprolol Chronic kidney disease stage 2/hypertensive kidney disease/history of microscopic hematuria Creatinine of 0.57 with a GFR of 90 at baseline Avoid nephrotoxins Low back pain/recent kyphoplasty due to L1-L2 compression fracture Continue Robaxin and Tylenol, prn Oxycodone Patient educated on: diagnosis, medication risk/benefits, therapeutic strategies and medical condition Guardian/Caregiver educated on: diagnosis, medication risk/benefits, therapeutic strategies and medical condition Informed Consent: further education needed Reason for continued inpatient stay Substantial Risk for: inability to function Time Spent With Patient Time: Total time managing care of this patient today ____ minutes.
--- NOTE | 2025-01-28 12:32 | MHC.SLORD ---
Speech Language Pathology Order Status: RN consulted, pt took meds this morning without difficulty given gentle verbal encouragement. Pt is edentulous as she's missing her upper dentures. Pt sleeping this afternoon during lunchtime. TRAIN CONTROL TECHNICIAN will continue to follow.
[2025-01-28 20:00] VITALS: BP 155/77; PULSE 78; RESP 16; TEMP 36.8; O2SAT 95
[2025-01-29 08:00] VITALS: BP 130/63; PULSE 67; TEMP 36.6; O2SAT 95
[2025-01-29] MEDS: Metoprolol Succinate ER 50 MG TAB.ER.24H PO (08:56)
[2025-01-29] MEDS: Calcitonin,Salmon,Synth Nasal 3.7 ML BOTTLE 1 SPRAY NOSTRILALT (09:03)
--- NOTE | 2025-01-29 12:42 | PC.NURSE ---
Having difficulty with eating the meat due to her partial plates not fitting properly so her diet was down graded to grd.
[2025-01-29 20:16] VITALS: BP 123/60; PULSE 100; RESP 16; TEMP 36.7; O2SAT 94
--- NOTE | 2025-01-29 23:51 | P.PNPSI_ITS ---
Subjective Subjective Date of Service: 01/29/25 Reason For Visit: SI, severe anxiety/restless/hopeless/helpless Subjective Notes: [place] Warning and Conditional Voluntary Healthcare Proxy: Yes Medication Compliance: Yes Review of Systems Review of Systems Family meeting with patient, , son and daughter. Presents much clearer, alert, speaking in a goal oriented fashion without the disorganized,perseverative quality seen on admission, Medication changes discussed. Now that she presents clearer, patient and family went over the list. and family went over list with MD. Explained first concern given her age was the dose of Robaxifen which was reduced to TID. Also discussed change to Risperdal from scheduled Olanzapine, given the levels of sedation with the latter. Family said they were happy with progress and patient episodically quipped with her own views of her family's acct While not completely asymptomatic, patient seemed able to discuss being away from home for her care.She reported being too sedated until recently Yes Other (no new complaints ROS some back pain following procedure) Mental Status Exam Mental Status Exam Patient Appearance: Disheveled Patient Orientation: Person, Place, Time and Situation Level of Consciousness: Awake (more alert) and Combative Patient Behavior: Suspicious and Anxious Mood Description: Suspicious, Constricted, Anxious and Blunted Affect Description: Constricted, Fearful and Angry Ability to Follow Directions: Fair Speech Pattern: Perseverating, Garbled (no dentures), Spontaneous Speech and Poor Articulation (due to no dentures) Hallucinations: Visual (purple haze) Thought Content: positive for [place], positive for Goal Oriented, positive for Preoccupation and positive for Tangential Diagnostics Vital Signs (24Hr): Vital Signs - 24 hr 01/29/25 08:00 01/29/25 20:16 Temperature 98 F 98.1 F Pulse Rate 67 100 Respiratory Rate 16 Blood Pressure 130/63 123/60 Pulse Oximetry 95 94 Oxygen Delivery Method Room Air BMI result Body Mass Index 26.7 Labs 01/24/25 06:55 01/23/25 15:05 Medications Medications Current Medications Acetaminophen (Acetaminophen 325 Mg Tablet) 650 mg PO Q6H PRN PRN Reason: Headache/Pain, Scale 1-10 Last Admin: 01/26/25 00:23 Dose: 650 mg Al Hydroxide/Mg Hydroxide (Magnesium Hydrox/Alum Hydrox 30 Ml Oral.Susp) 30 ml PO Q6H PRN PRN Reason: Heartburn/Nausea Aspirin (Aspirin Enteric Coated 81 Mg Tablet.Dr) 81 mg PO DAILY [facility] Last Admin: 01/29/25 09:06 Dose: Not Given Atorvastatin Calcium (Atorvastatin Calcium 80 Mg Tablet) 80 mg PO DAILY [facility] Last Admin: 01/29/25 09:06 Dose: Not Given Calcitonin [place] (Calcitonin,[place],Synth Nasal 3.7 Ml Bottle) 1 spray NOSTRILALT DAILY [facility] Last Admin: 01/29/25 09:03 Dose: 1 spray Calcium Carbonate/Cholecalciferol (Calcium + Vitamin D 250 Mg Tablet) 250 mg PO DAILY [facility] Last Admin: 01/29/25 09:05 Dose: Not Given Isosorbide Mononitrate (Isosorbide Mononitrate 60 Mg Tab.Er.24h) 60 mg PO DAILY [facility]; Protocol Last Admin: 01/29/25 08:54 Dose: 60 mg Magnesium Hydroxide (Milk Of Magnesia 30 Ml Oral.Susp) 30 ml PO DAILY PRN PRN Reason: Constipation Methocarbamol (Methocarbamol 750 Mg Tablet) 750 mg PO TID [facility] Last Admin: 01/29/25 20:18 Dose: 750 mg Metoprolol Succinate (Metoprolol Succinate Er 50 Mg Tab.Er.24h) 50 mg PO DAILY [facility]; Protocol Last Admin: 01/29/25 08:56 Dose: 50 mg Mirtazapine (Mirtazapine 7.5 Mg Tablet) 22.5 mg PO BEDTIME [facility] Last Admin: 01/29/25 20:17 Dose: 22.5 mg Multivitamins/Vitamin C (Multivitamin Tablet) 1 tab PO DAILY [facility] Last Admin: 01/29/25 09:06 Dose: Not Given Nicotine (Nicotine 21 Mg Patch.Td24) 21 mg TRANSDERMA DAILY PRN PRN Reason: nicotine craving Nicotine Polacrilex (Nicotine Polacrilex 2 Mg Gum) 2 mg BUCCAL Q2H PRN PRN Reason: Nicotine Cravings Olanzapine (Olanzapine 2.5 Mg Tablet) 2.5 mg PO Q4H PRN PRN Reason: severe anxiety/agitation Last Admin: 01/28/25 14:55 Dose: 2.5 mg Oxycodone HCl (Oxycodone Hcl Immed Release 5 Mg Tablet) 2.5 mg PO Q6H PRN PRN Reason: Pain, Moderate(Pain Scale 7-10 Polyethylene Glycol (Polyethylene Glycol 3350 17 Gm Powd.Pack) 17 gm PO DAILY [facility] Last Admin: 01/29/25 09:06 Dose: Not Given Risperidone (Risperidone 0.5 Mg Tablet) 0.5 mg PO BID [facility] Last Admin: 01/29/25 20:17 Dose: 0.5 mg Senna/Docusate Sodium (Sennosides/Docusate Sodium Tablet) 1 tab PO DAILY [facility] Last Admin: 01/29/25 08:55 Dose: 1 tab Vitamin D (Cholecalciferol (Vitamin D3) 25 Mcg Tablet) 25 mcg PO DAILY [facility] Last Admin: 01/29/25 09:05 Dose: Not Given Allergies Allergies Allergy/AdvReac Type Severity Reaction Status Date / Time No Known Allergies Allergy Verified 01/19/25 21:56 Assessment & Plan Assessment & Plan (1) HTN (hypertension): Status: Acute Code(s): I10 - Essential (primary) hypertension (2) Severe anxiety: Status: Acute Code(s): F41.9 - Anxiety disorder, unspecified (3) Suicidal ideation: Status: Acute Code(s): R45.851 - Suicidal ideations (4) Cognitive impairment: Status: Acute Code(s): R41.89 - Other symptoms and signs involving cognitive functions and awareness Plan Per Medicine: 84-year-old female past medical history listed below who presented to the ED with suicidal thoughts agitation and delirium. Admitted to inpatient geriatric psychiatric unit for further stabilization. Coronary artery disease/hypertension/history of [place] with coronary artery with coronary artery bypass graft in her LAD Stable with no symptoms, Continue aspirin, atorvastatin, Imdur, metoprolol Chronic kidney disease stage 2/hypertensive kidney disease/history of microscopic hematuria Creatinine of 0.57 with a GFR of 90 at baseline Avoid nephrotoxins Low back pain/recent kyphoplasty due to L1-L2 compression fracture Continue Robaxin and Tylenol Reason for continued inpatient stay Substantial Risk for: inability to function and med/psych decompensation Time Spent With Patient Time: Total time managing care of this patient today ____ minutes.
[2025-01-30 08:00] VITALS: BP 119/58; PULSE 110; RESP 16; TEMP 36.7; O2SAT 92
[2025-01-30] MEDS: Aspirin Enteric Coated 81 MG TABLET.DR PO (08:47)
[2025-01-30] MEDS: Metoprolol Succinate ER 50 MG TAB.ER.24H PO (08:48)
[2025-01-30] MEDS: Calcium + Vitamin D 250 MG TABLET PO (08:48)
[2025-01-30] MEDS: Calcitonin,Salmon,Synth Nasal 3.7 ML BOTTLE 1 SPRAY NOSTRILALT (11:11)
--- NOTE | 2025-01-30 18:01 | HO.PSYCHPN ---
Subjective Subjective Date of Service: 01/30/25 Reason For Visit: SI, severe anxiety/restless/hopeless/helpless Interim History: AWAKE AND VISIBLE IN THE [place]. CLEAR AND NO VISIBLY SEDATED. STILL ANXIOUS BUT ABLE MUCH BETTER ABLE TO FUNCTION. USING A WALKER. SLEPT WELL. EATING OK. IN SOCIAL AREAS, SITTING IN THE DINING ROOM WITH PEERS Medication Compliance: Yes Attending Groups: Intermittent Review of Systems C/O NECK/BACK PAIN, ADD COGENTIN AT HS FOR possibility of eps as side effect, add Cogentin 0.5 mg monitor (anticholinergic) effects Diagnostics Vital Signs (24Hr): Vital Signs - 24 hr 01/29/25 20:16 01/30/25 08:00 Temperature 98.1 F 98.0 F Pulse Rate 100 110 H Respiratory Rate 16 16 Blood Pressure 123/60 119/58 L Pulse Oximetry 94 92 Oxygen Delivery Method Room Air Room Air BMI result Body Mass Index 26.7 Labs 01/24/25 06:55 01/23/25 15:05 Medications Medications Current Medications Acetaminophen (Acetaminophen 325 Mg Tablet) 650 mg PO Q6H PRN PRN Reason: Headache/Pain, Scale 1-10 Last Admin: 01/26/25 00:23 Dose: 650 mg Al Hydroxide/Mg Hydroxide (Magnesium Hydrox/Alum Hydrox 30 Ml Oral.Susp) 30 ml PO Q6H PRN PRN Reason: Heartburn/Nausea Aspirin (Aspirin Enteric Coated 81 Mg Tablet.Dr) 81 mg PO DAILY [facility] Last Admin: 01/30/25 08:47 Dose: 81 mg Atorvastatin Calcium (Atorvastatin Calcium 80 Mg Tablet) 80 mg PO DAILY [facility] Last Admin: 01/30/25 08:47 Dose: 80 mg Calcitonin [place] (Calcitonin,[place],Synth Nasal 3.7 Ml Bottle) 1 spray NOSTRILALT DAILY [facility] Last Admin: 01/30/25 11:11 Dose: 1 spray Calcium Carbonate/Cholecalciferol (Calcium + Vitamin D 250 Mg Tablet) 250 mg PO DAILY [facility] Last Admin: 01/30/25 08:48 Dose: 250 mg Isosorbide Mononitrate (Isosorbide Mononitrate 60 Mg Tab.Er.24h) 60 mg PO DAILY [facility]; Protocol Last Admin: 01/30/25 08:48 Dose: 60 mg Magnesium Hydroxide (Milk Of Magnesia 30 Ml Oral.Susp) 30 ml PO DAILY PRN PRN Reason: Constipation Methocarbamol (Methocarbamol 750 Mg Tablet) 750 mg PO TID [facility] Last Admin: 01/30/25 15:38 Dose: 750 mg Metoprolol Succinate (Metoprolol Succinate Er 50 Mg Tab.Er.24h) 50 mg PO DAILY [facility]; Protocol Last Admin: 01/30/25 08:48 Dose: 50 mg Mirtazapine (Mirtazapine 7.5 Mg Tablet) 22.5 mg PO BEDTIME [facility] Last Admin: 01/29/25 20:17 Dose: 22.5 mg Multivitamins/Vitamin C (Multivitamin Tablet) 1 tab PO DAILY [facility] Last Admin: 01/30/25 08:47 Dose: 1 tab Nicotine (Nicotine 21 Mg Patch.Td24) 21 mg TRANSDERMA DAILY PRN PRN Reason: nicotine craving Nicotine Polacrilex (Nicotine Polacrilex 2 Mg Gum) 2 mg BUCCAL Q2H PRN PRN Reason: Nicotine Cravings Olanzapine (Olanzapine 2.5 Mg Tablet) 2.5 mg PO Q4H PRN PRN Reason: severe anxiety/agitation Last Admin: 01/28/25 14:55 Dose: 2.5 mg Oxycodone HCl (Oxycodone Hcl Immed Release 5 Mg Tablet) 2.5 mg PO Q6H PRN PRN Reason: Pain, Moderate(Pain Scale 7-10 Polyethylene Glycol (Polyethylene Glycol 3350 17 Gm Powd.Pack) 17 gm PO DAILY [facility] Last Admin: 01/30/25 08:51 Dose: Not Given Risperidone (Risperidone 0.5 Mg Tablet) 0.5 mg PO BID [facility] Last Admin: 01/30/25 08:48 Dose: 0.5 mg Senna/Docusate Sodium (Sennosides/Docusate Sodium Tablet) 1 tab PO DAILY [facility] Last Admin: 01/30/25 08:48 Dose: 1 tab Vitamin D (Cholecalciferol (Vitamin D3) 25 Mcg Tablet) 25 mcg PO DAILY [facility] Last Admin: 01/30/25 08:48 Dose: 25 mcg Allergies Allergies Allergy/AdvReac Type Severity Reaction Status Date / Time No Known Allergies Allergy Verified 01/19/25 21:56 Assessment & Plan Assessment & Plan (1) Suicidal ideation: Status: Acute Code(s): R45.851 - Suicidal ideations (2) Severe anxiety: Status: Acute Code(s): F41.9 - Anxiety disorder, unspecified (3) Cognitive impairment: Status: Acute Code(s): R41.89 - Other symptoms and signs involving cognitive functions and awareness (4) HTN (hypertension): Status: Acute Code(s): I10 - Essential (primary) hypertension Plan Per Medicine: 84-year-old female past medical history listed below who presented to the ED with suicidal thoughts agitation and delirium. Admitted to inpatient geriatric psychiatric unit for further stabilization. Coronary artery disease/hypertension/history of [place] with coronary artery with coronary artery bypass graft in her LAD Stable with no symptoms, Continue aspirin, atorvastatin, Imdur, metoprolol Chronic kidney disease stage 2/hypertensive kidney disease/history of microscopic hematuria Creatinine of 0.57 with a GFR of 90 at baseline Avoid nephrotoxins Low back pain/recent kyphoplasty due to L1-L2 compression fracture Continue Robaxin and Tylenol Reason for continued inpatient stay Substantial Risk for: inability to function, rapid decompensation and med/psych decompensation Time Spent With Patient Time: Total time managing care of this patient today __15__ minutes.
--- NOTE | 2025-01-30 18:46 | P.PNPSI_ITS ---
Subjective Subjective Reason For Visit: SI, severe anxiety/restless/hopeless/helpless Diagnostics Vital Signs (24Hr): Vital Signs - 24 hr 01/29/25 20:16 01/30/25 08:00 Temperature 98.1 F 98.0 F Pulse Rate 100 110 H Respiratory Rate 16 16 Blood Pressure 123/60 119/58 L Pulse Oximetry 94 92 Oxygen Delivery Method Room Air Room Air BMI result Body Mass Index 26.7 Labs 01/24/25 06:55 01/23/25 15:05 Medications Medications Current Medications Acetaminophen (Acetaminophen 325 Mg Tablet) 650 mg PO Q6H PRN PRN Reason: Headache/Pain, Scale 1-10 Last Admin: 01/26/25 00:23 Dose: 650 mg Al Hydroxide/Mg Hydroxide (Magnesium Hydrox/Alum Hydrox 30 Ml Oral.Susp) 30 ml PO Q6H PRN PRN Reason: Heartburn/Nausea Aspirin (Aspirin Enteric Coated 81 Mg Tablet.Dr) 81 mg PO DAILY [facility] Last Admin: 01/30/25 08:47 Dose: 81 mg Atorvastatin Calcium (Atorvastatin Calcium 80 Mg Tablet) 80 mg PO DAILY [facility] Last Admin: 01/30/25 08:47 Dose: 80 mg Calcitonin [place] (Calcitonin,[place],Synth Nasal 3.7 Ml Bottle) 1 spray NOSTRILALT DAILY [facility] Last Admin: 01/30/25 11:11 Dose: 1 spray Calcium Carbonate/Cholecalciferol (Calcium + Vitamin D 250 Mg Tablet) 250 mg PO DAILY [facility] Last Admin: 01/30/25 08:48 Dose: 250 mg Isosorbide Mononitrate (Isosorbide Mononitrate 60 Mg Tab.Er.24h) 60 mg PO DAILY [facility]; Protocol Last Admin: 01/30/25 08:48 Dose: 60 mg Magnesium Hydroxide (Milk Of Magnesia 30 Ml Oral.Susp) 30 ml PO DAILY PRN PRN Reason: Constipation Methocarbamol (Methocarbamol 750 Mg Tablet) 750 mg PO TID [facility] Last Admin: 01/30/25 15:38 Dose: 750 mg Metoprolol Succinate (Metoprolol Succinate Er 50 Mg Tab.Er.24h) 50 mg PO DAILY [facility]; Protocol Last Admin: 01/30/25 08:48 Dose: 50 mg Mirtazapine (Mirtazapine 7.5 Mg Tablet) 22.5 mg PO BEDTIME [facility] Last Admin: 01/29/25 20:17 Dose: 22.5 mg Multivitamins/Vitamin C (Multivitamin Tablet) 1 tab PO DAILY [facility] Last Admin: 01/30/25 08:47 Dose: 1 tab Nicotine (Nicotine 21 Mg Patch.Td24) 21 mg TRANSDERMA DAILY PRN PRN Reason: nicotine craving Nicotine Polacrilex (Nicotine Polacrilex 2 Mg Gum) 2 mg BUCCAL Q2H PRN PRN Reason: Nicotine Cravings Olanzapine (Olanzapine 2.5 Mg Tablet) 2.5 mg PO Q4H PRN PRN Reason: severe anxiety/agitation Last Admin: 01/28/25 14:55 Dose: 2.5 mg Oxycodone HCl (Oxycodone Hcl Immed Release 5 Mg Tablet) 2.5 mg PO Q6H PRN PRN Reason: Pain, Moderate(Pain Scale 7-10 Polyethylene Glycol (Polyethylene Glycol 3350 17 Gm Powd.Pack) 17 gm PO DAILY [facility] Last Admin: 01/30/25 08:51 Dose: Not Given Risperidone (Risperidone 0.5 Mg Tablet) 0.5 mg PO BID [facility] Last Admin: 01/30/25 08:48 Dose: 0.5 mg Senna/Docusate Sodium (Sennosides/Docusate Sodium Tablet) 1 tab PO DAILY [facility] Last Admin: 01/30/25 08:48 Dose: 1 tab Vitamin D (Cholecalciferol (Vitamin D3) 25 Mcg Tablet) 25 mcg PO DAILY [facility] Last Admin: 01/30/25 08:48 Dose: 25 mcg Allergies Allergies Allergy/AdvReac Type Severity Reaction Status Date / Time No Known Allergies Allergy Verified 01/19/25 21:56 Assessment & Plan Assessment & Plan (1) Suicidal ideation: Status: Acute Code(s): R45.851 - Suicidal ideations (2) Severe anxiety: Status: Acute Code(s): F41.9 - Anxiety disorder, unspecified (3) Cognitive impairment: Status: Acute Code(s): R41.89 - Other symptoms and signs involving cognitive functions and awareness (4) HTN (hypertension): Status: Acute Code(s): I10 - Essential (primary) hypertension Plan Per Medicine: 84-year-old female past medical history listed below who presented to the ED with suicidal thoughts agitation and delirium. Admitted to inpatient geriatric psychiatric unit for further stabilization. Coronary artery disease/hypertension/history of [place] with coronary artery with coronary artery bypass graft in her LAD Stable with no symptoms, Continue aspirin, atorvastatin, Imdur, metoprolol Chronic kidney disease stage 2/hypertensive kidney disease/history of microscopic hematuria Creatinine of 0.57 with a GFR of 90 at baseline Avoid nephrotoxins Low back pain/recent kyphoplasty due to L1-L2 compression fracture Continue Robaxin and Tylenol Time Spent With Patient Time: Total time managing care of this patient today ____ minutes.
[2025-01-30 20:00] VITALS: BP 147/74; PULSE 79; RESP 16; TEMP 36.6; O2SAT 95
[2025-01-31 08:00] VITALS: BP 127/72; PULSE 103; TEMP 36.1; O2SAT 92
[2025-01-31] MEDS: Calcitonin,Salmon,Synth Nasal 3.7 ML BOTTLE 1 SPRAY NOSTRILALT (08:32)
[2025-01-31] MEDS: Calcium + Vitamin D 250 MG TABLET PO (08:35)
[2025-01-31] MEDS: Aspirin Enteric Coated 81 MG TABLET.DR PO (08:35)
[2025-01-31] MEDS: Metoprolol Succinate ER 50 MG TAB.ER.24H PO (08:35)
--- NOTE | 2025-01-31 09:15 | HO.PSYCHPN ---
Subjective Subjective Date of Service: 01/31/25 Reason For Visit: SI, severe anxiety/restless/hopeless/helpless Subjective Notes: Conditional Voluntary Healthcare Proxy: Yes Interim History: met with patient. Discussed with Nursing. Overall main complaint is back discomfort and being very eager for discharge. Is articulate, engaged and no obvious cognitive impairment. Does not feel depressed. Does not want her medications adjusted. Declined lidocaine patch. Appetite good and in the milieu. Utilizing walker appropriately. Medication Compliance: Yes Side effects from medications: No Attending Groups: Intermittent Review of Systems Acute medical concerns: No Review of Systems Review of Systems Nothing acute Mental Status Exam Mental Status Exam Narrative: denies SI or HI. Patient Appearance: Appropriate Patient Orientation: Person, Place, Time and Situation Level of Consciousness: Awake (more alert) Patient Behavior: Anxious Mood Description: Constricted, Anxious and Blunted Affect Description: Constricted, Fearful and Angry ( getting less) Ability to Follow Directions: Fair Speech Pattern: Perseverating and Spontaneous Speech Diagnostics Vital Signs (24Hr): Vital Signs - 24 hr 01/30/25 20:00 01/31/25 08:00 Temperature 97.9 F 97.0 F Pulse Rate 79 103 H Respiratory Rate 16 Blood Pressure 147/74 H 127/72 Pulse Oximetry 95 92 Oxygen Delivery Method Room Air Room Air BMI result Body Mass Index 26.7 Labs 01/24/25 06:55 01/23/25 15:05 Medications Medications Current Medications Acetaminophen (Acetaminophen 325 Mg Tablet) 650 mg PO Q6H PRN PRN Reason: Headache/Pain, Scale 1-10 Last Admin: 01/30/25 20:58 Dose: 650 mg Al Hydroxide/Mg Hydroxide (Magnesium Hydrox/Alum Hydrox 30 Ml Oral.Susp) 30 ml PO Q6H PRN PRN Reason: Heartburn/Nausea Aspirin (Aspirin Enteric Coated 81 Mg Tablet.) 81 mg PO DAILY [facility] Last Admin: 01/31/25 08:35 Dose: 81 mg Atorvastatin Calcium (Atorvastatin Calcium 80 Mg Tablet) 80 mg PO DAILY [facility] Last Admin: 01/31/25 08:36 Dose: 80 mg Calcitonin [place] (Calcitonin,[place],Synth Nasal 3.7 Ml Bottle) 1 spray NOSTRILALT DAILY [facility] Last Admin: 01/31/25 08:32 Dose: 1 spray Calcium Carbonate/Cholecalciferol (Calcium + Vitamin D 250 Mg Tablet) 250 mg PO DAILY [facility] Last Admin: 01/31/25 08:35 Dose: 250 mg Isosorbide Mononitrate (Isosorbide Mononitrate 60 Mg Tab.Er.24h) 60 mg PO DAILY [facility]; Protocol Last Admin: 01/31/25 08:35 Dose: 60 mg Magnesium Hydroxide (Milk Of Magnesia 30 Ml Oral.Susp) 30 ml PO DAILY PRN PRN Reason: Constipation Methocarbamol (Methocarbamol 750 Mg Tablet) 750 mg PO TID [facility] Last Admin: 01/31/25 08:35 Dose: 750 mg Metoprolol Succinate (Metoprolol Succinate Er 50 Mg Tab.Er.24h) 50 mg PO DAILY [facility]; Protocol Last Admin: 01/31/25 08:35 Dose: 50 mg Mirtazapine (Mirtazapine 7.5 Mg Tablet) 22.5 mg PO BEDTIME [facility] Last Admin: 01/30/25 20:54 Dose: 22.5 mg Multivitamins/Vitamin C (Multivitamin Tablet) 1 tab PO DAILY [facility] Last Admin: 01/31/25 08:35 Dose: 1 tab Nicotine (Nicotine 21 Mg Patch.Td24) 21 mg TRANSDERMA DAILY PRN PRN Reason: nicotine craving Nicotine Polacrilex (Nicotine Polacrilex 2 Mg Gum) 2 mg BUCCAL Q2H PRN PRN Reason: Nicotine Cravings Olanzapine (Olanzapine 2.5 Mg Tablet) 2.5 mg PO Q4H PRN PRN Reason: severe anxiety/agitation Last Admin: 01/28/25 14:55 Dose: 2.5 mg Oxycodone HCl (Oxycodone Hcl Immed Release 5 Mg Tablet) 2.5 mg PO Q6H PRN PRN Reason: Pain, Moderate(Pain Scale 7-10 Polyethylene Glycol (Polyethylene Glycol 3350 17 Gm Powd.Pack) 17 gm PO DAILY [facility] Last Admin: 01/31/25 08:35 Dose: Not Given Risperidone (Risperidone 0.5 Mg Tablet) 0.5 mg PO BID [facility] Last Admin: 01/31/25 08:36 Dose: 0.5 mg Senna/Docusate Sodium (Sennosides/Docusate Sodium Tablet) 1 tab PO DAILY [facility] Last Admin: 01/31/25 08:34 Dose: Not Given Vitamin D (Cholecalciferol (Vitamin D3) 25 Mcg Tablet) 25 mcg PO DAILY [facility] Last Admin: 01/31/25 08:35 Dose: 25 mcg Allergies Allergies Allergy/AdvReac Type Severity Reaction Status Date / Time No Known Allergies Allergy Verified 01/19/25 21:56 Assessment & Plan Assessment & Plan (1) Suicidal ideation: Status: Acute Code(s): R45.851 - Suicidal ideations (2) Severe anxiety: Status: Acute Code(s): F41.9 - Anxiety disorder, unspecified (3) Cognitive impairment: Status: Acute Code(s): R41.89 - Other symptoms and signs involving cognitive functions and awareness (4) HTN (hypertension): Status: Acute Code(s): I10 - Essential (primary) hypertension Plan Per Medicine: 84-year-old female past medical history listed below who presented to the ED with suicidal thoughts agitation and delirium. Admitted to inpatient geriatric psychiatric unit for further stabilization. Coronary artery disease/hypertension/history of [place] with coronary artery with coronary artery bypass graft in her LAD Stable with no symptoms, Continue aspirin, atorvastatin, Imdur, metoprolol Chronic kidney disease stage 2/hypertensive kidney disease/history of microscopic hematuria Creatinine of 0.57 with a GFR of 90 at baseline Avoid nephrotoxins Low back pain/recent kyphoplasty due to L1-L2 compression fracture Continue Robaxin and Tylenol 01/31/2025: No changes to current regimen. Remains eager for discharge. Declined lidocaine patches Reason for continued inpatient stay Substantial Risk for: rapid decompensation Time Spent With Patient Time: Total time managing care of this patient today ____ minutes.
--- NOTE | 2025-01-31 18:07 | PC.NURSE ---
Patient experiencing loose stool. Loperamide ordered and administered. Pending effect.
[2025-01-31 20:00] VITALS: BP 126/66; PULSE 86; RESP 16; TEMP 36.8; O2SAT 95
--- NOTE | 2025-02-01 07:48 | P.PNPSI_ITS ---
Subjective Subjective Date of Service: 02/01/25 Reason For Visit: SI, severe anxiety/restless/hopeless/helpless Subjective Notes: Conditional Voluntary Healthcare Proxy: Yes Interim History: met with patient. Discussed with Nursing. Overall continues to present as engaged. Less irritable Than yesterday. Reports less frustrated about being in the hospital and reflective upon same. Main frustration is being far away from home. That being said still eager for discharge. Denies depression, SI, agitation or psychosis. Sleep energy and appetite fair. Medication Compliance: Yes Side effects from medications: No Attending Groups: Yes Review of Systems Acute medical concerns: No Review of Systems Review of Systems Nothing acute Mental Status Exam Mental Status Exam Narrative: denies SI or HI. Patient Appearance: Appropriate Patient Orientation: Person, Place, Time and Situation Level of Consciousness: Awake (more alert) Patient Behavior: Anxious Mood Description: Constricted, Anxious and Blunted Affect Description: Constricted, Fearful and Angry ( getting less) Ability to Follow Directions: Fair Speech Pattern: Perseverating and Spontaneous Speech Diagnostics Vital Signs (24Hr): Vital Signs - 24 hr 01/31/25 08:00 01/31/25 20:00 Temperature 97.0 F 98.2 F Pulse Rate 103 H 86 Respiratory Rate 16 Blood Pressure 127/72 126/66 Pulse Oximetry 92 95 Oxygen Delivery Method Room Air Room Air BMI result Body Mass Index 26.7 Labs 01/24/25 06:55 01/23/25 15:05 Medications Medications Current Medications Acetaminophen (Acetaminophen 325 Mg Tablet) 650 mg PO Q6H PRN PRN Reason: Headache/Pain, Scale 1-10 Last Admin: 01/31/25 20:48 Dose: 650 mg Al Hydroxide/Mg Hydroxide (Magnesium Hydrox/Alum Hydrox 30 Ml Oral.Susp) 30 ml PO Q6H PRN PRN Reason: Heartburn/Nausea Aspirin (Aspirin Enteric Coated 81 Mg Tablet.) 81 mg PO DAILY [facility] Last Admin: 01/31/25 08:35 Dose: 81 mg Atorvastatin Calcium (Atorvastatin Calcium 80 Mg Tablet) 80 mg PO DAILY [facility] Last Admin: 01/31/25 08:36 Dose: 80 mg Calcitonin [place] (Calcitonin,[place],Synth Nasal 3.7 Ml Bottle) 1 spray NOSTRILALT DAILY [facility] Last Admin: 01/31/25 08:32 Dose: 1 spray Calcium Carbonate/Cholecalciferol (Calcium + Vitamin D 250 Mg Tablet) 250 mg PO DAILY [facility] Last Admin: 01/31/25 08:35 Dose: 250 mg Isosorbide Mononitrate (Isosorbide Mononitrate 60 Mg Tab.Er.24h) 60 mg PO DAILY [facility]; Protocol Last Admin: 01/31/25 08:35 Dose: 60 mg Loperamide HCl (Loperamide Hcl 2 Mg Capsule) 2 mg PO Q4H PRN PRN Reason: Diarrhea Last Admin: 01/31/25 18:01 Dose: 2 mg Magnesium Hydroxide (Milk Of Magnesia 30 Ml Oral.Susp) 30 ml PO DAILY PRN PRN Reason: Constipation Methocarbamol (Methocarbamol 750 Mg Tablet) 750 mg PO TID [facility] Last Admin: 01/31/25 20:49 Dose: 750 mg Metoprolol Succinate (Metoprolol Succinate Er 50 Mg Tab.Er.24h) 50 mg PO DAILY [facility]; Protocol Last Admin: 01/31/25 08:35 Dose: 50 mg Mirtazapine (Mirtazapine 7.5 Mg Tablet) 22.5 mg PO BEDTIME [facility] Last Admin: 01/31/25 20:48 Dose: 22.5 mg Multivitamins/Vitamin C (Multivitamin Tablet) 1 tab PO DAILY [facility] Last Admin: 01/31/25 08:35 Dose: 1 tab Nicotine (Nicotine 21 Mg Patch.Td24) 21 mg TRANSDERMA DAILY PRN PRN Reason: nicotine craving Nicotine Polacrilex (Nicotine Polacrilex 2 Mg Gum) 2 mg BUCCAL Q2H PRN PRN Reason: Nicotine Cravings Olanzapine (Olanzapine 2.5 Mg Tablet) 2.5 mg PO Q4H PRN PRN Reason: severe anxiety/agitation Last Admin: 01/28/25 14:55 Dose: 2.5 mg Oxycodone HCl (Oxycodone Hcl Immed Release 5 Mg Tablet) 2.5 mg PO Q6H PRN PRN Reason: Pain, Moderate(Pain Scale 7-10 Polyethylene Glycol (Polyethylene Glycol 3350 17 Gm Powd.Pack) 17 gm PO DAILY [facility] Last Admin: 01/31/25 08:35 Dose: Not Given Risperidone (Risperidone 0.5 Mg Tablet) 0.5 mg PO BID [facility] Last Admin: 01/31/25 20:49 Dose: 0.5 mg Senna/Docusate Sodium (Sennosides/Docusate Sodium Tablet) 1 tab PO DAILY [facility] Last Admin: 01/31/25 08:34 Dose: Not Given Vitamin D (Cholecalciferol (Vitamin D3) 25 Mcg Tablet) 25 mcg PO DAILY [facility] Last Admin: 01/31/25 08:35 Dose: 25 mcg Allergies Allergies Allergy/AdvReac Type Severity Reaction Status Date / Time No Known Allergies Allergy Verified 01/19/25 21:56 Assessment & Plan Assessment & Plan (1) Suicidal ideation: Status: Acute Code(s): R45.851 - Suicidal ideations (2) Severe anxiety: Status: Acute Code(s): F41.9 - Anxiety disorder, unspecified (3) Cognitive impairment: Status: Acute Code(s): R41.89 - Other symptoms and signs involving cognitive functions and awareness (4) HTN (hypertension): Status: Acute Code(s): I10 - Essential (primary) hypertension Plan Per Medicine: 84-year-old female past medical history listed below who presented to the ED with suicidal thoughts agitation and delirium. Admitted to inpatient geriatric psychiatric unit for further stabilization. Coronary artery disease/hypertension/history of [place] with coronary artery with coronary artery bypass graft in her LAD Stable with no symptoms, Continue aspirin, atorvastatin, Imdur, metoprolol Chronic kidney disease stage 2/hypertensive kidney disease/history of microscopic hematuria Creatinine of 0.57 with a GFR of 90 at baseline Avoid nephrotoxins Low back pain/recent kyphoplasty due to L1-L2 compression fracture Continue Robaxin and Tylenol 01/31/2025: No changes to current regimen. Remains eager for discharge. Declined lidocaine patches 02/01/2025: Less irritable. Remains eager for discharge Reason for continued inpatient stay Substantial Risk for: rapid decompensation Time Spent With Patient Time: Total time managing care of this patient today ____ minutes.
[2025-02-01 08:00] VITALS: BP 123/64; PULSE 97; TEMP 37.4; O2SAT 94
[2025-02-01 08:07] VITALS: BP 123/64
[2025-02-01 08:08] VITALS: BP 123/64; PULSE 97
[2025-02-01] MEDS: Calcium + Vitamin D 250 MG TABLET PO (08:08)
[2025-02-01] MEDS: Aspirin Enteric Coated 81 MG TABLET.DR PO (08:08)
[2025-02-01] MEDS: Metoprolol Succinate ER 50 MG TAB.ER.24H PO (08:08)
[2025-02-01] MEDS: Calcitonin,Salmon,Synth Nasal 3.7 ML BOTTLE 1 SPRAY NOSTRILALT (08:36)
[2025-02-01 20:00] VITALS: BP 138/70; PULSE 91; RESP 16; TEMP 36.5; O2SAT 94
[2025-02-02 08:17] VITALS: BP 125/65; PULSE 88; TEMP 37.1; O2SAT 94
[2025-02-02] MEDS: Calcium + Vitamin D 250 MG TABLET PO (08:19)
[2025-02-02] MEDS: Aspirin Enteric Coated 81 MG TABLET.DR PO (08:19)
[2025-02-02] MEDS: Metoprolol Succinate ER 50 MG TAB.ER.24H PO (08:20)
[2025-02-02] MEDS: Calcitonin,Salmon,Synth Nasal 3.7 ML BOTTLE 1 SPRAY NOSTRILALT (08:26)
--- NOTE | 2025-02-02 09:43 | PC.NURSE ---
Addendum entered by Ector Simons RN 02/02/25 09:45: Pt reported multiple loose stools over the weekend. Original Note: [facility] declined her 09:00 sennokot due to it being too effective. She reported her last BM was yesterday.
--- NOTE | 2025-02-02 09:45 | HO.PSYCHPN ---
Subjective Subjective Date of Service: 02/02/25 Reason For Visit: SI, severe anxiety/restless/hopeless/helpless Subjective Notes: Conditional Voluntary Healthcare Proxy: Yes Guardianship: No Interim History: Visible in the milieu, in NAD, wants to go home Medication Compliance: Yes Attending Groups: Intermittent Review of Systems Medical Review of Systems: unchanged Review of Systems Review of Systems No new/acute complaints Yes Unobtainable due to mental status and Other (no new complaints ROS some back pain following procedure) Mental Status Exam Mental Status Exam Narrative: denies SI or HI. Patient Appearance: Appropriate Patient Orientation: Person, Place, Time and Situation Level of Consciousness: Awake and Alert Patient Behavior: Appropriate Mood Description: Constricted and Anxious (significantly less) Affect Description: Constricted Ability to Follow Directions: Good Speech Pattern: Garbled (no dentures) and Coherent Hallucinations: None Delusions: Not Present Thought Process: Rumination and Goal Oriented Thought Content: positive for [place] and positive for Goal Oriented Judgement: Fair (limitations) Diagnostics Vital Signs (24Hr): Vital Signs - 24 hr 02/01/25 20:00 02/02/25 08:17 Temperature 97.7 F 98.7 F Pulse Rate 91 88 Respiratory Rate 16 Blood Pressure 138/70 125/65 Pulse Oximetry 94 94 Oxygen Delivery Method Room Air Room Air BMI result Body Mass Index 26.7 Labs 01/24/25 06:55 01/23/25 15:05 Medications Medications Current Medications Acetaminophen (Acetaminophen 325 Mg Tablet) 650 mg PO Q6H PRN PRN Reason: Headache/Pain, Scale 1-10 Last Admin: 02/02/25 08:39 Dose: 650 mg Al Hydroxide/Mg Hydroxide (Magnesium Hydrox/Alum Hydrox 30 Ml Oral.Susp) 30 ml PO Q6H PRN PRN Reason: Heartburn/Nausea Aspirin (Aspirin Enteric Coated 81 Mg Tablet.) 81 mg PO DAILY [facility] Last Admin: 02/02/25 08:19 Dose: 81 mg Atorvastatin Calcium (Atorvastatin Calcium 80 Mg Tablet) 80 mg PO DAILY [facility] Last Admin: 02/02/25 08:20 Dose: 80 mg Calcitonin [place] (Calcitonin,[place],Synth Nasal 3.7 Ml Bottle) 1 spray NOSTRILALT DAILY [facility] Last Admin: 02/02/25 08:26 Dose: 1 spray Calcium Carbonate/Cholecalciferol (Calcium + Vitamin D 250 Mg Tablet) 250 mg PO DAILY [facility] Last Admin: 02/02/25 08:19 Dose: 250 mg Isosorbide Mononitrate (Isosorbide Mononitrate 60 Mg Tab.Er.24h) 60 mg PO DAILY [facility]; Protocol Last Admin: 02/02/25 08:21 Dose: 60 mg Loperamide HCl (Loperamide Hcl 2 Mg Capsule) 2 mg PO Q4H PRN PRN Reason: Diarrhea Last Admin: 01/31/25 18:01 Dose: 2 mg Magnesium Hydroxide (Milk Of Magnesia 30 Ml Oral.Susp) 30 ml PO DAILY PRN PRN Reason: Constipation Methocarbamol (Methocarbamol 750 Mg Tablet) 750 mg PO TID [facility] Last Admin: 02/02/25 08:21 Dose: 750 mg Metoprolol Succinate (Metoprolol Succinate Er 50 Mg Tab.Er.24h) 50 mg PO DAILY [facility]; Protocol Last Admin: 02/02/25 08:20 Dose: 50 mg Mirtazapine (Mirtazapine 7.5 Mg Tablet) 22.5 mg PO BEDTIME [facility] Last Admin: 02/01/25 20:41 Dose: 22.5 mg Multivitamins/Vitamin C (Multivitamin Tablet) 1 tab PO DAILY [facility] Last Admin: 02/02/25 08:20 Dose: 1 tab Nicotine (Nicotine 21 Mg Patch.Td24) 21 mg TRANSDERMA DAILY PRN PRN Reason: nicotine craving Nicotine Polacrilex (Nicotine Polacrilex 2 Mg Gum) 2 mg BUCCAL Q2H PRN PRN Reason: Nicotine Cravings Olanzapine (Olanzapine 2.5 Mg Tablet) 2.5 mg PO Q4H PRN PRN Reason: severe anxiety/agitation Last Admin: 01/28/25 14:55 Dose: 2.5 mg Oxycodone HCl (Oxycodone Hcl Immed Release 5 Mg Tablet) 2.5 mg PO Q6H PRN PRN Reason: Pain, Moderate(Pain Scale 7-10 Polyethylene Glycol (Polyethylene Glycol 3350 17 Gm Powd.Pack) 17 gm PO DAILY [facility] Last Admin: 02/02/25 08:22 Dose: 17 gm Risperidone (Risperidone 0.5 Mg Tablet) 0.5 mg PO BID [facility] Last Admin: 02/02/25 08:20 Dose: 0.5 mg Senna/Docusate Sodium (Sennosides/Docusate Sodium Tablet) 1 tab PO DAILY [facility] Last Admin: 02/02/25 08:21 Dose: Not Given Vitamin D (Cholecalciferol (Vitamin D3) 25 Mcg Tablet) 25 mcg PO DAILY [facility] Last Admin: 02/02/25 08:21 Dose: 25 mcg Allergies Allergies Allergy/AdvReac Type Severity Reaction Status Date / Time No Known Allergies Allergy Verified 01/19/25 21:56 Assessment & Plan Assessment & Plan (1) HTN (hypertension): Status: Acute Code(s): I10 - Essential (primary) hypertension (2) Severe anxiety: Status: Acute Code(s): F41.9 - Anxiety disorder, unspecified (3) Suicidal ideation: Status: Acute Code(s): R45.851 - Suicidal ideations (4) Cognitive impairment: Status: Acute Code(s): R41.89 - Other symptoms and signs involving cognitive functions and awareness Plan Per Medicine: 84-year-old female past medical history listed below who presented to the ED with suicidal thoughts agitation and delirium. Admitted to inpatient geriatric psychiatric unit for further stabilization. Coronary artery disease/hypertension/history of [place] with coronary artery with coronary artery bypass graft in her LAD Stable with no symptoms, Continue aspirin, atorvastatin, Imdur, metoprolol Chronic kidney disease stage 2/hypertensive kidney disease/history of microscopic hematuria Creatinine of 0.57 with a GFR of 90 at baseline Avoid nephrotoxins Low back pain/recent kyphoplasty due to L1-L2 compression fracture Continue Robaxin and Tylenol Reason for continued inpatient stay Substantial Risk for: inability to function Time Spent With Patient Time: Total time managing care of this patient today __15__ minutes.
--- NOTE | 2025-02-02 10:52 | P.PNPSI_ITS ---
Subjective Subjective Reason For Visit: SI, severe anxiety/restless/hopeless/helpless Diagnostics Vital Signs (24Hr): Vital Signs - 24 hr 02/01/25 20:00 02/02/25 08:17 Temperature 97.7 F 98.7 F Pulse Rate 91 88 Respiratory Rate 16 Blood Pressure 138/70 125/65 Pulse Oximetry 94 94 Oxygen Delivery Method Room Air Room Air BMI result Body Mass Index 26.7 Labs 01/24/25 06:55 01/23/25 15:05 Medications Medications Current Medications Acetaminophen (Acetaminophen 325 Mg Tablet) 650 mg PO Q6H PRN PRN Reason: Headache/Pain, Scale 1-10 Last Admin: 02/02/25 08:39 Dose: 650 mg Al Hydroxide/Mg Hydroxide (Magnesium Hydrox/Alum Hydrox 30 Ml Oral.Susp) 30 ml PO Q6H PRN PRN Reason: Heartburn/Nausea Aspirin (Aspirin Enteric Coated 81 Mg Tablet.Dr) 81 mg PO DAILY [facility] Last Admin: 02/02/25 08:19 Dose: 81 mg Atorvastatin Calcium (Atorvastatin Calcium 80 Mg Tablet) 80 mg PO DAILY [facility] Last Admin: 02/02/25 08:20 Dose: 80 mg Calcitonin [place] (Calcitonin,[place],Synth Nasal 3.7 Ml Bottle) 1 spray NOSTRILALT DAILY [facility] Last Admin: 02/02/25 08:26 Dose: 1 spray Calcium Carbonate/Cholecalciferol (Calcium + Vitamin D 250 Mg Tablet) 250 mg PO DAILY [facility] Last Admin: 02/02/25 08:19 Dose: 250 mg Isosorbide Mononitrate (Isosorbide Mononitrate 60 Mg Tab.Er.24h) 60 mg PO DAILY [facility]; Protocol Last Admin: 02/02/25 08:21 Dose: 60 mg Loperamide HCl (Loperamide Hcl 2 Mg Capsule) 2 mg PO Q4H PRN PRN Reason: Diarrhea Last Admin: 01/31/25 18:01 Dose: 2 mg Magnesium Hydroxide (Milk Of Magnesia 30 Ml Oral.Susp) 30 ml PO DAILY PRN PRN Reason: Constipation Methocarbamol (Methocarbamol 750 Mg Tablet) 750 mg PO TID [facility] Last Admin: 02/02/25 08:21 Dose: 750 mg Metoprolol Succinate (Metoprolol Succinate Er 50 Mg Tab.Er.24h) 50 mg PO DAILY [facility]; Protocol Last Admin: 02/02/25 08:20 Dose: 50 mg Mirtazapine (Mirtazapine 7.5 Mg Tablet) 22.5 mg PO BEDTIME [facility] Last Admin: 02/01/25 20:41 Dose: 22.5 mg Multivitamins/Vitamin C (Multivitamin Tablet) 1 tab PO DAILY [facility] Last Admin: 02/02/25 08:20 Dose: 1 tab Nicotine (Nicotine 21 Mg Patch.Td24) 21 mg TRANSDERMA DAILY PRN PRN Reason: nicotine craving Nicotine Polacrilex (Nicotine Polacrilex 2 Mg Gum) 2 mg BUCCAL Q2H PRN PRN Reason: Nicotine Cravings Olanzapine (Olanzapine 2.5 Mg Tablet) 2.5 mg PO Q4H PRN PRN Reason: severe anxiety/agitation Last Admin: 01/28/25 14:55 Dose: 2.5 mg Oxycodone HCl (Oxycodone Hcl Immed Release 5 Mg Tablet) 2.5 mg PO Q6H PRN PRN Reason: Pain, Moderate(Pain Scale 7-10 Polyethylene Glycol (Polyethylene Glycol 3350 17 Gm Powd.Pack) 17 gm PO DAILY [facility] Last Admin: 02/02/25 08:22 Dose: 17 gm Risperidone (Risperidone 0.5 Mg Tablet) 0.5 mg PO BID [facility] Last Admin: 02/02/25 08:20 Dose: 0.5 mg Senna/Docusate Sodium (Sennosides/Docusate Sodium Tablet) 1 tab PO DAILY [facility] Last Admin: 02/02/25 08:21 Dose: Not Given Vitamin D (Cholecalciferol (Vitamin D3) 25 Mcg Tablet) 25 mcg PO DAILY [facility] Last Admin: 02/02/25 08:21 Dose: 25 mcg Allergies Allergies Allergy/AdvReac Type Severity Reaction Status Date / Time No Known Allergies Allergy Verified 01/19/25 21:56 Assessment & Plan Assessment & Plan (1) HTN (hypertension): Status: Acute Code(s): I10 - Essential (primary) hypertension (2) Severe anxiety: Status: Acute Code(s): F41.9 - Anxiety disorder, unspecified (3) Suicidal ideation: Status: Acute Code(s): R45.851 - Suicidal ideations (4) Cognitive impairment: Status: Acute Code(s): R41.89 - Other symptoms and signs involving cognitive functions and awareness Time Spent With Patient Time: Total time managing care of this patient today ____ minutes.
[2025-02-02 20:25] VITALS: BP 137/71; PULSE 86; RESP 15; TEMP 36.9; O2SAT 97
[2025-02-03 08:00] VITALS: BP 122/61; PULSE 92; TEMP 37.6; O2SAT 92
[2025-02-03] MEDS: Metoprolol Succinate ER 50 MG TAB.ER.24H PO (08:26)
[2025-02-03] MEDS: Aspirin Enteric Coated 81 MG TABLET.DR PO (08:26)
[2025-02-03] MEDS: Calcium + Vitamin D 250 MG TABLET PO (08:27)
[2025-02-03] MEDS: Calcitonin,Salmon,Synth Nasal 3.7 ML BOTTLE 1 SPRAY NOSTRILALT (14:59)
--- NOTE | 2025-02-03 17:38 | HO.PSYCHPN ---
Subjective Subjective Date of Service: 02/03/25 Reason For Visit: SI, severe anxiety/restless/hopeless/helpless Subjective Notes: Conditional Voluntary Healthcare Proxy: Yes Guardianship: No Interim History: Much clearer with reduction in medication doses, visible, ambulatory. biting in her remarks Medication Compliance: Yes Side effects from medications: No Attending Groups: Intermittent Review of Systems Review of Systems: No changes Review of Systems Review of Systems No new/acute complaints Mental Status Exam Mental Status Exam Narrative: denies SI or HI. Patient Appearance: Appropriate Patient Orientation: Person, Place, Time and Situation Level of Consciousness: Awake and Alert Patient Behavior: Appropriate and Anxious Mood Description: Constricted and Anxious (significantly less) Affect Description: Constricted Ability to Follow Directions: Good Speech Pattern: Coherent Hallucinations: None Delusions: Not Present Thought Content: positive for Goal Oriented and positive for Preoccupation Judgement: Fair (limited ) Diagnostics Vital Signs (24Hr): Vital Signs - 24 hr 02/02/25 20:25 02/03/25 08:00 Temperature 98.4 F 99.7 F Pulse Rate 86 92 Respiratory Rate 15 Blood Pressure 137/71 122/61 Pulse Oximetry 97 92 Oxygen Delivery Method Room Air Room Air BMI result Body Mass Index 26.7 Labs 01/24/25 06:55 01/23/25 15:05 Medications Medications Current Medications Acetaminophen (Acetaminophen 325 Mg Tablet) 650 mg PO Q6H PRN PRN Reason: Headache/Pain, Scale 1-10 Last Admin: 02/03/25 15:01 Dose: 650 mg Al Hydroxide/Mg Hydroxide (Magnesium Hydrox/Alum Hydrox 30 Ml Oral.Susp) 30 ml PO Q6H PRN PRN Reason: Heartburn/Nausea Aspirin (Aspirin Enteric Coated 81 Mg Tablet.Dr) 81 mg PO DAILY [facility] Last Admin: 02/03/25 08:26 Dose: 81 mg Atorvastatin Calcium (Atorvastatin Calcium 80 Mg Tablet) 80 mg PO DAILY [facility] Last Admin: 02/03/25 08:27 Dose: 80 mg Calcitonin [place] (Calcitonin,[place],Synth Nasal 3.7 Ml Bottle) 1 spray NOSTRILALT DAILY [facility] Last Admin: 02/03/25 14:59 Dose: 1 spray Calcium Carbonate/Cholecalciferol (Calcium + Vitamin D 250 Mg Tablet) 250 mg PO DAILY [facility] Last Admin: 02/03/25 08:27 Dose: 250 mg Isosorbide Mononitrate (Isosorbide Mononitrate 60 Mg Tab.Er.24h) 60 mg PO DAILY [facility]; Protocol Last Admin: 02/03/25 08:27 Dose: 60 mg Loperamide HCl (Loperamide Hcl 2 Mg Capsule) 2 mg PO Q4H PRN PRN Reason: Diarrhea Last Admin: 01/31/25 18:01 Dose: 2 mg Magnesium Hydroxide (Milk Of Magnesia 30 Ml Oral.Susp) 30 ml PO DAILY PRN PRN Reason: Constipation Methocarbamol (Methocarbamol 750 Mg Tablet) 750 mg PO TID [facility] Last Admin: 02/03/25 15:00 Dose: 750 mg Metoprolol Succinate (Metoprolol Succinate Er 50 Mg Tab.Er.24h) 50 mg PO DAILY [facility]; Protocol Last Admin: 02/03/25 08:26 Dose: 50 mg Mirtazapine (Mirtazapine 7.5 Mg Tablet) 22.5 mg PO BEDTIME [facility] Last Admin: 02/02/25 20:27 Dose: 22.5 mg Multivitamins/Vitamin C (Multivitamin Tablet) 1 tab PO DAILY [facility] Last Admin: 02/03/25 08:27 Dose: 1 tab Nicotine (Nicotine 21 Mg Patch.Td24) 21 mg TRANSDERMA DAILY PRN PRN Reason: nicotine craving Nicotine Polacrilex (Nicotine Polacrilex 2 Mg Gum) 2 mg BUCCAL Q2H PRN PRN Reason: Nicotine Cravings Olanzapine (Olanzapine 2.5 Mg Tablet) 2.5 mg PO Q4H PRN PRN Reason: severe anxiety/agitation Last Admin: 01/28/25 14:55 Dose: 2.5 mg Oxycodone HCl (Oxycodone Hcl Immed Release 5 Mg Tablet) 2.5 mg PO Q6H PRN PRN Reason: Pain, Moderate(Pain Scale 7-10 Polyethylene Glycol (Polyethylene Glycol 3350 17 Gm Powd.Pack) 17 gm PO DAILY [facility] Last Admin: 02/03/25 08:33 Dose: Not Given Risperidone (Risperidone 0.5 Mg Tablet) 0.5 mg PO BID [facility] Last Admin: 02/03/25 08:27 Dose: 0.5 mg Senna/Docusate Sodium (Sennosides/Docusate Sodium Tablet) 1 tab PO DAILY [facility] Last Admin: 02/03/25 08:33 Dose: Not Given Vitamin D (Cholecalciferol (Vitamin D3) 25 Mcg Tablet) 25 mcg PO DAILY [facility] Last Admin: 02/03/25 08:27 Dose: 25 mcg Allergies Allergies Allergy/AdvReac Type Severity Reaction Status Date / Time No Known Allergies Allergy Verified 01/19/25 21:56 Assessment & Plan Assessment & Plan (1) Suicidal ideation: Status: Acute Code(s): R45.851 - Suicidal ideations (2) Severe anxiety: Status: Acute Code(s): F41.9 - Anxiety disorder, unspecified (3) Cognitive impairment: Status: Acute Code(s): R41.89 - Other symptoms and signs involving cognitive functions and awareness (4) HTN (hypertension): Status: Acute Code(s): I10 - Essential (primary) hypertension Plan 84-year-old female past medical history listed below who presented to the ED with suicidal thoughts agitation and delirium. Admitted to inpatient geriatric psychiatric unit for further stabilization. Unable to function, confused, marked anxiety and SI no plan/intent Coronary artery disease/hypertension/history of NC with coronary artery with coronary artery bypass graft in her LAD Stable with no symptoms, Continue aspirin, atorvastatin, Imdur, metoprolol Chronic kidney disease stage 2/hypertensive kidney disease/history of microscopic hematuria Creatinine of 0.57 with a GFR of 90 at baseline Avoid nephrotoxins Low back pain/recent kyphoplasty due to L1-L2 compression fracture Continue Robaxin and Tylenol Reason for continued inpatient stay Substantial Risk for: inability to function Time Spent With Patient Time: Total time managing care of this patient today ____ minutes.
[2025-02-03 19:54] VITALS: BP 145/72; PULSE 81; RESP 16; TEMP 36.3; O2SAT 97
[2025-02-04 08:00] VITALS: BP 107/57; PULSE 88; RESP 16; O2SAT 94
[2025-02-04] MEDS: Calcium + Vitamin D 250 MG TABLET PO (08:28)
[2025-02-04] MEDS: Aspirin Enteric Coated 81 MG TABLET.DR PO (08:28)
[2025-02-04] MEDS: Metoprolol Succinate ER 50 MG TAB.ER.24H PO (08:29)
[2025-02-04] MEDS: Calcitonin,Salmon,Synth Nasal 3.7 ML BOTTLE 1 SPRAY NOSTRILALT (08:32)
--- NOTE | 2025-02-04 09:23 | PM.PSYDC ---
DS: Providers Provider Date of Service: 02/04/25 Date of admission: 01/19/25 21:47 Date of discharge: 02/04/25 Primary care physician: Unknown Physician Admitting clinician: Jasen Mccartney Attending physician on admission: Jasen Mccartney Consults: 01/19/25 22:37 Consult to Hospitalist Routine Comment: Consulting Provider: [facility] Hospitalists Reason For Exam: admission physical Attending physician on discharge: Jasen Mccartney Discharging clinician: Jasen Mccartney DS: Diagnosis Discharge Diagnosis (1) Severe anxiety: Status: Acute (2) Confusion caused by a drug: Status: Acute (3) Suicidal ideation: Status: Acute (4) Cognitive impairment: Status: Acute (5) HTN (hypertension): Status: Acute DS: Medications Discharge Medications Home Medications: Home Medications ?Medication ?Instructions ?Recorded ?Confirmed aspirin 81 mg tablet 81 mg PO DAILY 01/19/25 01/19/25 atorvastatin 80 mg tablet 80 mg PO DAILY 01/19/25 01/19/25 calcitonin (salmon) 200 1 spray intranasal (ALT) DAILY 01/19/25 01/19/25 unit/actuation nasal spray calcium 600 mg (as 1 tab PO DAILY 01/19/25 01/19/25 carbonate)-vitamin D3 20 mcg (800 unit) tablet (Caltrate with Vitamin D3) methocarbamol 750 mg tablet 750 mg PO QID 01/19/25 01/19/25 olanzapine 2.5 mg tablet 1.25 mg PO TID 01/19/25 01/19/25 oxycodone 5 mg tablet 5 mg PO Q8H PRN Pain (Scale Score 01/19/25 01/19/25 7-10) polyethylene glycol 3350 17 gram 17 g PO DAILY 01/19/25 01/19/25 oral powder packet sennosides 8.6 mg-docusate sodium 1 tab PO DAILY 01/19/25 01/19/25 50 mg tablet (Senexon-S) Previous Rx's ?Medication ?Instructions ?Recorded acetaminophen 325 mg tablet 650 mg (2 x 325 mg) PO Q6H PRN 02/04/25 Headache/Pain #120 tabs aspirin 81 mg tablet,delayed 81 mg PO DAILY #30 tabs 02/04/25 release atorvastatin 80 mg tablet 80 mg PO DAILY #30 tabs 02/04/25 calcitonin (salmon) 200 1 spray intranasal (ALT) DAILY 02/04/25 unit/actuation nasal spray #3.7 mL cholecalciferol (vitamin D3) 25 25 mcg PO DAILY #30 tabs 02/04/25 mcg (1,000 unit) tablet isosorbide mononitrate 30 mg 60 mg (2 x 30 mg) PO DAILY #30 tabs 02/04/25 tablet,extended release 24 hr isosorbide mononitrate 60 mg 60 mg PO DAILY #30 tabs 02/04/25 tablet,extended release 24 hr methocarbamol 750 mg tablet 750 mg PO TID #30 tabs 02/04/25 metoprolol succinate 50 mg 50 mg PO DAILY #30 tabs 02/04/25 tablet,extended release 24 hr metoprolol succinate 50 mg 50 mg PO DAILY #30 tabs 02/04/25 tablet,extended release 24 hr mirabegron 25 mg tablet,extended 25 mg PO DAILY #30 tabs 02/04/25 release 24 hr mirtazapine 7.5 mg tablet 22.5 mg (3 x 7.5 mg) PO BEDTIME 02/04/25 #90 tabs multivitamin 1 tab PO QAM #30 tabs 02/04/25 polyethylene glycol 3350 17 gram 17 g PO DAILY #30 ea 02/04/25 oral powder packet risperidone 0.5 mg tablet 0.5 mg PO BID #60 tabs 02/04/25 sennosides 8.6 mg-docusate sodium 1 tab PO DAILY #30 tabs 02/04/25 50 mg tablet (Senna Plus) vibegron 75 mg tablet (Gemtesa) 75 mg PO DAILY #30 tabs 02/04/25 Mental Status Exam Mental Status Exam Patient Appearance: Appropriate Patient Orientation: Person, Place, Time and Situation Level of Consciousness: Awake and Alert Patient Behavior: Appropriate Mood Description: Calm and Constricted Affect Description: Constricted Ability to Follow Directions: Good Speech Pattern: Garbled (not wearing dentures) and Spontaneous Speech Hallucinations: None Delusions: Not Present Thought Process: Goal Oriented Thought Content: positive for Perseveration (occasionally, much improved) and positive for Logical Judgement: Fair (limited) Data Data Completed and Pending Completed studies during hospitalization [Text1]: 01/23/25 Unknown Urine clean catch Urine Culture - Final Strep agalactiae (Grp B) DS: Summary Hospital Course Hospital Course: Chief Complaint: SI, severe anxiety/restless/hopeless/helpless Sources of Information: patient interviewed, chart reviewed and crisis/core team assessment reviewed Additional Sources of Information: Interviewed patient with son, daughter and present. Patient had difficulties providing history, her accounts given her variably reporting/denying information provided by family and/or obtained from record. She could not give a relevant account of the time line or progression of her symptoms and family members noted there had been some gradual decrease in ability to function cognitively which had markedly worsened after the accident, namely her suffering a fall while on the train in [place], falling in her back and breaking some vertebrae which caused significant pain. She recently had a kyphoplasty for treatment and says he still struggles with pain. She is confused about what medications to take and when/how, and says she had seen different doctors who have ordered/changed/discontinued/added then medications. She had been admitted to [facility] with unremitting severe anxiety, inability to function, pain and AMS/delirium, as well as verbalizing SI. She denies current plan/intent to end her life but said that feels hopeless and maybe it is the only way to feel better as nothing will work to recover her prior cognitive abilities. Patient presented as restless, distraught, wringing hands, and expressing helplessness and helplessness. She could not provide an timeline, description or her interpretation of reason for her symptoms. She said she was in pain, was not in pain and then that she was in pain, and was unable to clarify what she meant. wasin pain again. She addressed her and children, in a frenzy, about her experience of things never improving. Through the extended meeting she was sighing loudly, rolling her eyes impatiently and complaining about having to talk to someone else. We suggested she take a break, and family and I could talk briefly. She could not decide whether to do so or not, and said I should address my questions to family only. When family offered to answer, she became agitated, stating they could not know how she felt and what her experiences were. She continued to talk uninterruptedly and in a fragmented manner, perseverating on her distress and how she could not function anymore. She could not respond clearly even to concrete questions. She was unwilling to leave the room to get some rest. She voiced feelings of despair and suicidal/ thoughts without plan/intent bc that would be the only way to stop feeling as she did. She said she was seeing vapor or smoke in the air and made other comments about experiencing acute perceptual disturbances recently (she was medically admitted, treated for delirum and referred to [facility] once cleared medically). According to referring MD, she had not not been requesting/receiving opiates, Information from family, mainly son- Patient was able to function better, was sharp , active, always 'on top of things (bills/house related issues/insurance), 'in control of everything,' but now progressively less able to do so and much more anxious. Patient says she cannot do any of that anymore and it will never be the same. She presented as extremely anxious, confused, restless, with some agitation, very distraught. She ruminated about not being able to function. She could not tell me what she felt had changed, perseverating on insurance and bills dedspite son trying to reassure her, to no avail. She endorsed pain, although omntana had reported it was in control before she arrived and it had just started. Per referring doctor, pain was in control and no longer taking opioids. Patient was ruminative, constantly talking about her being unable to engage in usual activities and intellectual pursuits, which caused her to feel hopeless/helpless. Patient presented was restless, angst-ridden, distraught and unable to appreciate her situation and seems unable to accept or recall information given, interrupting others to give information and perseverating about medical insurance, bills, finances, insurance. She dismissed input from son/daughter who have been helping with these issues. She did not mention at all the fall in the train or bring up whether she believed recent medical issues could be in any way affecting her mental health. Patient was admitted to [facility] psychiatry unit. She was monitored for safety, assessed psychiatrically, by nursing re: ADLs/ambulation Her medication regime was reviewed and doses were reduced to account for presentation (severe anxiety, confusion, decreased functioning, c/o unable to walk at all. Methocarbamol dose was changed from QID to TID, opiate dose kept at 2.5 mg and kept as PRN. She received low dose of Olanzapine initially in admission but seemed to become sedated even at that dose, This was switched to Risperidone to help with confusion/delirium. Mirtazapine ordered for depression/anxiety and titrated to 22.5 mg qhs. Patient was followed up as needed by medicine. Routine labs completed, patient had H/P and f/u as needed. U/A showed 10k-50k strep B, which was reviewed with medicine and recommended no treatment unless new sxs Family meeting was completed last week with 2 children and patient's , to discuss findings and progress, findings, dx impression and recommendations. Patient had been increasingly less depressed and engaged in short conversations. She engaged in verbal interaction which was organized, purposeful, goal directed and a bit sarcastic. and family acknowledged she was doing much better and we agreed to observe for changes over the w/e and if she remained stable she would be dc'd next week. Patient remained in good control, w/o SI/HI/, w/o gross disorganization, suicidal ideas and able to ambulate with walker. SW finalized hy SW. Pstient stable and improvrd on dc Time spent discussing smoking cessation with patient: 3 to 10 minutes Status at Discharge Cognitive/behavioral status at discharge: No longer confused, clear mental status Functional status at discharge: uses cane/walker Time Spent with Patient Time attestation: Total time managing care of this patient today ____ minutes. Time spent: Greater than 30 minutes Discharge Plan Discharge Anticipated Discharge Date/Time: 02/04/25 09:48 Patient Disposition: Home, Self-Care Discharge Diagnosis: confusion due to medication, severe anxiety, s/p kyphoplasty Referrals: Dez Gama MD [Other] - 02/13/25 4:15 pm Referral Note: Your appointment with will be as schedule on 02/13/25 at 4:15pm. I've made them aware of your [facility] referral as well. If you need to reschedule or cancel the appointment please call the number listed. [facility] [Other] - 3-5 Days Referral Note: A referral has been placed for home services. They will call to set up an evaluation of services. Your field case manager is Janet Donovan, if you have any questions please call the number listed and ask for her. She will be reaching out to you after discharge. Eliazar Jones MD [Other] - 02/10/25 1:45 pm Referral Note: You will see on 02/10/25 at 1:45pm. This will be a follow up appointment after your surgery. If you need to cancel or reschedule the appointment please call the number listed. Marie Sevilla PMHNP [Other] - 02/20/25 2:00 pm Referral Note: Your new psycitrist will be Marie Sevilla, you will be seeing her in person at the [place] office. Please arrive 15 minute early to the appointment to complete intake appointment. There will be a 10$ co pay per session. If you need to cancel or reschedule the appointment please call the number listed. Discharge Medications: New methocarbamol 750 mg Tablet 750 mg PO TID Qty: 30 0RF atorvastatin 80 mg Tablet 80 mg PO DAILY Qty: 30 0RF metoprolol succinate 50 mg Tablet Extended Release 24 Hr 50 mg PO DAILY Qty: 30 0RF Protocol: Hold for SBP/HR < HOLD for SBP < : 90 HOLD for HR < : 60 isosorbide mononitrate 60 mg Tablet Extended Release 24 Hr 60 mg PO DAILY Qty: 30 0RF Protocol: Hold for SBP< HOLD for SBP < : 90 aspirin 81 mg Tablet,Delayed Release (Dr/Ec) 81 mg PO DAILY Qty: 30 0RF risperidone 0.5 mg Tablet 0.5 mg PO BID Qty: 60 0RF oxycodone 5 mg Tablet 2.5 mg PO Q6H PRN (Reason: Pain, Moderate(Pain Scale 7-10) Qty: 0 0RF Rx Instructions: Partial Fill upon patient request. mirtazapine 7.5 mg Tablet 22.5 mg PO BEDTIME Qty: 90 0RF polyethylene glycol 3350 17 gram Powder In Packet 17 g PO DAILY Qty: 30 0RF calcitonin (salmon) 200 unit/actuation [place],Non-Aerosol 1 spray intranasal (ALT) DAILY Qty: 3.7 0RF sennosides-docusate sodium [Senna Plus] 8.6-50 mg Tablet 1 tab PO DAILY Qty: 30 0RF acetaminophen 325 mg Tablet 650 mg PO Q6H MDD 3 PRN (Reason: Headache/Pain) Qty: 120 0RF Continued mirabegron 25 mg tablet extended release 24 hr 25 mg PO DAILY Qty: 30 0RF multivitamin Tablet 1 tab PO QAM Qty: 30 0RF metoprolol succinate 50 mg tablet extended release 24 hr 50 mg PO DAILY Qty: 30 0RF isosorbide mononitrate 30 mg tablet extended release 24 hr 60 mg PO DAILY Qty: 30 0RF cholecalciferol (vitamin D3) 25 mcg (1,000 unit) Tablet 25 mcg PO DAILY Qty: 30 0RF calcium carbonate-vitamin D3 [Caltrate with Vitamin D3] 600 mg-20 mcg (800 unit) Tablet 1 tab PO DAILY Qty: 30 0RF Gemtesa 75 mg tablet 75 mg PO DAILY Qty: 30 0RF Discontinued atorvastatin 80 mg tablet 80 mg PO DAILY methocarbamol 750 mg tablet 750 mg PO QID olanzapine 2.5 mg tablet 1.25 mg PO TID aspirin 81 mg Tablet 81 mg PO DAILY calcitonin (salmon) 200 unit/actuation spray,non-aerosol 1 spray intranasal (ALT) DAILY oxycodone 5 mg tablet 5 mg PO Q8H PRN (Reason: Pain (Scale Score 7-10)) polyethylene glycol 3350 17 gram Powder In Packet 17 g PO DAILY sennosides-docusate sodium [Senexon-S] 8.6-50 mg tablet 1 tab PO DAILY Discharge Orders: Discharge Order (Routine); Ordered 02/04/25 Ordered By: Jasen Mccartney Diet: Advance to usual diet Activity on Discharge: Use cane or walker Stand Alone Forms: Patient Portal Discharge page Print Language: [place] Care Plan Goals: Take medications as prescribed on discharge to prevent risk of confusion/delirium Continue care with OP medical and psychiatric providers as scheduled by 7th grade social studies teacher Maintaing good symptomatic control, seek medical attention in ED or through your PCP/psychiatric provider if symptoms recur Health Concerns: Confusional state due to medications; severe anxiety; suicidal thoughts (resolved) and maintain safe behaviors Plan of Treatment: f/u with PCP and psychiatric providers and other outpatient providers Take medications as prescribed Assessment: Patient is future oriented, without SI/HI/, manic, depressive or psychotic symptoms. She is now able to ambulate with walker, is eating and sleeping. Patient has improved as far as her mental status and inability to function on admission. Patient and family are agreable with continuation of treatment and with assessment by elder services to determine needs and provide extra supports at home. Patient's risk of imminent harm to self/others is mitigated by treatment, family supports, future oriented thinking, no substance use, no SI/HI/. Daughter will be spending more time with parents after discharge and other needs for assistance at home will be evaluated and addressed in the community per who reports referrals are in place. Patient/family to call 911 or go to ED if resurgence of symptoms, SI/HI/, altered mental status. Discharge Date/Time: 02/04/25 11:15
--- NOTE | 2025-02-04 09:57 | HO.PSYCHPN ---
Subjective Subjective Reason For Visit: SI, severe anxiety/restless/hopeless/helpless Diagnostics Vital Signs (24Hr): Vital Signs - 24 hr 02/03/25 19:54 Temperature 97.4 F Pulse Rate 81 Respiratory Rate 16 Blood Pressure 145/72 H Pulse Oximetry 97 Oxygen Delivery Method Room Air BMI result Body Mass Index 26.7 Labs 01/24/25 06:55 01/23/25 15:05 Medications Medications Current Medications Acetaminophen (Acetaminophen 325 Mg Tablet) 650 mg PO Q6H PRN PRN Reason: Headache/Pain, Scale 1-10 Last Admin: 02/03/25 22:12 Dose: 650 mg Al Hydroxide/Mg Hydroxide (Magnesium Hydrox/Alum Hydrox 30 Ml Oral.Susp) 30 ml PO Q6H PRN PRN Reason: Heartburn/Nausea Aspirin (Aspirin Enteric Coated 81 Mg Tablet.Dr) 81 mg PO DAILY [facility] Last Admin: 02/04/25 08:28 Dose: 81 mg Atorvastatin Calcium (Atorvastatin Calcium 80 Mg Tablet) 80 mg PO DAILY [facility] Last Admin: 02/04/25 08:28 Dose: 80 mg Calcitonin [place] (Calcitonin,[place],Synth Nasal 3.7 Ml Bottle) 1 spray NOSTRILALT DAILY [facility] Last Admin: 02/04/25 08:32 Dose: 1 spray Calcium Carbonate/Cholecalciferol (Calcium + Vitamin D 250 Mg Tablet) 250 mg PO DAILY [facility] Last Admin: 02/04/25 08:28 Dose: 250 mg Isosorbide Mononitrate (Isosorbide Mononitrate 60 Mg Tab.Er.24h) 60 mg PO DAILY [facility]; Protocol Last Admin: 02/04/25 08:28 Dose: 60 mg Loperamide HCl (Loperamide Hcl 2 Mg Capsule) 2 mg PO Q4H PRN PRN Reason: Diarrhea Last Admin: 01/31/25 18:01 Dose: 2 mg Magnesium Hydroxide (Milk Of Magnesia 30 Ml Oral.Susp) 30 ml PO DAILY PRN PRN Reason: Constipation Methocarbamol (Methocarbamol 750 Mg Tablet) 750 mg PO TID [facility] Last Admin: 02/04/25 08:29 Dose: 750 mg Metoprolol Succinate (Metoprolol Succinate Er 50 Mg Tab.Er.24h) 50 mg PO DAILY [facility]; Protocol Last Admin: 02/04/25 08:29 Dose: 50 mg Mirtazapine (Mirtazapine 7.5 Mg Tablet) 22.5 mg PO BEDTIME [facility] Last Admin: 02/03/25 19:57 Dose: 22.5 mg Multivitamins/Vitamin C (Multivitamin Tablet) 1 tab PO DAILY [facility] Last Admin: 02/04/25 08:28 Dose: 1 tab Nicotine (Nicotine 21 Mg Patch.Td24) 21 mg TRANSDERMA DAILY PRN PRN Reason: nicotine craving Nicotine Polacrilex (Nicotine Polacrilex 2 Mg Gum) 2 mg BUCCAL Q2H PRN PRN Reason: Nicotine Cravings Olanzapine (Olanzapine 2.5 Mg Tablet) 2.5 mg PO Q4H PRN PRN Reason: severe anxiety/agitation Last Admin: 01/28/25 14:55 Dose: 2.5 mg Oxycodone HCl (Oxycodone Hcl Immed Release 5 Mg Tablet) 2.5 mg PO Q6H PRN PRN Reason: Pain, Moderate(Pain Scale 7-10 Polyethylene Glycol (Polyethylene Glycol 3350 17 Gm Powd.Pack) 17 gm PO DAILY [facility] Last Admin: 02/04/25 08:29 Dose: Not Given Risperidone (Risperidone 0.5 Mg Tablet) 0.5 mg PO BID [facility] Last Admin: 02/04/25 08:29 Dose: 0.5 mg Senna/Docusate Sodium (Sennosides/Docusate Sodium Tablet) 1 tab PO DAILY [facility] Last Admin: 02/03/25 08:33 Dose: Not Given Vitamin D (Cholecalciferol (Vitamin D3) 25 Mcg Tablet) 25 mcg PO DAILY [facility] Last Admin: 02/04/25 08:28 Dose: 25 mcg Allergies Allergies Allergy/AdvReac Type Severity Reaction Status Date / Time No Known Allergies Allergy Verified 01/19/25 21:56 Assessment & Plan Assessment & Plan (1) Severe anxiety: Status: Acute Code(s): F41.9 - Anxiety disorder, unspecified (2) Confusion caused by a drug: Status: Acute Code(s): R41.0 - Disorientation, unspecified; T50.905A - Adverse effect of unspecified drugs, medicaments and biological substances, initial encounter (3) Suicidal ideation: Status: Acute Code(s): R45.851 - Suicidal ideations (4) Cognitive impairment: Status: Acute Code(s): R41.89 - Other symptoms and signs involving cognitive functions and awareness (5) HTN (hypertension): Status: Acute Code(s): I10 - Essential (primary) hypertension (6) CAD (coronary artery disease): Status: Acute Code(s): I25.10 - Atherosclerotic heart disease of [place] coronary artery without angina pectoris (7) History of kyphoplasty: Status: Acute Code(s): Z98.890 - Other specified postprocedural states (8) Low bone density: Status: Acute Code(s): M85.9 - Disorder of bone density and structure, unspecified Plan 84-year-old female past medical history listed below who presented to the ED with suicidal thoughts agitation and delirium. Admitted to inpatient geriatric psychiatric unit for further stabilization. Psychiatry: Severe anxiety, confusion with inability to function associated with recent medication additions following surgical procedure Medical Coronary artery disease/hypertension/history of [place] with coronary artery with coronary artery bypass graft in her LAD Stable with no symptoms, Continue aspirin, atorvastatin, Imdur, metoprolol Chronic kidney disease stage 2/hypertensive kidney disease/history of microscopic hematuria Creatinine of 0.57 with a GFR of 90 at baseline Avoid nephrotoxins Low back pain/recent kyphoplasty due to L1-L2 compression fracture Continue Robaxin and Tylenol, prn Oxycodone Time Spent With Patient Time: Total time managing care of this patient today ____ minutes.
== END 2025-02-04 11:15 | disposition home or self-care (01) | DRG 880 ==
PROVIDERS: Nurse Practitioner Psychiatric/Mental Health; Admitting Provider Psychiatry & Neurology Forensic Psychiatry; Visit Provider Psychiatry & Neurology Forensic Psychiatry
DX: F41.9 Anxiety disorder, unspecified (principal); R45.851 Suicidal ideations; F05 Delirium due to known physiological condition; I25.10 Atherosclerotic heart disease of native coronary artery without angina pectoris; I12.9 Hypertensive chronic kidney disease with stage 1 through stage 4 chronic kidney disease, or unspecified chronic kidney disease; N18.2 Chronic kidney disease, stage 2 (mild); Z95.1 Presence of aortocoronary bypass graft; Z79.82 Long term (current) use of aspirin; Z79.899 Other long term (current) drug therapy
CPT/HCPCS: 36415; 80053; 80061; 81001; 81003; 82140; 82310; 82607; 83036; 83735; 84100; 84439; 84443; 85025; 87086; 87147; 92610; 97161

== ENCOUNTER → 2025-01-19 21:47 | Outpatient (BNV) | payer MEDICARE, SELFPAY | PROVIDERS: Admitting Provider Psychiatry & Neurology Forensic Psychiatry; Visit Provider Psychiatry & Neurology Forensic Psychiatry | DX: F41.9 Anxiety disorder, unspecified (principal); I10 Essential (primary) hypertension; R45.851 Suicidal ideations | CPT/HCPCS: 99232 ==

== ENCOUNTER → 2025-01-19 21:47 | Outpatient (BNV) | payer MEDICARE, SELFPAY | PROVIDERS: Admitting Provider Psychiatry & Neurology Forensic Psychiatry; Visit Provider Nurse Practitioner Family | DX: I10 Essential (primary) hypertension (principal) | CPT/HCPCS: 99221 ==